=== PATIENT | female | born 1960 | race Caucasian/White ===

== ENCOUNTER 2024-05-09 12:46 | Inpatient (IN) ==
[2024-05-09 13:41] LABS: Basophils # (auto) 0.02 K/uL (0.00-0.20); Basophils % (auto) 0.3 %; Eosinophils # (auto) 0.14 K/uL (0.00-0.50); Eosinophils % (auto) 2.1 %; Hematocrit (blood only) 35.5 % (37.0-47.0); Hemoglobin 11.7 g/dl (12.0-16.0); Immature Granulocytes # (auto) 0.01 K/uL (0.01-0.20); Immature Granulocytes % (auto) 0.2 %; Lymphocytes # (auto) 2.67 K/uL (1.20-3.40); Lymphocytes % (auto) 40.5 %; Mean Corpuscular Hemoglobin 30.5 pg (25.0-34.0); Mean Corpuscular Volume 92.7 fL (80.0-100.0); Mean Platelet Volume 10.3 fL (9.4-12.4); Monocytes # (auto) 0.41 K/uL (0.11-0.59); Monocytes % (auto) 6.2 %; Neutrophils # (auto) 3.34 K/uL (1.40-6.50); Neutrophils % (auto) 50.7 %; Platelet Count 238 K/uL (130-400); RDW Coefficient of Variation 13.5 % (11.5-14.5); RDW Standard Deviation 45.5 fL (36.4-46.3); Red Blood Count 3.83 M/uL (4.20-5.40); White Blood Count 6.59 K/ul (4.8-10.8)
[2024-05-09 14:03] LABS: Alanine Aminotransferase 6 U/L (7-52); Albumin Globulin Ratio 1.2 (0.9-2); Albumin Level 4.2 gm/dl (3.4-5.0); Alkaline Phosphatase 60 U/L (34-104); Anion Gap 5 (3-11); BUN Creatinine Ratio 10.3 (10-20); Bilirubin,Total 0.3 mg/dl (0.2-1.0); Blood Urea Nitrogen 13 mg/dl (6-23); Calcium 9.8 mg/dl (8.6-10.3); Carbon Dioxide 29 mmol/L (21-32); Chloride 100 mmol/L (98-107); Globulin 3.6 gm/dl (2.5-4.0); Glucose 113 mg/dl (70-99(Fasting)); Sodium 134 mmol/L (136-145); Total Protein 7.8 gm/dl (6.0-8.3)
[2024-05-09 14:06] LABS: Troponin I High Sensitivity 3.1 pg/ml (0-14)
--- NOTE | 2024-05-09 14:30 | Emergency Department Note ---
Impression & Plan RLQ abdominal pain, Pseudoaneurysm ED Provider Note NAME: LINDY PRESLEY AGE: 63 SEX: F : 1960 ARRIVES VIA: Walk-In INFORMANT: [Patient] ED PROVIDER(S): [Eliseo Bennett MD] CHIEF COMPLAINT: Abdominal pain HISTORY OF PRESENT ILLNESS: The patient is a 63-year-old female whose had 3 months of a fullness and discomfort in the right lower quadrant. She feels a mass in this area and it has enlarged. The patient had an outpatient CT scan performed 2 days ago, she was called today and told to report to the ER as she had an aneurysm. The patient states that she has had work done on her vessels before, she has had a graft when she was in the . The patient has no nausea, no vomiting. No fever, cough or congestion. No urinary or bowel complaints. CT performed outpatient shows right greater than left femoral artery pseudoaneurysms. Aneurysm was considered less likely. Layering thrombus was observed. The right finding was 6.7 cm in size. The left was 3 cm in size. There was surgical change from a prior aortobiiliac bypass and bilateral common iliac stent grafts. PMHx/PSHx/Social Hx: See Below PHYSICAL EXAM: GENERAL: Patient is in no acute distress. HEENT: No acute trauma, normocephalic atraumatic, mucous membranes moist, no nasal congestion. NECK: No stridor, no adenopathy, no meningismus, trachea is midline. LUNGS: Clear to auscultation bilaterally, no wheeze, no rhonchi, breath sounds equal. Breath sounds diminished bilaterally. HEART: Without murmurs gallops or rubs, regular rate and rhythm. ABDOMEN: Soft, there is a 6 to 8 cm fullness in the right lower quadrant that is pulsatile and somewhat tender. EXTREMITIES: No cyanosis, full range of motion of all the joints without pain or difficulty. NEUROLOGIC: Oriented x 3, no acute motor or sensory deficits, no focal weakness. SKIN: No jaundice, no diaphoresis. DIFFERENTIAL DIAGNOSIS: Aneurysm, pseudoaneurysm, aneurysm rupture, hernia, among others. EMERGENCY DEPARTMENT PROCEDURES: MEDICAL DECISION MAKING: There is no leukocytosis. There is a mild anemia. There is a normal platelet count. No coagulopathy. There is no electrolyte abnormality in need of emergent correction. Creatinine is very slightly elevated. No concerning liver enzyme elevation. ECG shows a sinus rhythm, no ischemia or dysrhythmia. Cardiac enzyme testing x 1 is not consistent with acute cardiac injury. Chest x-ray does not show cardiomegaly or CHF. On exam, the patient did have a pulsatile mass in the right lower quadrant. I was able to obtain the CT images from the outpatient center, she did have a fairly large right sided pseudoaneurysm. I did speak with vascular surgery. The patient was seen by vascular surgery here in the ED. She is being hospitalized for an eventual procedure. The patient is currently resting comfortably, she is not in distress. She understands the need for a hospital stay and surgical intervention. Prior/Outside records/notes reviewed: None ECG per my interpretation: Indication was abdominal pain. The ECG shows a normal sinus rhythm with a rate of 65. There is no ST elevation, no PVCs. The QTc is 411. Continuous Cardiac Monitoring per my interpretation: An order was placed for continuous cardiac monitoring. The monitor shows a rate of 82 with normal sinus rhythm. Imaging/x-ray results per my interpretation: Chest x-ray shows some chronic lung disease, no CHF or pneumonia. Chronic Medical/Social conditions affecting care: Care/Management discussed with: Vascular surgery-Dr. Schaffer Level of care consideration(s): After review of the information above and other included data: --I believe the patient requires escalation of care to admission DISPOSITION: Admission Past Med/Surg History Problem List (Updated 05/09/24 @ 22:51 by Eliseo Bennett MD) Pseudoaneurysm (Acute) RLQ abdominal pain (Acute) Aneurysm artery, femoral Medical History Aortic disease Social History Smoking Status: Current every day smoker Feels Safe at Home: Yes Allergies Allergies Allergy/AdvReac Type Severity Reaction Status Date / Time antibiotics AdvReac Severe extreme Uncoded 05/09/24 16:31 hypergycemia and lactic acid effected Home Meds Home Medications Medication Instructions Recorded Confirmed cholecalciferol (vitamin D3) 25 25 mcg PO QAM 05/09/24 05/09/24 mcg (1,000 unit) tablet (Vitamin D3) clopidogrel 75 mg tablet 75 mg PO QAM 05/09/24 05/09/24 cyanocobalamin (vitamin B-12) 1,000 mcg PO QAM 05/09/24 05/09/24 1,000 mcg tablet lisinopril 5 mg tablet 5 mg PO QAM 05/09/24 05/09/24 magnesium 250 mg tablet 500 mg PO QAM 05/09/24 05/09/24 metformin 500 mg tablet,extended 1,000 mg PO QAM 05/09/24 05/09/24 release 24 hr ondansetron HCl 4 mg tablet 4 mg PO Q8 PRN Nausea And Vomiting 05/09/24 05/09/24 pantoprazole 40 mg tablet,delayed 40 mg PO QAM 05/09/24 05/09/24 release spironolactone 100 mg tablet 100 mg PO QAM 05/09/24 05/09/24 tramadol 50 mg tablet 100 mg PO QID PRN Pain 05/09/24 05/09/24 Results & Data (ED) Vital Signs Vital Signs - 24 hr 05/09/24 12:50 05/09/24 13:47 05/09/24 13:47 Temperature 36.2 C L Temperature Source Temporal Artery Scan Pulse Rate 82 Pulse Rate [Apical] 86 Pulse Rhythm Regular Pulse Strength Normal Respiratory Rate 20 14 Respiratory Effort / Characteristics Non-Labored Spontaneous Respiratory Depth Normal Blood Pressure 120/74 Blood Pressure [Right Arm] 155/74 H Blood Pressure Mean 89 Blood Pressure Mean [Right Arm] 101 Blood Pressure Position Sitting Pulse Oximetry 96 97 98 Oxygen Delivery Method Room Air Room Air Room Air Sepsis Recent Fever Within 48 Hours No Sepsis New/Unexplained Change in Mental Status N/A Sepsis Action Taken by Nursing No Action Required 05/09/24 13:47 05/09/24 14:42 05/09/24 15:00 Temperature Temperature Source Pulse Rate 64 Pulse Rate [Apical] 63 Pulse Rhythm Pulse Strength Respiratory Rate 15 Respiratory Effort / Characteristics Respiratory Depth Blood Pressure Blood Pressure [Right Arm] 146/73 H Blood Pressure Mean Blood Pressure Mean [Right Arm] 97 Blood Pressure Position Pulse Oximetry 98 96 Oxygen Delivery Method Room Air Room Air Sepsis Recent Fever Within 48 Hours Sepsis New/Unexplained Change in Mental Status Sepsis Action Taken by [facility] Medications Current Medication List: was personally reviewed by me Laboratory Data Attestation: I reviewed the patient's lab results. 05/09/24 13:15 05/09/24 14:19 Lab Results 05/09/24 05/09/24 05/09/24 Range/Units 13:15 14:19 14:20 WBC 6.59 (4.8-10.8) K/ul RBC 3.83 L (4.20-5.40) M/uL Hgb 11.7 L (12.0-16.0) g/dl Hct 35.5 L (37.0-47.0) % MCV 92.7 (80.0-100.0) fL MCH 30.5 (25.0-34.0) pg MCHC 33.0 (32.0-36.0) g/dL RDW Std Deviation 45.5 (36.4-46.3) fL RDW Coeff of Mari 13.5 (11.5-14.5) % Plt Count 238 (130-400) K/uL MPV 10.3 (9.4-12.4) fL Immature Gran % (Auto) 0.2 % Neut % (Auto) 50.7 % Lymph % (Auto) 40.5 % Saline % (Auto) 6.2 % Eos % (Auto) 2.1 % Baso % (Auto) 0.3 % Neut # (Auto) 3.34 (1.40-6.50) K/uL Lymph # (Auto) 2.67 (1.20-3.40) K/uL Saline # (Auto) 0.41 (0.11-0.59) K/uL Eos # (Auto) 0.14 (0.00-0.50) K/uL Baso # (Auto) 0.02 (0.00-0.20) K/uL Immature Gran # (Auto) 0.01 (0.01-0.20) K/uL PT Cancelled 10.3 INR Cancelled 0.9 APTT Cancelled 25 PTT Ratio Cancelled 0.9 Sodium 134 L (136-145) mmol/L Potassium TNP 4.6 Chloride 100 (98-107) mmol/L Carbon Dioxide 29 (21-32) mmol/L Anion Gap 5 (3-11) BUN 13 (6-23) mg/dl Creatinine 1.26 H (0.6-1.2) mg/dl Est Cr Clr Drug Dosing 34.0 ml/min eGFR 47.67 BUN/Creatinine Ratio 10.3 (10-20) Glucose 113 H (70-99(Fasting)) mg/dl Calcium 9.8 (8.6-10.3) mg/dl Total Bilirubin 0.3 (0.2-1.0) mg/dl AST TNP 12 L ALT 6 L (7-52) U/L Alkaline Phosphatase 60 (34-104) U/L Troponin I High Sens 3.1 (0-14) pg/ml Total Protein 7.8 (6.0-8.3) gm/dl Albumin 4.2 (3.4-5.0) gm/dl Globulin 3.6 (2.5-4.0) gm/dl Albumin/Globulin Ratio 1.2 (0.9-2) Blood Type Recheck A Positive Administered Medications Discontinued Medications Miscellaneous Information (Patient's Allergy Info Needs Entered) 1 each N/A Q30M JOSE Stop: 06/08/24 16:29 Last Admin: 05/09/24 17:31 Dose: Not Given Documented By: Admin: 05/09/24 16:46 Dose: 1 each Documented By: MAXWELL Imaging Data Radiologist's Impression: Chest X-Ray 05/09/24 12:54 XR chest 1V portable CLINICAL HISTORY: Chest pain, nonspecific COMPARISON STUDY: No previous studies for comparison. FINDINGS: Lung volumes are normal. Lungs are clear. There is no pneumothorax or pleural effusion. Cardiac size is normal. Mediastinal contours are normal. There is no evidence for pulmonary edema. There is apparent oral contrast within visualized portions of the splenic flexure of the colon. IMPRESSION: No acute cardiopulmonary findings. ACT 112: Negative or not required by law. Electronically signed by: Harish Serrano M.D. 05/09/2024 2:31 PM Discharge Plan Visit Data Chief Complaint: Abdominal Pain Stated Complaint: ANUERYSM LOWER ABDOMINAL AREA ED Provider: Eliseo Bennett Discharge Problem: RLQ abdominal pain, Pseudoaneurysm Patient Disposition: Admitted As Inpatient Condition: Good Discharge Instructions Interventions: ED Discharge Assessment Last Done: 05/09/24 20:43
--- NOTE | 2024-05-09 14:33 | XRay Report ---
XR chest 1V portable CLINICAL HISTORY: Chest pain, nonspecific COMPARISON STUDY: No previous studies for comparison. FINDINGS: Lung volumes are normal. Lungs are clear. There is no pneumothorax or pleural effusion. Car diac size is normal. Mediastinal contours are normal. There is no evidence for pulmonary edema. There is apparent oral contrast within visualized portions of the splenic flexure of the colon. IMPRESSION: No acute cardiopulmonary findings. ACT 112: Negative or not required by law. Electronically signed by: Harish Serrano M.D. 05/09/2024 2:31 PM
[2024-05-09 14:51] LABS: Potassium 4.6 mmol/L (3.5-5.1)
[2024-05-09 15:15] LABS: INR 0.9 (0.9-1.1); Partial Thromboplastin Ratio 0.9; Partial Thromboplastin Time 25 Seconds (21-31); Prothrombin Time 10.3 Seconds (9.0-12.0)
--- NOTE | 2024-05-09 16:01 | History & Physical Report ---
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 The larger one is on the right smaller ones on the left. We recommend repair of the right side due to its size and enlargement. I have discussed the risks options and benefits of the procedure with the patient. The patient understands the risks options and benefits and agrees to the procedure. History of Present Illness Chief Complaint: Bilateral femoral artery anastomotic pseudoaneurysms Primary Care Provider: Erick Paz MD This is a 63-year-old female who was complaining of pain in her groins. She noticed increasing size of a mass in her right groin. She claims that it was pulsatile. She has had an aortobifem over 20 years ago. She has had no problems since then. She denies any claudication but she does not walk fast or long distances. She does not do stairs. She has no history of coronary disease. She is a smoker and a diabetic. Past Med/Surg History Problem List (Updated 05/09/24 @ 16:00 by Tyrel Schaffer MD) Aneurysm artery, femoral Social History Smoking Status: Current every day smoker Feels Safe at Home: Yes Review of Systems All systems reviewed & are unremarkable except as noted in HPI & below Physical Exam Constitutional: WD/WN, vitals as above Respiratory: normal respiratory effort; no respiratory distress Auscultation: lungs clear to auscultation bilaterally Cardiovascular: Rate/Rhythm: regular rate and regular rhythm Vessels: femoral pulses present Extremities: normal capillary refill Right groin is a softball sized pulsatile mass. Left groin has a lemon sized pulsatile mass. Both are nontender Gastrointestinal (Abdomen): Inspection/Auscultation: abdomen normal to inspection; abdomen not distended Percussion/Palpation: abdomen soft; abdomen nontender Neurologic: CN's II-XI intact bilaterally and moves all extremities Psychiatric: A+Ox3, euthymic affect Results & Data Vital Signs (Past 12 Hours) Vital Signs Temp Pulse Pulse Resp BP BP Pulse Ox 05/09/24 15:00 63 15 146/73 H 96 05/09/24 14:42 64 05/09/24 13:47 98 05/09/24 13:47 98 05/09/24 13:47 86 14 155/74 H 97 05/09/24 12:50 36.2 C L 82 20 120/74 96 O2 Del Method 05/09/24 15:00 Room Air 05/09/24 14:42 05/09/24 13:47 Room Air 05/09/24 13:47 Room Air 05/09/24 13:47 Room Air 05/09/24 12:50 Room Air
[2024-05-09] MEDS ORDERED: SODIUM CHLORIDE 0.9% 250 ML IV PRN (16:02)
[2024-05-09] MEDS: Patient's ALLERGY Info needs ENTERED SCH (16:46)
[2024-05-09] MEDS ORDERED: ONDANSETRON 4 MG OD TAB PO PRN (21:19)
--- NOTE | 2024-05-10 07:35 | History & Physical Bridge Note ---
Date of Service May 10, 2024 History & Physical Bridge Note I have examined the patient, reviewed the History & Physical and in the interval since the performance of the History & Physical I have noted the following changes of clinical significance: no changes noted
--- NOTE | 2024-05-10 09:14 | XCELERA ---
[id number]
[2024-05-10] MEDS: LACTATED RINGER'S 1,000 ML IV SCH (09:43)
[2024-05-10] MEDS ORDERED: fentaNYL citrate PF 100 MCG/2 ML VIAL ONE ×2 (09:45→11:14)
[2024-05-10] MEDS ORDERED: MIDAZOLAM HCL 1 MG/ML 2ML VIAL ONE (09:45)
[2024-05-10] MEDS ORDERED: PROPOFOL IV EMULSION 10 MG/ML 20 ML VIAL IV ONE (09:46)
[2024-05-10] MEDS ORDERED: LIDOCAINE 2% 2 ML VIAL/AMP(20MG/ML) INFIL ONE (09:46)
[2024-05-10] MEDS ORDERED: DEXAMETHASONE SOD INJ 4 MG/ML VIAL ONE (09:46)
[2024-05-10] MEDS ORDERED: ONDANSETRON INJ 2 MG/ML 2 ML VIAL ONE (09:46)
[2024-05-10] MEDS ORDERED: ROCURONIUM BROMIDE 10 MG/ML 5 ML VIAL IV ONE ×2 (09:46→11:17)
--- OUTSIDE RECORDS SUMMARY | 2024-05-10 10:01 | External Medical Summary | Summary of Care ---
Author Name Unknown Organization [facility] Address [address] [place] [address] Phone [phone] Care Team Providers Care Roulette Dealer Name Role Phone Brandi HWANG MD, Erick Davidson Primary Care Provider [phone] Reason for Referral * Precert (Within 10 days (routine)) - Pending Review Specialty Diagnoses / Procedures Referred By Contac t Referred To Contact Radiology Diagnoses Abdominal mass, RLQ (right lower quadrant) Procedures CT ABD/PELVIS W IV AND W ORAL CONTRAST Jorden Calhoun MD [address] [place] [address] Referral ID Status Reason Start Date Expiration Date V isits Requested Visits Authorized [id number] Pending Review 05/03/2024 999 [id number] Reason for Visit * Reason Comments NEW PATIENT Right inguinal herni a? * Evaluate & Treat - Unlimited Visits (Within 10 days (routine)) - Pending Review Specialty Diagnoses / Procedures Referred By Prashanth t Referred To Contact General Surgery Diagnoses Non-recurrent unilateral inguinal hernia without obstruction or gangrene Erick Paz III, MD [address] [place] [address] Referral ID Status Reason Start Date Expiration Date Visits Requested Visits Authorized [id number] Pending Review Specialty Services Required 04/29/2024 [id number] Encounter Details Date Type Department Care Team (Late st Contact Info) Description 05/03/2024 11:30 AM EDT Office Visit General Surgery, [facility] [address] [place] [address] Jorden Calhoun MD [address] [place] [address] Abdominal mass, RLQ (right lower quadrant)* Allergies Active Allergy Reactions Criticality Noted Date Comments Amoxicillin-Pot Clavulanate Diarrhea Medium 05/12/20 17 Elevated BS--went to ER, can only take low doses of any antibiotics Corticosteroids High 08/30/2022 Elevated lactic acid documented as of this encounter (statuses as of 05/03/2024) Medications Medication Sig Dispensed Refills Start Date End Date Status Cholecalciferol (VITAMIN D3) 2000 units Capsule Take 1 Cap by mouth daily. 90 Cap 3 05/23/2018 Active FreeStyle Lancets MISC Test blood sugars 3 times daily DX E11.9 300 Each 1 04/02/2020 Active Vitamin C 500 MG Oral Capsule Take 1 Capsule by mouth daily. 30 Capsule 06/15/2021 Active Co Q-10 100 MG Oral Capsule Take by mouth daily. Active FreeStyle Lite Test In Vitro Strip (Glucose Blood) Test blood sugars 3 times daily DX E11.9 300 Strip 09/19/2023 Active Pen Harrold 3/16" 31G X 5 MM Use 1 time daily with Lantus pen as directed. 100 Each 09/19/2023 Active Cyanocobalamin 1000 MCG Oral Tablet (Cyanocobalamin) Take 1 Tablet by mouth in the morning. 100 Tablet 3 09/18/2023 Active Benzonatate 100 MG Oral Capsule (Tessalon Perles)Indications:A cute cough Take 1 Capsule by mouth 3 times a day as needed for Cough. Do not cut, crush, or chew. 50 Capsule 1 09/18/2023 Active Spironolactone 100 MG Oral Tablet (Aldactone)Indicatio ns:Hirsutism TAKE 1/2 TABLET by mouth TWICE A DAY 90 Tablet 1 01/16/2024 Active Ondansetron HCl 4 MG Oral Tablet (Zofran) TAKE ONE TABLET BY MOUTH EVERY SIX HOURS NEEDED for nausea 90 Tablet 01/16/2024 Active Clopidogrel Bisulfate 75 MG Oral Tablet (pLAVix) Take 1 Tablet by mouth in the morning. 90 Tablet 1 01/16/2024 Active Pravastatin Sodium 40 MG Oral Tablet (Pravachol) Take 1 Tablet by mouth every evening. 90 Tablet 1 01/16/2024 Active metFORMIN HCl ER 500 MG Oral Tablet Extended Release 24 Hour (Glucophage XR) Take 2 Tablets by mouth in the morning. 180 Tablet 1 04/29/2024 Active Lisinopril 5 MG Oral Tablet (Prinivil) TAKE 1 TABLET by mouth ONCE A day at Night 90 Tablet 1 04/29/2024 Active Pantoprazole Sodium 40 MG Oral Tablet Delayed Release (Protonix) Take 1 Tablet by mouth in the morning. 90 Tablet 04/29/2024 Active traMADol HCl 50 MG Oral Tablet (Ultram)Indications: Chronic bilateral thoracic back pain Take 2 Tablets by mouth every 8 hours as needed for Pain, Moderate or Pain, Severe. 180 Tablet 1 04/29/2024 Active documented as of this encounter (statuses as of 05/03/2024) Active Problems Problem Noted Date Diagnosed Date Chronic kidney disease, stage 3a 01/19/2021 Overview: Per CKD protocol Type 2 diabetes mellitus wit h stage 3a chronic kidney disease and hypertension 12/15/2020 Overview: Per CKD protocol Essential hypertension with goal blood pressure less than 140/90 06/07/2016 Benign neoplasm of colon 08/25/2009 Overview: adenomatous polyp--repeat 3 years Type 2 diabetes mellitus wit h hemoglobin A1c goal of less than 7.0% 06/04/2009 Overview: Per Diabetes Taxonomy. ICD-10 update of inactive term Backache 09/05/2008 Menopause 07/02/2007 documented as of this encounter (statuses as of 05/03/2024) Resolved Problems Problem Noted Date Diagnosed Date Resolved Date Stricture of artery 10/14/2022 10/15/19 23 Hypertension in stage 3 stripper color patsy kidney disease due to type 2 diabetes mellitus 11/14/2017 12/17/2020 Overview: Per CKD protocol #1 Type 2 diabetes mellitus wit h chronic kidney disease and hypertension 07/05/2017 11/17/2017 Overview: Per CKD protocol #1 Kidney disease, chronic, sta ge III (GFR 30-59 ml/min) 09/30/2013 12/28/2017 Overview: Per CKD protocol #1 Type 2 diabetes mellitus wit h hemoglobin A1c goal of less than 7.0% 05/15/2007 06/04/2009 Overview: Per Diabetes Taxonomy. ICD-10 update of inactive term Stricture of artery 12/10/2002 06/15/20 21 documented as of this encounter (statuses as of 05/03/2024) Immunizations Name Administration Dates Next Due H1N1 2009 Influenza, IM 08/11/2009 Hepatitis B, 20+ yrs 10/30/2014,05/26/2014,04/24 Pneumococcal Conjugate Vacc, 13 Valent (Prevnar) 12/28/2016 Pneumococcal Polysaccharide PPV23 (Pneumovax) 12/26/2005 Seasonal Influenza, PF, 6 M & above, IM , (FluLaval or Fluzone) 05/10/2022,05/31/2019,05/23/2018,07/05 Seasonal Influenza, Quadriva lent, No Preserve, IM 06/07/2016,05/27/2015 Seasonal Influenza, Trivalen t, (IIV3), PF, (Fluzone) 04/29/2024 Seasonal Influenza, Trivalen t, (IIV3), with Preserv, (Fluzone) 04/24/2014,05/30/2013,04/27/2012,04/15,06/04/2010,05/29/2009,06/13/2008 ,05/15/2007,06/05/2006 TDAP, Age 7 and older, IM (Adacel) 06/13/2008 documented as of this encounter Social History Tobacco Use Types Packs/Day Years Used Date Smoking Tobacco: Every Day Cigarettes 1 15 Smokeless Tobacco: Never Alcohol Use Standard Drinks/Week Comments No 0 (1 standard drink = 0.6 oz pur e alcohol) PHQ-2 Answer Date Recorded PHQ-2 Score 0 08/21/2019 Hunger Vital Sign Answer Date Recorded Within the past 12 months, y ou worried that your food would run out before you got the money to buy more. Never true 10/04/19 23 Within the past 12 months, t he food you bought just didn't last and you didn't have money to get more. Never true 10/04/2022 Sex and Gender Information Value Date Recorded Sex Assigned at Female 10/04/2022 8:51 AM EST Gender Identity Female 10/04/2022 8:51 AM EST Sexual Orientation Straight 10/04/2022 8: 51 AM EST Job Start Date Occupation Industry Not on file Not on file Not on file documented as of this encounter Last Filed Vital Signs Vital Sign Reading Time Taken Comments Blood Pressure 142/65 05/03/2024 11:04 AM EDT Pulse 79 05/03/2024 11:04 AM EDT Temperature - - Respiratory Rate - - Oxygen Saturation - - Inhaled Oxygen Concentration - - Weight 51.3 kg (113 lb) 05/03/2024 11:04 AM EDT Height - - Body Mass Index 21.35 04/29/2024 10:50 AM EDT documented in this encounter Progress Notes * Jorden Calhoun MD - 05/03/2024 1:01 PM EDT SUBJECTIVE: Liliana Abebe is a 63 year old female. Chief Complaint Patient presents with NEW PATIENT Right inguinal hernia? HPI: 63-year-old woman presents with question of a hernia in her right groin. She has noticed a lump there. She states it causes some tenderness. She denies nausea or vomiting. She denies trouble moving her bowels. She denies significant other problems. She was peripheral vascular disease and has had prior major abdominal surgery for some type of arterial bypass. Past Medical History: Diagnosis Date Argueta's esophagus 12/12/12 repeat in 3 years Benign neoplasm of colon 08/25/09 adenomatous polyp--repeat 3 years Disorder of intervertebral disc DM type 2, goal A1c below 7 Diabetes Type II, Controlled Dysplasia of cervix (uteri) 04/09 ASCUS +HPV pap - colpo CIN1 Hirsutism INFORMATION hypercholesterolemia Peripheral vascular disease (HCC) angiogram 05/11 led to blood clot in L upper arm - brachial Pneumothorax 08/31/2019 [facility] Past Surgical History: Procedure Laterality Date ANGIOLPLASTY ILIAC,PERCUT times 3 BUNION CORRECTED WITH DOUBLE OSTEOTOMY 1995 COLONOSCOPY W/ LESION REMOVAL, SNARE 08/25/2009 adenomatous polyp--repeat 3 years COLONOSCOPY, DIAGNOSTIC (RECTUM) 08/21/2012 COLONOSCOPY FLEXIBLE PROXIMAL DIAGNOSTIC performed by Benny De La Garza MD at [facility]COPY [facility] COLONOSCOPY, DIAGNOSTIC (RECTUM) 09/26/2017 adenomatous polyps, diverticulosis, repeat 3 yrs/COLONOSCOPY FLEXIBLE PROXIMAL DIAGNOSTIC performedby Benny De La Garza MD at ENDOSCOPY [facility] COLONOSCOPY, DIAGNOSTIC (RECTUM) 09/05/2022 diverticulosis, repeat 5 yrs / COLONOSCOPY FLEXIBLE PROXIMAL DIAGNOSTIC performed by Benny De La Garza MD at ENDOSCOPY [facility] DIABETIC EYE EXAM 09/10/2013 DILATION AND CURETTAGE (D&C) EGD, FLEXIBLE, DIAGNOSTIC 12/12/2012 UPPER GI ENDOSCOPY DIAGNOSTIC performed by Benny De La Garza MD at ENDOSCOPY [facility] EGD, FLEXIBLE, DIAGNOSTIC 06/15/2015 [place]retts, sm HH, repeat 3 mo/ESOPHAGOGASTRODUODENOSCOPY (EGD), FLEXIBLE, TRANSORAL, DIAGNOSTIC performed by Benny De La Garza MD at [facility]OSCOPY [facility] EGD, FLEXIBLE, DIAGNOSTIC 09/23/2015 [place], repeat 6 mo/ESOPHAGOGASTRODUODENOSCOPY (EGD), FLEXIBLE, TRANSORAL, DIAGNOSTIC performed by Benny De La Garza MD at [facility] EGD, FLEXIBLE, DIAGNOSTIC 11/04/2016 normal bx, sm HH, repeat 3 yrs/ESOPHAGOGASTRODUODENOSCOPY (EGD), FLEXIBLE, TRANSORAL, DIAGNOSTIC performed by Benny De La Garza MD at [facility] EGD, FLEXIBLE, DIAGNOSTIC 09/05/2022 [place]ts, repeat 3 yrs / ESOPHAGOGASTRODUODENOSCOPY (EGD), FLEXIBLE, TRANSORAL, DIAGNOSTIC performed by Benny De La Garza MD at ENDOSCOPY [facility] INFORMATION "Blockage of aorta" - bypass done to improve leg circulation INFORMATION 2004 angioplasty - "graft into legs blocked" - after this had L brachial blood clot Current Outpatient Medications Medication Sig Dispense Refill Cholecalciferol (VITAMIN D3) 2000 units Capsule Take 1 Cap by mouth daily. 90 Cap 3 FreeStyle Lancets [facility] Test blood sugars 3 times daily DX E11.9 300 Each 1 Vitamin C 500 MG Oral Capsule Take 1 Capsule by mouth daily. 30 Capsule 0 Co Q-10 100 MG Oral Capsule Take by mouth daily. FreeStyle Lite Test In Vitro Strip (Glucose Blood) Test blood sugars 3 times daily DX E11.9 300 Strip 0 Pen Harrold 316" 31G X 5 MM Use 1 time daily with Lantus pen as directed. 100 Each 0 Cyanocobalamin 1000 MCG Oral Tablet (Cyanocobalamin) Take 1 Tablet by mouth in the morning. 100 Tablet 3 Benzonatate 100 MG Oral Capsule (Tessalon Perles) Take 1 Capsule by mouth 3 times a day as needed for Cough. Do not cut, crush, or chew. 50 Capsule 1 Spironolactone 100 MG Oral Tablet (Aldactone) TAKE 1/2 TABLET by mouth TWICE A DAY 90 Tablet 1 Ondansetron HCl 4 MG Oral Tablet (Zofran) TAKE ONE TABLET BY MOUTH EVERY SIX HOURS NEEDED for nausea 90 Tablet 0 Clopidogrel Bisulfate 75 MG Oral Tablet (pLAVix) Take 1 Tablet by mouth in the morning. 90 Tablet 1 Pravastatin Sodium 40 MG Oral Tablet (Pravachol) Take 1 Tablet by mouth every evening. 90 Tablet 1 metFORMIN HCl ER 500 MG Oral Tablet Extended Release 24 Hour (Glucophage XR) Take 2 Tablets by mouth in the morning. 180 Tablet 1 Lisinopril 5 MG Oral Tablet (Prinivil) TAKE 1 TABLET by mouth ONCE A day at Night 90 Tablet 1 Pantoprazole Sodium 40 MG Oral Tablet Delayed Release (Protonix) Take 1 Tablet by mouth in the morning. 90 Tablet 0 traMADol HCl 50 MG Oral Tablet (Ultram) Take 2 Tablets by mouth every 8 hours as needed for Pain, Moderate or Pain, Severe. 180 Tablet 1 No current facility-administered medications for this visit. Review of patient's allergies indicates: Allergen Reactions Corticosteroids Elevated lactic acid Augmentin [Amoxicillin-Pot Clavulanate] Diarrhea Elevated BS--went to ER, can only take low doses of any antibiotics Social History: Social History Tobacco Use Smoking status: Every Day Current packs/day: 1.00 Average packs/day: 1 pack/day for 15.0 years (15.0 ttl pk-yrs) Types: Cigarettes Smokeless tobacco: Never Substance Use Topics Alcohol use: No Vaping/E-Cigarette Use Vaping/E-Cigarette Use Never User Vaping/E-Cigarette Substances Vaping/E-Cigarette Devices ROS As per HPI, otherwise negative OBJECTIVE: PHYSICAL EXAM: BP 142/65 | Pulse 79 | Wt 51.3 kg (113 lb) | LMP 02/10/2001 | BMI 21.35 kg/m | BSA 1.49 m General: alert, healthy, and no distress Head: Normocephalic, No masses, lesions, tenderness or abnormalities Eye Exam: conjunctiva are pink and non-injected, sclera clear Heart: regular rate & rhythm, no murmur, and no gallops Lungs: chest symmetric with normal AP diameter, no chest deformities noted, no chest wall tenderness, lungs clear to auscultation Abdomen: abdomen soft, non-tender, and right lower quadrant firm pulsatile mass; this is in the area of the right inguinal region, however it is not reducible Extremities: no edema, no skin discoloration, no clubbing, no cyanosis Skin: skin color, texture, turgor are normal, no rashes or significant lesions ASSESSMENT: (R19.03) Abdominal mass, RLQ (right lower quadrant) (primary encounter diagnosis) PLAN: 63-year-old woman with right lower quadrant abdominal mass. Etiology is unknown. We will obtain a CT scan for further evaluation with IV and p.o. contrast. She will return to clinic once this is complete. She will call with any new or concerning symptoms in the meantime. Jorden Calhoun MD 05/03/2024 documented in this encounter Nursing Notes * Juvencio Lopez MED ASSIST - 05/03/2024 11:06 AM EDT Chief Complaint Patient presents with NEW PATIENT Right inguinal hernia? Verified patient. Some pain 11/14 on/off. documented in this encounter Plan of Treatment Upcoming Encounters Date Type Department Care Team (Late st Contact Info) Description 05/07/2024 12:45 PM EDT Imaging Radiology [facility] [address] [place] [address] 05/15/2024 2:15 PM EDT Office Visit General Surgery, [address] [place] [address] Jorden Calhoun MD [address] [place] [address] 07/15/2024 9:00 AM EST Office Visit Family Practice [facility] [address] [place] [address] [facility] [place] [address] Erick Paz III, MD [address] [facility] [place] [address] Scheduled Orders Name Type Priority Associated Diagnoses Orde r Schedule CT ABD/PELVIS W IV AND W ORAL CONTRAST Medical Imaging Routine Abdominal mass, RLQ (right lower quadrant) Expected: 05/03/2024, Expires: 05/03/2025 Scheduled Procedures Name Priority Associated Diagnoses Date/Ti me COLONOSCOPY FLEXIBLE PROXIMAL DIAGNOSTIC Recall History of colon polyps ESOPHAGOGASTRODUODENOSCOPY ( EGD), FLEXIBLE, TRANSORAL, DIAGNOSTIC Recall Argueta esophagus Health Maintenance Due Date Last Done Comments HPV/Co-Test 1989 Cologuard 2004 Fecal Occult Blood Test 2004 01/31/2001 Sigmoidoscopy 2004 Zoster Vaccines (1 of 2) 2009 DISCUSS TOBACCO CESSATION (REFER TO SMARTSET #3291) 08/19/2015 08/19/2014 (Discussed) DTap/Tdap Vaccines (2 - Td or Tdap) 06/13/2018 06/13/2008 Depression Screening 08/21/2020 08/21/2019 Diabetic Foot Exam 04/02/2021 04/02/2020, 0 02/27/2019, 05/23/2018, Additional history exists Cervical Cancer Screening 08/30/2022 Pap Smear 08/30/2022 08/30/2019, 12/06, 12/23/2014, Additional history exists Mammogram 10/15/2023 10/14/2022, 06/08, 06/26/2019, Additional history exists COVID-19 Vaccine ( - 2023- season) 2024 Pneumococcal Vaccine: Pediatrics (0 to 5 Years) and At-Risk Patients (6 to 64 Years) (3 of 3 - PPSV23 or PCV20) 2024 12/28/2016, 12/26/2005 GFR 10/04/2024 04/05/2024, 09/07, 10/14/2022, Additional history exists HbA1c 10/04/2024 04/05/2024, 10/05, 10/14/2022, Additional history exists CKD HGB USE SMARTSET 99487 10/18/202410/18, 05/10/2022, 06/07/2021, Additional history exists Diabetic Eye Exam 10/18/2024 10/19/2023, , 09/06/2019, Additional history exists Albumin/Creatinine Ratio 10/20/2024 024, 10/19/2021, 03/27/2020, Additional history exists CKD PHOS USE SMARTSET 80095 04/05/202503/09, 05/10/2022, 02/27/2019, Additional history exists Colonoscopy 09/05/2027 09/05/2022, 08/09, 09/26/2017, Additional history exists Colorectal Cancer Screening 09/05/2027 Lipid Panel 04/05/2029 04/05/2024, 10/05, 10/14/2022, Additional history exists RETIRED - COLONOSCOPY-EVERY 5 YRS AGES 18-100 Discontinued 09/05/2022, 09/05/2022, 09/26/2017, Additional history exists Influenza Vaccine (FLU shot) Completed 04/29/2024, 05/10/2022, 05/31/2019, Additional history exists HPV (Gardasil) Vaccine Aged Out No lo nger eligible based on patient's age to complete this topic MENINGOCOCCAL (MENACTRA/MENVEO) Aged Out No longer eligible based on patient's age to complete this topic documented as of this encounter Medical Devices Not on filedocumented as of this encounter Visit Diagnoses Diagnosis Abdominal mass, RLQ (right lower quadrant)- Primary Abdominal or pelvic swelling, mass, or lump, right lower quadrant documented in this encounter Care Teams Roulette Dealer Relationship Specialty Start Date End Date Erick Paz III, MD [address] [facility] [place] [address] PCP - General 11/26/03 documented as of this encounter
--- OUTSIDE RECORDS SUMMARY | 2024-05-10 10:02 | External Medical Summary ---
Author Name Unknown Address Unknown Organization [id number][place] [place] [address] [facility] [place] [address] Laboratory Report Ordering Provider Test Date Status ROBERTH BYRNE 04/05/2024 08:59:23 Final Observation Date Value Abnormality Reference (Units ) Status Triglyceride 04/05/2024 08:59:23 121 <=174 ( mg/dL) Final Triglyceride Reference Range s (mg/dL):
<150 Acceptable
150-174 Borderline high
175-499 High
>=500 Very high Cholesterol 04/05/2024 08:59:23 148 <200 (mg /dL) Final Total Cholesterol Reference Ranges (mg/dL):
<200 Desirable
200-239 Borderline high
>=240 High HDL 04/05/2024 08:59:23 42 Below low normal >49 (mg/dL) Final HDL Cholesterol Reference Ra nges (mg/dL):
>=60 High (Desirable)
<50 Low (Undesirable) For Females
<40 Low (Undesirable) For Males NON-HDL CHOLESTEROL 04/05/2024 08:59:23 106 <=159 (mg/dL) Final Non-HDL Cholesterol Referenc e Range (mg/dL):
<100 Target level for high risk ASCVD patient
<130 Optimal for general population
130-159 Near optimal for general population
160-189 Borderline High
190-219 High
>=220 Very High LDL, (calculated) 04/05/2024 08:59:23 82 <= 129 (mg/dL) Final LDL Cholesterol Reference Ra nges (mg/dL):
<70 Target level for high risk ASCVD patient
<100 Optimal for general population
100-129 Near optimal for general population
130-159 Borderline high
160-189 High
>=190 Very high Performing Location [facility] [place] [address] [facility] [address]
--- OUTSIDE RECORDS SUMMARY | 2024-05-10 10:02 | External Medical Summary | Summary of Care ---
Author Name Unknown Organization [facility] Address [address] [facility] [place] [address] Phone [phone] Care Team Providers Care Counter Cutter Name Role Phone Brandi HWANG MD, Erick Kendrick Primary Care Provider Reason for Visit * Reason Comments Re-Check Encounter Details Date Type Department Care Team (Late st Contact Info) Description 03/22/2024 9:00 AM EDT Office Visit Family Practice [facility] [address] [place] [address] Colleen Cabrera PA-C [address] [facility] [place] [address] DDD (degenerative disc disease), lumbar*; DDD (degenerative disc disease), cervical Allergies Active Allergy Reactions Criticality Noted Date Comments Amoxicillin-Pot Clavulanate Diarrhea Medium 05/12/20 17 Elevated BS--went to ER, can only take low doses of any antibiotics Corticosteroids High 08/30/2022 Elevated lactic acid documented as of this encounter (statuses as of 03/22/2024) Medications Medication Sig Dispensed Refills Start Date [...] DX E11.9 300 Strip 09/19/2023 Active Pen Portland 3/16" 31G X 5 MM Use 1 time daily with Lantus pen as directed. 100 Each 09/19/2023 Active Cyanocobalamin 1000 MCG Oral Tablet (Cyanocobalamin) Take 1 Tablet by mouth in the morning. 100 Tablet 3 09/18/2023 Active Benzonatate 100 MG Oral Capsule (Tessalon Perles)Indications: Acute cough Take 1 Capsule by mouth 3 times a day as needed for Cough. Do not cut, crush, or chew. 50 Capsule 1 09/18/2023 Active traMADol HCl 50 MG Oral Tablet (Ultram)Indications :Chronic bilateral thoracic back pain Take 2 Tablets by mouth every 8 hours as needed for moderate to severe pain 180 Tablet 1 12/01/2023 Active Spironolactone 100 MG Oral Tablet (Aldactone)Indicati ons:Hirsutism TAKE 1/2 TABLET by mouth TWICE A DAY 90 Tablet 1 01/16/2024 Active metFORMIN HCl ER 500 MG Oral Tablet Extended Release 24 Hour (Glucophage XR) Take 2 Tablets by mouth in the morning. 180 Tablet 1 01/16/2024 Active Ondansetron HCl 4 MG Oral Tablet (Zofran) TAKE ONE TABLET BY MOUTH EVERY SIX HOURS NEEDED for nausea 90 Tablet 01/16/2024 Active Lisinopril 5 MG Oral Tablet (Prinivil) TAKE 1 TABLET by mouth ONCE A day at Night 90 Tablet 1 01/16/2024 Active Clopidogrel Bisulfate 75 MG Oral Tablet (pLAVix) Take 1 Tablet by mouth in the morning. 90 Tablet 1 01/16/2024 Active Pravastatin Sodium 40 MG Oral Tablet (Pravachol) Take 1 Tablet by mouth every evening. 90 Tablet 1 01/16/2024 Active Pantoprazole Sodium 40 MG Oral Tablet Delayed Release (Protonix) Take 1 Tablet by mouth in the morning 30 minutes before the first meal of the day. Do not crush, split or chew the tablet. 90 Tablet 01/16/2024 Active Insulin Glargine Solostar 100 UNIT/ML Subcutaneous Solution Pen-injector (Lantus SoloStar)Indication s:Type 2 diabetes mellitus with hemoglobin A1c goal of less than 7.0% (HCC) Inject 10 Units under the skin in the morning. 15 mL 1 01/25/2024 Active hydrocortisone 2.5 % creamIndications:De rmatitis Equal parts lotromin 3 x daily to ankle rash 30 g 5 07/05/2017 4 Discontinue d(Medicatio n List Clean Up) Zoster Vac Recomb Adjuvanted 50 MCG/0.5ML Intramuscular Suspension Reconstituted (Shingrix) Inject 0.5 mL into a large muscle now and repeat dose in 60 to 180 days 1 Each 1 10/14/2022 4 Discontinue d(Medicatio n List Clean Up) Trulicity 1.5 MG/0.5ML Subcutaneous Solution Pen-injector (Dulaglutide)Indica tions:Type 2 diabetes mellitus with hemoglobin A1c goal of less than 7.0% (HCC) Inject 1.5 mg under the skin once a week. 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 [...] as of this encounter (statuses as of 03/22/2024) Immunizations Name Administration Dates Next Due H1N1 2008 Influenza, IM 08/11/2009 Hepatitis B, 20+ yrs 10/30/2014,05/26/2014,04/24 Pneumococcal Conjugate Vacc, 13 Valent (Prevnar) 12/28/2016 Pneumococcal Polysaccharide PPV23 (Pneumovax) 12/26/2005 Seasonal Influenza, PF, 6 M & above, IM , (FluLaval or Fluzone) 05/10/2022,05/31/2019,05/23/2018,07/05 Seasonal Influenza, Quadriva lent, No Preserve, IM 06/07/2016,05/27/2015 Seasonal Influenza, Split, I IV3, With Preserve, Inj 04/24/2014,05/30/2013,04/27/2012,04/15,06/04/2010,05/29/2009,06/13/2008 ,05/15/2007,06/05/2006 TDAP, Age 7 and older, [...] Sign Reading Time Taken Comments Blood Pressure 124/60 03/22/2024 8:52 AM EDT Pulse 66 03/22/2024 8:52 AM EDT Temperature 36.7 C (98 F) 03/22/2024 8:52 AM EDT Respiratory Rate 18 03/22/2024 8:52 AM EDT Oxygen Saturation 98% 03/22/2024 8:52 AM EDT Inhaled Oxygen Concentration - - Weight 50.1 kg (110 lb 6.4 oz) 03/22/2024 8:52 A M EDT Height - - Body Mass Index 20.86 10/19/2023 10:27 AM EDT documented in this encounter Progress Notes * Colleen Cabrera PA-C - 03/22/2024 8:57 AM EDT SUBJECTIVE: CC: Liliana Abebe is a 63 year old female who presents for medication check. HPI: Patient states that she is here today for assessment low back and neck pain. She has been on tramadol chronically for 20 + years with good relief of pain. Reports that if she does not take tramadol her pain is severe 8/10 and limit ADLs, simple activities throughout the day are not possible. She was following with [facility] in [facility] for this, but transferred care a few years ago due to convenience. She has known lumbar and cervical DDD, last xrays for C spine and L spine were from 2011. She reports that in last year pain has increased, no specific injury. Pain is worse in low back, 8/10 without medication. She does take tylenol at times if tramadol is not effective. Typicallyshe takes tramadol 2 tablets in morning and repeats this in evening if needed. Last Rx was November 2023 for 180 tabs, 1 refill. Patient is not on AYE per chart review, did not find record that PCP required AYE. She has not had UDS. In the past she has tried NSAIDs, acetaminophen with minimal to no relief. She had issue with Tramadol Rx recently required prior auth. Reports that on 02/19/24 her fiance of 9 years, of [place]. It was sudden. She feels she has been adjusting well. No SI or HI. She does have good support system, lots of family and friends. She is moving from [facility] to [place] soon to be closer to family. I have evaluated Liliana Abebe and have documentation of an appropriate physical exam, diagnostic testing/imaging results, and pain assessment indicating [id number] pain. FOR RENEWAL REQUESTS: Liliana experienced an improvement in pain control and level of functioning while taking the requested medication? Yes Liliana is being monitored for adverse events and warning signs of serious problems, such as overdose and opioid use disorder? Yes FOR ALL REQUESTS: The requested opioid medication will be used in combination with tolerated non- drug therapies and non-opioid medications? Yes The anticipated duration of therapy with opioids is: ongoing, 1+ year Liliana was evaluated for risk factors for opioid-related harm, and if at high risk for opioid-related harm I considered prescribing naloxone? Yes If the patient is also prescribed a benzodiazepine, the benzodiazepine or opioid is being tapered or concomitant use is medically necessary? Not applicable patient not prescribed benzodiazepine. CAGE-AID Have you felt you ought to cut down on your drinking or drug use? No Have people annoyed you by criticizing your drinking or drug use? No Have you felt bad or guilty about your drinking or drug use? No Have you ever had a drink or used drugs first thing in the morning to steady your nerves or to get rid of a hangover (eye-opening)? No Nursing Notes: Shy Gordon LPN 03/22/24 0902 Signed Liliana Abebe presents for medication recheck. Medications & HM reviewed. ROS: See HPI for pertinent positive and negatives HISTORY: Past Medical History: Diagnosis Date Argueta's esophagus [...] L upper arm - brachial Pneumothorax 08/31/2019 [facility] Past Surgical History: Procedure Laterality Date ANGIOLPLASTY ILIAC,PERCUT times 3 BUNION CORRECTED WITH DOUBLE OSTEOTOMY 1995 COLONOSCOPY W/ LESION REMOVAL, SNARE 08/25/2009 adenomatous polyp--repeat 3 years COLONOSCOPY, DIAGNOSTIC (RECTUM) 08/21/2012 COLONOSCOPY FLEXIBLE PROXIMAL DIAGNOSTIC performed by Benny De La Garza MD at ENDOSCOPY [facility] COLONOSCOPY, DIAGNOSTIC (RECTUM) 09/26/2017 adenomatous polyps, diverticulosis, repeat 3 yrs/COLONOSCOPY FLEXIBLE PROXIMAL DIAGNOSTIC performedby Benny De La Garza MD at ENDOSCOPY [facility] COLONOSCOPY, DIAGNOSTIC (RECTUM) 09/05/2022 diverticulosis, repeat 5 yrs / COLONOSCOPY FLEXIBLE PROXIMAL DIAGNOSTIC performed by Benny De La Garza MD at ENDOSCOPY [facility] DIABETIC EYE EXAM 09/10/2013 DILATION AND CURETTAGE (D&C) EGD, FLEXIBLE, DIAGNOSTIC 12/12/2012 UPPER GI ENDOSCOPY DIAGNOSTIC performed by Benny De La Garza MD at ENDOSCOPY [facility] EGD, FLEXIBLE, DIAGNOSTIC 06/15/2015 [place], sm HH, repeat 3 mo/ESOPHAGOGASTRODUODENOSCOPY (EGD), FLEXIBLE, TRANSORAL, DIAGNOSTIC performed by Benny De La Garza MD at ENDOSCOPY [facility] EGD, FLEXIBLE, DIAGNOSTIC 09/23/2015 [place], repeat 6 mo/ESOPHAGOGASTRODUODENOSCOPY (EGD), FLEXIBLE, TRANSORAL, DIAGNOSTIC performed by Benny De La Garza MD at ENDOSCOPY [facility] EGD, FLEXIBLE, DIAGNOSTIC 11/04/2016 normal bx, sm HH, repeat 3 yrs/ESOPHAGOGASTRODUODENOSCOPY (EGD), FLEXIBLE, TRANSORAL, DIAGNOSTIC performed by Benny De La Garza MD at ENDOSCOPY [facility] EGD, FLEXIBLE, DIAGNOSTIC 09/05/2022 [place], repeat 3 yrs / ESOPHAGOGASTRODUODENOSCOPY (EGD), FLEXIBLE, TRANSORAL, DIAGNOSTIC performed by Benny De La Garza MD at ENDOSCOPY [facility] INFORMATION "Blockage of aorta" - bypass done to improve leg circulation INFORMATION 2004 angioplasty - "graft into legs blocked" - after this had L brachial blood clot Social History Tobacco Use Smoking status: Every Day Current packs/day: 1.00 Average packs/day: 1 pack/day for 15.0 years (15.0 ttl pk-yrs) Types: Cigarettes Smokeless tobacco: Never Vaping Use Vaping status: Never Used Substance Use Topics Alcohol use: No Drug use: No Family History Problem Relation Name Age of Onset Asthma Mother Heart Disorder Mother bypass, 1st [place] age 54 @75 Diabetes Mother Cancer Mother lung No Past Hx Father stepfather Diabetes Grandmother (Maternal) Diabetes Aunt (Unspecified) Diabetes Aunt (Unspecified) Eye Problems Aunt (Unspecified) GLAUCOMA Other (Other) Other no breast/ovarian/colon cancer Eye Problems Other Denies FH: AMD, RD's or BLINDNESS Breast Cancer No significant family history Current Outpatient Medications Medication Sig Dispense Refill Insulin Glargine Solostar 100 UNIT/ML Subcutaneous Solution Pen-injector (Lantus SoloStar) Inject 10 Units under the skin in the morning. 15 mL 1 Clopidogrel Bisulfate 75 MG Oral Tablet (pLAVix) Take 1 Tablet by mouth in the morning. 90 Tablet 1 Lisinopril 5 MG Oral Tablet (Prinivil) TAKE 1 TABLET by mouth ONCE A day at Night 90 Tablet 1 metFORMIN HCl ER 500 MG Oral Tablet Extended Release 24 Hour (Glucophage XR) Take 2 Tablets by mouth in the morning. 180 Tablet 1 Ondansetron HCl 4 MG Oral Tablet (Zofran) TAKE ONE TABLET BY MOUTH EVERY SIX HOURS NEEDED for nausea 90 Tablet 0 Pantoprazole Sodium 40 MG Oral Tablet Delayed Release (Protonix) Take 1 Tablet by mouth in the morning 30 minutes before the first meal of the day. Do not crush, split or chew the tablet. 90 Tablet 0 Pravastatin Sodium 40 MG Oral Tablet (Pravachol) Take 1 Tablet by mouth every evening. 90 Tablet 1 Spironolactone 100 MG Oral Tablet (Aldactone) TAKE 1/2 TABLET by mouth TWICE A DAY 90 Tablet 1 traMADol HCl 50 MG Oral Tablet (Ultram) Take 2 Tablets by mouth every 8 hours as needed for moderate to severe pain 180 Tablet 1 FreeStyle Lite Test In Vitro Strip (Glucose Blood) Test blood sugars 3 times daily DX E11.9 300 Strip 0 Pen Portland 3/16" 31G X 5 MM Use 1 time daily with Lantus pen as directed. 100 Each 0 Benzonatate 100 MG Oral Capsule (Tessalon Perles) Take 1 Capsule by mouth 3 times a day as needed for Cough. Do not cut, crush, or chew. 50 Capsule 1 Cyanocobalamin 1000 MCG Oral Tablet (Cyanocobalamin) Take 1 Tablet by mouth in the morning. 100 Tablet 3 Co Q-10 100 MG Oral Capsule Take by mouth daily. Vitamin C 500 MG Oral Capsule Take 1 Capsule by mouth daily. 30 Capsule 0 FreeStyle Lancets MISC Test blood sugars 3 times daily DX E11.9 300 Each 1 Cholecalciferol (VITAMIN D3) 2000 units Capsule Take 1 Cap by mouth daily. 90 Cap 3 No current facility-administered medications for this visit. Review of patient's allergies indicates: Allergen Reactions Corticosteroids Elevated lactic acid Augmentin [Amoxicillin-Pot Clavulanate] Diarrhea Elevated BS--went to ER, can only take low doses of any antibiotics OBJECTIVE: BP 124/60 | Pulse 66 | Temp 36.7 C (98 F) (Tympanic) | Resp 18 | Wt 50.1 kg (110 lb 6.4 oz) | LMP 02/10/2001 | SpO2 98% | BMI 20.86 kg/m | BSA 1.47 m General appearance: awake, alert, no apparent distress, cooperative Head: Normocephalic, No masses, lesions, tenderness or abnormalities Eyes: sclera clear, PERRL Neck: supple, no adenopathy, no bruits, thyroid normal size, non-tender, without nodularity Heart: regular rate & rhythm, no gallops, and no murmurs Lungs: lungs clear to auscultation and breathing non-labored NEURO: alert & oriented x 3 with fluent speech, no focal motor/sensory deficits, gait normal, reflexes normal and symmetric BACK: back symmetric, no curvature, Some limitation of flexion EXTREMITIES: no joint deformities, effusion, or inflammation, no edema, radial and posterior tibialpulses 2+ bilaterally Skin: skin color, texture, turgor are normal, no rashes ASSESSMENT/PLAN: DDD (degenerative disc disease), lumbar (Primary) - XR L SPINE AP AND LATERAL - Patient with severe low back and cervical pain, requiring tramadol 100 mg TID. She has not had xray recently, so we will repeat these given worsening pain in last 1 year. Patient's pain is severe requiring tramadol, without medication she is unable and limited in performing ADLs. AYE and UDS willneed to be discussed and completed with PCP provider given they are renewing script. DDD (degenerative disc disease), cervical - XR C SPINE 4-5 VIEWS Patients goals for plan of care were discussed. Total time today including reviewing chart before the visit, pertinent labs, imaging reports, face to face time, and documentation time was 36 minutes. Follow up: Instructed to follow up or notify Primary Care Provider next month as scheduled. Sooner if needed. Colleen Cabrera PA-C [facility] [address] [place] [address] documented in this encounter Nursing Notes * Shy Gordon LPN - 03/22/2024 8:47 AM EDT Liliana Abebe presents for medication recheck. Medications & HM reviewed. documented in this encounter Plan of Treatment Upcoming Encounters Date Type Department Care Team (Late st Contact Info) Description 04/05/2024 9:00 AM EDT Laboratory Laboratory, [facility] [place] [address] [facility] [place] [id number] [facility] [address] [facility] [place] [address] 04/22/2024 12:20 PM EDT Office Visit [facility] [address] [facility] [place] [address] Quitman IIIErick MD [address] [place] [address] [facility] [place] [address] Pending Results Name Type Priority Associated Diagnoses Date /Time XR L SPINE AP AND LATERAL Medical Imaging Routine DDD (degenerative disc disease), lumbar 03/22/2024 9:43 AM EDT XR C SPINE 4-5 VIEWS Medical Imaging Routine DDD (degenerative disc disease), cervical 03/22/2024 9:43 AM EDT Scheduled Procedures Name Priority Associated Diagnoses Date/Ti me COLONOSCOPY FLEXIBLE PROXIMAL DIAGNOSTIC Recall History of colon polyps ESOPHAGOGASTRODUODENOSCOPY ( EGD), FLEXIBLE, TRANSORAL, DIAGNOSTIC Recall Argueta esophagus Health Maintenance Due Date Last Done Comments HPV/Co-Test 1989 Cologuard 2004 Fecal Occult Blood Test 2004 01/31/2001 Sigmoidoscopy 2004 Zoster Vaccines (1 of 2) 2009 DISCUSS TOBACCO CESSATION (REFER TO SMARTSET #3291) 08/19/2015 08/19/2014 (Discussed) DTaP,Tdap,and Td Vaccines (2 - Td or Tdap) 06/13/2018 06/13/2008 Depression Screening 08/21/2020 08/21/2019 Diabetic Foot Exam 04/02/2021 04/02/2020, 0 02/27/2019, 05/23/2018, Additional history exists Cervical Cancer Screening 08/30/2022 Pap Smear 08/30/2022 08/30/2019, 12/06, 12/23/2014, Additional history exists COVID-19 Vaccine ( - season) 2023 CKD PHOS USE SMARTSET 40184 05/10/202311/2021, 02/27/2019, 05/22/2018, Additional history exists Mammogram 10/15/2023 10/14/2022, 06/08, 06/26/2019, Additional history exists GFR 03/21/2024 09/21/2023, 10/05, 05/10/2022, Additional history exists Influenza Vaccine (FLU shot) (#1) 2024 05/10/2022, 05/31/2019, 05/23/2018, Additional history exists HbA1c 04/20/2024 10/19/2023, 10/05, 10/19/2021, Additional history exists Pneumococcal Vaccine: Pediatrics (0 to 5 Years) and At-Risk Patients (6 to 64 Years) (3 of 3 - PPSV23 or PCV20) 2024 12/28/2016, 12/26/2005 CKD HGB USE SMARTSET 87858 10/18/202410/18, 05/10/2022, 06/07/2021, Additional history exists Diabetic Eye Exam 10/18/2024 10/19/2023, , 09/06/2019, Additional history exists Albumin/Creatinine Ratio 10/20/2024 024, 10/19/2021, 03/27/2020, Additional history exists Colonoscopy 09/05/2027 09/05/2022, 08/09, 09/26/2017, Additional history exists Colorectal Cancer Screening 09/05/2027 Lipid Panel 10/18/2028 10/19/2023, 10/05, 06/07/2021, Additional history exists RETIRED - COLONOSCOPY-EVERY 5 YRS AGES 18-100 Discontinued 09/05/2022, 09/05/2022, 09/26/2017, Additional history exists HPV (Gardasil) Vaccine Aged Out No lo nger eligible based on patient's age to complete this topic MENINGOCOCCAL (MENACTRA/MENVEO) Aged Out No longer eligible based on patient's age to complete this topic documented as of this encounter Medical Devices Not on filedocumented as of this encounter Visit Diagnoses Diagnosis DDD (degenerative disc disease), lumbar- Primary Degeneration of lumbar or lumbosacral intervertebral disc DDD (degenerative disc disease), cervical Degeneration of cervical intervertebral disc documented in this encounter Care Teams Counter Cutter Relationship Specialty Start Date End Date Erick Paz III, MD [address] [facility] [place], [place] [address] PCP - General 11/26/03 documented as of this encounter
--- OUTSIDE RECORDS SUMMARY | 2024-05-10 10:02 | External Medical Summary | Summary of Care ---
Author Name Unknown Organization [facility] Address [address] [facility] [address] Phone [phone] Care Team Providers Care Data Technician Name Role Phone Brandi HWANG MD, Erick Davidson Primary Care Provider [phone] Encounter Details Date Type Department Care Team (Late st Contact Info) Description 05/03/2024 Orders Only PATIENT PORTAL DO NOT DELETE THIS DEPT USED BY [place] [address] Allergies Active Allergy Reactions Criticality Noted Date [...] DX E11.9 300 Strip 09/19/2023 Active Pen Sayner 3/16" 31G X 5 MM Use 1 [...] 10/14/2022 10/15/19 23 Hypertension in stage 3 wheel filler patsy kidney disease due to type 2 [...] on file documented as of this encounter Plan of Treatment Upcoming Encounters Date Type Department Care Team (Late st Contact Info) Description 05/03/2024 11:30 AM EDT Office Visit General Surgery, [facility] [address] [place] [address] Jorden Calhoun MD [address] [place] [address] 07/15/2024 9:00 AM EST [facility] [place] [address] [place] [address] Erick Paz III, MD [address] [facility] [place] [address] Scheduled Procedures Name Priority Associated Diagnoses Date/Ti [...] history exists COVID-19 Vaccine ( - season) 2024 Pneumococcal Vaccine: Pediatrics (0 to 5 Years) and At-Risk Patients (6 to 64 Years) (3 of 3 - PPSV23 or PCV20) 2024 12/28/2016, 12/26/2005 GFR 10/04/2024 04/05/2024, 09/07, 10/14/2022, Additional history exists HbA1c 10/04/2024 04/05/2024, 10/05, 10/14/2022, Additional history exists CKD HGB USE SMARTSET 59068 10/18/202410/18, 05/10/2022, 06/07/2021, Additional history exists Diabetic Eye Exam 10/18/2024 10/19/2023, , 09/06/2019, Additional history exists Albumin/Creatinine Ratio 10/20/20242 024, 10/19/2021, 03/27/2020, Additional history exists CKD PHOS USE SMARTSET 43351 04/05/2025 08/3 , 05/10/2022, 02/27/2019, Additional history exists Colonoscopy 09/05/2027 [...] Not on filedocumented as of this encounter Care Teams Data Technician Relationship Specialty Start Date End Date Erick Paz III, MD [address] [facility] [address] PCP - General 11/26/03 documented as of this encounter
--- OUTSIDE RECORDS SUMMARY | 2024-05-10 10:02 | External Medical Summary ---
Author Name Unknown Address Unknown Organization [id number]:[facility] - [address] [place] [address] Laboratory Report Ordering Provider Test Date Status CLAUS BERNSTEIN III 04/05/2024 08:59:23 Final Observation Date Value Abnormality Reference (Units ) Status HbA1C 04/05/2024 08:59:23 7.3 Above high normal 4. 0-5.6 (%) Final The use of HbA1c to monitor glycemic status is based on normal hemoglobin and HbA composition. This test should not be used in patients with abnormal hemoglobin that affects the half life of the red blood cell or the in vivo glycation rates. Glucose, estimated average 04/05/2024 08:59:23 163 Above high normal <126 (mg/dL) John barreto Performing Location [facility] - [address] [place] [address]
--- OUTSIDE RECORDS SUMMARY | 2024-05-10 10:02 | External Medical Summary ---
Author Name Unknown Address Unknown Organization K01:[facility] - [address] [place] [address] Laboratory Report Ordering Provider Test Date Status CLAUS BERNSTEIN III 04/05/2024 08:59:23 Final Observation Date Value Abnormality Reference (Units ) Status Phosphate 04/05/2024 08:59:23 3.0 2.5-4.8 (m g/dL) Final Performing Location [facility] - [address] [place] [address]
--- OUTSIDE RECORDS SUMMARY | 2024-05-10 10:02 | External Medical Summary | Summary of Care ---
Author Name Unknown Organization [facility] Address [address] [place] [address] Phone [phone] Care Team Providers Care Van Driver Name Role Phone Brandi HWANG MD, Erick Davidson Primary Care Provider [phone] Reason for Referral * Evaluate & Treat - Unlimited Visits (Within 10 days (routine)) - Pending Review Specialty Diagnoses / Procedures Referred By Prashanth velazco Referred To Contact General Surgery Diagnoses Non-recurrent unilateral inguinal hernia without obstruction or gangrene Erick Paz III, MD [address] [place] [address] Referral ID Status Reason Start Date Expiration Date Visits Requested Visits Authorized [id number] Pending Review Specialty Services Required 04/29/[phone] Question Answer Referral Priority Within 10 days (routine) Where should this appointment be scheduled? [facility] What condition is the patient being seen for? General Surgery Conditions What condition is the patient being seen for? Hernia (excluding Hiatal) Reason for Visit * Reason Onset Date Comments Re-Check Patient is here for recheck, has lump on right lower abdomen that she would like to have chekced, some days does not bother patient, other days she cannot get comfortable. 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)*; Essential hypertension with goal blood pressure less than 140/90; Need for prophylactic vaccination and inoculation against influenza; Chronic bilateral thoracic back pain; Non-recurrent unilateral inguinal hernia without obstruction or gangrene Allergies Active Allergy Reactions Criticality Noted Date Comments Amoxicillin-Pot Clavulanate Diarrhea Medium 05/12/20 17 Elevated BS--went to ER, can only take low doses of any antibiotics Corticosteroids High 08/30/2022 Elevated lactic acid documented as of this encounter (statuses as of 04/29/2024) Medications Medication Sig Dispensed Refills Start Date [...] DX E11.9 300 Strip 09/19/2023 Active Pen [place] 3/16" 31G X 5 MM Use 1 time daily with Lantus pen as directed. 100 Each 09/19/2023 Active Cyanocobalamin 1000 MCG Oral Tablet (Cyanocobalamin) Take 1 Tablet by mouth in the morning. 100 Tablet 3 09/18/2023 Active Benzonatate 100 MG Oral Capsule (Tessalon Perles)Indications :Acute cough Take 1 Capsule by mouth 3 times a day as needed for Cough. Do not cut, crush, or chew. 50 Capsule 1 09/18/2023 Active Spironolactone 100 MG Oral Tablet (Aldactone)Indicat ions:Hirsutism TAKE 1/2 TABLET by mouth TWICE A [...] Active traMADol HCl 50 MG Oral Tablet (Ultram)Indication s:Chronic bilateral thoracic back pain Take 2 Tablets by mouth every 8 hours as needed for Pain, Moderate or Pain, Severe. 180 Tablet 1 04/29/2024 Active traMADol HCl 50 MG Oral Tablet (Ultram)Indication s:Chronic bilateral thoracic back pain Take 2 Tablets by mouth every 8 hours as needed for moderate to severe pain 180 Tablet 1 12/01/2023 04/29/2024 Discontinue d(Refill) metFORMIN HCl ER 500 MG Oral Tablet Extended Release 24 Hour (Glucophage XR) Take 2 Tablets by mouth in the morning. 180 Tablet 1 01/16/2024 04/29/2024 Discontinue d(Refill) Lisinopril 5 MG Oral Tablet (Prinivil) TAKE 1 TABLET by mouth ONCE A day at Night 90 Tablet 1 01/16/2024 04/29/2024 Discontinue d(Refill) Pantoprazole Sodium 40 MG Oral Tablet Delayed Release (Protonix) Take 1 Tablet by mouth in the morning 30 minutes before the first meal of the day. Do not crush, split or chew the tablet. 90 Tablet 01/16/2024 04/29/2024 Discontinue d(Refill) Insulin Glargine Solostar 100 UNIT/ML Subcutaneous Solution Pen-injector (Lantus SoloStar)Indicatio ns:Type 2 diabetes mellitus with hemoglobin A1c goal of less than 7.0% (HCC) Inject 10 Units under the skin in the morning. 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 Never true 10/04/19 Within the past 12 months, t he [...] Sign Reading Time Taken Comments Blood Pressure 146/62 04/29/2024 10:50 AM EDT Pulse 68 04/29/2024 10:50 AM EDT Temperature 36.7 C (98.1 F) 04/29/2024 1 0:50 AM EDT Respiratory Rate 16 04/29/2024 10:5 0 AM EDT Oxygen Saturation 99% 04/29/2024 10: 50 AM EDT Inhaled Oxygen Concentration - - Weight 51.6 kg (113 lb 12.8 oz) 024 10:50 AM EDT Height 154.9 cm (5' 1") 04/29/2024 10:5 0 AM EDT Body Mass Index 21.5 04/29/2024 10:50 AM EDT documented in this encounter Progress Notes * Erick Paz III, MD - 04/29/2024 11:15 AM EDT Subjective: Liliana Abebe is a 63 year old female. Chief Complaint Patient presents with Re-Check Patient is here for recheck, has lump on right lower abdomen that she would like to have chekced, some days does not bother patient, other days she cannot get comfortable. Medication Administration Flu and/or Pneumo Inj HPI: Follow up diabetes mellitus chronic kidney disease dyslipidemia had labs A1c up she stopped both her metformin and her insulin to see how her results would be denies chest pain shortness of breath no swelling of her ankles no bleeding urine or bowels having some right groin area discomfort forabout the last 2 months had a pack of house and move out PMH: Patient Active Problem List Diagnosis Menopause Backache Type 2 diabetes mellitus with hemoglobin A1c goal of less than 7.0% (HCC) Benign neoplasm of colon Essential hypertension with goal blood pressure less than 140/90 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 90 Cap 3 FreeStyle Lancets MISC Test blood sugars 3 times daily DX E11.9 300 Each 1 Vitamin C 500 MG Oral Capsule Take 1 Capsule by mouth daily. 30 Capsule 0 Co Q-10 100 MG Oral Capsule Take by mouth daily. FreeStyle Lite Test In Vitro Strip (Glucose Blood) Test blood sugars 3 times daily DX E11.9 300 Strip 0 Pen [place] 10/20" 31G X 5 MM Use 1 time [...] only take low doses of any antibiotics Past Medical History: Diagnosis Date Argueta's esophagus [...] L upper arm - brachial Pneumothorax 08/31/2019 [facility] Past Surgical History: Procedure Laterality Date ANGIOLPLASTY ILIAC,PERCUT times 3 BUNION CORRECTED WITH DOUBLE OSTEOTOMY 1995 COLONOSCOPY W/ LESION REMOVAL, SNARE 08/25/2009 adenomatous polyp--repeat 3 years COLONOSCOPY, DIAGNOSTIC (RECTUM) 08/21/2012 COLONOSCOPY FLEXIBLE PROXIMAL DIAGNOSTIC performed by Benny De La Garza MD at ENDOSCOPY [facility] COLONOSCOPY, DIAGNOSTIC (RECTUM) 09/26/2017 adenomatous polyps, diverticulosis, repeat 3 yrs/COLONOSCOPY FLEXIBLE PROXIMAL DIAGNOSTIC performedby Benny De La Garza MD at ENDOSCOPY [facility] COLONOSCOPY, DIAGNOSTIC (RECTUM) 09/05/2022 diverticulosis, repeat 5 yrs / COLONOSCOPY FLEXIBLE PROXIMAL DIAGNOSTIC performed by Benny De La Garza MD at ENDOSCOPY [facility] DIABETIC EYE EXAM 09/10/2013 DILATION AND CURETTAGE (D&C) EGD, FLEXIBLE, DIAGNOSTIC 12/12/2012 UPPER GI ENDOSCOPY DIAGNOSTIC performed by Benny De La Garza MD at ENDOSCOPY [facility] EGD, FLEXIBLE, DIAGNOSTIC 06/15/2015 Barretts, sm HH, repeat 3 mo/ESOPHAGOGASTRODUODENOSCOPY (EGD), FLEXIBLE, TRANSORAL, DIAGNOSTIC performed by Benny De La Garza MD at [facility] EGD, FLEXIBLE, DIAGNOSTIC 09/23/2015 [place], repeat 6 mo/ESOPHAGOGASTRODUODENOSCOPY (EGD), FLEXIBLE, TRANSORAL, DIAGNOSTIC performed by Benny De La Garza MD at ENDOSCOPY [facility] EGD, FLEXIBLE, DIAGNOSTIC 11/04/2016 normal bx, sm HH, repeat 3 yrs/ESOPHAGOGASTRODUODENOSCOPY (EGD), FLEXIBLE, TRANSORAL, DIAGNOSTIC performed by Benny De La Garza MD at [facility] EGD, FLEXIBLE, DIAGNOSTIC 09/05/2022 Barretts, repeat 3 yrs / ESOPHAGOGASTRODUODENOSCOPY (EGD), FLEXIBLE, TRANSORAL, DIAGNOSTIC performed by Benny De La Garza MD at ENDOSCOPY [facility] INFORMATION "Blockage of aorta" - bypass done to improve leg circulation INFORMATION 2004 angioplasty - "graft into legs blocked" - after this had L brachial blood clot Objective: The patient is a 63 year old female BP 146/62 (BP Site: Left Arm, BP Position: Sitting, BP Cuff Size: Regular) | Pulse 68 | Temp 36.7 C (98.1 F) (Tympanic) | Resp 16 | Ht 1.549 m (5' 1") | Wt 51.6 kg (113 lb 12.8 oz) | LMP 02/10/2001 | SpO2 99% | BMI 21.50 kg/m | BSA 1.49 m General: alert, healthy, and no distress Eye Exam: PERRLA, extraocular movements intact, conjunctiva are pink and non- injected, sclera clear Oropharynx: no exudate, no erythema, lips, buccal mucosa, and tongue normal, and mucous membranes are moist Heart: regular rate & rhythm, no murmur, and no gallops Lungs: lungs clear to auscultation Abdomen: Lemon sized protrusion tenderness right groin area Extremities: no edema, no clubbing, no cyanosis ASSESSMENT: (E11.22, I12.9, N18.31) 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 Believes she had shingles shot will check on that for us flu vaccine givensurgery referral Erick Paz III, MD * Betzaida Joe LPN - 04/29/2024 10:52 AM EDT PRE - ADMINISTRATION DOCUMENTATION Are you experiencing any cold symptoms or fever? No Have you had Guillain-[place] Syndrome (an illness that causes paralysis) within the last 6 weeks? No Have you had the flu shot in the past? YES Have you ever had a reaction to the flu shot? No Betzaida Joe LPN, 04/29/2024 10:52 AM Immunization Administration Documentation Time Out Procedure Performed: Yes Patient Identified (Ask Name/Date of ): Yes Does the patient have a fever greater than 101 degrees today? No Patient allergic to latex? No VFC Stock: No Immunization(s) verified: Yes, Immunization Name: Flu, VIS Sheet(s) given: Yes Verified Side and Site: Yes Verified Shot(s) with Parent(s)/Patient: Yes documented in this encounter Nursing Notes * Betzaida Joe LPN - 04/29/2024 10:48 AM EDT Chief Complaint Patient presents with Re-Check Patient is here for recheck, has lump on right lower abdomen that she would like to have chekced, some days does not bother patient, other days she cannot get comfortable. Patient would like to discuss taking diabetic meds injections and tablets. 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) Expected: 04/29/2024 (Approximate), Expires: 04/29/2025 Scheduled Procedures Name Priority Associated Diagnoses Date/Ti me COLONOSCOPY FLEXIBLE PROXIMAL DIAGNOSTIC Recall History of colon polyps ESOPHAGOGASTRODUODENOSCOPY ( EGD), FLEXIBLE, TRANSORAL, DIAGNOSTIC Recall Argueta esophagus Scheduled Referrals Name Type Priority Associated Diagnoses Orde r Schedule SURGERY REFERRAL OP Referral Within 10 da ys (routine) Non-recurrent unilateral inguinal hernia without obstruction or gangrene Ordered: 04/29/2024 Health Maintenance Due Date Last Done Comments [...] 06/26/2019, Additional history exists COVID-19 Vaccine ( season) 2024 Pneumococcal Vaccine: Pediatrics (0 to 5 Years) and At-Risk Patients (6 to 64 Years) (3 of 3 - PPSV23 or PCV20) 2024 12/28/2016, 12/26/2005 GFR 10/04/2024 04/05/2024, 09/07, 10/14/2022, Additional history exists HbA1c 10/04/2024 04/05/2024, 10/05, 10/14/2022, Additional history exists CKD HGB USE SMARTSET 24425 10/18/202410/18, 05/10/2022, 06/07/2021, Additional history exists Diabetic Eye Exam 10/18/2024 10/19/2023, , 09/06/2019, Additional history exists Albumin/Creatinine Ratio 10/20/20242 024, 10/19/2021, 03/27/2020, Additional history exists CKD PHOS USE SMARTSET 46821 04/05/202503/09, 05/10/2022, 02/27/2019, Additional history exists Colonoscopy [...] as of this encounter Visit Diagnoses Diagnosis 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
--- OUTSIDE RECORDS SUMMARY | 2024-05-10 10:02 | External Medical Summary | Summary of Care ---
Author Name Unknown Organization [facility] Address [address] [place] [address] Phone [phone] Care Team Providers Care Valet Name Role Phone Brandi HWANG MD, Erick Davidson Primary Care Provider [phone] Reason for Referral * Evaluate & Treat - Unlimited Visits (Within 10 days (routine)) - Pending Review Specialty Diagnoses / Procedures Referred By Prashanth velazco Referred To Contact General Surgery Diagnoses Non-recurrent unilateral inguinal hernia without obstruction or gangrene Erick Paz III, MD [address] [place] [address] Referral ID Status Reason Start Date Expiration Date Visits Requested Visits Authorized [id number] Pending Review Specialty Services Required 04/29/2024 999 [...] Jose G Bryan [address] [place] [address] Erick Paz III, MD 200 [facility] [place], [place] [address] Type 2 diabetes mellitus with stage 3a [...] DX E11.9 300 Strip 09/19/2023 Active Pen [place] 3/16" 31G X 5 MM Use 1 [...] 10/14/2022 10/15/19 23 Hypertension in stage 3 chronic condition nurse patsy kidney disease due to type 2 [...] daily DX E11.9 300 Strip 0 Pen [place] 10/20" 31G X 5 MM Use 1 [...] Benny De La Garza MD at ENDOSCOPY [facility] COLONOSCOPY, DIAGNOSTIC (RECTUM) 09/26/2017 adenomatous polyps, diverticulosis, repeat 3 yrs/COLONOSCOPY FLEXIBLE PROXIMAL DIAGNOSTIC performedby Benny De La Garza MD at ENDOSCOPY [facility] COLONOSCOPY, DIAGNOSTIC (RECTUM) 09/05/2022 diverticulosis, repeat 5 yrs / COLONOSCOPY FLEXIBLE PROXIMAL DIAGNOSTIC performed by Benny De La Garza MD at ENDOSCOPY [facility] DIABETIC EYE EXAM 09/10/2013 DILATION AND CURETTAGE (D&C) EGD, FLEXIBLE, DIAGNOSTIC 12/12/2012 UPPER GI ENDOSCOPY DIAGNOSTIC performed by Benny De La Garza MD at ENDOSCOPY [facility] EGD, FLEXIBLE, DIAGNOSTIC 06/15/2015 Barretts, sm HH, repeat 3 mo/ESOPHAGOGASTRODUODENOSCOPY (EGD), FLEXIBLE, TRANSORAL, DIAGNOSTIC performed by Benny De La Garza MD at [facility] EGD, FLEXIBLE, DIAGNOSTIC 09/23/2015 [place], repeat 6 mo/ESOPHAGOGASTRODUODENOSCOPY (EGD), FLEXIBLE, TRANSORAL, DIAGNOSTIC performed by Benny De La Garza MD at ENDOSCOPY [facility] EGD, FLEXIBLE, DIAGNOSTIC 11/04/2016 normal bx, sm HH, repeat 3 yrs/ESOPHAGOGASTRODUODENOSCOPY (EGD), FLEXIBLE, TRANSORAL, DIAGNOSTIC performed by Benny De La Garza MD at [facility] EGD, FLEXIBLE, DIAGNOSTIC 09/05/2022 Barretts, repeat 3 yrs / ESOPHAGOGASTRODUODENOSCOPY (EGD), FLEXIBLE, TRANSORAL, DIAGNOSTIC performed by Benny De La Garza MD at ENDOSCOPY [facility] INFORMATION "Blockage of aorta" - bypass done [...] symptoms or fever? No Have you had Guillain-[place] Syndrome (an illness that causes paralysis) within [...] 11:30 AM EDT Office Visit General Surgery, [facility] [address] [place] [address] Jorden Calhoun MD [address] [place] [address] 07/15/2024 9:00 AM EST Office Visit Family [facility] [address] [facility] [place] [address] Erick Paz III, MD [address] [facility] [place] [address] Scheduled Orders Name Type Priority Associated Diagnoses [...] Additional history exists CKD HGB USE SMARTSET 61638 10/18/202410/18, 05/10/2022, 06/07/2021, Additional history exists Diabetic Eye Exam 10/18/2024 10/19/2023, , 09/06/2019, Additional history exists Albumin/Creatinine Ratio 10/20/2024 024, 10/19/2021, 03/27/2020, Additional history exists CKD PHOS USE SMARTSET 21453 04/05/202503/09, 05/10/2022, 02/27/2019, Additional history exists Colonoscopy [...] gangrene documented in this encounter Care Teams Valet Relationship Specialty Start Date End Date Erick Paz III, MD [address] [place] [address] PCP - General 11/26/03 documented as of this encounter
--- OUTSIDE RECORDS SUMMARY | 2024-05-10 10:02 | External Medical Summary | Summary of Care ---
Author Name Unknown Organization [facility] Address [address] [facility] [place] [address] Phone [phone] Care Team Providers Care Tablet Making Machine Operator Name Role Phone Brandi HWANG MD, Erick Kendrick Primary Care Provider Reason for Visit * Reason Comments Outpatient Testing Encounter Details Date Type Department Care Team (Late st Contact Info) Description 04/05/2024 9:00 AM EDT Laboratory [facility], [facility] [address] [facility] [place] [id number] [facility] [address] [facility] [place] [address] Encounter for long-term (current) use of medications; Chronic kidney disease, unspecified CKD stage; Type 2 diabetes mellitus with hemoglobin A1c goal of less than 7.0% ([facility]) Allergies Active Allergy Reactions Criticality Noted Date Comments Amoxicillin-Pot Clavulanate Diarrhea Medium 05/12/20 17 Elevated BS--went to ER, can only take low doses of any antibiotics Corticosteroids High 08/30/2022 Elevated lactic acid documented as of this encounter (statuses as of 04/05/2024) Medications Medication Sig Dispensed Refills Start Date [...] DX E11.9 300 Strip 09/19/2023 Active Pen [place] 3/16" 31G X 5 MM Use 1 time daily with Lantus pen as directed. 100 Each 09/19/2023 Active Cyanocobalamin 1000 MCG Oral Tablet (Cyanocobalamin) Take 1 Tablet by mouth in the morning. 100 Tablet 3 09/18/2023 Active Benzonatate 100 MG Oral Capsule (Tessalon Perles)Indications:Ac rufino cough Take 1 Capsule by mouth 3 times a day as needed for Cough. Do not cut, crush, or chew. 50 Capsule 1 09/18/2023 Active traMADol HCl 50 MG Oral Tablet (Ultram)Indications:C hronic bilateral thoracic back pain Take 2 Tablets by mouth every 8 hours as needed for moderate to severe pain 180 Tablet 1 12/01/2023 Active Spironolactone 100 MG Oral Tablet (Aldactone)Indication s:Hirsutism TAKE 1/2 TABLET by mouth TWICE A [...] Solostar 100 UNIT/ML Subcutaneous Solution Pen-injector (Lantus SoloStar)Indications: Type 2 diabetes mellitus with hemoglobin A1c goal of less than 7.0% (HCC) Inject 10 Units under the skin in the morning. 15 mL 1 01/25/2024 Active documented as of this encounter (statuses as of 04/05/2024) Active Problems Problem Noted Date Diagnosed Date [...] as of this encounter (statuses as of 04/05/2024) Resolved Problems Problem Noted Date Diagnosed Date Resolved Date Stricture of artery 10/14/2022 10/15/19 23 Hypertension in stage 3 fish trapper patsy kidney disease due to type 2 [...] as of this encounter (statuses as of 04/05/2024) Immunizations Name Administration Dates Next Due H1N1 2009 Influenza, IM 08/11/2009 Hepatitis B, 20+ yrs 10/30/2014,05/26/2014,04/24 Pneumococcal Conjugate Vacc, 13 Valent (Prevnar) 12/28/2016 Pneumococcal Polysaccharide PPV23 (Pneumovax) 12/26/2005 Seasonal Influenza, PF, 6 M & above, IM , (FluLaval or Fluzone) 05/10/2022,05/31/2019,05/23/2018,07/05 Seasonal Influenza, Quadriva lent, No Preserve, IM 06/07/2016,05/27/2015 Seasonal Influenza, Trivalen t, (IIV3), with Preserv, [...] 10:40 AM EDT Office Visit Family Practice [facility] [place] [address] [place] [address] Erick Paz III, MD 200 [facility] [place] [address] Pending Results Name Type Priority Associated Diagnoses Date /Time LIPID PANEL WITH DIRECT LDL IF TG IS HIGH Lab Routine Encounter for long-term (current) use of medications 04/05/2024 8:59 AM EDT PHOSPHORUS Lab Routine Chronic kidney disease, unspecified CKD stage 04/05/2024 8:59 AM EDT COMPREHENSIVE METABOLIC PANEL Lab Routine Chronic kidney disease, unspecified CKD stage 04/05/2024 8:59 AM EDT HEMOGLOBIN A1C Lab Routine Type 2 diabetes mellitus with hemoglobin A1c goal of less than 7.0% (HCC) 04/05/2024 8:59 AM EDT Scheduled Procedures Name Priority Associated [...] 12/23/2014, Additional history exists COVID-19 Vaccine ( season) 2023 CKD PHOS USE SMARTSET 28085 05/10/2023 10/0 11/2021, 02/27/2019, 05/22/2018, Additional history exists Mammogram 10/15/2023 [...] 2024 12/28/2016, 12/26/2005 CKD HGB USE SMARTSET 22400 10/18/202410/18, 05/10/2022, 06/07/2021, Additional history exists Diabetic Eye Exam 10/18/2024 10/19/2023, , 09/06/2019, Additional history exists Albumin/Creatinine Ratio 10/20/202410/20/2 024, 10/19/2021, 03/27/2020, Additional history exists Colonoscopy [...] as of this encounter Visit Diagnoses Diagnosis Encounter for long-term (current) use of medications Encounter for long-term (current) use of other medications Chronic kidney disease, unspecified CKD stage Type 2 diabetes mellitus with hemoglobin A1c goal of less than 7.0% (HCC) documented in this encounter Care Teams Tablet Making Machine Operator Relationship Specialty Start Date End Date Erick Paz III, MD [address] [facility] [place] [address] PCP - General 11/26/03 documented as of this encounter
--- OUTSIDE RECORDS SUMMARY | 2024-05-10 10:02 | External Medical Summary | Summary of Care ---
Author Name Unknown Organization [facility] Address [address] [facility] [place] [address] Phone [phone] Care Team Providers Care Visualizer Name Role Phone Brandi HWANG MD, Erick Davidson Primary Care Provider [phone] Reason for Visit * Reason Onset Date Comments Medication Pre-auth 02/13/2024 traMADol HCl 50 MG Oral Tablet (Ultram) Encounter Details Date Type Department Care Team (Late st Contact Info) Description 02/13/2024 Telephone Family Practice [facility] [address] [place] [address] Erick Paz III, MD [address] [facility] [place] [address] Medication Pre-auth (traMADol HCl 50 MG Or... 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 Patient and pharmacy made aware by [facility]. Information will be faxed to the office. Thank you, Nanette Dee Pneumatic Tester Mechanic I [facility] 04/05/2024,8:38 AM * Telephone Encounter - Caro Chan LPN - 04/04/2024 4:13 PM EDT PA submitted via PromptPA Prior Auth (EOC) ID: [id number] * Telephone Encounter - Jose Anthony DO - 04/03/2024 12:42 PM EDT Please re-run prior auth with info from 03/22 visit * Telephone Encounter - Colleen Cabrera PA-C - 03/22/2024 1:05 PM EDT Please resend to pharmacy/insurance. Patient completed appointment today. * Telephone Encounter - Caro Chan LPN - 02/21/2024 11:28 AM EDT Patient aware and verbalized understanding Please assist with scheduling appt * Telephone Encounter - Jose Anthony DO - 02/16/2024 4:49 PM EDT Please call patient: her insurance is refusing Trmadol and demanding a list of things to acquire itthat will need to be done with a visit. * Telephone Encounter - Maria T Dey rescue worker - 02/16/2024 9:23 AM EDT Patients insurance would like to inform the office that tramadol is denied because see below. They will fax this info to the office, please review and resubmit if appropriate. Denied completely for medical necessity because: Do not see medical record documentation of pain that is moderate to severe Do not see medical record documentation of therapeutic failure, contraindication, or intolerance to non- opioid analgesics (For example, acetaminophen, nonsteroidal anti-inflammatory drugs, gabapentinoids, duloxetine, tricyclic antidepressants) appropriate for the beneficiarys condition Do not see medical record documentation that the member was assessed for potential risk of opioid misuse or use disorder by the prescribing provider AND If, for a beneficiary who has received opioid treatment for the past 3 months, do not see medical record documentation of results ofa recent urine drug screen (UDS) testing for licit and illicit drugs with the potential for abuse (including specific testing for oxycodone, fentanyl, buprenorphine, and tramadol) that is consistent with prescribed controlled substances. Thank you for your assistance Maria T Dey Hide House Supervisor II [facility] ([facility]) 02/16/2024,9:23 AM * Telephone Encounter - Caro Chan LPN - 02/15/2024 3:10 PM EDT PA submitted via Prompt [place] Prior Auth (EOC) ID: [id number] * Telephone Encounter - Brian Lerma PHARM Tech - 02/13/2024 2:57 PM EDT Pharmacy calling to inform doctor that the patient's insurance will not pay for this medication without a completed prior authorization. Did confirm this information with the pharmacy. Pt's current insurance information is as follows: Patient name: Liliana Abebe ID number: [id number] BIN number: [id number] PCN number: [id number] Group number: Subscriber name: Liliana Abebe Primary or Secondary Insurance:Primary Medication: traMADol HCl 50 MG Oral Tablet (Ultram) Reason for Request: Needs a Prior Auth Pharmacy and phone number: [facility] [address] [phone] Rx plan and phone number: [facility] [phone] Is this a new medication for the patient? Yes What alternative medications does the pharmacy have in stock?: Thank you, Brian Lerma Basket Operator [facility] 02/13/2024, 2:58 PM documented in this encounter Plan of Treatment Upcoming Encounters Date Type Department Care Team (Late st Contact Info) Description 04/05/2024 9:00 AM EDT Laboratory Laboratory, [facility] [address] [place] [phone] [place] [address] [address] [place] [address] [address] Arrived 04/29/2024 10:40 AM EDT Office Visit Family Practice [facility] [place] [address] [place] [address] Erick Paz III, MD [address] [place] [address] Scheduled Procedures Name Priority Associated Diagnoses Date/Ti [...] - season) 2023 CKD PHOS USE SMARTSET 12617 05/10/202311/2021, 02/27/2019, 05/22/2018, Additional history exists Mammogram [...] 2024 12/28/2016, 12/26/2005 CKD HGB USE SMARTSET 73055 10/18/202410/18, 05/10/2022, 06/07/2021, Additional history exists Diabetic [...] filedocumented as of this encounter Care Teams Visualizer Relationship Specialty Start Date End Date Erick Paz III, MD [address] [place] [address] PCP - General 11/26/03 documented as of this encounter
--- OUTSIDE RECORDS SUMMARY | 2024-05-10 10:02 | External Medical Summary ---
Author Name Unknown Address Unknown Organization [facility] [place] [address] Laboratory Report Ordering Provider Test Date Status DAYCLAUS III 04/05/2024 08:59:23 Final Observation Date Value Abnormality Reference (Units ) Status BUN 04/05/2024 08:59:23 19 6-20 (mg/dL) Final Creatinine 04/05/2024 08:59:23 1.1 Above high normal 0.5-1.0 (mg/dL) Final Glomerular filtration rate/1.73 sq M.predicted [Volume Rate/Area] in Serum, Plasma or Blood by Creatinine-based formula (CKD-EPI) 04/05/2024 08:59:23 58 Below low normal >=60 (mL/min) Final eGFR is calculated based on the CKD-EPI 2020 equation. Sodium 04/05/2024 08:59:23 139 135-146 (m mol/L) Final Potassium 04/05/2024 08:59:23 4.4 3.5-5.1 (m mol/L) Final Cl 04/05/2024 08:59:23 104 98-107 (mm ol/L) Final CO2 04/05/2024 08:59:23 21 Below low normal 22- 32 (mmol/L) Final Anion gap 04/05/2024 08:59:23 14 7-15 (mmol /L) Final Glucose 04/05/2024 08:59:23 125 Above high normal 70 -120 (mg/dL) Final Albumin 04/05/2024 08:59:23 4.2 3.8-5.0 (g /dL) Final AST (Aspartate aminotransferase) 04/05/2024 08:59:23 15 10-35 (U/L) Fin al Alk Phos 04/05/2024 08:59:23 70 35-130 (U/ L) Final Bilirubin, Total 04/05/2024 08:59:23 0.3 <=1 .2 (mg/dL) Final Calcium 04/05/2024 08:59:23 10.0 8.4-10.2 ( mg/dL) Final Protein 04/05/2024 08:59:23 7.1 6.0-8.3 (g /dL) Final ALT (Alanine aminotransferase) 04/05/2024 08:59:23 8 Below low normal 10-35 (U/L) Final Performing Location [facility] [facility] [address]
--- OUTSIDE RECORDS SUMMARY | 2024-05-10 10:03 | External Medical Summary | Summary of Care ---
Author Name Unknown Organization [facility] Address [address] [facility] [place] [address] Phone [phone] Care Team Providers Care Spike Driver Name Role Phone Brandi HWANG MD, Erick Kendrick Primary Care Provider Reason for Visit * Reason Comments Re-Check Encounter Details Date Type Department Care Team (Late st Contact Info) Description 03/22/2024 9:00 AM EDT Office Visit Family Practice [facility] [address] [place] [address] Colleen Cabrera PA-C [address] [facility] [place] [address] DDD (degenerative disc disease), lumbar*; DDD (degenerative [...] DX E11.9 300 Strip 09/19/2023 Active Pen [place] 3/16" 31G X 5 MM Use 1 [...] 10/14/2022 10/15/19 23 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 She was following with [facility] in [facility] for this, but transferred care a few [...] 02/19/24 her fiance of 9 years, of [place]. It was sudden. She feels she has been adjusting well. No SI or HI. She does have good support system, lots of family and friends. She is moving from [facility] to [place] soon to be closer to family. I have evaluated Liliana Abebe and have documentation of an appropriate physical exam, diagnostic testing/imaging results, and pain assessment indicating mpsquhso-gj-nahtca pain. FOR RENEWAL REQUESTS: Liliana experienced an [...] L upper arm - brachial Pneumothorax 08/31/2019 [facility] Past Surgical History: Procedure Laterality Date ANGIOLPLASTY ILIAC,PERCUT times 3 BUNION CORRECTED WITH DOUBLE OSTEOTOMY 1995 COLONOSCOPY W/ LESION REMOVAL, SNARE 08/25/2009 adenomatous polyp--repeat 3 years COLONOSCOPY, DIAGNOSTIC (RECTUM) 08/21/2012 COLONOSCOPY FLEXIBLE PROXIMAL DIAGNOSTIC performed by Benny De La Garza MD at ENDOSCOPY [facility] COLONOSCOPY, DIAGNOSTIC (RECTUM) 09/26/2017 adenomatous polyps, diverticulosis, repeat 3 yrs/COLONOSCOPY FLEXIBLE PROXIMAL DIAGNOSTIC performedby Benny De La Garza MD at ENDOSCOPY [facility] COLONOSCOPY, DIAGNOSTIC (RECTUM) 09/05/2022 diverticulosis, repeat 5 yrs / COLONOSCOPY FLEXIBLE PROXIMAL DIAGNOSTIC performed by Benny De La Garza MD at ENDOSCOPY [facility] DIABETIC EYE EXAM 09/10/2013 DILATION AND CURETTAGE (D&C) EGD, FLEXIBLE, DIAGNOSTIC 12/12/2012 UPPER GI ENDOSCOPY DIAGNOSTIC performed by Benny De La Garza MD at ENDOSCOPY [facility] EGD, FLEXIBLE, DIAGNOSTIC 06/15/2015 [place], sm HH, repeat 3 mo/ESOPHAGOGASTRODUODENOSCOPY (EGD), FLEXIBLE, TRANSORAL, DIAGNOSTIC performed by Benny De La Garza MD at ENDOSCOPY [facility] EGD, FLEXIBLE, DIAGNOSTIC 09/23/2015 [place], repeat 6 mo/ESOPHAGOGASTRODUODENOSCOPY (EGD), FLEXIBLE, TRANSORAL, DIAGNOSTIC performed by Benny De La Garza MD at ENDOSCOPY [facility] EGD, FLEXIBLE, DIAGNOSTIC 11/04/2016 normal bx, sm HH, repeat 3 yrs/ESOPHAGOGASTRODUODENOSCOPY (EGD), FLEXIBLE, TRANSORAL, DIAGNOSTIC performed by Benny De La Garza MD at ENDOSCOPY [facility] EGD, FLEXIBLE, DIAGNOSTIC 09/05/2022 [place], repeat 3 yrs / ESOPHAGOGASTRODUODENOSCOPY (EGD), FLEXIBLE, TRANSORAL, DIAGNOSTIC performed by Benny De La Garza MD at ENDOSCOPY [facility] INFORMATION "Blockage of aorta" - bypass [...] Asthma Mother Heart Disorder Mother bypass, 1st [place] age 54 @75 Diabetes Mother Cancer Mother [...] daily DX E11.9 300 Strip 0 Pen [place] 3/16" 31G X 5 MM Use 1 [...] scheduled. Sooner if needed. Colleen Cabrera PA-C [facility] [address] [place] [address] documented in this encounter Nursing Notes * Shy Gordon LPN - 03/22/2024 8:47 AM EDT Liliana Abebe presents for medication recheck. Medications & HM reviewed. documented in this encounter Plan of Treatment Upcoming Encounters Date Type Department Care Team (Late st Contact Info) Description 04/05/2024 9:00 AM EDT Laboratory Laboratory, [facility] [place] [address] [facility] [place] [phone] [facility] [address] [facility] [place] [address] 04/22/2024 12:20 PM EDT Office Visit [facility] [address] [place] [address] Borden IIIErick MD [address] [place] [address] [facility] [place] [address] Pending Results Name Type Priority Associated Diagnoses [...] - season) 2023 CKD PHOS USE SMARTSET 45584 05/10/202311/2021, 02/27/2019, 05/22/2018, Additional history exists Mammogram [...] 2024 12/28/2016, 12/26/2005 CKD HGB USE SMARTSET 24820 10/18/202410/18, 05/10/2022, 06/07/2021, Additional history exists Diabetic [...] disc documented in this encounter Care Teams Spike Driver Relationship Specialty Start Date End Date Erick Paz III, MD [address] [facility] [place], [place] [address] PCP - General 11/26/03 documented as of this encounter
--- OUTSIDE RECORDS SUMMARY | 2024-05-10 10:03 | External Medical Summary | Summary of Care ---
Author Name Unknown Organization [facility] Address [address] [facility] [place] [address] Phone [phone] Care Team Providers Care Lmft Name Role Phone Brandi HWANG MD, Day Davidson Primary Care Provider [phone] Reason for Referral * Medication Prior Authorization - Pending Review Specialty Diagnoses / Procedures Referred By Prashanth velazco Referred To Contact Diagnoses Chronic bilateral thoracic back pain Day Devlin III, MD [address] [facility] [place] [address] Referral ID Status Reason Start Date Expiration Date V isits Requested Visits Authorized [id number] Pending Review 999 999 Reason for Visit * Reason Onset Date Comments Medication Refill 11/30/2023 Medication Pre-auth 11/30/2023 Status Check 11/30/2023 Encounter Details Date Type Department Care Team (Late st Contact Info) Description 11/30/2023 Telephone Family Practice [place] [address] [facility] [place] [address] Day Devlin III, MD [address] [facility] [place] [address] Medication Refill; Medication Pre-auth; St... Allergies Active Allergy Reactions Criticality Noted Date Comments Amoxicillin-Pot Clavulanate Diarrhea Medium 05/12/20 17 Elevated BS--went to ER, can only take low doses of any antibiotics Corticosteroids High 08/30/2022 Elevated lactic acid documented as of this encounter (statuses as of 12/18/2023) Medications Medication Sig Dispensed Refills Start Date End Date Status hydrocortisone 2.5 % creamIndications:De rmatitis Equal parts lotromin 3 x daily to ankle rash 30 g 5 07/05/2017 Active Cholecalciferol (VITAMIN D3) 2000 units Capsule Take 1 Cap by mouth daily. 90 Cap 3 05/23/2018 Active FreeStyle Lancets MISC Test blood sugars 3 times daily DX E11.9 300 Each 1 04/02/2020 Active Vitamin C 500 MG Oral Capsule Take 1 Capsule by mouth daily. 30 Capsule 0 06/15/2021 Active Co Q-10 100 MG Oral Capsule Take by mouth daily. 0 Active Zoster Vac Recomb Adjuvanted 50 MCG/0.5ML Intramuscular Suspension Reconstituted (Shingrix) Inject 0.5 mL into a large muscle now and repeat dose in 60 to 180 days 1 Each 1 10/14/2022 Active Spironolactone 100 MG Oral Tablet (Aldactone)Indicati ons:Hirsutism TAKE ONE-HALF (1/2) TABLET TWICE A DAY 90 Tablet 2 03/21/2023 Active Lisinopril 5 MG Oral Tablet (Prinivil) TAKE 1 TABLET ONCE A NITE 90 Tablet 2 03/21/2023 Active Trulicity 1.5 MG/0.5ML Subcutaneous Solution Pen-injector (Dulaglutide)Indica tions:Type 2 diabetes mellitus with hemoglobin A1c goal of less than 7.0% ([facility]) Inject 1.5 mg under the skin once a week. 18 mL 0 09/19/2023 Active Clopidogrel Bisulfate 75 MG Oral Tablet (pLAVix) Take 1 Tablet by mouth in the morning. 90 Tablet 0 09/19/2023 Active metFORMIN HCl ER 500 MG Oral Tablet Extended Release 24 Hour (Glucophage XR) Take 2 Tablets by mouth in the morning. 180 Tablet 0 09/19/2023 Active Ondansetron HCl 4 MG Oral Tablet (Zofran) TAKE ONE TABLET BY MOUTH EVERY SIX HOURS NEEDED for nausea 90 Tablet 0 09/19/2023 Active Insulin Glargine Solostar 100 UNIT/ML Subcutaneous Solution Pen-injector (Lantus SoloStar)Indication s:Type 2 diabetes mellitus with hemoglobin A1c goal of less than 7.0% ([facility]) Inject 10 Units under the skin in the morning. 15 mL 0 09/19/2023 Active FreeStyle Lite Test In Vitro Strip (Glucose Blood) Test blood sugars 3 times daily DX E11.9 300 Strip 0 09/19/2023 Active Pen [place] 316" 31G X 5 MM Use 1 time daily with Lantus pen as directed. 100 Each 0 09/19/2023 Active Cyanocobalamin 1000 MCG Oral Tablet (Cyanocobalamin) Take 1 Tablet by mouth in the morning. 100 Tablet 3 09/18/2023 Active Pantoprazole Sodium 40 MG Oral Tablet Delayed Release (Protonix) Take 1 Tablet by mouth in the morning. 30 minutes before the first meal of the day. Do not crush, split or chew the tablet. 90 Tablet 1 09/19/2023 Active Benzonatate 100 MG Oral Capsule (Tessalon Perles)Indications: Acute cough Take 1 Capsule by mouth 3 times a day as needed for Cough. Do not cut, crush, or chew. 50 Capsule 1 09/18/2023 Active Pravastatin Sodium 40 MG Oral Tablet (Pravachol) Take 1 Tablet by mouth every evening. 90 Tablet 3 10/21/2023 Active traMADol HCl 50 MG Oral Tablet (Ultram)Indications :Chronic bilateral thoracic back pain Take 2 Tablets by mouth every 8 hours as needed for moderate to severe pain 180 Tablet 1 12/01/2023 Active traMADol HCl 50 MG Oral Tablet (Ultram)Indications :Chronic bilateral thoracic back pain Take 2 Tablets by mouth every 8 hours as needed for Pain, Moderate or Pain, Severe. 180 Tablet 1 09/26/2023 Discontinue d(Refill) documented as of this encounter (statuses as of 12/18/2023) Active Problems Problem Noted Date Diagnosed Date [...] as of this encounter (statuses as of 12/18/2023) Resolved Problems Problem Noted Date Diagnosed Date Resolved Date Stricture of artery 10/14/2022 10/15/19 23 Hypertension in stage 3 flux core welder patsy kidney disease due to type 2 [...] as of this encounter (statuses as of 12/18/2023) Immunizations Name Administration Dates Next Due H1N1 2009 Influenza, IM 08/11/2009 Hepatitis B, 20+ yrs 10/30/2014,05/26/2014,04/24 Pneumococcal Conjugate Vacc, 13 Valent (Prevnar) 12/28/2016 Pneumococcal Polysaccharide PPV23 (Pneumovax) 12/26/2005 Seasonal Influenza, PF, 6 M & above, IM , (FluLaval or Fluzone) 05/10/2022,05/31/2019,05/23/2018,07/05 Seasonal Influenza, Quadriva lent, No Preserve, IM 06/07/2016,05/27/2015 Seasonal Influenza, Split, I IV3, With Preserve, Inj 04/24/2014,05/30/2013,04/27/2012,04/15,06/04/2010,05/29/2009,06/13/2008 ,05/15/2007,06/05/2006 TDAP (age 11 and older)(Adacel) 06/13/2008 documented as of this encounter Social [...] encounter Miscellaneous Notes * Telephone Encounter - Angella Harman CPhT - 12/13/2023 10:09 AM EDT New script with updated directions Pharmacy calling to inform doctor that the patient's insurance will not pay for this medication without a completed prior authorization. Did confirm this information with the pharmacy. Pt's current insurance information is as follows: Patient name: Liliana Abebe ID number: [id number] BIN number: [id number] PCN number: [id number] Group number: [id number] Subscriber name: Liliana Abebe Primary or Secondary Insurance: Primary Medication: tramdol 50mg Reason for Request: pa required Pharmacy and phone number: [facility] [phone] Rx plan and phone number: [facility] [phone] Is this a new medication for the patient? No. How did the patient obtain the medication on the lastfill? It was filled at a different pharmacy. What alternative medications does the pharmacy have in stock?: Thank you, Angella Harman [facility] Religious Education Coordinator [facility] ([facility]) (Formerly Telepharmacy) 12/13/2023, 10:09 AM * Telephone Encounter - Jessica Pandya CPhT - 12/11/2023 3:34 PM EDT pharmacy calling to check on status of tramadol. Caller can be reached at [phone]. Thank you, Jessica Pandya [facility] Religious Education Coordinator III [facility]) (formerly Telepharmacy) 12/11/2023,3:34 PM * Telephone Encounter - Nanette Dee ice resurfacing machine operators - 12/07/2023 9:38 AM EDT Patient calling to check on status of Tramadol. Caller can be reached at [phone]. Thank you, Nanette Dee Cellophane Worker I [facility] ([facility]) 12/07/2023,9:38 AM * Telephone Encounter - Day Devlin III, MD - 12/04/2023 12:59 PM EDT Pain is moderate at times severe has chronic kidney disease can not take NSAIDs * Telephone Encounter - Julienne Willis CPhT - 12/02/2023 9:08 AM EDT Patients insurance would like to inform the office that Tramadol is denied because Dr has not specified if pain is severe or moderate, pt has not tried anti inflammatory. They will fax this info to the office, please review and resubmit if appropriate. Thank you, Aspen Willis Life Agent I [facility] (Formerly Telepharmacy) 12/02/2023,9:08 AM * Telephone Encounter - Debbi Regalado CPhT - 12/01/2023 2:43 PM EDT Patients insurance would like to inform the office that Tramadol is requiring additional information: clinical notes. Prior authorization entered in PromptPA at [facility]. EOC# [id number] Please fax to [phone] before end of day today. Thank you, Debbi Regalado CPhT Religious Education Coordinator [facility] ([facility])(formerly telepharmacy) 12/01/2023,2:43 PM * Telephone Encounter - Myriam Amaya PHARM Tech - 12/01/2023 2:25 PM EDT Maxi gaviria from [facility]. Needs clinical information sent over for Tramadol 50mg. Please fax information to [phone] by end of day . EOC [id number] Need the following information 1.Do not see medical record documentation of pain that is moderate to severe AND 2.Do not see medical record documentation of therapeutic failure, contraindication, or intolerance to non-opioid analgesics (For example, acetaminophen, non-steroidal anti-inflammatory drugs, gabapentinoids, duloxetine, tricyclic antidepressants) appropriate for the beneficiarys condition AND 3.Do not see medical record documentation that the member was assessed for potential risk of opioidmisuse or use disorder by the prescribing provider. Thanks, Myriam Amaya Religious Education Coordinator III [facility] ([facility]) 12/01/2023,2:25 PM * Telephone Encounter - Brandi HWANG, Day Davidson MD - 12/01/2023 1:56 PM EDTSigned Prescriptions: Disp Refills traMADol HCl 50 MG Oral Tablet (Ultram) 180 Ta*1 Sig: Take 2 Tablets by mouth every 8 hours as needed for Pain, Moderate or Pain, Severe. Authorizing Provider: DAY DEVLIN III * Telephone Encounter - Kathia Grewal [facility] - 12/01/2023 1:09 PM EDT Pending Prescriptions: Disp Refills traMADol HCl 50 MG Oral Tablet (Ultram) 180 Ta*1 Sig: Take 2 Tablets by mouth every 8 hours as needed for Pain, Moderate or Pain, Severe. * Telephone Encounter - Kathia Grewal [facility] - 12/01/2023 1:08 PM EDT I have reviewed the patients controlled substance dispensing history in the Prescription Drug Monitoring Program in compliance with the [facility] regulations before prescribing a controlled substance. PDMP checked on 12/01/2023. Pending Prescriptions: Disp Refills traMADol HCl 50 MG Oral Tablet (Ultram) 180 Ta*1 Sig: Take 2 Tablets by mouth every 8 hours as needed for Pain, Moderate or Pain, Severe. Last Visit: 10/19/2023 (in office), 04/10/2020 (telemedicine) Next Visit: 04/12/2024 Date medication was last filled: Date medication is due for refill: 11/02 Pharmacy: [facility] Is this request for a controlled substance? Yes and Urine Drug Screen Not completed Toxicology results: No results found. However, due to the size of the patient record, not all encounters were searched.Please check Results Review for a complete set of results. Please approve if appropriate. Thank you, Kathia Grewal, Kelsi. Clinical Pharmacist [facility] ([facility]) (formerly Telepharmacy) 12/01/2023, 1:08 PM * Telephone Encounter - Samanta Lugo PHARM Tech - 11/30/2023 2:51 PM EDT Did you pend patient's preferred pharmacy and medication before forwarding?yes Pharmacy: [facility] Pending Prescriptions: Disp Refills traMADol HCl 50 MG Oral Tablet (Ultram) 180 Ta*1 Sig: Take 2 Tablets by mouth every 8 hours as needed for Pain, Moderate or Pain, Severe. Last Visit: 10/19/2023 (in office), 04/10/2020 (telemedicine) Next Visit: 04/12/2024 If no future appointments scheduled, and last appointment is greater than a year ago, please schedule patient for a follow-up appointment Last date the medication was ordered: 09/26/23 Is this request for a controlled substance?Yes, What was the last refill date 09/26/23 w/ quantity 180 and dosage 2 tabs every 8 hours and Urine Drug Screen Not completed Urine Drug Screen:No results found. However, due to the size of the patient record, not all encounters were searched. Please check Results Review for a complete set of results. Patient Phone Numbers Labs: Lab Results Component Value Date/Time CREAT 1.1 (H) 09/21/2023 01:14 PM CREAT 1.1 (H) 03/27/2020 07:18 AM POTASSIUM 4.9 09/21/2023 01:14 PM POTASSIUM 4.9 03/27/2020 07:18 AM TSH 1.33 05/10/2022 09:37 AM TSH 2.40 12/20/2016 09:17 AM LDLCALC 158 (H) 10/19/2023 11:29 AM LDLCALC 126 03/27/2020 07:18 AM LDLDIRECT 146 (H) 10/14/2022 09:40 AM LDLDIRECT NOT APPLICABLE 03/27/2020 07:18 AM LDLDIRECT 144 (H) 02/20/2019 08:12 AM ALT 16 09/21/2023 01:14 PM ALT 20 09/06/2019 11:47 AM HGBA1C 5.6 10/19/2023 11:29 AM HGBA1C 6.4 (H) 03/27/2020 07:18 AM documented in this encounter Plan of Treatment Upcoming Encounters Date Type Department Care Team (Late st Contact Info) Description 04/12/2024 9:20 AM EDT [facility] [place] [address] [place] [address] CallowayDay rudolph III, MD [address] [facility] [place], [place] [address] Scheduled Procedures Name Priority Associated Diagnoses Date/Ti me COLONOSCOPY FLEXIBLE PROXIMAL DIAGNOSTIC Recall History of colon polyps ESOPHAGOGASTRODUODENOSCOPY ( EGD), FLEXIBLE, TRANSORAL, DIAGNOSTIC Recall Argueta esophagus Health Maintenance Due Date Last Done Comments HPV/Co-Test 1989 Cologuard 2004 Fecal Occult Blood Test 2004 01/31/2001 Sigmoidoscopy 2004 Zoster Vaccines (1 of 2) 2009 DISCUSS TOBACCO CESSATION (REFER TO SMARTSET #3292) 08/19/2015 08/19/2014 (Discussed) DTaP,Tdap,and Td Vaccines (2 - Td or Tdap) 06/13/2018 06/13/2008 Depression Screening 08/21/2020 08/21/2019 Diabetic Foot Exam 04/02/2021 04/02/2020, 0 02/27/2019, 05/23/2018, Additional history exists Cervical Cancer Screening 08/30/2022 Pap Smear 08/30/2022 08/30/2019, 12/06, 12/23/2014, Additional history exists COVID-19 Vaccine (1 - season) 2023 CKD PHOS USE SMARTSET 46654 05/10/2023 10/0 11/2021, 02/27/2019, 05/22/2018, Additional history exists Mammogram 10/15/2023 10/14/2022, 06/08, 06/26/2019, Additional history exists GFR 03/21/2024 09/21/2023, 10/05, 05/10/2022, Additional history exists Influenza Vaccine (FLU shot) (Season Ended) 2024 05/10/2022, 05/31/2019, 05/23/2018, Additional history exists HbA1c 04/20/2024 10/19/2023, 10/05, 10/19/2021, Additional history exists Pneumococcal Vaccine: Pediatrics (0 to 5 Years) and At-Risk Patients (6 to 64 Years) (3 of 3 - PPSV23 or PCV20) 2024 12/28/2016, 12/26/2005 CKD HGB USE SMARTSET 40835 10/18/202410/18, 05/10/2022, 06/07/2021, Additional history exists Diabetic Eye Exam 10/18/2024 10/19/2023, , 09/06/2019, Additional history exists Albumin/Creatinine Ratio 10/20/2024 024, 10/19/2021, 03/27/2020, Additional history exists Colonoscopy 09/05/2027 09/05/2022, 08/09, 09/26/2017, Additional history exists Colorectal Cancer Screening 09/05/2027 Lipid Panel 10/18/2028 10/19/2023, 10/05, 06/07/2021, Additional history exists RETIRED - COLONOSCOPY-EVERY 5 YRS AGES 18-100 Discontinued 09/05/2022, 09/05/2022, 09/26/2017, Additional history exists GARDASIL-HPV IMMUNIZATION SERIES Aged Out No longer eligible based on patient's age to complete this topic MENINGOCOCCAL (MENACTRA/MENVEO) Aged Out No longer eligible based on patient's age to complete this topic documented as of this encounter Medical Devices Not on filedocumented as of this encounter Visit Diagnoses Diagnosis Chronic bilateral thoracic back pain documented in this encounter Care Teams Lmft Relationship Specialty Start Date End Date Day Devlin III, MD [address] [place] [address] PCP - General 11/26/03 documented as of this encounter
--- OUTSIDE RECORDS SUMMARY | 2024-05-10 10:03 | External Medical Summary | Summary of Care ---
Author Name Unknown Organization [facility] Address [address] [facility] [place] [address] Phone [phone] Care Team Providers Care Automotive Sales Professional Name Role Phone Brandi HWANG MD, Day Davidson Primary Care Provider Reason for Referral * Medication Prior Authorization - Pending Review Specialty Diagnoses / Procedures Referred By Prashanth velazco Referred To Contact Diagnoses Chronic bilateral thoracic back pain Day Devlin III, MD [address] [facility] [place] [address] Referral ID Status Reason Start Date Expiration Date V isits Requested Visits Authorized [id number] Pending Review 999 999 Reason for Visit * Reason Onset Date Comments Medication Refill 11/30/2023 Medication Pre-auth 11/30/2023 Status Check 11/30/2023 Encounter Details Date Type Department Care Team (Late st Contact Info) Description 11/30/2023 Telephone Family Practice [place] [address] [facility] [place] [address] Day Devlin III, MD [address] [facility] [place] [address] Medication Refill; Medication Pre-auth; St... Allergies Active Allergy Reactions Criticality Noted Date Comments Amoxicillin-Pot Clavulanate Diarrhea Medium 05/12/20 17 Elevated BS--went to ER, can only take low doses of any antibiotics Corticosteroids High 08/30/2022 Elevated lactic acid documented as of this encounter (statuses as of 12/13/2023) Medications Medication Sig Dispensed Refills Start Date [...] goal of less than 7.0% ([facility]) Inject 1.5 mg under the skin once [...] goal of less than 7.0% ([facility]) Inject 10 Units under the skin in the morning. 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 No. How did the patient obtain the medication on the lastfill? It was filled at a different pharmacy. What alternative medications does the pharmacy have in stock?: Thank you, Angella Harman [facility] Water Gas Operator [facility] ([facility]) (Formerly Telepharmacy) 12/13/2023, 10:09 AM * Telephone Encounter - Jessica Pandya CPhT - 12/11/2023 3:34 PM EDT pharmacy calling to check on status of tramadol. Caller can be reached at [phone]. Thank you, Jessica Pandya [facility] Water Gas Operator III [facility]) (formerly Telepharmacy) 12/11/2023,3:34 PM * Telephone Encounter - Nanette Dee banking representative - 12/07/2023 9:38 AM EDT Patient calling to check on status of Tramadol. Caller can be reached at [phone]. Thank you, Nanette Dee Paraprofessional Aide I [facility] ([facility]) 12/07/2023,9:38 [...] resubmit if appropriate. Thank you, Aspen Willis Field Marketer I [facility] (Formerly Telepharmacy) 12/02/2023,9:08 AM * Telephone Encounter - Debbi Regalado CPhT - 12/01/2023 2:43 PM EDT Patients insurance would like to inform the office that Tramadol is requiring additional information: clinical notes. Prior authorization entered in PromptPA at [facility]. EOC# [id number] Please fax to [phone] before end of day today. Thank you, Debbi Regalado CPhT Water Gas Operator [facility] ([facility])(formerly telepharmacy) 12/01/2023,2:43 PM * Telephone Encounter - Myriam Amaya PHARM Tech - 12/01/2023 2:25 PM EDT Maxi gaviria from [facility]. Needs clinical information sent over for Tramadol 50mg. Please fax information to [phone] by end of day . EOC [id number] Need the following information 1.Do not see [...] by the prescribing provider. Thanks, Myriam Amaya Water Gas Operator III [facility] ([facility]) 12/01/2023,2:25 PM * Telephone Encounter - Brandi HWANG, Day Davidson MD - 12/01/2023 1:56 PM EDTSigned Prescriptions: Disp Refills traMADol HCl 50 MG Oral Tablet (Ultram) 180 Ta*1 Sig: Take 2 Tablets by mouth every 8 hours as needed for Pain, Moderate or Pain, Severe. Authorizing Provider: DAY DEVLIN III * Telephone Encounter - Kathia Grewal [facility] - 12/01/2023 1:09 PM EDT Pending Prescriptions: Disp Refills traMADol HCl 50 MG Oral Tablet (Ultram) 180 Ta*1 Sig: Take 2 Tablets by mouth every 8 hours as needed for Pain, Moderate or Pain, Severe. * Telephone Encounter - Kathia Grewal [facility] - 12/01/2023 1:08 PM EDT I have reviewed the patients controlled substance dispensing history in the Prescription Drug Monitoring Program in compliance with the [facility] regulations before prescribing a controlled substance. PDMP checked on 12/01/2023. Pending Prescriptions: Disp Refills traMADol HCl 50 MG Oral Tablet (Ultram) 180 Ta*1 Sig: Take 2 Tablets by mouth every 8 hours as needed for Pain, Moderate or Pain, Severe. Last Visit: 10/19/2023 (in office), 04/10/2020 (telemedicine) Next Visit: 04/12/2024 Date medication was last filled: Date medication is due for refill: 11/02 Pharmacy: [facility] Is this request for a [...] preferred pharmacy and medication before forwarding?yes Pharmacy: [facility] Pending Prescriptions: Disp Refills [...] 9:20 AM EDT [facility] [place] [address] [place] [address] MckenzieDay rudolph III, MD [address] [facility] [place], [place] [address] Scheduled Procedures Name Priority Associated Diagnoses Date/Ti me COLONOSCOPY FLEXIBLE PROXIMAL DIAGNOSTIC Recall History of colon polyps ESOPHAGOGASTRODUODENOSCOPY ( EGD), FLEXIBLE, TRANSORAL, DIAGNOSTIC Recall Argueta esophagus Health Maintenance Due Date Last Done Comments HPV/Co-Test 1989 Cologuard 2004 Fecal Occult Blood Test 2004 01/31/2001 Sigmoidoscopy 2004 Zoster Vaccines (1 of 2) 2009 DISCUSS TOBACCO CESSATION (REFER TO SMARTSET #3298) 08/19/2015 08/19/2014 (Discussed) DTaP,Tdap,and Td Vaccines (2 - Td or Tdap) 06/13/2018 06/13/2008 Depression Screening 08/21/2020 08/21/2019 Diabetic Foot Exam 04/02/2021 04/02/2020, 0 02/27/2019, 05/23/2018, Additional history exists Cervical Cancer Screening 08/30/2022 Pap Smear 08/30/2022 08/30/2019, 12/06, 12/23/2014, Additional history exists COVID-19 Vaccine (1 - season) 2023 CKD PHOS USE SMARTSET 73233 05/10/2023 10/0 11/2021, 02/27/2019, 05/22/2018, Additional history [...] 2024 12/28/2016, 12/26/2005 CKD HGB USE SMARTSET 18190 10/18/202410/18, 05/10/2022, 06/07/2021, Additional history exists Diabetic [...] pain documented in this encounter Care Teams Automotive Sales Professional Relationship Specialty Start Date End Date Day Devlin III, MD [address] [place] [address] PCP - General 11/26/03 documented as of this encounter
--- OUTSIDE RECORDS SUMMARY | 2024-05-10 10:03 | External Medical Summary | Summary of Care ---
Author Name Unknown Organization [facility] Address [address] [facility] [place] [address] Phone [phone] Care Team Providers Care Photoresist Contact Printer Name Role Phone Brandi HWANG MD, Day Davidson Primary Care Provider Reason for Visit * Reason Onset Date Comments Medication Refill 01/15/2024 Encounter Details Date Type Department Care Team (Late st Contact Info) Description 01/15/2024 Refill Family Practice [facility] [address] [facility] [place] [address] Day Devlin III, MD 200 [place] [address] Hirsutism Allergies Active Allergy Reactions Criticality Noted Date Comments Amoxicillin-Pot Clavulanate Diarrhea Medium 05/12/20 17 Elevated BS--went to ER, can only take low doses of any antibiotics Corticosteroids High 08/30/2022 Elevated lactic acid documented as of this encounter (statuses as of 01/16/2024) Medications Medication Sig Dispensed Refills Start Date [...] Oral Capsule Take by mouth daily. Active Zoster Vac Recomb Adjuvanted 50 MCG/0.5ML Intramuscular Suspension Reconstituted (Shingrix) Inject 0.5 mL into a large muscle now and repeat dose in 60 to 180 days 1 Each 1 10/14/2022 Active Trulicity 1.5 MG/0.5ML Subcutaneous Solution Pen-injector (Dulaglutide)Indica tions:Type 2 diabetes mellitus with hemoglobin A1c goal of less than 7.0% (HCC) Inject 1.5 mg under the skin once a week. 18 mL 09/19/2023 Active Insulin Glargine Solostar 100 UNIT/ML Subcutaneous Solution Pen-injector (Lantus SoloStar)Indication s:Type 2 diabetes mellitus with hemoglobin A1c goal of less than 7.0% (HCC) Inject 10 Units under the skin in the morning. 15 mL 09/19/2023 Active FreeStyle Lite Test In Vitro Strip (Glucose Blood) Test blood sugars 3 times daily DX E11.9 300 Strip 09/19/2023 Active Pen [place] 3" 31G X 5 MM Use 1 time [...] (1/2) TABLET TWICE A DAY 90 Tablet 1 01/16/2024 [...] 1 TABLET ONCE A NITE 90 Tablet 1 01/16/2024 Active Clopidogrel Bisulfate 75 MG Oral Tablet (pLAVix) Take 1 Tablet by mouth in the morning. 90 Tablet 1 01/16/2024 Active Spironolactone 100 MG Oral Tablet (Aldactone)Indicati ons:Hirsutism TAKE ONE-HALF (1/2) TABLET TWICE A DAY 90 Tablet 2 03/21/2023 4 Discontinue d(Refill) Lisinopril 5 MG Oral Tablet (Prinivil) TAKE 1 TABLET ONCE A NITE 90 Tablet 2 03/21/2023 4 Discontinue d(Refill) Clopidogrel Bisulfate 75 MG Oral Tablet (pLAVix) Take 1 Tablet by mouth in the morning. 90 Tablet 09/19/2023 4 Discontinue d(Refill) metFORMIN HCl ER 500 MG Oral Tablet Extended Release 24 Hour (Glucophage XR) Take 2 Tablets by mouth in the morning. 180 Tablet 09/19/2023 4 Discontinue d(Refill) Ondansetron HCl 4 MG Oral Tablet (Zofran) TAKE ONE TABLET BY MOUTH EVERY SIX HOURS NEEDED for nausea 90 Tablet 09/19/2023 4 Discontinue d(Refill) Pantoprazole Sodium 40 MG Oral Tablet Delayed Release (Protonix) Take 1 Tablet by mouth in the morning. 30 minutes before the first meal of the day. Do not crush, split or chew the tablet. 90 Tablet 1 09/19/2023 4 Discontinue d(Refill) Pravastatin Sodium 40 MG Oral Tablet (Pravachol) Take 1 Tablet by mouth every evening. 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 patsy kidney disease due to type [...] as of this encounter (statuses as of 01/16/2024) Immunizations Name Administration Dates Next Due H1N1 [...] encounter Miscellaneous Notes * Telephone Encounter - Shonna Hernandez MD - 01/16/2024 2:50 PM EDTSigned Prescriptions: Disp Refills Spironolactone 100 MG Oral Tablet (Aldacto*90 Tab*1 Sig: TAKE ONE-HALF (1/2) TABLET TWICE A DAYAuthorizing Provider: DAY DEVLIN III User: SILVIA RENNER metFORMIN HCl ER 500 MG Oral Tablet Extend*180 Ta*1 Sig: Take 2 Tablets by mouth in the morning.Authorizing Provider: DAY DEVLIN III User: SILVIA RENNER Ondansetron HCl 4 MG Oral Tablet (Zofran) 90 Tab*0 Sig: TAKE ONE TABLET BY MOUTH EVERY SIX HOURS NEEDED for nauseaAuthorizing Provider: SHONNA HERNANDEZ Lisinopril 5 MG Oral Tablet (Prinivil) 90 Tab*1 Sig: TAKE 1 TABLET ONCE A NITEAuthorizing Provider: DAY DEVLIN III User: SILVIA RENNER Clopidogrel Bisulfate 75 MG Oral Tablet (p*90 Tab*1 Sig: Take 1 Tablet by mouth in the morning.Authorizing Provider: DAY DEVLIN III User: SILVIA RENNER * Telephone Encounter - Silvia Renner [facility] - 01/16/2024 1:59 PM EDTPending Prescriptions: Disp Refills Ondansetron HCl 4 MG Oral Tablet (Zofran) 90 Tab*0 Sig: TAKE ONE TABLET BY MOUTH EVERY SIX HOURS NEEDED for nausea Signed Prescriptions: Disp Refills Spironolactone 100 MG Oral Tablet (Aldacto*90 Tab*1 Sig: TAKE ONE-HALF (1/2) TABLET TWICE A DAY Authorizing Provider: DAY DEVLIN III Ordering Use r: SILVIA RENNER metFORMIN HCl ER 500 MG Oral Tablet Extend*180 Ta*1 Sig: Take 2 Tablets by mouth in the morning. Authorizing Provider: DAY DEVLIN III Ordering User: SILVIA RENNER Lisinopril 5 MG Oral Tablet (Prinivil) 90 Tab*1 Sig: TAKE 1 TABLET ONCE A NITE Authorizing Provider: DAY DEVLIN III Ordering User: SILVIA RENNER Clopidogrel Bisulfate 75 MG Oral Tablet (p*90 Tab*1 Sig: Take 1 Tablet by mouth in the morning. Authorizing Provider: DAY DEVLIN III Ordering User: SILVIA RENNER * Telephone Encounter - Silvia Renner [facility] - 01/16/2024 1:59 PM EDT Please approve if patient is to continue. Thanks, Silvia Renner Clinical Pharmacist [facility] ([facility]) [phone] 01/16/2024, 1:59 PM * Telephone Encounter - Debbi Regalado CPhT - 01/15/2024 11:26 AM EDT Did you pend patient's preferred pharmacy and medication before forwarding?yes Pharmacy: [facility] Pending Prescriptions: Disp Refills Spironolactone 100 MG Oral Tablet (Aldact*90 Tab*2 Sig: TAKE ONE-HALF (1/2) TABLET TWICE A DAY metFORMIN HCl ER 500 MG Oral Tablet Exten*180 Ta*0 Sig: Take 2 Tablets by mouth in the morning. Ondansetron HCl 4 MG Oral Tablet (Zofran) 90 Tab*0 Sig: TAKE ONE TABLET BY MOUTH EVERY SIX HOURS NEEDED for nausea Lisinopril 5 MG Oral Tablet (Prinivil) 90 Tab*2 Sig: TAKE 1 TABLET ONCE A NITE Clopidogrel Bisulfate 75 MG Oral Tablet (*90 Tab*0 Sig: Take 1 Tablet by mouth in the morning. Last Visit: 10/19/2023 (in office), 04/10/2020 (telemedicine) Next Visit: 04/12/2024 If no future appointments scheduled, and last appointment is greater than a year ago, please schedule patient for a follow-up appointment Last date the medication was ordered: 09/19/2023 Is this request for a controlled substance?No Urine Drug Screen:No results found. However, due [...] Description 04/05/2024 9:00 AM EDT Laboratory Laboratory, [facility] [address] [facility] [place] [address] [facility] [address] [facility] [place] [address] 04/12/2024 9:20 AM EDT Office Visit Family Practice [facility] [address] [facility] [place] [address] Day Devlin III, MD 200 [place] [address] Scheduled Procedures Name Priority Associated Diagnoses Date/Ti [...] 12/06, 12/23/2014, Additional history exists COVID-19 Vaccine (2022- season) 2023 CKD PHOS USE SMARTSET 20858 05/10/202311/2021, 02/27/2019, 05/22/2018, Additional history exists Mammogram [...] 2024 12/28/2016, 12/26/2005 CKD HGB USE SMARTSET 51780 10/18/202410/18, 05/10/2022, 06/07/2021, Additional history exists Diabetic [...] as of this encounter Visit Diagnoses Diagnosis Hirsutism documented in this encounter Care Teams Photoresist Contact Printer Relationship Specialty Start Date End Date Brandi HWANG, Day Davidson MD [address] [place] [address] PCP - General 11/26/03 documented as of this encounter
--- OUTSIDE RECORDS SUMMARY | 2024-05-10 10:03 | External Medical Summary | Summary of Care ---
Author Name Unknown Organization [facility] Address [address] [facility] [place] [address] Phone [phone] Care Team Providers Care Call Center Coordinator Name Role Phone Brandi HWANG MD, John E Primary Care Provider Reason for Visit * Reason Onset Date Comments Medication Refill 01/24/2024 Encounter Details Date Type Department Care Team (Late st Contact Info) Description 01/24/2024 Refill Family Practice [facility] [address] [facility] [place] [address] Day Devlin III, MD 200 [place] [address] Type 2 diabetes mellitus with hemoglobin A1c goal of less than 7.0% ([facility]) Allergies Active Allergy Reactions Criticality Noted Date Comments Amoxicillin-Pot Clavulanate Diarrhea Medium 05/12/20 17 Elevated BS--went to ER, can only take low doses of any antibiotics Corticosteroids High 08/30/2022 Elevated lactic acid documented as of this encounter (statuses as of 01/25/2024) Medications Medication Sig Dispensed Refills Start Date [...] hemoglobin A1c goal of less than 7.0% ([facility]) Inject 1.5 mg under the skin once a week. 18 mL 09/19/2023 Active FreeStyle Lite Test In Vitro Strip (Glucose Blood) Test blood sugars 3 times daily DX E11.9 300 Strip 09/19/2023 Active Pen [place] 3/16" 31G X 5 MM Use 1 [...] the morning. 15 mL 1 01/25/2024 Active Insulin Glargine Solostar 100 UNIT/ML Subcutaneous Solution Pen-injector (Lantus SoloStar)Indication s:Type 2 diabetes mellitus with hemoglobin A1c goal of less than 7.0% (HCC) Inject 10 Units under the skin in the morning. 15 mL 09/19/2023 4 Discontinue d(Refill) documented as of this encounter (statuses as of 01/25/2024) Active Problems Problem Noted Date Diagnosed Date [...] as of this encounter (statuses as of 01/25/2024) Resolved Problems Problem Noted Date Diagnosed Date Resolved Date Stricture of artery 10/14/2022 10/15/19 23 Hypertension in stage 3 vitreo retinal surgeon patsy kidney disease due to type 2 [...] as of this encounter (statuses as of 01/25/2024) Immunizations Name Administration Dates Next Due H1N1 [...] encounter Miscellaneous Notes * Telephone Encounter - Martha Guzmán RPh - 01/25/2024 6:12 AM EDTSigned Prescriptions: Disp Refills Insulin Glargine Solostar 100 UNIT/ML Subc*15 mL 1 Sig: Inject 10 Units under the skin in the morning. Authorizing Provider: DAY DEVLIN III Ordering User: MARTHA GUZMÁN * Telephone Encounter - Brianne Mcdaniel CPhT - 01/24/2024 10:53 AM EDT Did you pend patient's preferred pharmacy and medication before forwarding?yes Pharmacy: [facility] Pending Prescriptions: Disp Refills Insulin Glargine Solostar 100 UNIT/ML Sub*15 mL 0 Sig: Inject 10 Units under the skin in the morning. Last Visit: 10/19/2023 (in office), 04/10/2020 (telemedicine) Next Visit: 04/12/2024 If no future appointments scheduled, and last appointment is greater than a year ago, please schedule patient for a follow-up appointment Last date the medication was ordered: [id number] Is this request for a controlled substance?No [...] Description 04/05/2024 9:00 AM EDT Laboratory Laboratory, [facility] [place] [address] [place] [id number] [place] [address] [place] [address] 04/12/2024 9:20 AM EDT Office Visit Family Practice [facility] [address] [place] [address] Day Devlin III, MD [address] [place] [address] Scheduled Procedures Name Priority Associated Diagnoses Date/Ti me COLONOSCOPY FLEXIBLE PROXIMAL DIAGNOSTIC Recall History of colon polyps ESOPHAGOGASTRODUODENOSCOPY ( EGD), FLEXIBLE, TRANSORAL, DIAGNOSTIC Recall Argueta esophagus Health Maintenance Due Date Last Done Comments HPV/Co-Test 1989 Cologuard 2004 Fecal Occult Blood Test 2004 01/31/2001 Sigmoidoscopy 2004 Zoster Vaccines (1 of 2) 2009 DISCUSS TOBACCO CESSATION (REFER TO SMARTSET #5680) 08/19/2015 08/19/2014 (Discussed) DTaP,Tdap,and Td Vaccines (2 - Td or Tdap) 06/13/2018 06/13/2008 Depression Screening 08/21/2020 08/21/2019 Diabetic Foot Exam 04/02/2021 04/02/2020, 0 02/27/2019, 05/23/2018, Additional history exists Cervical Cancer Screening 08/30/2022 Pap Smear 08/30/2022 08/30/2019, 12/06, 12/23/2014, Additional history exists COVID-19 Vaccine ( - season) 2023 CKD PHOS USE SMARTSET 64755 05/10/2023 10/0 11/2021, 02/27/2019, 05/22/2018, Additional history [...] 2024 12/28/2016, 12/26/2005 CKD HGB USE SMARTSET 66409 10/18/202410/18, 05/10/2022, 06/07/2021, Additional history exists Diabetic Eye Exam 10/18/2024 10/19/2023, , 09/06/2019, Additional history exists Albumin/Creatinine Ratio 10/20/20242 024, 10/19/2021, 03/27/2020, Additional history exists Colonoscopy [...] Diagnoses Diagnosis Type 2 diabetes mellitus with hemoglobin A1c goal of less than 7.0% (HCC) documented in this encounter Care Teams Call Center Coordinator Relationship Specialty Start Date End Date Day Devlin III, MD [address] [facility] [place] [address] PCP - General 11/26/03 documented as of this encounter
--- OUTSIDE RECORDS SUMMARY | 2024-05-10 10:03 | External Medical Summary | Summary of Care ---
Author Name Unknown Organization [facility] Address [address] [facility] [place] [address] Phone [phone] Care Team Providers Care Gas Dispatcher Name Role Phone Brandi HWANG MD, Day Davidson Primary Care Provider Reason for Referral * Medication Prior Authorization - Pending Review Specialty Diagnoses / Procedures Referred By Prashanth velazco Referred To Contact Diagnoses Chronic bilateral thoracic back pain Day Devlin III, MD [address] [facility] [place] [address] Referral ID Status Reason Start Date Expiration Date V isits Requested Visits Authorized [id number] Pending Review 999 999 Reason for Visit * Reason Onset Date Comments Medication Refill 11/30/2023 Medication Pre-auth 11/30/2023 Status Check 11/30/2023 Encounter Details Date Type Department Care Team (Late st Contact Info) Description 11/30/2023 Telephone Family Practice [facility] [place] [address] Day Devlin III, MD [address] [facility] [place] [address] Medication Refill; Medication Pre-auth; St... Allergies Active [...] hemoglobin A1c goal of less than 7.0% ([facility]) Inject 1.5 mg under the skin once [...] hemoglobin A1c goal of less than 7.0% ([facility]) Inject 10 Units under the skin in the morning. 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 No. How did the patient obtain the medication on the lastfill? It was filled at a different pharmacy. What alternative medications does the pharmacy have in stock?: Thank you, Angella Harman [facility] Animal Scientist [facility] ([facility]) (Formerly Telepharmacy) 12/13/2023, 10:09 AM * Telephone Encounter - Jessica Pandya CPhT - 12/11/2023 3:34 PM EDT pharmacy calling to check on status of tramadol. Caller can be reached at [phone]. Thank you, Jessica Pandya [facility] Animal Scientist III [facility]) (formerly Telepharmacy) 12/11/2023,3:34 PM * Telephone Encounter - Nanette Dee linux administrator - 12/07/2023 9:38 AM EDT Patient calling to check on status of Tramadol. Caller can be reached at [phone]. Thank you, Nanette Dee Rabbler I [facility] ([facility]) 12/07/2023,9:38 [...] resubmit if appropriate. Thank you, Aspen Willis [employer] Sawyer I [facility] (Formerly Telepharmacy) 12/02/2023,9:08 AM * Telephone Encounter - Debbi Regalado CPhT - 12/01/2023 2:43 PM EDT Patients insurance would like to inform the office that Tramadol is requiring additional information: clinical notes. Prior authorization entered in [employer] at [facility]. EOC# [id number] Please fax to [phone] before end of day today. Thank you, Debbi Regalado CPhT Animal Scientist [facility] ([facility])(formerly telepharmacy) 12/01/2023,2:43 PM * Telephone Encounter - Myriam Amaya PHARM Tech - 12/01/2023 2:25 PM EDT Maxi gaviria from [facility]. Needs clinical information sent over for Tramadol 50mg. Please fax information to [phone] by end of day . EOC [id number] Need the following information 1.Do not see [...] by the prescribing provider. Thanks, Myriam Amaya Animal Scientist III [facility] ([facility]) 12/01/2023,2:25 PM * Telephone Encounter - Brandi HWANG, Day Davidson MD - 12/01/2023 1:56 PM EDTSigned Prescriptions: Disp Refills traMADol HCl 50 MG Oral Tablet (Ultram) 180 Ta*1 Sig: Take 2 Tablets by mouth every 8 hours as needed for Pain, Moderate or Pain, Severe. Authorizing Provider: DAY DEVLIN III * Telephone Encounter - Kathia Grewal [facility] - 12/01/2023 1:09 PM EDT Pending Prescriptions: Disp Refills traMADol HCl 50 MG Oral Tablet (Ultram) 180 Ta*1 Sig: Take 2 Tablets by mouth every 8 hours as needed for Pain, Moderate or Pain, Severe. * Telephone Encounter - Kathia Grewal [facility] - 12/01/2023 1:08 PM EDT I have reviewed the patients controlled substance dispensing history in the Prescription Drug Monitoring Program in compliance with the [facility] regulations before prescribing a controlled substance. [...] medication is due for refill: 11/02 Pharmacy: [facility] Is this request for a [...] preferred pharmacy and medication before forwarding?yes Pharmacy: [facility] Pending Prescriptions: Disp Refills [...] 9:20 AM EDT [facility] [address] [place] [address] SharpDay rudolph III, MD [address] [facility] [place], [place] [address] Scheduled Procedures Name Priority Associated Diagnoses Date/Ti me COLONOSCOPY FLEXIBLE PROXIMAL DIAGNOSTIC Recall History of colon polyps ESOPHAGOGASTRODUODENOSCOPY ( EGD), FLEXIBLE, TRANSORAL, DIAGNOSTIC Recall Argueta esophagus Health Maintenance Due Date Last Done Comments HPV/Co-Test 1989 Cologuard 2004 Fecal Occult Blood Test 2004 01/31/2001 Sigmoidoscopy 2004 Zoster Vaccines (1 of 2) 2009 DISCUSS TOBACCO CESSATION (REFER TO SMARTSET #3299) 08/19/2015 08/19/2014 (Discussed) DTaP,Tdap,and Td Vaccines (2 - Td or Tdap) 06/13/2018 06/13/2008 Depression Screening 08/21/2020 08/21/2019 Diabetic Foot Exam 04/02/2021 04/02/2020, 0 02/27/2019, 05/23/2018, Additional history exists Cervical Cancer Screening 08/30/2022 Pap Smear 08/30/2022 08/30/2019, 12/06, 12/23/2014, Additional history exists COVID-19 Vaccine (1 - season) 2023 CKD PHOS USE SMARTSET 98379 05/10/2023 10/0 11/2021, 02/27/2019, 05/22/2018, Additional history [...] 2024 12/28/2016, 12/26/2005 CKD HGB USE SMARTSET 48787 10/18/202410/18, 05/10/2022, 06/07/2021, Additional history exists Diabetic [...] pain documented in this encounter Care Teams Gas Dispatcher Relationship Specialty Start Date End Date Day Devlin III, MD [address] [facility] [place] [address] PCP - General 11/26/03 documented as of this encounter
--- OUTSIDE RECORDS SUMMARY | 2024-05-10 10:03 | External Medical Summary | Summary of Care ---
Author Name Unknown Organization [facility] Address [address] [facility] [place] [address] Phone [phone] Care Team Providers Care Electrolysis Engineer Name Role Phone Brandi HWANG MD, Day Davidson Primary Care Provider Reason for Visit * Reason Onset Date Comments Medication Refill 01/15/2024 Encounter Details Date Type Department Care Team (Late st Contact Info) Description 01/15/2024 Refill Family Practice [facility] [address] [place] [address] Day Devlin III, MD 200 [place] [address] Allergies Active Allergy Reactions Criticality Noted Date [...] once a week. 18 mL 09/19/2023 Active Clopidogrel Bisulfate 75 MG Oral Tablet (pLAVix) Take 1 Tablet by mouth in the morning. 90 Tablet 09/19/2023 Active metFORMIN HCl ER 500 MG Oral Tablet Extended Release 24 Hour (Glucophage XR) Take 2 Tablets by mouth in the morning. 180 Tablet 09/19/2023 Active Ondansetron HCl 4 MG Oral Tablet (Zofran) TAKE ONE TABLET BY MOUTH EVERY SIX HOURS NEEDED for nausea 90 Tablet 09/19/2023 Active Insulin Glargine Solostar 100 UNIT/ML Subcutaneous Solution Pen-injector (Lantus SoloStar)Indication s:Type 2 diabetes mellitus with hemoglobin A1c goal of less than 7.0% (HCC) Inject 10 Units under the skin in the morning. 15 mL 09/19/2023 Active FreeStyle Lite Test In Vitro Strip (Glucose Blood) Test blood sugars 3 times daily DX E11.9 300 Strip 09/19/2023 Active Pen [place] 10/20" 31G X 5 MM Use 1 [...] severe pain 180 Tablet 1 12/01/2023 Active Pravastatin Sodium 40 MG Oral Tablet (Pravachol) Take 1 Tablet by mouth every evening. 90 Tablet 1 01/16/2024 Active Pantoprazole Sodium 40 MG Oral Tablet Delayed Release (Protonix) Take 1 Tablet by mouth in the morning. 30 minutes before the first meal of the day. Do not crush, split or chew the tablet. 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 Do not crush, split or chew the tablet.Au thorizing Provider: DAY DEVLIN III User: KARLA PACKER * Telephone Encounter - Karla Packer RPh - 01/16/2024 1:08 PM EDT Rerouted remaining refills to new pharmacy as requested. Thank you, Karla Packer, PharmD Clinical Pharmacist [facility] ([facility]) 01/16/24 1:08 PM [phone] * Telephone Encounter - Debbi Regalado CPhT - 01/15/2024 11:28 AM EDT Please reroute Rx to [facility]. Pending Prescriptions: Disp Refills Pravastatin Sodium 40 MG Oral Tablet (Pra*90 Tab*1 Sig: Take 1 Tablet by mouth every evening. Pantoprazole Sodium 40 MG Oral Tablet Del*90 Tab*0 Sig: Take 1 Tablet by mouth in the morning. 30 minutes before the first meal of the day. Do not crush, split or chew the tablet. Last Visit: 10/19/2023 (in office), 04/10/2020 (telemedicine) 04/12/2024 If no future appointments scheduled, and last appointment is greater than a year ago, please schedule patient for a follow-up appointment Last date the medication was ordered: 10/21/2023,09/19/2023 Patient Phone Numbers [employer] [phone] Labs: Lab Results Component Value Date/Time CREAT [...] Description 04/05/2024 9:00 AM EDT Laboratory Laboratory, [facility] [address] [place] [phone] [place] [address] [place] [address] 04/12/2024 9:20 AM EDT Office Visit Family [facility] [address] [facility] [place] [address] Day Devlin III, MD [address] [facility] [place] [address] Scheduled Procedures Name Priority Associated Diagnoses Date/Ti [...] - season) 2023 CKD PHOS USE SMARTSET 29290 05/10/2023 10/0 11/2021, 02/27/2019, 05/22/2018, Additional history [...] 2024 12/28/2016, 12/26/2005 CKD HGB USE SMARTSET 56311 10/18/202410/18, 05/10/2022, 06/07/2021, Additional history exists Diabetic [...] filedocumented as of this encounter Care Teams Electrolysis Engineer Relationship Specialty Start Date End Date Day Devlin III, MD [address] [place] [address] PCP - General 11/26/03 documented as of this encounter
--- OUTSIDE RECORDS SUMMARY | 2024-05-10 10:04 | External Medical Summary | Summary of Care ---
Author Name Unknown Organization [facility] Address [address] [facility] [place] [address] Phone [phone] Care Team Providers Care Green Plumber Name Role Phone Brandi HWANG MD, Erick Kendrick Primary Care Provider [phone] Reason for Visit * Reason Comments Follow Up Encounter Details Date Type Department Care Team (Late st Contact Info) Description 12/06/2023 7:45 AM EDT Telemedicine Orthopaedics [facility] [address] [facility] [place] [address] Dong Ricardo MD [address] [place] [phone] Rotator cuff impingement syndrome of right shoulder*; Stooped posture Allergies Active Allergy Reactions Criticality Noted Date Comments Amoxicillin-Pot Clavulanate Diarrhea Medium 05/12/20 17 Elevated BS--went to ER, can only take low doses of any antibiotics Corticosteroids High 08/30/2022 Elevated lactic acid documented as of this encounter (statuses as of 12/06/2023) Medications Medication Sig Dispensed Refills Start Date End Date Status hydrocortisone 2.5 % creamIndications:Derm atitis Equal parts lotromin 3 x daily to [...] 10/14/2022 Active Spironolactone 100 MG Oral Tablet (Aldactone)Indication s:Hirsutism TAKE ONE-HALF (1/2) TABLET TWICE A DAY 90 Tablet 2 03/21/2023 Active Lisinopril 5 MG Oral Tablet (Prinivil) TAKE 1 TABLET ONCE A NITE 90 Tablet 2 03/21/2023 Active Trulicity 1.5 MG/0.5ML Subcutaneous Solution Pen-injector (Dulaglutide)Indicati ons:Type 2 diabetes mellitus with hemoglobin A1c goal [...] E11.9 300 Strip 0 09/19/2023 Active Pen [place] 3/16" 31G X 5 MM Use 1 [...] Moderate or Pain, Severe. 180 Tablet 1 12/01/2023 Active documented as of this encounter (statuses as of 12/06/2023) Active Problems Problem Noted Date Diagnosed Date [...] as of this encounter (statuses as of 12/06/2023) Resolved Problems Problem Noted Date Diagnosed Date Resolved Date Stricture of artery 10/14/2022 10/15/19 23 Hypertension in stage 3 fisher weir patsy kidney disease due to type 2 [...] as of this encounter (statuses as of 12/06/2023) Immunizations Name Administration Dates Next Due H1N1 [...] on file documented as of this encounter Progress Notes * Dong Ricardo MD - 12/06/2023 7:40 AM EDT After connecting to the patient via telephone, the patient was identified by name and date of . Patient was then informed that this was a telephone call only visit. The patient agreed to participate. Visit Disposition: Routine follow-up Assessment M75.41 Rotator cuff impingement syndrome of right shoulder (primary encounter diagnosis) R29.3 Stooped posture We discussed the patient's symptoms over the phone. She states that she has had significant improvement with the physical therapy. Patient would like to continue with the physical therapy. She deniesany new injury. After discussing the patient's symptoms we agree with her course of management. We will see her back in the office as needed. If her symptoms plateau or do not continue to improve with physical therapy she may benefit from a MRI scanOf the right shoulder to evaluate for intra-articular pathology. We answered all her questions to the best of our abilities today. Total call duration was less than 5 minutes. Dong Ricardo MD Orthopaedics [address] [address] Orthopedic Sports Medicine Surgery documented in this encounter Plan of Treatment Upcoming Encounters Date Type Department Care Team (Late st Contact Info) Description 04/12/2024 9:20 AM EDT Office Visit Family Practice [facility] [place] [address] [facility] [place] [address] Erick Paz III, MD 200 [facility] [place] [address] Scheduled Procedures Name Priority Associated Diagnoses Date/Ti me COLONOSCOPY FLEXIBLE PROXIMAL DIAGNOSTIC Recall History of colon polyps ESOPHAGOGASTRODUODENOSCOPY ( EGD), FLEXIBLE, TRANSORAL, DIAGNOSTIC Recall Argueta esophagus Health Maintenance Due Date Last Done Comments HPV/Co-Test 1989 Cologuard 2004 Fecal Occult Blood Test 2004 01/31/2001 Sigmoidoscopy 2004 Zoster Vaccines (1 of 2) 2009 DISCUSS TOBACCO CESSATION (REFER TO SMARTSET #4152) 08/19/2015 08/19/2014 (Discussed) DTaP,Tdap,and Td Vaccines (2 - Td or Tdap) 06/13/2018 06/13/2008 Depression Screening 08/21/2020 08/21/2019 Diabetic Foot Exam 04/02/2021 04/02/2020, 0 02/27/2019, 05/23/2018, Additional history exists Cervical Cancer Screening 08/30/2022 Pap Smear 08/30/2022 08/30/2019, 12/06, 12/23/2014, Additional history exists COVID-19 Vaccine ( season) 2023 CKD PHOS USE SMARTSET 51276 05/10/2023 10/0 11/2021, 02/27/2019, 05/22/2018, Additional history [...] 2024 12/28/2016, 12/26/2005 CKD HGB USE SMARTSET 23929 10/18/202410/18, 05/10/2022, 06/07/2021, Additional history exists Diabetic [...] as of this encounter Visit Diagnoses Diagnosis Rotator cuff impingement syndrome of right shoulder- Primary Stooped posture documented in this encounter Care Teams Green Plumber Relationship Specialty Start Date End Date Erick Paz III, MD 200 [facility] [place] [address] PCP - General 11/26/03 documented as of this encounter
--- OUTSIDE RECORDS SUMMARY | 2024-05-10 10:04 | External Medical Summary | Summary of Care ---
Author Name Unknown Organization [facility] Address [address] [facility] [place] [address] Phone [phone] Care Team Providers Care Administrative Services Assistant Name Role Phone Brandi HWANG MD, Day Davidson Primary Care Provider [phone] Reason for Referral * Medication Prior Authorization - Pending Review Specialty Diagnoses / Procedures Referred By Prashanth velazco Referred To Contact Diagnoses Chronic bilateral thoracic back pain Day Devlin III, MD [address] [facility] [place] [address] Referral ID Status Reason Start Date Expiration Date V isits Requested Visits Authorized [id number] Pending Review 999 999 Reason for Visit * Reason Onset Date Comments Medication Refill 11/30/2023 Medication Pre-auth 11/30/2023 Status Check 11/30/2023 Encounter Details Date Type Department Care Team (Late st Contact Info) Description 11/30/2023 Telephone [facility] [place] [address] Day Devlin III, MD [address] [facility] [place] [address] Medication Refill; Medication Pre-auth; St... Allergies Active Allergy Reactions Criticality Noted Date Comments Amoxicillin-Pot Clavulanate Diarrhea Medium 05/12/20 17 Elevated BS--went to ER, can only take low doses of any antibiotics Corticosteroids High 08/30/2022 Elevated lactic acid documented as of this encounter (statuses as of 12/11/2023) Medications Medication Sig Dispensed Refills Start Date [...] hemoglobin A1c goal of less than 7.0% ([facility]) Inject 1.5 mg under the skin once [...] hemoglobin A1c goal of less than 7.0% ([facility]) Inject 10 Units under the skin in the morning. 15 mL 0 09/19/2023 Active FreeStyle Lite Test In Vitro Strip (Glucose Blood) Test blood sugars 3 times daily DX E11.9 300 Strip 0 09/19/2023 Active Pen [place] 316" 31G X 5 MM Use 1 [...] Pain, Severe. 180 Tablet 1 12/01/2023 Active traMADol HCl 50 MG Oral Tablet (Ultram)Indications :Chronic bilateral thoracic back pain Take 2 Tablets by mouth every 8 hours as needed for Pain, Moderate or Pain, Severe. 180 Tablet 1 09/26/2023 4 Discontinue d(Refill) documented as of this encounter (statuses as of 12/11/2023) Active Problems Problem Noted Date Diagnosed Date [...] as of this encounter (statuses as of 12/11/2023) Resolved Problems Problem Noted Date Diagnosed Date Resolved Date Stricture of artery 10/14/2022 10/15/19 23 Hypertension in stage 3 chronometer tester patsy kidney disease due to type 2 [...] as of this encounter (statuses as of 12/11/2023) Immunizations Name Administration Dates Next Due H1N1 [...] encounter Miscellaneous Notes * Telephone Encounter - Jessica Pandya CPhT - 12/11/2023 3:34 PM EDT pharmacy calling to check on status of tramadol. Caller can be reached at [phone]. Thank you, Jessica Pandya CphT Whipper III [facility]) (formerly Telepharmacy) 12/11/2023,3:34 PM * Telephone Encounter - Nanette Dee cook mess - 12/07/2023 9:38 AM EDT Patient calling to check on status of Tramadol. Caller can be reached at [phone]. Thank you, Nanette Dee Towel Folder I [facility] ([facility]) 12/07/2023,9:38 [...] resubmit if appropriate. Thank you, Aspen Willis Shackler I [facility] (Formerly Telepharmacy) 12/02/2023,9:08 AM * Telephone Encounter - Debbi Regalado CPhT - 12/01/2023 2:43 PM EDT Patients insurance would like to inform the office that Tramadol is requiring additional information: clinical notes. Prior authorization entered in [facility] at [facility] [place]. EOC# [id number] Please fax to [phone] before end of day today. Thank you, Debbi Regalado CPhT Whipper [facility] ([facility])(formerly telepharmacy) 12/01/2023,2:43 PM * Telephone Encounter - Myriam Amaya cook mess - 12/01/2023 2:25 PM EDT Maxi gaviria from [facility] [place]. Needs clinical information sent over for Tramadol 50mg. Please fax information to [phone] by end of day . EOC [id number] Need the following information 1.Do not see [...] by the prescribing provider. Thanks, Myriam Amaya Whipper III [facility] Services ([facility] 12/01/2023,2:25 PM * Telephone Encounter - Day Devlin III, MD - 12/01/2023 1:56 PM EDTSigned Prescriptions: Disp Refills traMADol HCl 50 MG Oral Tablet (Ultram) 180 Ta*1 Sig: Take 2 Tablets by mouth every 8 hours as needed for Pain, Moderate or Pain, Severe. Authorizing Provider: DAY DEVLIN III * Telephone Encounter - Kathia Grewal [facility] - 12/01/2023 1:09 PM EDT Pending Prescriptions: Disp Refills traMADol HCl 50 MG Oral Tablet (Ultram) 180 Ta*1 Sig: Take 2 Tablets by mouth every 8 hours as needed for Pain, Moderate or Pain, Severe. * Telephone Encounter - Kathia Grewal [facility] - 12/01/2023 1:08 PM EDT I have reviewed the patients controlled substance dispensing history in the Prescription Drug Monitoring Program in compliance with the [facility] regulations before prescribing a controlled substance. PDMP checked on 12/01/2023. Pending Prescriptions: Disp Refills traMADol HCl 50 MG Oral Tablet (Ultram) 180 Ta*1 Sig: Take 2 Tablets by mouth every 8 hours as needed for Pain, Moderate or Pain, Severe. Last Visit: 10/19/2023 (in office), 04/10/2020 (telemedicine) Next Visit: 04/12/2024 Date medication was last filled: Date medication is due for refill: 11/02 Pharmacy: [facility] Is this request for a controlled substance? Yes and Urine Drug Screen Not completed Toxicology results: No results found. However, due to the size of the patient record, not all encounters were searched.Please check Results Review for a complete set of results. Please approve if appropriate. Thank you, Kathia Grewal PharmD. Clinical Pharmacist [facility] ([facility]) (formerly Telepharmacy) 12/01/2023, 1:08 PM * Telephone Encounter - Samanta Lugo PHARM Tech - 11/30/2023 2:51 PM EDT Did you pend patient's preferred pharmacy and medication before forwarding?yes Pharmacy: [facility] Pending Prescriptions: Disp Refills traMADol [...] 9:20 AM EDT [facility] [address] [facility] [place] [place] [address] Day Devlin III, MD [address] [facility] [place] [address] Scheduled Procedures Name Priority Associated Diagnoses Date/Ti [...] ( season) 2023 CKD PHOS USE SMARTSET 06155 05/10/202311/2021, 02/27/2019, 05/22/2018, Additional history exists Mammogram [...] 2024 12/28/2016, 12/26/2005 CKD HGB USE SMARTSET 18378 10/18/202410/18, 05/10/2022, 06/07/2021, Additional history exists Diabetic [...] pain documented in this encounter Care Teams Administrative Services Assistant Relationship Specialty Start Date End Date Day Devlin III, MD 200 [place] [address] PCP - General 11/26/03 documented as of this encounter
--- OUTSIDE RECORDS SUMMARY | 2024-05-10 10:04 | External Medical Summary | Summary of Care ---
Author Name Unknown Organization [facility] Address [address] [facility] [place] [address] Phone [phone] Care Team Providers Care Web Content Developer Name Role Phone Brandi HWANG MD, Day Davidson Primary Care Provider [phone] Reason for Referral * Medication Prior Authorization - Pending Review Specialty Diagnoses / Procedures Referred By Prashanth velazco Referred To Contact Diagnoses Chronic bilateral thoracic back pain Day Devlin III, MD 200 [facility] [place] [address] Referral ID Status Reason Start Date Expiration Date V isits Requested Visits Authorized [id number] Pending Review [phone] Reason for Visit * Reason Onset Date Comments Medication Refill 11/30/2023 Medication Pre-auth 11/30/2023 Status Check 11/30/2023 Encounter Details Date Type Department Care Team (Late st Contact Info) Description 11/30/2023 Telephone Family Practice [facility] [address] [facility] [place] [address] Day Devlin III, MD 200 [facility] [place] [address] Medication Refill; Medication Pre-auth; St... Allergies Active Allergy Reactions Criticality Noted Date Comments Amoxicillin-Pot Clavulanate Diarrhea Medium 05/12/20 17 Elevated BS--went to ER, can only take low doses of any antibiotics Corticosteroids High 08/30/2022 Elevated lactic acid documented as of this encounter (statuses as of 12/07/2023) Medications Medication Sig Dispensed Refills Start Date [...] goal of less than 7.0% ([facility]) Inject 1.5 mg under the skin [...] goal of less than 7.0% ([facility]) Inject 10 Units under the skin in the morning. 15 mL 0 09/19/2023 Active FreeStyle Lite Test In Vitro Strip (Glucose Blood) Test blood sugars 3 times daily DX E11.9 300 Strip 0 09/19/2023 Active Pen [place] 316" 31G X 5 MM Use 1 [...] as of this encounter (statuses as of 12/07/2023) Active Problems Problem Noted Date Diagnosed Date [...] as of this encounter (statuses as of 12/07/2023) Resolved Problems Problem Noted Date Diagnosed Date Resolved Date Stricture of artery 10/14/2022 10/15/19 23 Hypertension in stage 3 key maker patsy kidney disease due to type 2 [...] as of this encounter (statuses as of 12/07/2023) Immunizations Name Administration Dates Next Due H1N1 [...] Notes * Telephone Encounter - Nanette Dee adult family home program manager - 12/07/2023 9:38 AM EDT Patient calling to check on status of Tramadol. Caller can be reached at [phone]. Thank you, Nanette Dee Assistant County Attorney I [facility] ([facility]) 12/07/2023,9:38 [...] resubmit if appropriate. Thank you, [facility] Psychiatrist I [facility] (Formerly Telepharmacy) 12/02/2023,9:08 AM * Telephone Encounter - Debbi Regalado CPhT - 12/01/2023 2:43 PM EDT Patients insurance would like to inform the office that Tramadol is requiring additional information: clinical notes. Prior authorization entered in [facility] at [facility]. EOC# [id number] Please fax to [phone] before end of day today. Thank you, Debbi Regalado CPhT Customer Service Officer [facility] ([facility])(formerly telepharmacy) 12/01/2023,2:43 PM * Telephone Encounter - Myriam Amaya PHARM Tech - 12/01/2023 2:25 PM EDT Maxi gaviria from [facility]. Needs clinical information sent over for Tramadol 50mg. Please fax information to [phone] by end of day . EOC [id number] Need the following information 1.Do not see [...] by the prescribing provider. Thanks, Myriam Amaya Customer Service Officer III [facility] ([facility]) 12/01/2023,2:25 PM * Telephone Encounter - Day Devlin III, MD - 12/01/2023 1:56 PM EDTSigned Prescriptions: Disp Refills traMADol HCl 50 MG Oral Tablet (Ultram) 180 Ta*1 Sig: Take 2 Tablets by mouth every 8 hours as needed for Pain, Moderate or Pain, Severe. Authorizing Provider: DAY DEVLIN III * Telephone Encounter - Kathia Grewal [facility] - 12/01/2023 1:09 PM EDT Pending Prescriptions: Disp Refills traMADol HCl 50 MG Oral Tablet (Ultram) 180 Ta*1 Sig: Take 2 Tablets by mouth every 8 hours as needed for Pain, Moderate or Pain, Severe. * Telephone Encounter - Kathia Grewal [facility] - 12/01/2023 1:08 PM EDT I have reviewed the patients controlled substance dispensing history in the Prescription Drug Monitoring Program in compliance with the [facility] regulations before prescribing a controlled substance. [...] medication is due for refill: 11/02 Pharmacy: [facility] Is this request for a [...] preferred pharmacy and medication before forwarding?yes Pharmacy: [facility] Pending Prescriptions: Disp Refills traMADol [...] 9:20 AM EDT Office Visit [facility] [place] [address] [facility] [place] [address] Day Devlin III, MD [address] [facility] [place] [address] Scheduled Procedures Name Priority Associated Diagnoses Date/Ti [...] Cancer Screening 08/30/2022 Pap Smear 08/30/2022 08/30/2019, 05/11/2015, 12/23/2014, Additional history exists COVID-19 Vaccine ( season) 2023 CKD PHOS USE SMARTSET 69679 05/10/202311/2021, 02/27/2019, 05/22/2018, Additional history exists Mammogram [...] 2024 12/28/2016, 12/26/2005 CKD HGB USE SMARTSET 28856 10/18/202410/18, 05/10/2022, 06/07/2021, Additional history exists Diabetic [...] pain documented in this encounter Care Teams Web Content Developer Relationship Specialty Start Date End Date Day Devlin III, MD 200 [place] [address] PCP - General 11/26/03 documented as of this encounter
[2024-05-10] MEDS: SCOPOLAMINE 1 MG/72 HR TDSY PATCH TD ONE ×2 (10:18→10:25)
--- NOTE | 2024-05-10 10:33 | Electrocardiogram Report ---
Test Reason : Blood Pressure : */* mmHG Vent. Rate : 65 BPM Atrial Rate : 65 BPM P-R Int : 156 ms QRS Dur : 66 ms QT Int : 396 ms P-R-T Axes : 76 67 68 degrees QTcB Int : 411 ms Normal sinus rhythm Possible Left atrial enlargement Borderline ECG No previous ECGs available Confirmed by Kenney Abdi ([id number]) on 05/10/2024 10:33:38 AM Referred By: REFERRED SELF Confirmed By: Kenney Abdi
[2024-05-10] MEDS: ceFAZolin 2000MG 2,000 MG/15 ML SYR IV SCH ×2 (10:35→17:46)
[2024-05-10] MEDS ORDERED: ATROPINE SULFATE 0.1 MG/ML 10ML SYR IV PRN (11:02)
[2024-05-10] MEDS ORDERED: ePHEDrine sulfate 50 MG/ML AMP IV PRN (11:02)
[2024-05-10] MEDS ORDERED: PROTAMINE SULFATE 10 MG/ML 5 ML VIAL IV ONE (11:05)
[2024-05-10] MEDS ORDERED: HEPARIN SOD (PORCINE) 1000 UNIT/ML ONE (11:05)
--- NOTE | 2024-05-10 11:10 | Anesthesiology Consultation ---
Date of Service May 10, 2024 Assessment & Plan Chart Review Chart Review: Acceptable Risk for Surgery Consults Requested none ASA ASA4 Proposed Anesthesia Anesthesia Type: General Anesthesia Line Insertion: Arterial line Risk / Benefits Reviewed With: PT / POA / Parent / Guardian, Accepts Plan and Informed Consent Obtained History Surgery Operation Date: 05/10/24 07:00 Proposed Procedures p Repair Right Femoral Anastomotic Pseudoaneurysm - Tyrel Schaffer MD Height/Weight Height: 5 ft 1 in Weight: 49.5 kg Allergies Allergy/AdvReac Type Severity Reaction Status Date / Time antibiotics AdvReac Severe extreme Uncoded 05/09/24 16:31 hypergycemia and lactic acid effected Medications Home Medications Medication Instructions Recorded Confirmed Last Taken cholecalciferol (vitamin D3) 25 25 mcg PO QAM 05/09/24 05/09/24 05/09/24 mcg (1,000 unit) tablet (Vitamin D3) clopidogrel 75 mg tablet 75 mg PO QAM 05/09/24 05/09/24 05/09/24 cyanocobalamin (vitamin B-12) 1,000 mcg PO QAM 05/09/24 05/09/24 05/09/24 1,000 mcg tablet lisinopril 5 mg tablet 5 mg PO QAM 05/09/24 05/09/24 05/09/24 magnesium 250 mg tablet 500 mg PO QAM 05/09/24 05/09/24 05/09/24 metformin 500 mg tablet,extended 1,000 mg PO QAM 05/09/24 05/09/24 05/09/24 release 24 hr ondansetron HCl 4 mg tablet 4 mg PO Q8 PRN Nausea And Vomiting 05/09/24 05/09/24 Unknown pantoprazole 40 mg tablet,delayed 40 mg PO QAM 05/09/24 05/09/24 05/09/24 release spironolactone 100 mg tablet 100 mg PO QAM 05/09/24 05/09/24 05/09/24 tramadol 50 mg tablet 100 mg PO QID PRN Pain 05/09/24 05/09/24 05/09/24 Active Medications Generic Name Dose Route Start Last Admin Trade Name Freq PRN Reason Stop Dose Admin Lactated Ringer's 1,000 mls @ 15 mls/hr 05/10/24 09:45 05/10/24 10:23 Lr IV 06/09/24 09:44 Infused .Q24H JOSE Infusion NPO Date Last Intake of Fluids: 05/09/24 Time Last Intake of Fluids: 19:00 Date Last Intake of Solids: 05/09/24 Time Last Intake of Solids: 19:00 Past Medical History Medical History Aortic disease Exercise / Class Metabolic Activity III < 4 Walking/Shop/Light housework Past Anesthesia History No Hx of Anesthesia Complications and No Family Hx of Anesthesia Complications History of PONV History of PONV Social History Smoking Status: Current every day smoker Smoking cigarettes per day: 20/day Do You Dip or Chew Tobacco: No Hx Alcohol Use: No Hx Substance Use: No Review of Systems ROS Unobtainable: All systems reviewed & are unremarkable except as noted in HPI & below Constitutional: as per Subjective / HPI Eyes: as per Subjective / HPI Ear, Nose, Mouth, Throat: as per Subjective / HPI Respiratory: as per Subjective / HPI Cardiovascular: as per Subjective / HPI Gastrointestinal: as per Subjective / HPI Genitourinary (Female): as per Subjective / HPI Musculoskeletal: as per Subjective / HPI Integumentary: as per Subjective / HPI Neurologic: as per Subjective / HPI Psychiatric: as per Subjective / HPI Endocrine: as per Subjective / HPI Hematologic / Lymphatic: as per Subjective / HPI Allergy / Immunological: as per Subjective / HPI Physical Exam Vital Signs Last Vital Signs Temp 36.5 C 05/10/24 09:29 Pulse 63 05/10/24 09:29 Resp 20 05/10/24 09:29 BP 174/62 H 05/10/24 09:29 Pulse Ox 97 05/10/24 09:29 O2 Del Method Room Air 05/10/24 09:29 Constitutional no acute distress ENMT Mouth: + poor dentition Thyromental Distance: < 3.5 Finger Breadths Mallampati Class: II Neck normal visual inspection and trachea midline Respiratory normal respiratory effort Auscultation: lungs clear to auscultation bilaterally Cardiovascular Rate/Rhythm: regular rate Musculoskeletal Extremities: extremities normal to inspection Neurologic moves all extremities Psychiatric Orientation: alert and oriented x 3 Testing Laboratory Results 05/09/24 13:15 05/09/24 14:19 PT 10.3 Seconds (9.0-12.0) 05/09/24 14:20 INR 0.9 (0.9-1.1) 05/09/24 14:20 APTT 25 Seconds (21-31) 05/09/24 14:20 Blood Type A Positive 05/09/24 16:21 Antibody Screen POSITIVE A 05/09/24 16:21 05/10/24 05/10/24 09:33 07:50 POC Glucose 121 H 99 Echocardiogram Date: 05/10/24 LV Function: normal
[2024-05-10] MEDS ORDERED: ALBUMIN HUMAN 5% 12.5 GM/250 ML VIAL IV ONE (11:12)
[2024-05-10] MEDS ORDERED: ESMOLOL HCL INJ 10 MG/ML 10ML VIAL IV ONE (11:38)
[2024-05-10] MEDS ORDERED: SUGAMMADEX SODIUM 200 MG/2 ML VIAL IV ONE (12:21)
[2024-05-10] MEDS ORDERED: ePHEDrine sulfate 50 MG/5 ML SYR ONE (12:27)
[2024-05-10] MEDS ORDERED: PHENYLEPHRINE 100MCG/ML 10ML SYR IV ONE (12:27)
[2024-05-10] MEDS: BUPIVACAINE/EPINEPHRINE 0.5% MPF 1:200,000 30 ML VIAL ONE (12:53)
[2024-05-10] MEDS: ceFAZolin 330 MG/ML 1 GM VIAL ONE (12:53)
[2024-05-10] MEDS: HEPARIN (PORCINE) 1000 UNIT/ML 10 ML (CATH LAB USE ONLY) ONE (12:54)
[2024-05-10] MEDS: LIDOCAINE 1% LOCAL 20 ML VIAL ONE (12:55)
[2024-05-10] MEDS: THROMBIN FOR SOLN 20000 UNIT KIT ONE (12:56)
[2024-05-10] MEDS: GELATIN SPONGE SZ 100 ONE (12:56)
[2024-05-10] MEDS: PAPAVERINE HCL INJ 30 MG/ML 2 ML VIAL ONE (12:56)
[2024-05-10] MEDS ORDERED: NITROGLYCERIN 5 MG/ML 10 ML VIAL ONE (13:08)
--- NOTE | 2024-05-10 13:24 | Post Operative Brief Note ---
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 I identified the patient and participated in the time-out.: Yes Procedure Operation Date: 05/10/24 07:00 Actual Procedures p Repair Right Femoral Anastomotic Pseudoaneurysm(Right) - Tyrel Schaffer MD Surgeon Tyrel Schaffer MD Registered Veterinary Technician none Estimated Blood Loss 100 Findings Consistent with Post-Op Diagnosis Specimens culture from groin Drains Brown Catheter (inserted by Moni James RN without difficulty, draining clear yellow urine,output monitored by anesthesia during procedure.) Anesthesia Type General Complications none Disposition Accompanied Patient To Recovery: No Disposition: Recovery Room
[2024-05-10] MEDS: HYDROmorphone INJ 2 MG/ML SYR/VIAL IV PRN ×2 (13:42→14:21)
--- NOTE | 2024-05-10 14:42 | Anesthesiology Progress Note ---
Date of Service May 10, 2024 Anesthesia Post Procedure Vital Signs Vital Signs: Temp Pulse Pulse Pulse Resp BP Pulse Ox 05/10/24 14:35 82 17 149/58 H 99 05/10/24 14:25 91 H 19 135/73 100 05/10/24 14:15 83 10 L 158/57 H 100 05/10/24 14:05 88 14 143/60 H 98 05/10/24 13:55 88 17 104/50 L 94 05/10/24 13:45 85 20 133/57 L 99 05/10/24 13:35 84 13 137/58 L 99 05/10/24 13:25 36.2 C L 82 15 133/57 L 100 05/10/24 09:29 36.5 C 63 20 174/62 H 97 05/10/24 07:26 36.8 C 61 16 148/67 H 93 05/09/24 20:45 05/09/24 20:45 36.6 C 67 18 156/65 H 97 05/09/24 19:00 66 17 142/72 H 99 05/09/24 18:51 63 05/09/24 17:00 64 19 148/79 H 95 05/09/24 16:04 96 05/09/24 15:00 63 15 146/73 H 96 O2 Del Method O2 Flow Rate 05/10/24 14:35 Nasal Cannula 2 05/10/24 14:25 Nasal Cannula 2 05/10/24 14:15 Nasal Cannula 2 05/10/24 14:05 Nasal Cannula 2 05/10/24 13:55 Room Air 05/10/24 13:45 Room Air 05/10/24 13:35 Room Air 05/10/24 13:25 Room Air 05/10/24 09:29 Room Air 05/10/24 07:26 Room Air 05/09/24 20:45 Room Air 05/09/24 20:45 Room Air 05/09/24 19:00 Room Air 05/09/24 18:51 05/09/24 17:00 Room Air 05/09/24 16:04 Room Air 05/09/24 15:00 Room Air Pain Intensity Throat: Pain Intensity: 3 Right Groin: Pain Intensity: 4 Transfer of Care Handoff Completed per policy Notes Mental Status: alert / awake / arousable Patient Amnestic to Procedure: Yes Nausea / Vomiting: adequately controlled Pain: adequately controlled Airway Patency, RR, SpO2: stable & adequate BP & HR: stable & adequate Hydration State: stable & adequate Anesthetic Complications: no major complications apparent
[2024-05-10] MEDS: LABETALOL HCL IV 5 MG/ML 20ML IV ONE (14:45)
[2024-05-10] MEDS ORDERED: PHARMACY GLYCEMIC MGMT CONSULT PRN (15:34)
[2024-05-10] MEDS ORDERED: ONDANSETRON INJ 2 MG/ML 2 ML VIAL IV PRN (15:34)
[2024-05-10] MEDS: MAGNESIUM OXIDE 400 MG TAB PO SCH (16:05)
[2024-05-10] MEDS: CHOLECALCIFEROL 25 MCG (1000 UNITS) TAB PO SCH (16:05)
[2024-05-10] MEDS: lisinopril 5 MG TAB PO SCH (16:05)
[2024-05-10] MEDS: CYANOCOBALAMIN (B-12) 500 MCG TABLET PO SCH (16:05)
[2024-05-10] MEDS: SPIRONOLACTONE 100 MG TAB PO SCH (16:05)
[2024-05-10] MEDS: PANTOprazole 40 MG TAB PO SCH (16:05)
[2024-05-10 16:06] LABS: Hematocrit (blood only) 26.1 % (37.0-47.0); Hemoglobin 8.8 g/dl (12.0-16.0); Mean Corpuscular Hemoglobin 31.8 pg (25.0-34.0); Mean Corpuscular Hgb Conc 33.7 g/dL (32.0-36.0); Mean Corpuscular Volume 94.2 fL (80.0-100.0); Mean Platelet Volume 9.5 fL (9.4-12.4); Platelet Count 163 K/uL (130-400); RDW Coefficient of Variation 13.2 % (11.5-14.5); RDW Standard Deviation 45.7 fL (36.4-46.3); Red Blood Count 2.77 M/uL (4.20-5.40)
--- NOTE | 2024-05-10 16:13 | Critical Care Consultation ---
Date of Consultation May 10, 2024 Assessment & Plan (1) Pseudoaneurysm: Reason Critically Ill: Postop day 0 from sooner abdomen repair PLAN: Neuro: Analgesia per vascular surgery Resp: Wean oxygen as tolerated CV: Hypertension GI/Nutrition: Diet -Per vascular surgery Heme: Anemia Endocrine: ICU hyperglycemia protocol Vascular access: Arterial line peripheral IV Code Status: Full code Disposition: ICU (2) Aneurysm artery, femoral: (3) PVD (peripheral vascular disease): History of Present Illness Reason for Consultation: Postoperative pseudoaneurysm repair Attending Physician: Tyrel Schaffer MD History of Present Illness Patient is postop day 0 from a pseudoaneurysm repair Allergies Allergy/AdvReac Type Severity Reaction Status Date / Time antibiotics AdvReac Severe extreme Uncoded 05/09/24 16:31 hypergycemia and lactic acid effected Home Medications Medication Instructions Recorded Confirmed Type cholecalciferol (vitamin D3) 25 25 mcg PO QAM 05/09/24 05/09/24 History mcg (1,000 unit) tablet (Vitamin D3) clopidogrel 75 mg tablet 75 mg PO QAM 05/09/24 05/09/24 History cyanocobalamin (vitamin B-12) 1,000 mcg PO QAM 05/09/24 05/09/24 History 1,000 mcg tablet lisinopril 5 mg tablet 5 mg PO QAM 05/09/24 05/09/24 History magnesium 250 mg tablet 500 mg PO QAM 05/09/24 05/09/24 History metformin 500 mg tablet,extended 1,000 mg PO QAM 05/09/24 05/09/24 History release 24 hr ondansetron HCl 4 mg tablet 4 mg PO Q8 PRN Nausea And Vomiting 05/09/24 05/09/24 History pantoprazole 40 mg tablet,delayed 40 mg PO QAM 05/09/24 05/09/24 History release spironolactone 100 mg tablet 100 mg PO QAM 05/09/24 05/09/24 History tramadol 50 mg tablet 100 mg PO QID PRN Pain 05/09/24 05/09/24 History Patient History Medical History Aortic disease Social History Smoking Status: Current every day smoker Tobacco Type: Cigarettes Cigarettes Per Day: 20/day; Second Hand Exposure: No; Do You Dip or Chew Tobacco: No; Tobacco Cessation Education Requested by Patient: No Hx Alcohol Use: No Hx Substance Use: No Preferred Language: Persian Communication Ability: Effective Service Writer Advisor Required: No Beliefs That Will Affect Care: None Current Living Situation: Alone Current Living Situation Comment: Son lives down street Other Information That Helps Us Care for You: No Feels Safe at Home: Yes Safety Concerns: Feels Safe At This Time Assistive Devices: None Physical Exam Physical Exam: General: Alert. nontoxic. Skin: Warm, dry, Head: Atraumatic Ears, nose, mouth and throat: airway patent Cardiovascular: Normal peripheral perfusion Respiratory: no respiratory distress Gastrointestinal: Non distended Musculoskeletal: No deformity Groin: Vacuum seal in place: Vacuum tubing had alarm notification late, I was able to track the tubing ended. There must have been a micropuncture in the tubing as we taped the tubing and the continuous suction alarm appeared to resolve. Results & Data Results & Data Vital Signs (Past 12 Hours) Vital Signs Temp Pulse Pulse Pulse Resp BP BP 05/10/24 15:05 72 13 131/62 05/10/24 14:55 71 12 142/59 H 05/10/24 14:45 36.6 C 69 10 L 121/55 L 05/10/24 14:45 82 149/58 H 05/10/24 14:35 82 17 149/58 H 05/10/24 14:25 91 H 19 135/73 05/10/24 14:15 83 10 L 158/57 H 05/10/24 14:05 88 14 143/60 H 05/10/24 13:55 88 17 104/50 L 05/10/24 13:45 85 20 133/57 L 05/10/24 13:35 84 13 137/58 L 05/10/24 13:25 36.2 C L 82 15 133/57 L 05/10/24 09:29 36.5 C 63 20 174/62 H 05/10/24 07:26 36.8 C 61 16 148/67 H Pulse Ox O2 Del Method O2 Flow Rate 05/10/24 15:05 94 Nasal Cannula 2 05/10/24 14:55 96 Nasal Cannula 2 05/10/24 14:45 97 Nasal Cannula 2 05/10/24 14:45 05/10/24 14:35 99 Nasal Cannula 2 05/10/24 14:25 100 Nasal Cannula 2 05/10/24 14:15 100 Nasal Cannula 2 05/10/24 14:05 98 Nasal Cannula 2 05/10/24 13:55 94 Room Air 05/10/24 13:45 99 Room Air 05/10/24 13:35 99 Room Air 05/10/24 13:25 100 Room Air 05/10/24 09:29 97 Room Air 05/10/24 07:26 93 Room Air Critical Care Results & Data Vital Signs (Past 12 Hours) Vital Signs Temp Pulse Pulse Pulse Resp BP BP 05/10/24 15:05 72 13 131/62 05/10/24 14:55 71 12 142/59 H 05/10/24 14:45 36.6 C 69 10 L 121/55 L 05/10/24 14:45 82 149/58 H 05/10/24 14:35 82 17 149/58 H 05/10/24 14:25 91 H 19 135/73 05/10/24 14:15 83 10 L 158/57 H 05/10/24 14:05 88 14 143/60 H 05/10/24 13:55 88 17 104/50 L 05/10/24 13:45 85 20 133/57 L 05/10/24 13:35 84 13 137/58 L 05/10/24 13:25 36.2 C L 82 15 133/57 L 05/10/24 09:29 36.5 C 63 20 174/62 H 05/10/24 07:26 36.8 C 61 16 148/67 H Pulse Ox O2 Del Method O2 Flow Rate 05/10/24 15:05 94 Nasal Cannula 2 05/10/24 14:55 96 Nasal Cannula 2 05/10/24 14:45 97 Nasal Cannula 2 05/10/24 14:45 05/10/24 14:35 99 Nasal Cannula 2 05/10/24 14:25 100 Nasal Cannula 2 05/10/24 14:15 100 Nasal Cannula 2 05/10/24 14:05 98 Nasal Cannula 2 05/10/24 13:55 94 Room Air 05/10/24 13:45 99 Room Air 05/10/24 13:35 99 Room Air 05/10/24 13:25 100 Room Air 05/10/24 09:29 97 Room Air 05/10/24 07:26 93 Room Air Lab & Micro Results (Past 24 Hours) RBC 2.77 M/uL (4.20-5.40) L 05/10/24 WBC 13.90 K/ul (4.8-10.8) H 05/10/24 Hgb 8.8 g/dl (12.0-16.0) L 05/10/24 Hct 26.1 % (37.0-47.0) L 05/10/24 MCV 94.2 fL (80.0-100.0) 05/10/24 MCH 31.8 pg (25.0-34.0) 05/10/24 MCHC 33.7 g/dL (32.0-36.0) 05/10/24 RDW Standard Deviation 45.7 fL (36.4-46.3) 05/10/24 RDW Coefficient of Variation 13.2 % (11.5-14.5) 05/10/24 Plt Count 163 K/uL (130-400) 05/10/24 MPV 9.5 fL (9.4-12.4) 05/10/24 No Data to Display No Data to Display I & O Totals 24 Hours 05/09/24 05/10/24 05/11/24 06:59 06:59 06:59 Intake Total 1800 / 1800 Output Total 200 / 200 Balance 1600 / 1600 Cumulative 05/09/24 12:46 thru 05/10/24 14:50 Intake Total 1800 Output Total 200 Balance 1600 RT Ventilator Mngmt (Last Documented) Ventilator Ordered Settings Respiratory Rate 13 05/10/24 15:05 Ventilator - PT Measurements Respiratory Rate 13 Coding Level of Care Code 75692 IN/OBS CONSULT LVL 4,60M Diagnoses Pseudoaneurysm I72.9 Aneurysm artery, femoral I72.4 PVD (peripheral vascular disease) I73.9
[2024-05-10] MEDS: D5W AND 1/2NSS 1,000 ML IV SCH (16:14)
[2024-05-10] MEDS: CHECK SCOPOLAMINE PATCH PLACEMENT SCH (16:16)
[2024-05-10] MEDS: INSULIN ASPART PER UNIT CHARGE SC SCH (16:21)
[2024-05-10 16:33] LABS: Basophils # (auto) 0.02 K/uL (0.00-0.20); Basophils % (auto) 0.1 %; Eosinophils # (auto) 0.01 K/uL (0.00-0.50); Eosinophils % (auto) 0.1 %; Immature Granulocytes # (auto) 0.08 K/uL (0.01-0.20); Immature Granulocytes % (auto) 0.6 %; Monocytes % (auto) 1.4 %; Neutrophils # (auto) 12.89 K/uL (1.40-6.50); Neutrophils % (auto) 92.8 %
[2024-05-10] MEDS: LANTUS PER UNIT CHARGE SC SCH (21:28)
[2024-05-11] MEDS: MoRPHine SULFATE 4 MG/ML 1 ML CARP\\VIAL IV PRN (00:26)
[2024-05-11 04:46] LABS: BUN Creatinine Ratio 12.9 (10-20); Calcium 8.3 mg/dl (8.6-10.3); Creatinine Clr Calc Pharmacy 30.9 ml/min; Potassium 4.5 mmol/L (3.5-5.1)
[2024-05-11 05:09] LABS: Hematocrit (blood only) 21.5 % (37.0-47.0); Hemoglobin 7.2 g/dl (12.0-16.0); Mean Corpuscular Hgb Conc 33.5 g/dL (32.0-36.0); Mean Corpuscular Volume 92.7 fL (80.0-100.0); Mean Platelet Volume 9.8 fL (9.4-12.4); Platelet Count 148 K/uL (130-400); RDW Coefficient of Variation 13.4 % (11.5-14.5); RDW Standard Deviation 45.6 fL (36.4-46.3); Red Blood Count 2.32 M/uL (4.20-5.40); White Blood Count 8.27 K/ul (4.8-10.8)
[2024-05-11 05:14] LABS: Basophils # (auto) 0.01 K/uL (0.00-0.20); Basophils % (auto) 0.1 %; Immature Granulocytes # (auto) 0.02 K/uL (0.01-0.20); Immature Granulocytes % (auto) 0.2 %; Lymphocytes # (auto) 1.61 K/uL (1.20-3.40); Lymphocytes % (auto) 19.5 %; Monocytes # (auto) 0.59 K/uL (0.11-0.59); Monocytes % (auto) 7.1 %; Neutrophils # (auto) 6.04 K/uL (1.40-6.50); Neutrophils % (auto) 73.1 %; RBC Morphology Unremarkable
--- NOTE | 2024-05-11 06:56 | Critical Care Progress Note ---
Date of Service May 11, 2024 Assessment & Plan (1) Acute blood loss as cause of postoperative anemia: (2) PVD (peripheral vascular disease): (3) Pseudoaneurysm: (4) Aneurysm artery, femoral: Plan Reason Critically Ill: Postop day 1 from femoral artery pseudoaneurysm repair PLAN: Neuro: Analgesia per vascular surgery Resp: Wean oxygen as tolerated CV: Hypertension GI/Nutrition: Diet -Per vascular surgery Heme: Anemia 7.2 this morning, transfusion protocol per vascular Endocrine: ICU hyperglycemia protocol Vascular access: Arterial line peripheral IV Code Status: Full code Disposition: ICU Admission and Anticipated Discharge Date Admission Date: May 09, 2024 Supervising Physician Co-Signing Physician Notes Dr. Wiley was resident physician during care of patient. I separately evaluated patient for armendariz portions of the history and the exam. I was present during the critical portion of medical decision making, and I discussed the case with the resident. I generally agree with the findings and plan. Discussed with vascular surgery, adjusted wound VAC, if wound VAC discontinued skin replaced with simple gauze dressings. Critical care will sign off Subjective Today, pt states she is feeling fine, just notes some soreness of the surgical site. Otherwise, no chest pain or SOB. No nausea or vomiting. No questions at this time. Review of Systems Review of Systems: All systems reviewed & are unremarkable except as noted in HPI & below Physical Exam Physical Exam: General: Alert and oriented, no acute distress HEENT: Normocephalic, atraumatic, Resp: Lungs clear to auscultation bilaterally, no increased work of breathing Cardio: Regular rate and rhythm, GI: Soft and nontender, Skin: Warm, dry, no rashes on visible skin Results & Data Results & Data Vital Signs (Past 12 Hours) Vital Signs Temp Pulse Resp BP Pulse Ox Pulse Ox O2 Del Method 05/11/24 05:12 72 15 98 05/11/24 05:00 142/52 H 05/11/24 05:00 142/52 H 05/11/24 04:39 72 14 99 05/11/24 04:15 73 13 99 05/11/24 04:00 120/50 L 05/11/24 04:00 120/50 L 05/11/24 04:00 36.9 C 120/50 L 05/11/24 03:48 73 18 99 05/11/24 03:00 73 14 98 05/11/24 02:03 73 15 99 05/11/24 02:00 139/51 L 05/11/24 02:00 139/51 L 05/11/24 01:57 76 18 98 05/11/24 01:03 74 15 99 05/11/24 01:00 138/48 L 05/11/24 01:00 138/48 L 05/11/24 01:00 138/48 L 05/11/24 00:54 80 14 98 05/11/24 00:34 80 05/11/24 00:00 75 20 99 05/11/24 00:00 123/53 L 05/11/24 00:00 123/53 L 05/10/24 23:59 99 05/10/24 23:33 77 15 98 05/10/24 23:00 115/47 L 05/10/24 23:00 115/47 L 05/10/24 23:00 115/47 L 05/10/24 22:54 78 15 98 05/10/24 22:09 83 15 97 05/10/24 22:01 116/54 L 05/10/24 22:01 116/54 L 05/10/24 22:01 36.9 C 116/54 L 05/10/24 21:57 79 17 98 05/10/24 21:15 81 15 99 05/10/24 21:00 112/47 L 05/10/24 20:54 79 16 98 Room Air 05/10/24 20:39 76 13 98 05/10/24 20:09 73 14 98 05/10/24 20:00 117/26 L 05/10/24 20:00 36.4 C L 117/26 L 05/10/24 19:57 74 12 98 Room Air 05/10/24 19:30 76 15 98 05/10/24 19:03 74 11 L 98 O2 Del Method O2 Flow Rate 05/11/24 05:12 05/11/24 05:00 05/11/24 05:00 05/11/24 04:39 05/11/24 04:15 05/11/24 04:00 05/11/24 04:00 05/11/24 04:00 05/11/24 03:48 05/11/24 03:00 05/11/24 02:03 05/11/24 02:00 05/11/24 02:00 05/11/24 01:57 05/11/24 01:03 05/11/24 01:00 05/11/24 01:00 05/11/24 01:00 05/11/24 00:54 05/11/24 00:34 05/11/24 00:00 05/11/24 00:00 05/11/24 00:00 05/10/24 23:59 Nasal Cannula 2 05/10/24 23:33 05/10/24 23:00 05/10/24 23:00 05/10/24 23:00 05/10/24 22:54 05/10/24 22:09 05/10/24 22:01 05/10/24 22:01 05/10/24 22:01 05/10/24 21:57 05/10/24 21:15 05/10/24 21:00 05/10/24 20:54 05/10/24 20:39 05/10/24 20:09 05/10/24 20:00 05/10/24 20:00 05/10/24 19:57 05/10/24 19:30 05/10/24 19:03 Resident Activity Tracking Resident Involvement: Resident Care Provided Care Provided: Adult Hospital Medicine
[2024-05-11 07:11] LABS: Estimated Average Glucose 192 mg/dl; Hemoglobin A1C 8.3 % (4.5-5.6)
[2024-05-11] MEDS ORDERED: SODIUM CHLORIDE 0.9% 250 ML IV PRN (07:33)
--- NOTE | 2024-05-11 07:40 | Surgery Progress Note ---
Date of Service May 11, 2024 Assessment & Plan (1) Pseudoaneurysm: Plan: POD 1 from a repair of a right femoral pseudoaneurysm. She is doing well. Will transfer to floor (2) Acute blood loss as cause of postoperative anemia: Plan: Hgb this am is 7.2. This is secondary to surgery loss and dilution. Due to her vascular disease will transfuse one unit of prbc's. Admission and Anticipated Discharge Date Admission Date: May 09, 2024 Subjective Patient complaining of incisional pain. No foot or leg pain Physical Exam Constitutional: WD/WN, vitals as above Respiratory: normal respiratory effort; no respiratory distress Cardiovascular: RRR, no murmur, no edema Vessels: normal peripheral pulses Extremities: normal capillary refill Gastrointestinal (Abdomen): normal bowel sounds, soft, nontender, no hepatosplenomegaly Skin: + incision (prevena in place) Neurologic: CN's II-XI intact bilaterally and moves all extremities Psychiatric: A+Ox3, euthymic affect Results & Data Vital Signs (Past 12 Hours) Vital Signs Temp Pulse Pulse Resp BP BP Pulse Ox 05/11/24 07:00 36.6 C 71 14 114/53 L 99 05/11/24 06:03 74 16 05/11/24 06:00 132/54 L 05/11/24 06:00 132/54 L 05/11/24 06:00 132/54 L 05/11/24 05:54 73 18 99 05/11/24 05:12 72 15 98 05/11/24 05:00 142/52 H 05/11/24 05:00 142/52 H 05/11/24 04:39 72 14 99 05/11/24 04:15 73 13 99 05/11/24 04:00 120/50 L 05/11/24 04:00 120/50 L 05/11/24 04:00 36.9 C 120/50 L 05/11/24 03:48 73 18 99 05/11/24 03:00 73 14 98 05/11/24 02:03 73 15 99 05/11/24 02:00 139/51 L 05/11/24 02:00 139/51 L 05/11/24 01:57 76 18 98 05/11/24 01:03 74 15 99 05/11/24 01:00 138/48 L 05/11/24 01:00 138/48 L 05/11/24 01:00 138/48 L 05/11/24 00:54 80 14 98 05/11/24 00:34 80 05/11/24 00:00 75 20 99 05/11/24 00:00 123/53 L 05/11/24 00:00 123/53 L 05/10/24 23:59 05/10/24 23:33 77 15 98 05/10/24 23:00 115/47 L 05/10/24 23:00 115/47 L 05/10/24 23:00 115/47 L 05/10/24 22:54 78 15 98 05/10/24 22:09 83 15 97 05/10/24 22:01 116/54 L 05/10/24 22:01 116/54 L 05/10/24 22:01 36.9 C 116/54 L 05/10/24 21:57 79 17 98 05/10/24 21:15 81 15 99 05/10/24 21:00 112/47 L 05/10/24 20:54 79 16 98 05/10/24 20:39 76 13 98 05/10/24 20:09 73 14 98 05/10/24 20:00 117/26 L 05/10/24 20:00 36.4 C L 117/26 L 05/10/24 19:57 74 12 98 Pulse Ox O2 Del Method O2 Del Method O2 Flow Rate O2 Flow Rate 05/11/24 07:00 Nasal Cannula 2 05/11/24 06:03 05/11/24 06:00 05/11/24 06:00 05/11/24 06:00 05/11/24 05:54 05/11/24 05:12 05/11/24 05:00 05/11/24 05:00 05/11/24 04:39 05/11/24 04:15 05/11/24 04:00 05/11/24 04:00 05/11/24 04:00 05/11/24 03:48 05/11/24 03:00 05/11/24 02:03 05/11/24 02:00 05/11/24 02:00 05/11/24 01:57 05/11/24 01:03 05/11/24 01:00 05/11/24 01:00 05/11/24 01:00 05/11/24 00:54 05/11/24 00:34 05/11/24 00:00 05/11/24 00:00 05/11/24 00:00 05/10/24 23:59 99 Nasal Cannula 2 05/10/24 23:33 05/10/24 23:00 05/10/24 23:00 05/10/24 23:00 05/10/24 22:54 05/10/24 22:09 05/10/24 22:01 05/10/24 22:01 05/10/24 22:01 05/10/24 21:57 05/10/24 21:15 05/10/24 21:00 05/10/24 20:54 Room Air 05/10/24 20:39 05/10/24 20:09 05/10/24 20:00 05/10/24 20:00 05/10/24 19:57 Room Air
--- NOTE | 2024-05-11 08:05 | Billing Data ---
Date of Service May 11, 2024 Coding Level of Care Code 09644 SUB INP/OBS CARE
[2024-05-11] MEDS: CLOPIDOGREL BISULFATE 75 MG TAB PO SCH (09:06)
[2024-05-12] MEDS ORDERED: GLUCAGON FOR INJ 1 MG VIAL SQ PRN (08:45)
[2024-05-12] MEDS ORDERED: GLUCOSE 40% GEL 15 GM TUBE PO PRN (08:45)
[2024-05-12] MEDS ORDERED: GLUCOSE 10 TAB/TUBE PO PRN (08:45)
[2024-05-12] MEDS ORDERED: CARBOHYDRATES FOR HYPOGLYCEMIA PO PRN (08:45)
[2024-05-12] MEDS ORDERED: DEXTROSE 50% 50 ML SYRINGE IV PRN (08:45)
[2024-05-12] MEDS: traMADol HCL 50 MG TABLET PO PRN (10:49)
--- NOTE | 2024-05-12 14:49 | Pharmacy Report ---
Pharmacy Glycemic Short Note 2 - Date of Service May 12, 2024 - Glycemic Short BSG Results (Last 24 hours): 05/11/24 05/11/24 05/12/24 16:09 20:09 08:00 POC Glucose 181 H 131 H 136 H 05/12/24 12:17 POC Glucose 183 H OUTPATIENT ANTIDIABETIC REGIMEN: * Metformin 1000 mg PO QAM HbA1c: 8.3% on 05/11/24 ASSESSMENT: * 63 y/o F who is s/p pseudoaneurysm repair surgery- today is postop day 2. Patient has history of Type 2 diabetes managed only on Metformin at home. * Patient received IV Dexamethasone in OR on 05/10 which caused blood sugars trend up at night. She received basal 10 units HS on 05/10. * Since then steroid was discontinued and BSGs were fairly well controlled yesterday. She did not require any basal insulin yesterday and bolus insulin only 3 units. * Today patient has been refusing insulin for both breakfast and lunch. Fasting BSG was 136 mg/dl and pre-lunch BSG = 183 mg/dl. * Basal insulin scale based on BSG ordered for HS. Novolog parameters continued the same as yesterday. PLAN FOR INPATIENT GLYCEMIC CONTROL: * Hold outpatient oral diabetes medications * Basal insulin * Lantus 0/5/10 units SQ BID * Bolus insulin * NovoLog per scale ACHS or Q6hrs while NPO * Goal Range: Low 120 mg/dL - High 150 mg/dL * Correction Factor: 40 mg/dL/unit * Nutritional / Prandial insulin per carb ratio of 1 unit per 15 grams CHO consumed
[2024-05-13 07:06] VITALS: BP 150/73; RESP 17; TEMP 97.7; O2SAT 93
[2024-05-13 08:19] LABS: Basophils # (auto) 0.03 K/uL (0.00-0.20); Basophils % (auto) 0.3 %; Eosinophils # (auto) 0.11 K/uL (0.00-0.50); Eosinophils % (auto) 1.1 %; Hematocrit (blood only) 25.6 % (37.0-47.0); Hemoglobin 8.7 g/dl (12.0-16.0); Immature Granulocytes # (auto) 0.04 K/uL (0.01-0.20); Immature Granulocytes % (auto) 0.4 %; Lymphocytes # (auto) 2.41 K/uL (1.20-3.40); Lymphocytes % (auto) 24.7 %; Mean Corpuscular Hemoglobin 30.3 pg (25.0-34.0); Mean Corpuscular Volume 89.2 fL (80.0-100.0); Mean Platelet Volume 10.4 fL (9.4-12.4); Monocytes # (auto) 0.72 K/uL (0.11-0.59); Monocytes % (auto) 7.4 %; Neutrophils # (auto) 6.46 K/uL (1.40-6.50); Neutrophils % (auto) 66.1 %; Platelet Count 145 K/uL (130-400); RDW Coefficient of Variation 14.5 % (11.5-14.5); RDW Standard Deviation 47.7 fL (36.4-46.3); Red Blood Count 2.87 M/uL (4.20-5.40); White Blood Count 9.77 K/ul (4.8-10.8)
[2024-05-13 08:49] LABS: Albumin Globulin Ratio 1.1 (0.9-2); Albumin Level 3.3 gm/dl (3.4-5.0); BUN Creatinine Ratio 17.3 (10-20); Bilirubin,Total 0.5 mg/dl (0.2-1.0); Calcium 9.3 mg/dl (8.6-10.3); Creatinine Clr Calc Pharmacy 43.8 ml/min; Phosphorus 3.5 mg/dl (2.5-4.9); Potassium 4.1 mmol/L (3.5-5.1); Total Protein 6.3 gm/dl (6.0-8.3)
--- NOTE | 2024-05-13 09:29 | Surgery Progress Note ---
Date of Service May 13, 2024 Assessment & Plan (1) Pseudoaneurysm: Plan: POD 3 from a repair of a right femoral pseudoaneurysm. She is doing well and wishes to go home. D/C home with today. (2) Acute blood loss as cause of postoperative anemia: Plan: Hgb this am is 8.7 after transfusion yesterday. VSS. No need for further transfusion. Admission and Anticipated Discharge Date Admission Date: May 09, 2024 Subjective 63 yo f POD #3 after R groin pseudoaneurysm repair with bovine interposition graft, seen in f/u today. Pt states some incisional pain and fatigue. Has been ambulating in room and hallway for PT. Taking PO well. Passing flatus, but no BM yet. No abd pain or other concerns. Review of Systems Review of Systems: All systems reviewed & are unremarkable except as noted in HPI & below Physical Exam Constitutional: WD/WN, vitals as above Respiratory: normal respiratory effort; no respiratory distress Auscultation: lungs clear to auscultation bilaterally Cardiovascular: RRR, no murmur, no edema Rate/Rhythm: regular rate and regular rhythm Vessels: normal peripheral pulses and femoral pulses present Extremities: normal capillary refill Gastrointestinal (Abdomen): normal bowel sounds, soft, nontender, no hepatosplenomegaly Inspection/Auscultation: abdomen normal to inspection; abdomen not distended Percussion/Palpation: abdomen soft; abdomen nontender Skin: + incision (R abd/groin C/D/I with stapl es.+tenderness,edema.No erythema) Neurologic: CN's II-XI intact bilaterally and moves all extremities Psychiatric: A+Ox3, euthymic affect Results & Data Vital Signs (Past 12 Hours) Vital Signs Temp Pulse Resp BP BP Pulse Ox O2 Del Method 05/13/24 07:47 Room Air 05/13/24 07:05 36.5 C 71 17 150/73 H 93 Room Air 05/13/24 02:51 36.7 C 73 14 178/69 H 92 Room Air 05/12/24 22:24 36.8 C 75 14 147/71 H 92 Room Air
[2024-05-13 12:32] VITALS: PULSE 81
--- NOTE | 2024-05-13 16:57 | Electrocardiogram Report ---
Test Reason : Blood Pressure : */* mmHG Vent. Rate : 60 BPM Atrial Rate : 60 BPM P-R Int : 172 ms QRS Dur : 76 ms QT Int : 422 ms P-R-T Axes : 76 59 66 degrees QTcB Int : 422 ms Normal sinus rhythm Normal ECG When compared with ECG of 22-Aug-2012 17:32, No significant change Confirmed by Micheal Urban ([id number]) on 05/13/2024 4:57:32 PM Referred By: REFERRED SELF Confirmed By: Micheal Urban
--- NOTE | 2024-05-21 11:31 | Discharge Summary ---
Date of Service May 21, 2024 Admission HPI Per Admitting Provider This is a 63-year-old female who was complaining of pain in her groins. She noticed increasing size of a mass in her right groin. She claims that it was pulsatile. She has had an aortobifem over 20 years ago. She has had no problems since then. She denies any claudication but she does not walk fast or long distances. She does not do stairs. She has no history of coronary disease. She is a smoker and a diabetic. Admission Exam Per Admitting Provider Constitutional: WD/WN, vitals as above Respiratory: normal respiratory effort; no respiratory distress Auscultation: lungs clear to auscultation bilaterally Cardiovascular: Rate/Rhythm: regular rate and regular rhythm Vessels: femoral pulses present Extremities: normal capillary refill Right groin is a softball sized pulsatile mass. Left groin has a lemon sized pulsatile mass. Both are nontender Gastrointestinal (Abdomen): Inspection/Auscultation: abdomen normal to inspection; abdomen not distended Percussion/Palpation: abdomen soft; abdomen nontender Neurologic: CN's II-XI intact bilaterally and moves all extremities Psychiatric: A+Ox3, euthymic affect Principal Diagnosis 1. s/p R groin pseudoaneurysm repair 2. R groin pseudoaneurysm Discharge Exam Constitutional WD/WN, vitals as above Respiratory normal respiratory effort; no respiratory distress Auscultation: lungs clear to auscultation bilaterally Cardiovascular RRR, no murmur, no edema Rate/Rhythm: regular rate and regular rhythm Vessels: normal peripheral pulses and femoral pulses present Extremities: normal capillary refill Gastrointestinal (Abdomen) normal bowel sounds, soft, nontender, no hepatosplenomegaly Inspection/Auscultation: abdomen normal to inspection; abdomen not distended Percussion/Palpation: abdomen soft; abdomen nontender Skin + incision (R abd/groin C/D/I with karen.+tenderness,edema.No erythema) Neurologic CN's II-XI intact bilaterally and moves all extremities Psychiatric A+Ox3, euthymic affect Discharge Data Allergies Allergy/AdvReac Type Severity Reaction Status Date / Time antibiotics AdvReac Severe extreme Uncoded 05/13/24 14:43 hypergycemia and lactic acid effected Consultations 05/09/24 15:13 Consult Vascular Surgery Stat 10/04/24 15:34 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 (2) Acute blood loss as cause of postoperative anemia: resolved, pt hgb stable since transfusion Total Time Total Time Spent Total Time Spent (In Minutes): 0 Discharge Plan Discharge Items Patient Disposition: Home - Home Health Services Reason For Visit: ANUERYSM LOWER ABDOMINAL AREA Discharge Diagnosis: 1. s/p R groin pseudoaneurysm repair, bovine interposition graft 2. R groin pseudoaneurysm 3. Aortoiliac Occlusive Disease, hx of aortobifemoral bypass Condition on Discharge: Good Activity: Per Instructions section Lifting: No more than 10 pounds Lifting Comment: for 6 weeks Bathing Comment: May shower, no soaking tub baths Non-emergency contact: Primary Care Provider and Surgeon Call non-emergency contact if: your symptoms worsen, your pain is not controlled, your pain is concerning for you, you have a fever, your wound has increased redness and your wound has increased drainage Follow-up/Referrals: Erick Paz MD [Primary Care Provider] - (Follow up with your PCP within 2 weeks) Tyrel Schaffer MD [Physician] - (Follow up with Dr Schaffer or Aurora Torres PA-C, in 2-3 weeks for staple removal) Diet: Carb Consistent or DM2 and Heart Healthy Addtl Attending Provider Instructions: ACTIVITY RECOMMENDATIONS: See Above SPECIAL CARE INSTRUCTIONS: 1. No dressing required to incisions unless drainage present, then dry dressing may be placed. Call your doctor if: * Temperature above 101 degrees * Pain not relieved by pain medicine ordered * There is increased drainage or redness from any incision * You have any unanswered questions or concerns. Pending Studies at Discharge: No Stand-Alone Forms: [employer], Smoking Cessation Medications and DC Order Prescriptions: New tramadol 50 mg Tablet 100 mg PO QID PRN (Reason: pain) Qty: 20 0RF Continued pantoprazole 40 mg tablet,delayed release (DR/EC) 40 mg PO QAM lisinopril 5 mg tablet 5 mg PO QAM metformin 500 mg tablet extended release 24 hr 1,000 mg PO QAM ondansetron HCl 4 mg tablet 4 mg PO Q8 PRN (Reason: Nausea And Vomiting) cyanocobalamin (vitamin B-12) 1,000 mcg tablet 1,000 mcg PO QAM clopidogrel 75 mg tablet 75 mg PO QAM spironolactone 100 mg tablet 100 mg PO QAM magnesium 250 mg Tablet 500 mg PO QAM cholecalciferol (vitamin D3) [Vitamin D3] 25 mcg (1,000 unit) Tablet 25 mcg PO QAM Discontinued tramadol 50 mg tablet 100 mg PO QID PRN (Reason: Pain) No Action Aspirin (Aspirin Tab-Chewable *) 81 MG CHEWABLE TAB 81 mg PO DAILY Qty: 0 Clopidogrel (Plavix) 75 MG tablet 75 mg PO DAILY Qty: 0 Metformin HCL (Glucophage *) 1,000 MG tablet 1,000 mg PO BID Qty: 0 COENZYME Q10 (UBIDECARENONE) (CO Q10) 100 MG capsule 1 cap PO DAILY Qty: 0 ERGOCALCIFEROL (VITAMIN D 62437 UNIT) 50,000 UNIT capsule 50,000 unit PO WK Qty: 0 HYDROCORTISONE (Hydrocortisone 2.5%) 30 GM cream 1 applic Topical TID PRN Qty: 0 Patient Comments: WITH WITH EQUAL PARTS OF LOTRIMIN Insulin Glargine (Lantus) VIAL 16 unit SC QAM Qty: 0 LISINOPRIL (ZESTRIL) 5 MG tablet 5 mg PO DAILY Qty: 0 MULTIPLE VITAMIN (MULTIVITAMIN) 1 TAB tablet 1 tab PO DAILY Qty: 0 OMEPRAZOLE (PRILOSEC) 20 MG capsule 20 mg PO DAILY Qty: 0 ONDANSETRON (ZOFRAN ODT) 4 MG tablet 4 mg Sublingual Q6HR PRN Qty: 4 Patient Comments: NAUSEA SIMVASTATIN (ZOCOR) 20 MG tablet 20 mg PO QPM Qty: 0 SITAGLIPTIN (Januvia) 100 MG tablet 100 mg PO DAILY Qty: 0 SPIRONOLACTONE (ALDACTONE) 100 MG tablet 100 mg PO BID Qty: 0 Hydrocodon/Acetaminophen 5MG/300MG (VICODIN (5MG/300MG)) 1 TAB tablet 1 tab PO Q4H Qty: 15 0RF Discharge Orders: Discharge Order (Routine); Ordered 05/13/24 Ordered By: Aurora Torres Admission Data Admit Date/Time: 05/09/24 16:02 Attending Provider: Tyrel Schaffer Admit Provider: Tyrel Schaffer Primary Care Provider: Erick Paz. Other Providers: Tyrel Schaffer; Lai Salcido; Gume Medel; Damon Gamez; Faustino Thorne; Eligio Murphy; Joanie Jeter; Anibal Perez; Tiff Bruce; Rekha Harvey; Ramon Baez; Erick Patel; Oksana Coley; [facility] Other Interventions: Discharge Summary Assessment (RN) Last Done: 05/13/24 12:31
--- NOTE | 2024-05-23 15:15 | Operative Report ---
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 She presented to emergency room with pseudoaneurysms of her groins. The pseudoaneurysm in the left groin measured approximately 4 cm. The right groin which is giving her some discomfort measures approximately 10 cm in size. Urgent repair of the right pseudoaneurysm was recommended. I have discussed the risks options and benefits of the procedure with the patient. The patient understands the risks options and benefits and agrees to the procedure. Description of Procedure The patient was taken the operating placed spine position. After general anesthesia was accomplished the right lower abdomen and groin were prepped and draped in a sterile manner. A timeout was performed and the patient was identified. A curvilinear incision was made just above the inguinal ligament and a retroperitoneal approach was then made to expose the limb of the aorto bifemoral bypass as well as the distal external iliac artery. Once they were isolated and dissected free and slung with Vesseloops. Incision was then made in the groin over the pseudoaneurysm. Dissection was then accomplished around the pseudoaneurysm exposing the entire pseudoaneurysm. It appeared to be coming off of the the common femoral artery at the anastomotic site. It appeared that the entire graft had lifted up off the artery. There is no fluid around the graft and the graft was well incorporated. Did not appear infected at this time careful dissection expose the distal superficial femoral artery profundofemoral artery. We then exposed the area above the pseudoaneurysm exposing the limb of the graft and the common femoral artery. That point patient was heparinized we then clamped the external iliac artery and right limb of the graft in the pelvis. Superficial femoral artery and profunda were then clamped. The aneurysm sac was then entered the sac itself was totally excised from the common femoral artery. The graft was then trimmed back to just below the angle ligament. The artery itself looked good with widely patent outflow vessels we then used a 7 mm bovine graft as an interposition graft between the limited graft and the common femoral artery this was first sutured to the femoral artery using a 5-0 Prolene suture. Once this was completed we then sutured to the limb of the graft and into this and fashion. Again we used 5-0 Prolene suture. Prior to completing this closure backbleeding and forward bleeding was allowed to occur. Final sutures were placed and securely tied. Clamps were removed off the profunda and external iliac and limb of the graft. Clamp was then removed off the superficial femoral artery. Excellent flow was seen distally. Added hemostasis were noted of the suture lines. Both wounds were then irrigated with antibiotic solution. The retroperitoneal incision was closed using 0 Prolene suture for the fascial layers, 3-0 Vicryl for subcutaneous layer and karen for the skin. The groin incision was closed in usual fashion using running 2-0 Vicryl suture for the femoral sheath and a 3-0 Vicryl for subcutaneous layer f ollowed by sutures for the skin. A Prevena graft was placed on the groin incision and 4 x 4's were placed on the abdominal incision. The patient left the operation room in satisfactory condition and tolerated the procedure well. All needle and sponge counts were correct at the end of the procedure. I attest to the content of the Intraoperative Record and any orders documented therein. Any exceptions are noted below.
== END 2024-05-13 14:13 | disposition home health service (06) | DRG 253 ==
LOC: EDBD → ED 12:46 → 3E 16:02 → MERGE 16:02 → 3E 20:43 → 1E 05-10 16:25 → 4W 05-11 22:50

== ENCOUNTER 2024-06-12 06:30 | Inpatient (IN) ==
--- NOTE | 2024-06-05 12:24 | Anesthesiology Consultation ---
Date of Service June 05, 2024 Assessment & Plan (1) Encounter for pre-operative examination: Chart Review Chart Review: Acceptable Risk for Surgery and Patient NOT seen in Pre Admission Testing -Pt with PMH of PVD; s/p multiple vascular surgeries including b/l aortoiliac bypass, common iliac stenting b/l; presented to [facility] ED 05/09/[address] showed 'aneurysm'; pt was also c/o fullness and discomfort as well as enlarging mass RLQ. -Taken to OR 05/10/24 for repair of right femoral anastomotic pseudoaneurysm (): GA: Calhoun#2, ETT#7.5 oral, Gr View 1, atraumatic DL x 1. No anesthesia complications. She did have acute blood loss postop anemia (Hgb down to 7.2 POD1) and received 1 unit PRBCs (Hgb up to 8.7 at discharge). Discharged 05/13/24 to home. Infectious Disease screening: Per PAT nursing assessment on 06/05/24, No known infectious disease contacts in past 10 days or current infectious disease symptoms. No recent travel outside the country. History Surgery Operation Date: 06/12/24 10:20 Proposed Procedures p Repair Left Groin Femoral Anastomosis Pseudoaneurysm - Tyrel Schaffer MD Height/Weight Height: 5 ft 1 in Weight: 47.627 kg Allergies Allergy/AdvReac Type Severity Reaction Status Date / Time antibiotics AdvReac Severe extreme Uncoded 06/05/24 10:24 hypergycemia and lactic acid effected Medications Home Medications Medication Instructions Recorded Confirmed Last Taken benzonatate 100 mg capsule 100 mg PO TID PRN Cough 06/05/24 06/05/24 Unknown cholecalciferol (vitamin D3) 25 25 mcg PO QAM 06/05/24 06/05/24 Unknown mcg (1,000 unit) tablet (Vitamin D3) clopidogrel 75 mg tablet 75 mg PO QAM 06/05/24 06/05/24 Unknown cyanocobalamin (vitamin B-12) 500 500 mcg PO QAM 06/05/24 06/05/24 Unknown mcg tablet lisinopril 5 mg tablet 5 mg PO QAM 06/05/24 06/05/24 Unknown magnesium 500 mg tablet 15 mg PO DAILY 06/05/24 06/05/24 Unknown metformin 500 mg tablet 1,000 mg PO QAM 06/05/24 06/05/24 Unknown ondansetron HCl 4 mg tablet 4 mg PO Q6H PRN n/v 06/05/24 06/05/24 Unknown pantoprazole 40 mg tablet,delayed 40 mg PO QAM 06/05/24 06/05/24 Unknown release pravastatin 40 mg tablet 40 mg PO QAM 06/05/24 06/05/24 Unknown spironolactone 50 mg tablet 50 mg PO QAM 06/05/24 06/05/24 Unknown tramadol 50 mg tablet 100 mg PO BID 06/05/24 06/05/24 Unknown Past Medical History Medical History (Updated 06/05/24 @ 12:40 by Adela Song PA-C) Acute blood loss as cause of postoperative anemia (05/11/24) s/p 05/10/24 pseudoaneurysm repair; had 1 unit PRBCs 05/11/24 and Hgb improved Aortic disease Cigarette smoker Diabetes mellitus, type 2 GERD (gastroesophageal reflux disease) Hx of colonic polyps Hx of deep venous thrombosis in left arm, after vascular surgery, had to have surgery to remove dvt, > 10 years ago, no blood clots since Hyperlipidemia Hypertension Pseudoaneurysm s/p repair R femoral anastomotic pseudoaneurysm repair 05/10/24 and scheduled for L repair 06/12/24 PVD (peripheral vascular disease) Past Surgical History Surgical History (Updated 06/05/24 @ 12:44 by Adela Song PA-C) History of bunionectomy History of esophagogastroduodenoscopy (EGD) History of thrombectomy in left arm, after vascular surgery had dvt, > 10 years ago, no blood clots since Hx of colonoscopy with polypectomy S/P vascular surgery (05/10/24) Multiple: most recent: 05/10/2024- repair of right femoral anastomotic pseudoaneurysm (): GA: Lj#2, ETT#7.5 oral, Gr View 1, atraumatic DL x 1; initial surgery in 2003: b/l aortoiliac bypass- [facility] Had additional 4 surgeries up to 2014 to go back in and "clean graft out" Social History Smoking Status: Current every day smoker Smoking cigarettes per day: 1ppd (advised) Do You Dip or Chew Tobacco: No Hx Alcohol Use: No Hx Substance Use: No substance use type: does not use Lab Results Anesthesia Preop Results Results Anesthesia Widget: WBC 6.97 K/ul (4.8-10.8) 06/05/24 Hgb 11.0 g/dl (12.0-16.0) L 06/05/24 Hct 33.4 % (37.0-47.0) L 06/05/24 Plt 212 K/uL (130-400) 06/05/24 Na 140 mmol/L (136-145) 06/05/24 K 4.0 mmol/L (3.5-5.1) 06/05/24 Cl 107 mmol/L (98-107) 06/05/24 CO2 26 mmol/L (21-32) 06/05/24 BUN 14 mg/dl (6-23) 06/05/24 Creat 0.99 mg/dl (0.6-1.2) 06/05/24 Glucose Level 95 mg/dl (70-99(Fasting)) 06/05/24 POC Glucose 140 mg/dl (70-99) H 05/13/24 PT 10.3 Seconds (9.0-12.0) 06/05/24 PTT 25 Seconds (21-31) 06/05/24 INR 0.9 (0.9-1.1) 06/05/24 HA1c 8.3 % (4.5-5.6) H 05/11/24 Blood Type A Positive 06/05/24 Antibody Screen POSITIVE A 06/05/24 Testing Electrocardiogram Date: 05/10/24 Findings: + NSR @ (60bpm) Chest X-Ray Date: 05/09/24 Findings: + NAD Echocardiogram Date: 05/10/24 EF: 60-65% LVSF normal. Gr I DD. Mild cLVH. Mild TR.
[~2024-06-12 06:30] MED LIST: SODIUM CHLORIDE 0.9% 100 ML IV PRN; SODIUM CHLORIDE 0.9% 50 ML IV PRN
[2024-06-12] MEDS ORDERED: PROPOFOL IV EMULSION 10 MG/ML 20 ML VIAL IV ONE (06:57)
[2024-06-12] MEDS ORDERED: ROCURONIUM BROMIDE 10 MG/ML 5 ML VIAL IV ONE ×10 (06:57→11:50)
[2024-06-12] MEDS ORDERED: ONDANSETRON INJ 2 MG/ML 2 ML VIAL ONE (06:57)
[2024-06-12] MEDS ORDERED: fentaNYL citrate PF 100 MCG/2 ML VIAL ONE (06:57)
[2024-06-12] MEDS ORDERED: MIDAZOLAM HCL 1 MG/ML 2ML VIAL ONE (06:57)
[2024-06-12] MEDS ORDERED: DEXAMETHASONE SOD INJ 4 MG/ML VIAL ONE (06:57)
[2024-06-12] MEDS ORDERED: LIDOCAINE 2% 2 ML VIAL/AMP(20MG/ML) INFIL ONE ×4 (06:57→08:23)
[2024-06-12] MEDS ORDERED: PHENYLEPHRINE HCL 10 MG/ML VIAL ONE (07:18)
[2024-06-12] MEDS ORDERED: HEPARIN SOD (PORCINE) 1000 UNIT/ML ONE (07:26)
[2024-06-12] MEDS ORDERED: PROTAMINE SULFATE 10 MG/ML 5 ML VIAL IV ONE ×3 (07:26→07:27)
--- NOTE | 2024-06-12 07:28 | History & Physical Report ---
Date of Service June 12, 2024 Assessment & Plan (1) Aneurysm artery, femoral: Plan: Patient for repair of a left femoral artery anastomotic aneurysm. I have discussed the risks options and benefits of the procedure with the patient. The patient understands the risks options and benefits and agrees to the procedure. History of Present Illness Chief Complaint: Left femoral artery psuedoaneurysm Primary Care Provider: Erick Paz MD This is a 63-year-old female who was complaining of pain in her groins. She noticed increasing size of a mass in her right groin. She claims that it was pulsatile. She has had an aortobifem over 20 years ago. She has had no problems since then. She denies any claudication but she does not walk fast or long distances. She does not do stairs. She has no history of coronary disease. She is a smoker and a diabetic. 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 The right one was very large and repaired in the recent past. She is now admitted for repair of her left femoral anastomotic pseudoaneurysm which is approx 5cm in size. Allergies Allergy/AdvReac Type Severity Reaction Status Date / Time antibiotics AdvReac Severe extreme Uncoded 06/12/24 06:57 hypergycemia and lactic acid effected Home Medications Medication Instructions Recorded Confirmed Type benzonatate 100 mg capsule 100 mg PO TID PRN Cough 06/05/24 06/12/24 History cholecalciferol (vitamin D3) 25 25 mcg PO QAM 06/05/24 06/12/24 History mcg (1,000 unit) tablet (Vitamin D3) clopidogrel 75 mg tablet (Plavix) 75 mg PO QAM 06/05/24 06/12/24 History cyanocobalamin (vitamin B-12) 500 500 mcg PO QAM 06/05/24 06/12/24 History mcg tablet lisinopril 5 mg tablet 5 mg PO QAM 06/05/24 06/12/24 History magnesium 500 mg tablet 15 mg PO DAILY 06/05/24 06/12/24 History metformin 500 mg tablet 1,000 mg PO QAM 06/05/24 06/12/24 History ondansetron HCl 4 mg tablet 4 mg PO Q6H PRN n/v 06/05/24 06/12/24 History pantoprazole 40 mg tablet,delayed 40 mg PO QAM 06/05/24 06/12/24 History release pravastatin 40 mg tablet 40 mg PO QAM 06/05/24 06/12/24 History spironolactone 50 mg tablet 50 mg PO QAM 06/05/24 06/12/24 History tramadol 50 mg tablet 100 mg PO BID 06/05/24 06/12/24 History Past Med/Surg History Problem List Encounter for pre-operative examination S/P vascular surgery Acute blood loss as cause of postoperative anemia s/p repair R femoral anastomotic pseudoaneurysm repair 05/10/24 and scheduled for L repair 06/12/24 PVD (peripheral vascular disease) Pseudoaneurysm (Acute) s/p repair R femoral anastomotic pseudoaneurysm repair 05/10/24 and scheduled for L repair 06/12/24 RLQ abdominal pain (Acute) Aneurysm artery, femoral s/p repair R femoral anastomotic pseudoaneurysm repair 05/10/24 and scheduled for L repair 06/12/24 Neck strain (Acute) Back strain (Acute) Medical History Cigarette smoker Pseudoaneurysm s/p repair R femoral anastomotic pseudoaneurysm repair 05/10/24 and scheduled for L repair 06/12/24 Acute blood loss as cause of postoperative anemia (05/11/24) s/p 05/10/24 pseudoaneurysm repair; had 1 unit PRBCs 05/11/24 and Hgb improved PVD (peripheral vascular disease) Hx of deep venous thrombosis in left arm, after vascular surgery, had to have surgery to remove dvt, > 10 years ago, no blood clots since GERD (gastroesophageal reflux disease) Hyperlipidemia Hypertension Hx of colonic polyps Diabetes mellitus, type 2 Aortic disease Surgical History History of thrombectomy in left arm, after vascular surgery had dvt, > 10 years ago, no blood clots since History of esophagogastroduodenoscopy (EGD) Hx of colonoscopy with polypectomy History of bunionectomy S/P vascular surgery (05/10/24) Multiple: most recent: 05/10/2024- repair of right femoral anastomotic pseudoaneurysm (): GA: Calhoun#2, ETT#7.5 oral, Gr View 1, atraumatic DL x 1; initial surgery in 2003: b/l aortoiliac bypass- [facility] Had additional 4 surgeries up to 2014 to go back in and "clean graft out" Social History Smoking Status: Current every day smoker Tobacco Type: Cigarettes Cigarettes Per Day: 1ppd (advised); Second Hand Exposure: No; Do You Dip or Chew Tobacco: No; Tobacco Cessation Education Requested by Patient: No Hx Alcohol Use: No Hx Substance Use: No Preferred Language: Arabic Communication Ability: Effective Cell Biology Scientist Required: No Beliefs That Will Affect Care: None Current Living Situation: Alone Current Living Situation Comment: Son lives down street Other Information That Helps Us Care for You: No Feels Safe at Home: Yes Safety Concerns: Feels Safe At This Time Assistive Devices: Glasses Review of Systems All systems reviewed & are unremarkable except as noted in HPI & below Physical Exam Physical Exam: Constitutional: WD/WN, vitals as a augustine Respiratory: normal respiratory effort; no respir atory distress Au scultation: lungs clear to auscultat ion bilaterally Cardiovascular: Rate/Rhythm: regul ar rate and regula r rhythm Vessels: femoral pulses pr esent Extremities : normal capillary refill Right gr oin incision has h ealed nicely. Lef t groin has a lemo n sized pulsatile mass. Both are no ntender Gastrointestinal ( Abdomen): Inspection/Auscult ation: abdomen nor mal to inspection; abdomen not diste nded Percussion/P alpation: abdomen soft; abdomen nont bernarda Neurologic: CN's II-XI intact bilaterally and mo ves all extremitie s Psychiatric: A+Ox3, euthymic af fect Results & Data Vital Signs (Past 12 Hours) Vital Signs Temp Pulse Resp BP Pulse Ox O2 Del Method 06/12/24 07:03 37 C 69 20 149/76 H 97 Room Air
[2024-06-12 07:30] LABS: BUN Creatinine Ratio 15.3 (10-20); Calcium 9.3 mg/dl (8.6-10.3); Creatinine Clr Calc Pharmacy 38.6 ml/min; Potassium 3.9 mmol/L (3.5-5.1)
[2024-06-12] MEDS: LR 15ML/HR IV SCH (07:34)
[2024-06-12] MEDS: CEFAZOLIN 2,000 MG/15 ML SYR IV SCH (08:21)
[2024-06-12] MEDS ORDERED: KETAMINE HCL 10MG/ML SYR ONE (08:25)
[2024-06-12] MEDS ORDERED: ePHEDrine sulfate 50 MG/5 ML SYR ONE (08:52)
[2024-06-12] MEDS ORDERED: PHENYLEPHRINE 100MCG/ML 10ML SYR IV ONE (08:53)
[2024-06-12] MEDS ORDERED: ESMOLOL HCL INJ 10 MG/ML 10ML VIAL IV ONE ×2 (08:58→09:04)
[2024-06-12] MEDS ORDERED: NITROGLYCERIN/D5W 100 MCG/ML BTL ONE (09:01)
[2024-06-12] MEDS ORDERED: SUGAMMADEX SODIUM 200 MG/2 ML VIAL IV ONE (09:07)
[2024-06-12] MEDS: GELATIN SPONGE SZ 100 ONE (10:41)
[2024-06-12] MEDS: ceFAZolin 330 MG/ML 1 GM VIAL ONE (10:41)
[2024-06-12] MEDS: THROMBIN FOR SOLN 20000 UNIT KIT ONE (10:42)
[2024-06-12] MEDS: HEPARIN (PORCINE) 1000 UNIT/ML 10 ML (CATH LAB USE ONLY) ONE (10:42)
--- NOTE | 2024-06-12 10:50 | Operative Report ---
Post Operative Report Pre & Post Diagnosis Operation Date: 06/12/24 08:00 Pre-Op Diagnosis: Left femoral artery anastomotic Pseudoaneurysm Post-Op Diagnosis: Left femoral artery anastomotic Pseudoaneurysm I identified the patient and participated in the time-out.: Yes Procedure Operation Date: 06/12/24 08:00 Actual Procedures p Repair of Left Groin Repair Femoral Anastomosis Pseudoaneurysm with Bovine Interposition Graft(Left) - Tyrel Schaffer MD Surgeon Tyrel Schaffer MD Trial Court Judge Russ,PAC Estimated Blood Loss 200 Findings Consistent with Post-Op Diagnosis Specimens none Anesthesia Type General Complications none Disposition Accompanied Patient To Recovery: No Disposition: Recovery Room Indications This is a 63-year-old female who had an aortobifemoral bypass approximately 23 years ago. She presented to the ED with an extremely large right anastomotic femoral pseudoaneurysm and a smaller 1 in the left groin. The right groin was repaired a few weeks ago. She is doing well from that and now admitted for repair of her left femoral artery anastomotic pseudoaneurysm. I have discussed the risks options and benefits of the procedure with the patient. The patient understands the risks options and benefits and agrees to the procedure. Description of Procedure The patient was taken the op room and placed spine position. After general anesthesia was accomplished a timeout was performed and the patient was identified. A longitudinal groin incision was made in the left groin. This is carried down to where the pseudoaneurysm identified. It was the size of a plum. Dissection was carried out distally exposing the superficial and profundofemoral arteries and the distal common femoral artery. We then dissected on the inflow of the femoral. This was dissected down just below the inguinal ligament. The femoral artery and graft limb were identified. These were isolated. Due to the scar tissue there isolated is 1 entity. Patient was heparinized at that time. Once she was adequately heparinized the superficial femoral profundofemoral arteries were clamped. Then placed a clamp across the limb of the aortobifemoral graft and the common femoral artery just above the inguinal ligament. The aneurysm sac was then entered. There is a large amount of mural thrombus. The sac was removed. The old graft had lifted off from the distal half of the anastomosis and was folded upward on itself. We then dissected this all free and lifted the entire graft off the anastomosis. We transected the graft limb at the inguinal ligament level. We then debrided the margins of the femoral artery. We extended the arteriotomy more distally onto the superficial femoral artery for approximately 2 cm. There was significant plaque seen and fibrous tissue which was excised. After this was done and there were no flaps noted we brought a bovine graft to the operative field. Distal end was cut in appropriate fashion and beveled. This was then sewn to the common femoral artery using a running 5-0 Prolene suture in the usual vascular fashion. Once this was completed we cut the bovine graft to the appropriate length and then into the anastomosis with the old limb of the aortobifemoral bypass using again a 5-0 Prolene suture in usual vascular fashion. Prior to completing this closure backward bleeding and forward bleeding was allowed to occur. The final few sutures were placed and securely tied. Clamps were removed. There is excellent flow distally in the profunda and superficial femoral artery. There was bleeding seen from the toe of the graft anastomosis. This was controlled with 2 interrupted 5-0 Prolene sutures. There is also some slight bleeding noted from the anterior surface of the old proximal common femoral distal external iliac arteries. This was controlled again with a 5-0 Prolene suture. Once this was done adequate hemostasis was seen of the wound. Heparin was reversed with 25 of protamine. Wound was irrigated with Ancef solution. Again adequate hemostasis was seen. Wound was closed in usual fashion using running 2-0 Vicryl suture for the femoral sheath and a running 3-0 Vicryl suture for the subcutaneous layer. [place] were used for the skin. Sterile dressings were applied.The patient left the operation room in satisfactory condition and tolerated the procedure well. All needle and sponge counts were correct at the end of the procedure. I attest to the content of the Intraoperative Record and any orders documented therein. Any exceptions are noted below.
[2024-06-12 11:16] LABS: Basophils # (auto) 0.02 K/uL (0.00-0.20); Basophils % (auto) 0.1 %; Eosinophils # (auto) 0.04 K/uL (0.00-0.50); Eosinophils % (auto) 0.3 %; Hematocrit (blood only) 25.7 % (37.0-47.0); Hemoglobin 8.8 g/dl (12.0-16.0); Immature Granulocytes # (auto) 0.28 K/uL (0.01-0.20); Lymphocytes # (auto) 1.78 K/uL (1.20-3.40); Lymphocytes % (auto) 12.8 %; Mean Corpuscular Hemoglobin 31.5 pg (25.0-34.0); Mean Corpuscular Hgb Conc 34.2 g/dL (32.0-36.0); Mean Corpuscular Volume 92.1 fL (80.0-100.0); Mean Platelet Volume 10.1 fL (9.4-12.4); Monocytes # (auto) 0.22 K/uL (0.11-0.59); Monocytes % (auto) 1.6 %; Neutrophils # (auto) 11.53 K/uL (1.40-6.50); Neutrophils % (auto) 83.2 %; Platelet Count 154 K/uL (130-400); RDW Standard Deviation 47.6 fL (36.4-46.3); Red Blood Count 2.79 M/uL (4.20-5.40); White Blood Count 13.87 K/ul (4.8-10.8)
[2024-06-12] MEDS ORDERED: ATROPINE SULFATE 0.1 MG/ML 10ML SYR IV PRN ×2 (11:21→11:24)
[2024-06-12] MEDS ORDERED: ePHEDrine sulfate 50 MG/ML AMP IV PRN (11:21)
[2024-06-12] MEDS ORDERED: PHENYLEPHRINE/NSS 25 MG/250 ML BAG IV PRN (11:24)
[2024-06-12] MEDS: fentaNYL citrate PF 100 MCG/2 ML VIAL IV PRN (11:35)
[2024-06-12] MEDS: PHENYLEPHRINE 100MCG/ML 5ML SYR IV PRN (11:35)
[2024-06-12] MEDS ORDERED: PHARMACY GLYCEMIC MGMT CONSULT PRN (12:27)
[2024-06-12] MEDS ORDERED: ONDANSETRON INJ 2 MG/ML 2 ML VIAL IV PRN (12:27)
[2024-06-12] MEDS ORDERED: BENZONATATE 100 MG CAPSULE PO PRN (12:27)
[2024-06-12] MEDS ORDERED: ONDANSETRON 4 MG OD TAB PO PRN (12:42)
[2024-06-12] MEDS: LACTATED RINGER'S 1,000 ML IV SCH (13:08)
[2024-06-12] MEDS ORDERED: DEXTROSE 50% 50 ML SYRINGE IV PRN (13:15)
[2024-06-12] MEDS: MoRPHine SULFATE 4 MG/ML 1 ML CARP\\VIAL IV PRN (13:15)
[2024-06-12] MEDS ORDERED: GLUCAGON FOR INJ 1 MG VIAL SQ PRN (13:15)
[2024-06-12] MEDS ORDERED: GLUCOSE 10 TAB/TUBE PO PRN (13:15)
[2024-06-12] MEDS ORDERED: GLUCOSE 40% GEL 15 GM TUBE PO PRN (13:15)
[2024-06-12] MEDS: LANTUS PER UNIT CHARGE SC ONE (13:19)
--- NOTE | 2024-06-12 13:51 | Pharmacy Report ---
Pharmacy Glycemic Short Note 2 - Date of Service June 12, 2024 - Glycemic Short BSG Results (Last 24 hours): 06/12/24 06/12/24 06/12/24 06:50 07:04 11:04 Glucose 118 H POC Glucose 138 H 233 H 06/12/24 12:23 Glucose POC Glucose 249 H OUTPATIENT ANTIDIABETIC REGIMEN: * Metformin 1gm PO daily * HbA1c: 8.3% (05/11/24) ASSESSMENT: * Ms Abebe is a 63yo diabetic F, POD 0 s/p procedure w/ Dr Schaffer in the OR this morning. * It appears as though pt received 8mg IV dexamethasone this morning, which is expected to contribute to steroid-induced hyperglycemia. * Pt was initiated on basal/bolus insulin regimen on admission. * Pharmacy will continue to follow and adjust regimen as indicated during hospital stay. PLAN FOR INPATIENT GLYCEMIC CONTROL: * Hold outpatient oral diabetes medications * Basal insulin * Lantus 15 units SQ x1 dose * will re-evaluate tomorrow morning * Bolus insulin * NovoLog per scale ACHS or Q6hrs while NPO * Goal Range: Low 110 mg/dL - High 140 mg/dL * Correction Factor: 35 mg/dL/unit * Nutritional / Prandial insulin per carb ratio of 1 unit per 12 grams CHO consumed
[2024-06-12 14:42] LABS: Hematocrit (blood only) 22.7 % (37.0-47.0); Hemoglobin 7.8 g/dl (12.0-16.0); Mean Corpuscular Hemoglobin 31.1 pg (25.0-34.0); Mean Corpuscular Hgb Conc 34.4 g/dL (32.0-36.0); Mean Corpuscular Volume 90.4 fL (80.0-100.0); Mean Platelet Volume 10.6 fL (9.4-12.4); Platelet Count 151 K/uL (130-400); RDW Coefficient of Variation 13.9 % (11.5-14.5); RDW Standard Deviation 46.3 fL (36.4-46.3); Red Blood Count 2.51 M/uL (4.20-5.40); White Blood Count 10.08 K/ul (4.8-10.8)
--- NOTE | 2024-06-12 14:56 | Critical Care Consultation ---
Date of Consultation June 12, 2024 Assessment & Plan (1) S/P vascular surgery: Reason Critically Ill: 63-year-old female with a significant past medical history of peripheral vascular disease, hypertension, hyperlipidemia, and tobacco abuse who status post repair of LEFT groin femoral anastomosis pseu doaneurysm with Bovie interposition graft. NEURO - * CAM ICU: NEGATIVE * Postoperative pain - Managed per surgery. CARDIAC/VASCULAR - * Hypertension, hyperlipidemia: * Reinstitute antihypertensives when clinically appropriate. * Monitor on telemetry. RESPIRATORY - * Cigarette smoking: * Saturating well on room air. * No prior diagnosis of lung disease or need for supplemental oxygen. * Encourage smoking cessation. GI/NUTRITION - * GERD RENAL/LYTES - * Patient with decreased urine output postoperatively: * Will increase fluid rate. * Will check baseline chemistry panel. * IVF: LR at 125 mL/h - * Brown in place - Strict I&Os. ENDO - * DMII * BSGs per unit protocol. ISS --> gtt per unit policy. HEME - * Anemia: * Patient presenting with an H&H of 8.8 and 25.2, respectively. * In the setting of post vascular procedure and decreased urine output, will obtain CBC to trend. * Low threshold for transfusion if patient with history of postoperative blood loss. ID - * Perfect antibiotics per vascular surgery. LINES/IV ACCESS - * PIVs x2 DVT PROPHYLAXIS - * Will defer to vascular surgery. * SCDs Thank you for allowing us to participate in the care of this patient. Please refer to my attending physician's documentation for any further recommendations. Supervising Physician Co-Signing Physician Notes I saw and evaluated the patient with Gume Medel PA-C, and agree with findings and plan as documented in the note. 63-year-old female presented to the hospital for repair of left groin femoral anastomosis pseudoaneurysm Past medical history: COPD, GERD, diabetes Was sent to the ICU for postop care At the time of examination patient's son and [id number] were in the room. She was not in any respiratory distress. Saturation was 97% on room air. Heart rate in the 70s with respiratory rate in the mid teens Did complain of groin pain/soreness. No headache, no blurry vision, no palpitation No nausea vomiting Fair appetite Constitutional: No acute distress HEENT: EOMI, PERRLA Respiratory system: Decreased air entry bilaterally, no wheeze, no rhonchi, mild crackles bilateral lower lobes CVS: S1-S2 positive, no murmurs or gallops Abdomen: Soft, nontender, nondistended, positive bowel sounds x4 Extremities: +2 pulses bilaterally radialis/ dorsalis pedis, no cyanosis, no edema Neuro: Awake alert oriented x3 Psych: Normal mood and affect G/U: Positive Brown Left groin wound VAC in place, there was hematoma appreciated superior to the wound VAC. --Prophylaxis VTE: IPC GI: Pantoprazole Lines: Peripheral Diet: Cardiac Plan: Strict in and out Patient is chronically anemic, last hemoglobin documented prior to today was 11 but she has been hovering around 8.7-8.8. Repeat H&H was done today because of the bleeding from the site. It was 7.8. I will repeat H&H as well as PT and INR around 7 PM. If it is dropping then she will be transfused after discussing the case with the vascular surgeon Please note the above document was generated using voice recognition software. It may contain grammatical, syntax or spelling errors.Any formal questions or concerns about the content, text or information contained within the body of this dictation should be directly addressed to the provider for clarification. History of Present Illness Reason for Consultation: post op left femoral anastomotic pseudoaneurysm Requesting Physician: Dr. Schaffer Attending Physician: Tyrel Schaffer MD History of Present Illness Patient is a 63-year-old female with a significant past medical history of tobacco abuse, femoral artery aneurysm, diabetes, GERD, hyperlipidemia, and hypertension who presents to the ICU status post left femoral anastomotic ps eudoaneurysm repair. Patient tolerated surgical intervention well. She was transferred to the ICU for ongoing evaluation and management. Estimated blood loss 200 mL. The patient reports that she has some surgical site discomfort. She offers no complaints of numbness/weakness into the leg. She reports daily pack per day habit of smoking. Otherwise, the patient offers no complaints. Allergies Allergy/AdvReac Type Severity Reaction Status Date / Time antibiotics AdvReac Severe extreme Uncoded 06/12/24 06:57 hypergycemia and lactic acid effected Home Medications Medication Instructions Recorded Confirmed Type benzonatate 100 mg capsule 100 mg PO TID PRN Cough 06/05/24 06/12/24 History cholecalciferol (vitamin D3) 25 25 mcg PO QAM 06/05/24 06/12/24 History mcg (1,000 unit) tablet (Vitamin D3) clopidogrel 75 mg tablet (Plavix) 75 mg PO QAM 06/05/24 06/12/24 History cyanocobalamin (vitamin B-12) 500 500 mcg PO QAM 06/05/24 06/12/24 History mcg tablet lisinopril 5 mg tablet 5 mg PO QAM 06/05/24 06/12/24 History magnesium 500 mg tablet 15 mg PO DAILY 06/05/24 06/12/24 History metformin 500 mg tablet 1,000 mg PO QAM 06/05/24 06/12/24 History ondansetron HCl 4 mg tablet 4 mg PO Q6H PRN n/v 06/05/24 06/12/24 History pantoprazole 40 mg tablet,delayed 40 mg PO QAM 06/05/24 06/12/24 History release pravastatin 40 mg tablet 40 mg PO QAM 06/05/24 06/12/24 History spironolactone 50 mg tablet 50 mg PO QAM 06/05/24 06/12/24 History tramadol 50 mg tablet 100 mg PO BID 06/05/24 06/12/24 History Patient History Medical History Cigarette smoker Pseudoaneurysm s/p repair R femoral anastomotic pseudoaneurysm repair 05/10/24 and scheduled for L repair 06/12/24 Acute blood loss as cause of postoperative anemia (05/11/24) s/p 05/10/24 pseudoaneurysm repair; had 1 unit PRBCs 05/11/24 and Hgb improved PVD (peripheral vascular disease) Hx of deep venous thrombosis in left arm, after vascular surgery, had to have surgery to remove dvt, > 10 years ago, no blood clots since GERD (gastroesophageal reflux disease) Hyperlipidemia Hypertension Hx of colonic polyps Diabetes mellitus, type 2 Aortic disease Surgical History History of thrombectomy in left arm, after vascular surgery had dvt, > 10 years ago, no blood clots since History of esophagogastroduodenoscopy (EGD) Hx of colonoscopy with polypectomy History of bunionectomy S/P vascular surgery (05/10/24) Multiple: most recent: 05/10/2024- repair of right femoral anastomotic pseudoaneurysm (): GA: [place]#2, ETT#7.5 oral, Gr View 1, atraumatic DL x 1; initial surgery in 2003: b/l aortoiliac bypass- [facility] Had additional 4 surgeries up to 2014 to go back in and "clean graft out" Social History Smoking Status: Current every day smoker Tobacco Type: Cigarettes Cigarettes Per Day: 1ppd (advised); Second Hand Exposure: No; Do You Dip or Chew Tobacco: No; Tobacco Cessation Education Requested by Patient: No Hx Alcohol Use: No Hx Substance Use: No Preferred Language: Kinyarwanda Communication Ability: Effective Shirt Operator Required: No Beliefs That Will Affect Care: None Current Living Situation: Alone Current Living Situation Comment: Son lives down street Other Information That Helps Us Care for You: No Feels Safe at Home: Yes Safety Concerns: Feels Safe At This Time Assistive Devices: Glasses Review of Systems Review of Systems: A complete 10 point review of systems was reviewed with the patient with pertinent positives and negatives as per history of present illness. All else were negative. Physical Exam Physical Exam: VITAL SIGNS - Vital signs and nursing notes were reviewed. GENERAL - 63-year-old female appearing her stated age who is in no acute distress. Communicates well with provider and answers questions appropriately. SKIN - LEFT groin dressing with mild bloody drainage. HEAD - NC/AT. EYES - PERRL with EOMI bilaterally. Sclera anicteric. EARS - No deformities of external structures noted on gross examination bilaterally. NOSE - Midline and without cyanosis. MOUTH/OROPHARYNX - Without perioral cyanosis. NECK - Neck with FROM. LUNGS - Chest wall symmetric without accessory muscle use, intercostals retractions, or central cyanosis. Normal vesicular breath sounds CTA B/L. No wheezes, rales, or rhonchi appreciated. CARDIAC - RRR with S1/S2. No murmur, rubs, or gallops appreciated. ABDOMEN - Abdominal contour flat without pulsations or visible masses. BS normoactive all four quadrants. No tenderness, palpable masses, hepatosplenomegaly, or ascites noted. EXTREMITIES - No clubbing or peripheral cyanosis. No pretibial edema present. +3/5 radial and dorsalis pedis pulses palpated throughout. Equal strength of the upper and lower extremities bilaterally. NEUROLOGIC - Cranial nerves II through XII grossly intact. PSYCH - A&Ox3 and cooperates fully with examiner. Pt is very pleasant and interacts well with examiner. Results & Data Results & Data Vital Signs (Past 12 Hours) Vital Signs Temp Pulse Pulse Pulse Resp BP BP 06/12/24 14:30 85 18 139/53 L 06/12/24 14:00 79 19 130/52 L 06/12/24 13:23 83 19 123/52 L 06/12/24 13:00 81 20 134/55 L 06/12/24 12:45 90 18 123/52 L 06/12/24 12:35 84 06/12/24 12:30 83 20 131/54 L 06/12/24 12:18 88 22 125/47 L 06/12/24 11:59 36.5 C 88 20 131/53 L 06/12/24 11:50 88 20 122/49 L 06/12/24 11:40 80 14 124/44 L 06/12/24 11:30 77 18 99/47 L 06/12/24 11:20 78 18 84/33 L 06/12/24 11:10 74 18 91/43 L 06/12/24 11:01 36.1 C L 78 16 91/48 L 06/12/24 07:36 152/61 H 06/12/24 07:03 37 C 69 20 149/76 H Pulse Ox O2 Del Method O2 Flow Rate 06/12/24 14:30 99 Room Air 06/12/24 14:00 95 Room Air 06/12/24 13:23 95 Room Air 06/12/24 13:00 94 Room Air 06/12/24 12:45 94 Room Air 06/12/24 12:35 06/12/24 12:30 93 Oxymask 06/12/24 12:18 94 Oxymask 3 06/12/24 11:59 94 Oxymask 3 06/12/24 11:50 94 Oxymask 3 06/12/24 11:40 98 Oxymask 3 06/12/24 11:30 98 Oxymask 3 06/12/24 11:20 98 Oxymask 3 11/06/24 11:10 98 Oxymask 6 06/12/24 11:01 94 Oxymask 6 06/12/24 07:36 06/12/24 07:03 97 Room Air Coding Level of Care Code 80717 IN/OBS CONSULT LVL 4,60M Diagnoses S/P vascular surgery Z98.890
--- NOTE | 2024-06-12 15:02 | Anesthesiology Progress Note ---
Date of Service June 12, 2024 Anesthesia Post Procedure Vital Signs Vital Signs: Temp Pulse Pulse Pulse Resp BP BP 06/12/24 14:30 85 18 139/53 L 06/12/24 14:00 79 19 130/52 L 06/12/24 13:23 83 19 123/52 L 06/12/24 13:00 81 20 134/55 L 06/12/24 12:45 90 18 123/52 L 06/12/24 12:35 84 06/12/24 12:30 83 20 131/54 L 06/12/24 12:18 88 22 125/47 L 06/12/24 11:59 36.5 C 88 20 131/53 L 06/12/24 11:50 88 20 122/49 L 06/12/24 11:40 80 14 124/44 L 06/12/24 11:30 77 18 99/47 L 06/12/24 11:20 78 18 84/33 L 06/12/24 11:10 74 18 91/43 L 06/12/24 11:01 36.1 C L 78 16 91/48 L 06/12/24 07:36 152/61 H 06/12/24 07:03 37 C 69 20 149/76 H Pulse Ox O2 Del Method O2 Flow Rate 06/12/24 14:30 99 Room Air 06/12/24 14:00 95 Room Air 06/12/24 13:23 95 Room Air 06/12/24 13:00 94 Room Air 06/12/24 12:45 94 Room Air 06/12/24 12:35 06/12/24 12:30 93 Oxymask 06/12/24 12:18 94 Oxymask 3 06/12/24 11:59 94 Oxymask 3 06/12/24 11:50 94 Oxymask 3 06/12/24 11:40 98 Oxymask 3 06/12/24 11:30 98 Oxymask 3 06/12/24 11:20 98 Oxymask 3 06/12/24 11:10 98 Oxymask 6 06/12/24 11:01 94 Oxymask 6 06/12/24 07:36 06/12/24 07:03 97 Room Air Pain Intensity Left Groin: Pain Intensity: 5 Transfer of Care Handoff Completed per policy Notes Mental Status: alert / awake / arousable Patient Amnestic to Procedure: Yes Nausea / Vomiting: adequately controlled Pain: adequately controlled Airway Patency, RR, SpO2: stable & adequate BP & HR: stable & adequate Hydration State: stable & adequate Anesthetic Complications: no major complications apparent and Pt Satisfied with anesthetic care
[2024-06-12 15:13] LABS: BUN Creatinine Ratio 17.9 (10-20); Calcium 8.4 mg/dl (8.6-10.3); Creatinine Clr Calc Pharmacy 40.5 ml/min; Potassium 4.1 mmol/L (3.5-5.1)
[2024-06-12] MEDS: LACTATED RINGER'S 500 ML IV ONE (16:24)
[2024-06-12] MEDS: INSULIN ASPART PER UNIT CHARGE SC SCH (17:12)
[2024-06-12] MEDS: ceFAZolin 2000MG 2,000 MG/15 ML SYR IV SCH (18:20)
[2024-06-12 19:03] LABS: Hematocrit (blood only) 22.1 % (37.0-47.0); Hemoglobin 7.4 g/dl (12.0-16.0)
[2024-06-12 19:38] LABS: INR 1.1 (0.9-1.1); Prothrombin Time 11.5 Seconds (9.0-12.0)
[2024-06-12] MEDS: oxyCODONE/ACETAMINOPHEN 5mg/325mg TAB PO PRN (23:12)
[2024-06-12 23:44] LABS: Hematocrit (blood only) 20.5 % (37.0-47.0)
[2024-06-13 05:34] LABS: Hematocrit (blood only) 19.2 % (37.0-47.0); Hemoglobin 6.5 g/dl (12.0-16.0); Mean Corpuscular Hemoglobin 31.1 pg (25.0-34.0); Mean Corpuscular Hgb Conc 33.9 g/dL (32.0-36.0); Mean Corpuscular Volume 91.9 fL (80.0-100.0); Mean Platelet Volume 10.6 fL (9.4-12.4); Platelet Count 147 K/uL (130-400); RDW Coefficient of Variation 14.1 % (11.5-14.5); Red Blood Count 2.09 M/uL (4.20-5.40)
[2024-06-13] MEDS ORDERED: SODIUM CHLORIDE 0.9% 50 ML IV PRN (05:42)
[2024-06-13] MEDS ORDERED: SODIUM CHLORIDE 0.9% 100 ML IV PRN (05:42)
[2024-06-13 05:43] LABS: BUN Creatinine Ratio 17.6 (10-20); Calcium 8.4 mg/dl (8.6-10.3); Potassium 3.6 mmol/L (3.5-5.1)
[2024-06-13 05:54] LABS: Basophils # (auto) 0.02 K/uL (0.00-0.20); Basophils % (auto) 0.3 %; Eosinophils # (auto) 0.02 K/uL (0.00-0.50); Eosinophils % (auto) 0.3 %; Immature Granulocytes # (auto) 0.02 K/uL (0.01-0.20); Immature Granulocytes % (auto) 0.3 %; Lymphocytes # (auto) 2.99 K/uL (1.20-3.40); Lymphocytes % (auto) 37.4 %; Monocytes # (auto) 0.49 K/uL (0.11-0.59); Monocytes % (auto) 6.1 %; Neutrophils # (auto) 4.46 K/uL (1.40-6.50); Neutrophils % (auto) 55.6 %
[2024-06-13 05:55] LABS: Polychromasia 1+
--- NOTE | 2024-06-13 08:21 | Critical Care Progress Note ---
Date of Service June 13, 2024 Assessment & Plan (1) S/P vascular surgery: (2) PVD (peripheral vascular disease): (3) Pseudoaneurysm: (4) Acute blood loss anemia: (5) COPD with emphysema: (6) Cigarette smoker: (7) GERD (gastroesophageal reflux disease): (8) Hyperlipidemia: (9) Hypertension: (10) Diabetes mellitus, type 2: Plan Reason Critically Ill: 63-year-old female with a significant past medical history of peripheral vascular disease, hypertension, hyperlipidemia, and tobacco abuse who status post repair of LEFT groin femoral anastomosis pseudoaneurysm with Bovie interposition graft. NEURO - * CAM ICU: NEGATIVE * Postoperative pain - Managed per surgery. CARDIAC/VASCULAR - * Hypertension, hyperlipidemia: * Reinstitute antihypertensives when clinically appropriate. * Monitor on telemetry. RESPIRATORY - * COPD with active smoking * Saturating well on room air. * No prior diagnosis of lung disease or need for supplemental oxygen. * Encourage smoking cessation. GI/NUTRITION - * GERD * Continue with pantoprazole RENAL/LYTES - * Patient with decreased urine output postoperatively: * Monitor BUNs/creatinine - * Brown in place - Strict I&Os. ENDO - * DMII * BSGs per unit protocol. ISS --> gtt per unit policy. HEME - * Acute on chronic anemia: * Likely secondary to surgical procedure Getting 2 units of PRBC on 06/13/2024 ID - * No clear source of infection, patient did not antibiotics preop --Prophylaxis VTE: IPC GI: Pantoprazole Lines: Peripheral Diet: Cardiac Plan: S in/out: +3.5 L, urine output 676 Patient's hemoglobin is trending down, oozing has decreased from the site after pressure dressing She is going to get 2 units of PRBC. PT/INR within normal limit Magnesium being replaced Blood pressure has been running on the higher side. If it is persistently high then we will consider increasing the dose of lisinopril. Hemodynamically stable Disposition as per vascular surgery Please note the above document was generated using voice recognition software. It may contain grammatical, syntax or spelling errors.Any formal questions or concerns about the content, text or information contained within the body of this dictation should be directly addressed to the provider for clarification. Admission and Anticipated Discharge Date Admission Date: June 12, 2024 Subjective Patient seen and examined at bedside. No acute distress Patient still had oozing from the left incision site with drop in hemoglobin Denies any pain at that site No nausea vomiting No headache, no blurry vision Has been afebrile Blood pressure was in systolic 160s, saturating 99% on room air Review of Systems 2 Review of Systems: All systems reviewed & are unremarkable except as noted in Subjective Physical Exam 2 Physical Exam: Constitutional: No acute distress HEENT: EOMI, PERRLA Respiratory system: Decreased air entry bilaterally, no wheeze, no rhonchi, mild crackles bilateral lower lobes CVS: S1-S2 positive, no murmurs or gallops Abdomen: Soft, nontender, nondistended, positive bowel sounds x4 Extremities: +2 pulses bilaterally radialis/ dorsalis pedis, no cyanosis, no edema Neuro: Awake alert oriented x3 Psych: Normal mood and affect G/U: Positive Brown Left groin with pressure dressing, no clear oozing of the dressing Skin: no rashes, warm and dry Lymphatic: no cervical or axillary lymphadenopathy Results & Data Results & Data Vital Signs (Past 12 Hours) Vital Signs Temp Pulse Pulse Resp BP BP Pulse Ox 06/13/24 08:16 36.5 C 71 16 175/65 H 98 06/13/24 08:02 36.9 C 69 16 179/68 H 96 06/13/24 07:02 72 15 150/68 H 99 06/13/24 06:32 75 14 165/59 H 95 06/13/24 06:17 36.7 C 73 14 145/55 H 97 06/13/24 05:57 36.8 C 83 16 157/56 H 97 06/13/24 05:00 74 16 149/56 H 95 06/13/24 04:15 36.9 C 78 16 133/52 L 97 06/13/24 03:00 69 15 149/56 H 95 06/13/24 02:06 75 23 143/62 H 97 06/13/24 01:30 71 14 97 06/13/24 01:00 73 16 145/57 H 97 06/13/24 00:03 37 C 81 17 152/57 H 98 06/12/24 23:12 79 15 154/57 H 97 06/12/24 22:00 80 14 154/54 H 95 06/12/24 21:42 79 16 96 06/12/24 21:00 76 15 150/61 H 96 06/12/24 20:30 78 16 96 O2 Del Method 06/13/24 08:16 06/13/24 08:02 06/13/24 07:02 06/13/24 06:32 06/13/24 06:17 06/13/24 05:57 06/13/24 05:00 Room Air 06/13/24 04:15 Room Air 06/13/24 03:00 Room Air 06/13/24 02:06 Room Air 06/13/24 01:30 Room Air 06/13/24 01:00 Room Air 06/13/24 00:03 Room Air 06/12/24 23:12 Room Air 06/12/24 22:00 Room Air 06/12/24 21:42 Room Air 06/12/24 21:00 Room Air 06/12/24 20:30 Room Air Laboratory Results 06/13/24 04:24 06/13/24 04:24 Coding Level of Care Code 30783 SUB INP/OBS CARE 3/50MIN Diagnoses S/P vascular surgery Z98.890 PVD (peripheral vascular disease) I73.9 Pseudoaneurysm I72.9 Acute blood loss anemia D62 COPD with emphysema J43.9 Cigarette smoker F17.210 GERD (gastroesophageal reflux disease) K21.9 Hyperlipidemia E78.5 Hypertension I10 Diabetes mellitus, type 2 E11.9
[2024-06-13] MEDS ORDERED: NON-FORMULARY MEDICATION (Magnesium 500 mg Tablet) PO SCH (09:00)
[2024-06-13] MEDS: CHOLECALCIFEROL 25 MCG (1000 UNITS) TAB PO SCH (09:28)
[2024-06-13] MEDS: SPIRONOLACTONE 25 MG TAB PO SCH (09:29)
[2024-06-13] MEDS: CLOPIDOGREL BISULFATE 75 MG TAB PO SCH (09:29)
[2024-06-13] MEDS: lisinopril 5 MG TAB PO SCH (09:30)
[2024-06-13] MEDS: CYANOCOBALAMIN (B-12) 500 MCG TABLET PO SCH (09:30)
[2024-06-13] MEDS: PANTOprazole 40 MG TAB PO SCH (09:30)
[2024-06-13] MEDS: PRAVASTATIN SOD 40 MG TAB PO SCH (09:30)
[2024-06-13] MEDS: POTASSIUM CHLORIDE CRTAB 20 MEQ TABCR PO STA (09:49)
[2024-06-13] MEDS: MAGNESIUM OXIDE 400 MG TAB PO SCH (10:20)
[2024-06-13] MEDS: CARBOHYDRATES FOR HYPOGLYCEMIA PO PRN (12:00)
[2024-06-13] MEDS: MAGNESIUM SULFATE / D5W 1 GM/100 ML BAG IV SCH (12:41)
--- NOTE | 2024-06-13 14:44 | Pharmacy Report ---
Pharmacy Glycemic Short Note 2 - Date of Service June 13, 2024 - Glycemic Short BSG Results (Last 24 hours): 06/12/24 06/12/24 06/12/24 14:02 16:53 20:07 Glucose 220 H POC Glucose 191 H 107 H 06/13/24 06/13/24 06/13/24 04:24 06:43 11:55 Glucose 61 L POC Glucose 72 67 L* 06/13/24 12:21 Glucose POC Glucose 108 H OUTPATIENT ANTIDIABETIC REGIMEN: * Metformin 1gm PO daily * HbA1c: 8.3% (05/11/24) ASSESSMENT: 06/13 * BSGs improved markedly after Lantus administered yesterday. * Unfortunately, pt has been slightly hypoglycemic this morning. Response to steroids was less than anticipated and pt seems to be quite insulin sensitive. * No further basal insulin. Novolog parameters have been loosened. 06/12 * Ms Abebe is a 63yo diabetic F, POD 0 s/p procedure w/ Dr Schaffer in the OR this morning. * It appears as though pt received 8mg IV dexamethasone this morning, which is expected to contribute to steroid-induced hyperglycemia. * Pt was initiated on basal/bolus insulin regimen on admission. * Pharmacy will continue to follow and adjust regimen as indicated during hospital stay. PLAN FOR INPATIENT GLYCEMIC CONTROL: * Hold outpatient oral diabetes medications * Basal insulin * none at this time * Bolus insulin * NovoLog per scale ACHS or Q6hrs while NPO * Goal Range: Low 110 mg/dL - High 140 mg/dL * Correction Factor: 45 mg/dL/unit * Nutritional / Prandial insulin per carb ratio of 1 unit per 20 grams CHO consumed
[2024-06-13 14:47] LABS: Hematocrit (blood only) 30.1 % (37.0-47.0); Hemoglobin 10.7 g/dl (12.0-16.0)
--- NOTE | 2024-06-13 14:50 | Surgery Progress Note ---
Date of Service June 13, 2024 Assessment & Plan (1) S/P vascular surgery: Plan: Patient doing well from left femoral pseudoaneurysm repair. No further bleeding from the incision. (2) Acute blood loss as cause of postoperative anemia: Plan: Had decrease in hgb due to acute operative and post operative blood loss. Patient given two units of PRBC's Will transfer to floor Admission and Anticipated Discharge Date Admission Date: June 12, 2024 Subjective Patient without complaints. Denies any foot or leg pain. Physical Exam Constitutional: WD/WN, vitals as above Respiratory: normal respiratory effort; no respiratory distress Cardiovascular: RRR, no murmur, no edema Gastrointestinal (Abdomen): Inspection/Auscultation: abdomen normal to inspection; abdomen not distended Percussion/Palpation: abdomen soft; abdomen nontender Skin: + incision (dry and clean, no further bl eeding) Neurologic: CN's II-XI intact bilaterally and moves all extremities Psychiatric: A+Ox3, euthymic affect Results & Data Vital Signs (Past 12 Hours) Vital Signs Temp Pulse Resp BP Pulse Ox O2 Del Method 06/13/24 13:02 72 06/13/24 12:06 69 12 99 06/13/24 11:43 36.9 C 75 18 185/71 H 98 06/13/24 10:43 36.9 C 74 16 181/67 H 97 06/13/24 09:43 36.9 C 82 18 168/72 H 97 06/13/24 09:13 36.9 C 70 16 151/91 H 97 06/13/24 08:58 36.9 C 71 16 166/70 H 97 06/13/24 08:32 36.5 C 69 16 170/62 H 97 06/13/24 08:19 36.5 C 70 06/13/24 08:16 36.5 C 71 16 175/65 H 98 06/13/24 08:02 36.9 C 69 16 179/68 H 96 06/13/24 08:00 Room Air 06/13/24 08:00 70 06/13/24 07:02 72 15 150/68 H 99 06/13/24 06:32 75 14 165/59 H 95 06/13/24 06:17 36.7 C 73 14 145/55 H 97 06/13/24 05:57 36.8 C 83 16 157/56 H 97 06/13/24 05:00 74 16 149/56 H 95 Room Air 06/13/24 04:15 36.9 C 78 16 133/52 L 97 Room Air 06/13/24 03:00 69 15 149/56 H 95 Room Air
[2024-06-14 07:22] VITALS: BP 176/73; PULSE 88; RESP 18; TEMP 99.5; O2SAT 93
--- NOTE | 2024-06-14 11:27 | Surgery Progress Note ---
Date of Service June 14, 2024 Assessment & Plan (1) S/P vascular surgery: Plan: Patient doing well from left femoral pseudoaneurysm repair. No further bleeding from the incision. Will d/c today. (2) Acute blood loss as cause of postoperative anemia: Plan: Had decrease in hgb due to acute operative and post operative blood loss. Patient given two units of PRBC's. Hgb 10. No further sign of bleeding. Admission and Anticipated Discharge Date Admission Date: June 12, 2024 Subjective 63 yo f POD #2 after LLE femoral anastomosis pseudoaneurysm repair with bovine interposition graft, seen in f/u today. Pt states feeling tired, but no real complaints. States overall feels much better than yesterday. Pain well controlled. Review of Systems Review of Systems: All systems reviewed & are unremarkable except as noted in HPI & below Physical Exam Constitutional: WD/WN, vitals as above Respiratory: normal respiratory effort; no respiratory distress Cardiovascular: RRR, no murmur, no edema Gastrointestinal (Abdomen): Inspection/Auscultation: abdomen normal to inspection; abdomen not distended Percussion/Palpation: abdomen soft; abdomen nontender Skin: + incision (dry and clean, no further bl eeding) Neurologic: CN's II-XI intact bilaterally and moves all extremities Psychiatric: A+Ox3, euthymic affect Results & Data Vital Signs (Past 12 Hours) Vital Signs Temp Pulse Pulse Resp BP Pulse Ox O2 Del Method 06/14/24 07:19 37.5 C 88 18 176/73 H 93 Room Air 06/14/24 05:09 37.4 C 83 12 175/75 H 97 Room Air 06/14/24 01:32 37.6 C H 81 14 177/73 H 96 Room Air
--- NOTE | 2024-06-14 11:28 | Discharge Summary ---
Date of Service June 14, 2024 Admission HPI Per Admitting Provider This is a 63-year-old female who was complaining of pain in her groins. She noticed increasing size of a mass in her right groin. She claims that it was pulsatile. She has had an aortobifem over 20 years ago. She has had no problems since then. She denies any claudication but she does not walk fast or long distances. She does not do stairs. She has no history of coronary disease. She is a smoker and a diabetic. 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 The right one was very large and repaired in the recent past. She is now admitted for repair of her left femoral anastomotic pseudoaneurysm which is approx 5cm in size. Admission Exam Per Admitting Provider Constitutional: WD/WN, vitals as a augustine Respiratory: normal respiratory effort; no respir atory distress Au scultation: lungs clear to auscultat ion bilaterally Cardiovascular: Rate/Rhythm: regul ar rate and regula r rhythm Vessels: femoral pulses pr esent Extremities : normal capillary refill Right gr oin incision has h ealed nicely. Lef t groin has a lemo n sized pulsatile mass. Both are no ntender Gastrointestinal ( Abdomen): Inspection/Auscult ation: abdomen nor mal to inspection; abdomen not diste nded Percussion/P alpation: abdomen soft; abdomen nont bernarda Neurologic: CN's II-XI intact bilaterally and mo ves all extremitie s Psychiatric: A+Ox3, euthymic af fect Principal Diagnosis 1. s/p L femoral anastomosis pseudoaneurysm repair with bovine interposition graft 2. L femoral anastomosis pseudoaneurysm 3. Post op anemia Discharge Exam Constitutional WD/WN, vitals as above Respiratory normal respiratory effort; no respiratory distress Cardiovascular RRR, no murmur, no edema Gastrointestinal (Abdomen) Inspection/Auscultation: abdomen normal to inspection; abdomen not distended Percussion/Palpation: abdomen soft; abdomen nontender Skin + incision (dry and clean, no further bleeding) Neurologic CN's II-XI intact bilaterally and moves all extremities Psychiatric A+Ox3, euthymic affect Discharge Data Allergies Allergy/AdvReac Type Severity Reaction Status Date / Time antibiotics AdvReac Severe extreme Uncoded 06/12/24 06:57 hypergycemia and lactic acid effected Consultations 06/12/24 12:27 Consult [employer] Or [employer]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 No further bleeding from the incision. Will d/c today. (2) Acute blood loss as cause of postoperative anemia: Had decrease in hgb due to acute operative and post operative blood loss. Patient given two units of PRBC's. Hgb 10. No further sign of bleeding. Total Time Total Time Spent Total Time Spent (In Minutes): 0 Discharge Plan Discharge Items Patient Disposition: Home - Self-Care Reason For Visit: Pseudoaneurysm Discharge Diagnosis: 1. s/p LLE femoral anastomosis pseudoaneurysm repair with bovine interposition graft 2. LLE femoral anastomosis pseuodaneurysm Activity: Per Instructions section Non-emergency contact: Primary Care Provider and Surgeon Call non-emergency contact if: you have any medication questions, your pain is not controlled, your pain is concerning for you, you have a fever, your wound has increased redness and your wound has increased drainage Follow-up/Referrals: Erick Paz MD [Primary Care Provider] - (Follow up with your PCP within 2 weeks ) Tyrel Schaffer MD [Physician] - (Follow up with Dr Schaffer or Aurora Torres PA-C, in 2 weeks ) Diet: Regular and Heart Healthy Addtl Attending Provider Instructions: ACTIVITY RECOMMENDATIONS: 1. May shower and dry L groin gently. No soaking tub baths until completely healed. 2. May place light gauze/tape dressing to L groin if drainage occurs. If no drainage, no dressing required. 3. No lifting more than 15 lbs x 6 weeks. SPECIAL CARE INSTRUCTIONS: Call your doctor if: * Temperature above 101 degrees * Pain not relieved by pain medicine ordered * There is increased drainage or redness from any incision * You have any unanswered questions or concerns. Pending Studies at Discharge: No Stand-Alone Forms: [employer] [facility], Smoking Cessation Medications and DC Order Prescriptions: New oxycodone-acetaminophen [Percocet] 5-325 mg Tablet 1 - 2 tab PO Q6H PRN (Reason: pain) Qty: 30 0RF Continued metformin 500 mg Tablet 1,000 mg PO QAM magnesium 500 mg Tablet 15 mg PO DAILY pravastatin 40 mg Tablet 40 mg PO QAM ondansetron HCl [Zofran] 4 mg Tablet 4 mg PO Q6H PRN (Reason: n/v) clopidogrel [Plavix] 75 mg Tablet 75 mg PO QAM cyanocobalamin (vitamin B-12) 500 mcg Tablet 500 mcg PO QAM benzonatate [Tessalon Perles] 100 mg Capsule 100 mg PO TID PRN (Reason: Cough) pantoprazole 40 mg Tablet,Delayed Release (Dr/Ec) 40 mg PO QAM lisinopril 5 mg Tablet 5 mg PO QAM spironolactone 50 mg Tablet 50 mg PO QAM cholecalciferol (vitamin D3) [Vitamin D3] 25 mcg (1,000 unit) Tablet 25 mcg PO QAM Held tramadol 50 mg Tablet 100 mg PO BID Hold Instructions: Resume on 07/05/24. Hold while taking oxycodone. May restart tramadol when no longer requiring oxycodone for pain. Discharge Orders: Discharge Order (Routine); Ordered 06/14/24 Ordered By: Aurora Torres Admission Data Admit Date/Time: 06/12/24 07:32 Attending Provider: Tyrel Schaffer Admit Provider: Tyrel Schaffer Primary Care Provider: Erick Paz. Other Providers: [facility]; Lai Salcido; Gume Medel; Damon Gamez; Faustino Thorne; Eligio Murphy; Joanie Jeter; Anibal Perez; Tiff Bruce; Rekha Harvey; Ramon Baez; Erick Patel; Oksana Coley
[2024-06-14] MEDS ORDERED: INSULIN ASPART PER UNIT CHARGE SC SCH (12:30)
== END 2024-06-14 13:45 | disposition home or self-care (01) | DRG 253 ==
LOC: EDBD → ASU 06:30 → 1E 07:32 → 3W 06-13 17:42
DX: Z79.02 Long term (current) use of antithrombotics/antiplatelets; K21.9 Gastro-esophageal reflux disease without esophagitis; I72.4 Aneurysm of artery of lower extremity; E78.5 Hyperlipidemia, unspecified; D62 Acute posthemorrhagic anemia; T82.328A Displacement of other vascular grafts, initial encounter; E11.51 Type 2 diabetes mellitus with diabetic peripheral angiopathy without gangrene; I10 Essential (primary) hypertension; F17.210 Nicotine dependence, cigarettes, uncomplicated; Y92.02 Mobile home as the place of occurrence of the external cause; J44.9 Chronic obstructive pulmonary disease, unspecified; Y71.2 Prosthetic and other implants, materials and accessory cardiovascular devices associated with adverse incidents

== ENCOUNTER 2025-07-24 11:23 | Inpatient (IN) ==
--- NOTE | 2025-07-24 12:39 | XRay Report ---
XR chest 1V portable CLINICAL HISTORY: weakness COMPARISON STUDY: Chest radiograph May 09, 2024. FINDINGS: Lung volumes are normal. Lungs are clear. There is no pneumothorax or pleural effusion. Car diac size is normal. Mediastinal contours are normal. There is no evidence for pulmonary edema. IMPRESSION: No acute cardiopulmonary findings. ACT 112: Negative or not required by law. Electronically signed by: Harish Serrano M.D. 07/24/2025 12:38 PM
[2025-07-24 12:43] LABS: Hematocrit (blood only) 33.3 % (37.0-47.0); Hemoglobin 11.4 g/dL (12.0-16.0); Immature Granulocytes # (auto) 0.04 K/uL (0.01-0.20); Immature Granulocytes % (auto) 0.4 %; Mean Corpuscular Hemoglobin 30.7 pg (25.0-34.0); Mean Corpuscular Volume 89.8 fL (80.0-100.0); Platelet Count 259 K/uL (130-400); RDW Standard Deviation 43.1 fL (36.4-46.3); Red Blood Count 3.71 M/uL (4.20-5.40); White Blood Count 9.59 K/ul (4.8-10.8)
[2025-07-24 13:01] LABS: Alanine Aminotransferase 8.0 U/L (7-52); Albumin Globulin Ratio 1.3 (0.9-2); Albumin Level 4.2 gm/dl (3.4-5.0); Alkaline Phosphatase 62.0 U/L (34-104); Anion Gap 10.0 (3-11); Bilirubin,Total 0.4 mg/dl (0.2-1.0); Blood Urea Nitrogen 17.0 mg/dl (6-23); Calcium 9.6 mg/dl (8.6-10.3); Carbon Dioxide 24.0 mmol/L (21-32); Chloride 103.0 mmol/L (98-107); Creatinine Clr Calc Pharmacy 37.0 ml/min; Globulin 3.3 gm/dl (2.5-4.0); Glucose 152.0 mg/dl (70-99(Fasting)); Magnesium 1.2 mg/dl (1.7-2.4); Potassium 4.1 mmol/L (3.5-5.1); Sodium 137.0 mmol/L (136-145); Total Protein 7.5 gm/dl (6.0-8.3)
[2025-07-24] MEDS: MAGNESIUM SULFATE / D5W 1 GM/100 ML BAG IV STA (13:12)
[2025-07-24 13:14] LABS: INR 1.0 (0.9-1.1); Partial Thromboplastin Time 24 Seconds (21-31); Prothrombin Time 10.9 Seconds (9.0-12.0)
[2025-07-24] MEDS: OPTIRAY 320 125ml IV ONE (13:23)
--- NOTE | 2025-07-24 13:30 | Emergency Department Note ---
Impression & Plan Acute right-sided weakness, Stroke-like symptoms, Hypomagnesemia ED Provider Note HISTORY OF PRESENT ILLNESS: Patient is a 65-year-old female presenting with right sided weakness. Patient reports that 3 days ago she had woken up with some weakness on the right side of her body. She reportedly had difficulties getting out of bed and subsequently fell out of bed. Family has been assisting her at home, as her right sided weakness has become more pronounced over the last 3 days. She is on Plavix for history of PAD. Denies any chest pain or shortness of breath with the weakness. She last fell 2 days ago. Her family has been utilizing a walker at home and helping to assist her, as her right lower extremity seems to be dragging behind her when she ambulates. She denies striking her head or loss of consciousness with any of her falls. Denies any abdominal pain, nausea or vomiting. ROS: as above PHYSICAL EXAM: Constitutional: Patient appears in no acute distress. HENT: Head: Normocephalic and atraumatic. Eyes: EOMI, PERRL Mouth/Throat: Mucous membranes moist. Neck: Trachea midline. Neck supple. Cardiovascular: RRR, No murmurs, rubs or gallops. Intact distal pulses. Pulmonary/Chest: No respiratory distress. Breath sounds clear and equal bilaterally. No wheezes or rales. Abdominal: Abdomen soft, no tenderness, rebound or guarding. Musculoskeletal: No edema, tenderness or deformity noted. Skin: Warm and dry. No rash, erythema, pallor or cyanosis Psychiatric: Appropriate mood and affect for situation. Neurological: Alert and keenly responsive. Facies symmetric. Able to raise eyebrows, close eyes, smile, puff mouth, stick out tongue, move tongue left and right and raise palate symmetrically. Able to shrug shoulders. PERRLA. SILT to forehead below eye and at jawline. Can hear soft noise bilaterally. Strength 3 out of 5 in the right upper extremity and 3 out of 5 in the right lower extremity. Notable drift in the right lower extremity when held against gravity. MDM: - Vitals signs showed hypertension - History obtained via patient. History as above. - Chronic conditions affecting care: Peripheral vascular disease; COPD; GERD; HTN; HLD; DM-2 - Differential diagnoses include, but are not limited to: CVA; intracranial hemorrhage; ACS; electrolyte abnormality; dysrhythmia - Order placed for continuous cardiac monitoring. At this time, monitor showed rate of 72 bpm with normal sinus rhythm, per my interpretation. - External medical records reviewed. Discharge summary dated 06/14/2024 was reviewed. Patient was admitted for vascular surgery repair of a pseudoaneurysm in her left femoral artery. - EKG image interpreted by myself showed normal sinus rhythm. Rate 72 bpm. QT 386. No acute ischemic changes. - Laboratory workup interpreted by myself showed normal WBC; stable electrolytes other than hypomagnesemia (Mg 1.2); normal troponin; normal AST/ALT - CXR image reviewed interpreted myself is negative pneumonia, per my interpretation. - CT head wo contrast negative for acute abnormality. Noted to have bilateral chronic and age-indeterminate basal ganglia lacunar infarcts with a 1.3 cm infarct within the left thalamus/posterior limb of left internal capsule. - CTA head again showed the age-indeterminate 1.3 cm infarct in the left thalamus and posterior limb of the left internal capsule. Also noted to have bilateral basal ganglia infarcts. - Neck CTA showed moderate to high-grade stenosis at the origin of the dominant left vertebral artery but otherwise unremarkable CT angiogram. - COVID/flu/RSV negative - Patient given 1 g IV magnesium for electrolyte replacement. Given 1 g IV Tylenol for her reported headache. - Given patient's symptoms, significant concern for an acute CVA. However, patient is outside of the TNK window. No evidence of large vessel occlusion on CT angiogram to suggest need for emergent transfer for thrombectomy. Will admit for MRI and further strokelike workup. - MRI brain wo contrast ordered per hospitalist request. - Discussion was had with correctional counselor/case manager about patient's case and need for admission - Hospitalist consulted for admission [facility] ASSESSMENT AND PLAN: Diagnosis: Acute right sided weakness; strokelike symptoms; hypomagnesemia Plan: admit Past Med/Surg History Problem List (Updated 07/24/25 @ 14:42 by Silvia George MD) Hypomagnesemia (Acute) Stroke-like symptoms (Acute) Acute right-sided weakness (Acute) Stroke-like symptoms COPD with emphysema Acute blood loss anemia Acute blood loss as cause of postoperative anemia s/p repair R femoral anastomotic pseudoaneurysm repair 05/10/24 and scheduled for L repair 06/12/24 PVD (peripheral vascular disease) Pseudoaneurysm (Acute) s/p repair R femoral anastomotic pseudoaneurysm repair 05/10/24 and scheduled for L repair 06/12/24 RLQ abdominal pain (Acute) Aneurysm artery, femoral s/p repair R femoral anastomotic pseudoaneurysm repair 05/10/24 and scheduled for L repair 06/12/24 Neck strain (Acute) Back strain (Acute) Medical History Cigarette smoker Pseudoaneurysm s/p repair R femoral anastomotic pseudoaneurysm repair 05/10/24 and scheduled for L repair 06/12/24 Acute blood loss as cause of postoperative anemia (05/11/24) s/p 05/10/24 pseudoaneurysm repair; had 1 unit PRBCs 05/11/24 and Hgb improved PVD (peripheral vascular disease) Hx of deep venous thrombosis in left arm, after vascular surgery, had to have surgery to remove dvt, > 10 years ago, no blood clots since GERD (gastroesophageal reflux disease) Hyperlipidemia Hypertension Hx of colonic polyps Diabetes mellitus, type 2 Aortic disease Surgical History History of thrombectomy in left arm, after vascular surgery had dvt, > 10 years ago, no blood clots since History of esophagogastroduodenoscopy (EGD) Hx of colonoscopy with polypectomy History of bunionectomy S/P vascular surgery (05/10/24) Multiple: most recent: 05/10/2024- repair of right femoral anastomotic pseudoaneurysm (): GA: Lj#2, ETT#7.5 oral, Gr View 1, atraumatic DL x 1; initial surgery in 2003: b/l aortoiliac bypass- [facility] Had additional 4 surgeries up to 2014 to go back in and "clean graft out" Social History Smoking Status: Current every day smoker Tobacco Type: Cigarettes Cigarettes Per Day: 1ppd (advised); Second Hand Exposure: No; Do You Dip or Chew Tobacco: No; Hx Alcohol Use: No Hx Substance Use: No Preferred Language: Nepali Communication Ability: Effective Switch Adjuster Required: No Beliefs That Will Affect Care: None Current Living Situation: Alone Current Living Situation Comment: Son lives down street Feels Safe at Home: Yes Assistive Devices: None Allergies Allergies Allergy/AdvReac Type Severity Reaction Status Date / Time antibiotics AdvReac Severe extreme Uncoded 06/12/24 06:57 hypergycemia and lactic acid effected Home Meds Home Medications Medication Instructions Recorded Confirmed cholecalciferol (vitamin D3) 25 25 mcg PO QAM 06/05/24 07/24/25 mcg (1,000 unit) tablet (Vitamin D3) clopidogrel 75 mg tablet (Plavix) 75 mg PO QAM 06/05/24 07/24/25 cyanocobalamin (vitamin B-12) 500 500 mcg PO QAM 06/05/24 07/24/25 mcg tablet lisinopril 5 mg tablet 20 mg PO QAM 06/05/24 07/24/25 magnesium 500 mg tablet 0 mg PO DAILY 06/05/24 07/24/25 metformin 500 mg tablet 1,000 mg PO QAM 06/05/24 07/24/25 ondansetron HCl 4 mg tablet 4 mg PO Q6H PRN n/v 06/05/24 07/24/25 pantoprazole 40 mg tablet,delayed 40 mg PO QAM 06/05/24 07/24/25 release pravastatin 40 mg tablet 40 mg PO QAM 06/05/24 07/24/25 tramadol 50 mg tablet 100 mg PO BID 06/05/24 07/24/25 amlodipine 5 mg tablet 5 mg PO DAILY 07/24/25 07/24/25 gabapentin 100 mg capsule 100 mg PO BID 07/24/25 07/24/25 Results & Data (ED) Vital Signs Vital Signs - 24 hr 07/24/25 11:24 07/24/25 11:26 07/24/25 11:35 Temperature 36.4 C L Temperature Source Temporal Artery Scan Pulse Rate 82 78 Pulse Rate [Apical] Pulse Rhythm Regular Pulse Strength Normal Respiratory Rate 20 Respiratory Effort / Characteristics Non-Labored Spontaneous Respiratory Depth Normal Respiratory Pattern Blood Pressure 126/59 L Blood Pressure [Right Arm] Blood Pressure Mean 81 Blood Pressure Mean [Right Arm] Blood Pressure Position Sitting Pulse Oximetry 96 96 Oxygen Delivery Method Room Air Room Air Sepsis Recent Fever Within 48 Hours No Sepsis New/Unexplained Change in Mental Status N/A Sepsis Action Taken by Nursing No Action Required 07/24/25 11:49 07/24/25 13:15 07/24/25 14:00 Temperature 36.8 C Temperature Source Oral Pulse Rate Pulse Rate [Apical] 71 69 72 Pulse Rhythm Pulse Strength Respiratory Rate 18 16 17 Respiratory Effort / Characteristics Non-Labored Spontaneous Non-Labored Spontaneous Respiratory Depth Normal Normal Respiratory Pattern Regular Regular Blood Pressure Blood Pressure [Right Arm] 145/64 H 150/73 H 118/74 Blood Pressure Mean Blood Pressure Mean [Right Arm] 91 98 88 Blood Pressure Position Pulse Oximetry 96 97 96 Oxygen Delivery Method Room Air Room Air Room Air Sepsis Recent Fever Within 48 Hours Sepsis New/Unexplained Change in Mental Status Sepsis Action Taken by Nursing Laboratory Data 07/24/25 11:47 07/24/25 11:47 Lab Results 07/24/25 07/24/25 07/24/25 Range/Units 11:47 12:30 12:31 WBC 9.59 (4.8-10.8) K/ul RBC 3.71 L (4.20-5.40) M/uL Hgb 11.4 L (12.0-16.0) g/dL Hct 33.3 L (37.0-47.0) % MCV 89.8 (80.0-100.0) fL MCH 30.7 (25.0-34.0) pg MCHC 34.2 (32.0-36.0) g/dL RDW Std Deviation 43.1 (36.4-46.3) fL RDW Coeff of Mari 13.1 (11.5-14.5) % Plt Count 259 (130-400) K/uL MPV 10.1 (9.4-12.4) fL Immature Gran % (Auto) 0.4 % Neut % (Auto) 71.1 % Lymph % (Auto) 23.0 % [place] % (Auto) 4.4 % Eos % (Auto) 1.0 % Baso % (Auto) 0.1 % Neut # (Auto) 6.81 H (1.40-6.50) K/uL Lymph # (Auto) 2.21 (1.20-3.40) K/uL [place] # (Auto) 0.42 (0.11-0.59) K/uL Eos # (Auto) 0.10 (0.00-0.50) K/uL Baso # (Auto) 0.01 (0.00-0.20) K/uL Immature Gran # (Auto) 0.04 (0.01-0.20) K/uL PT 10.9 (9.0-12.0) Seconds INR 1.0 (0.9-1.1) APTT 24 (21-31) Seconds PTT Ratio 0.9 Sodium 137 (136-145) mmol/L Potassium 4.1 (3.5-5.1) mmol/L Chloride 103 (98-107) mmol/L Carbon Dioxide 24 (21-32) mmol/L Anion Gap 10 (3-11) BUN 17 (6-23) mg/dl Creatinine 1.13 (0.6-1.2) mg/dl Est Cr Clr Drug Dosing 37.0 ml/min eGFR 53.66 BUN/Creatinine Ratio 15.0 (10-20) Glucose 152 H (70-99(Fasting)) mg/dl POC Glucose 148 H (70-99) mg/dl Calcium 9.6 (8.6-10.3) mg/dl Magnesium 1.2 L (1.7-2.4) mg/dl Total Bilirubin 0.4 (0.2-1.0) mg/dl AST 12 L (13-39) U/L ALT 8 (7-52) U/L Alkaline Phosphatase 62 (34-104) U/L Troponin I High Sens 3.5 (0-14) pg/ml Total Protein 7.5 (6.0-8.3) gm/dl Albumin 4.2 (3.4-5.0) gm/dl Globulin 3.3 (2.5-4.0) gm/dl Albumin/Globulin Ratio 1.3 (0.9-2) SARS-CoV-2 (PCR) NEGATIVE (Negative) Influenza Type A (PCR) Negative (Neg) Influenza Type B (PCR) Negative (Neg) RSV (RT-PCR) Negative (Neg) Administered Medications Magnesium Sulfate/Dextrose (Magnesium Sulfate / D5w) 1 gm in 100 mls @ 50 mls/hr IV Q2H JOSE Stop: 07/24/25 20:29 Last Admin: 07/24/25 14:40 Dose: 50 mls/hr Documented By: sak Discontinued Medications Magnesium Sulfate/Dextrose (Magnesium Sulfate / D5w) 1 gm in 100 mls @ 100 mls/hr IV NOW STA Stop: 07/24/25 14:08 Last Admin: 07/24/25 13:12 Dose: 100 mls/hr Documented By: JAZIEL Ioversol (Optiray 320 125ml) 119 ml IV ONCE ONE Stop: 07/24/25 13:23 Last Admin: 07/24/25 13:23 Dose: 119 ml Documented By: RAHEEM Imaging Data Radiologist's Impression: Chest X-Ray 07/24/25 12:08 XR chest 1V portable CLINICAL HISTORY: weakness COMPARISON STUDY: Chest radiograph May 09, 2024. FINDINGS: Lung volumes are normal. Lungs are clear. There is no pneumothorax or pleural effusion. Cardiac size is normal. Mediastinal contours are normal. There is no evidence for pulmonary edema. IMPRESSION: No acute cardiopulmonary findings. ACT 112: Negative or not required by law. Electronically signed by: Harish Serrano M.D. 07/24/2025 12:[address] 07/24/25 12:08 CT head/brain wo con CLINICAL HISTORY: 65 years-old Female with neuro deficit, acute stroke suspected. Acute stroke like symptoms TECHNIQUE: Multiple axial CT images of the head were obtained without contrast. A dose lowering technique was utilized adhering to the principles of ALARA. COMPARISON: CTA head of same day FINDINGS: No acute intracranial hemorrhage, midline shift, intracranial mass, hydrocephalus, territorial ischemia or abnormal extra-axial collection. Involutional changes with mild white matter hypodensities suggestive of chronic microvascular ischemic disease. Chronic appearing lacunar infarcts are noted within the basal ganglia bilaterally. There is an ill-defined 1.3 cm hypodense focus within the left thalamus/posterior limb of the left internal capsule on image 17 series 2. Similar appearing ill-defined 9 mm hypodense focus of the right caudate nuclear head. The calvarium is intact. The paranasal sinuses, mastoid air cells, and middle ear cavities are clear. IMPRESSION: 1. No acute intracranial hemorrhage, midline shift or acute territorial infarct. 2. There are bilateral chronic and age-indeterminate basal ganglia lacunar infarcts, notably a 1.3 cm infarct within the left thalamus/posterior limb of the left internal capsule. These findings could be correlated with MRI if clinically indicated. ACT 112: Negative or not required by law. The above report was generated using voice recognition software. It may contain grammatical, syntax or spelling errors. Electronically signed by: Hussain Valencia M.D. 07/24/2025 1:50 PM Head CTA 07/24/25 12:08 CTA ANGIOGRAPHY OF THE HEAD CLINICAL HISTORY: neuro deficit, acute stroke suspected COMPARISON STUDY: No previous studies for comparison. TECHNIQUE: Helical axial images of the head were obtained following uneventful intravenous administration of 119 cc of Optiray. Sagittal and coronal reconstructions were viewed as well as maximal intensity projections on an independent 3-D workstation. Automated exposure control was utilized for the study. A dose lowering technique was utilized adhering to the principles of ALARA. CT DOSE: 1065.75 mGy.cm FINDINGS: Please note that the head CT will be reported separately. No acute intracranial hemorrhage, midline shift or mass effect is present. There are old bilateral basal ganglia infarcts. There is an ill-defined 1.3 cm hypodense focus within the left thalamus and posterior limb of the internal capsule. This represents an age indeterminate infarct. The bilateral M1, M2, A1 and A2 segments are patent. There is mild plaque within the cavernous carotids without significant stenosis. The left vertebral artery is dominant. The right vertebral artery is diminutive, likely on a congenital basis. This ends in the posterior inferior cerebellar artery. The artery is patent. There is persistence of the left posterior cerebral artery. No intracranial vessel occlusion is identified. There is no intracranial aneurysm. IMPRESSION: 1. No large vessel occlusion. No intracranial aneurysm. 2. Age indeterminate 1.3 cm infarct within the left thalamus and posterior limb of the left internal capsule. 3. Multiple old bilateral basal ganglia infarcts. ACT 112: Negative or not required by law. Electronically signed by: Harish Serrano M.D. 07/24/2025 1:45 PM Neck CTA 07/24/25 12:08 CT ANGIOGRAM OF THE NECK CLINICAL HISTORY: Neurological deficit. Stroke like symptoms. COMPARISON STUDY: No priors TECHNIQUE: Following the IV administration of 119 of Optiray 320, CT angiogram of the neck was performed from the aortic arch to the skull base. Images are reviewed in the axial, sagittal, and coronal planes. 3-D MIPS images are created and assessed. IV contrast was administered without complication. All measurements were calculated based on NASCET criteria. A dose lowering technique was utilized adhering to the principles of ALARA. FINDINGS: Thoracic aorta: There is atherosclerotic calcification of the thoracic aorta. Visualized portions of the thoracic aorta are normal in caliber. The aortic arch demonstrates standard 3-vessel anatomy. Right carotid arterial system: The right common carotid artery is widely patent, as are the right internal and external carotid arteries. Calcified plaque is seen in the carotid bulb. Left carotid arterial system: The left common carotid artery is widely patent, as are the left internal and external carotid arteries. Calcified plaque is seen in the carotid bulb. Vertebral arteries: There is moderate to high-grade stenosis at the origin of the left vertebral artery. The vertebral arteries are otherwise patent bilaterally noting left-sided dominance. The vertebral artery is diminutive and terminates as the PICA. Subclavian arteries: Widely patent bilaterally. Jugular veins: Patent bilaterally. Brain parenchyma: The visualized brain parenchyma the skull base is within normal limits. Lung apices: Emphysematous change is noted. Partially visualized upper lobe lung parenchyma otherwise appears clear. Soft tissues: The visualized pharyngeal soft tissues are normal in appearance noting angiographic phase technique. The oropharyngeal airway appears widely patent. The salivary and thyroid glands are normal in appearance. No cervical lymphadenopathy is seen. Skeletal structures: The skeletal structures are osteopenic. The visualized calvarium at the skull base appears intact. The imaged cervical spine is maintained noting mild spondylosis. Sinuses and mastoids: The visualized paranasal sinuses are clear. The mastoid air cells are well clear as imaged. IMPRESSION: 1. There is moderate to high-grade stenosis at the origin of the dominant left vertebral artery. 2. Otherwise unremarkable CT angiogram of the neck. 3. Emphysema. ACT 112: Negative or not required by law. Electronically signed by: Eliseo Ordoñez M.D. 07/24/2025 1:46 PM Discharge Plan Visit Data Chief Complaint: Weakness Stated Complaint: DOC REF, POSSIBLE STROKE, R SIDE WEAKNESS, HIGH BS ED Provider: Silvia George Discharge Problem: Acute right-sided weakness, Stroke-like symptoms, Hypomagnesemia Patient Disposition: Admitted As Inpatient Condition: Fair Forms Stand Alone Forms: My [facility] Prescriptions Prescriptions: No Action metformin 500 mg Tablet 1,000 mg PO QAM magnesium 500 mg Tablet 0 mg PO DAILY pravastatin 40 mg Tablet 40 mg PO QAM ondansetron HCl 4 mg Tablet 4 mg PO Q6H PRN (Reason: n/v) clopidogrel [Plavix] 75 mg Tablet 75 mg PO QAM tramadol 50 mg Tablet 100 mg PO BID Hold Instructions: Resume on 07/05/24. Hold while taking oxycodone. May restart tramadol when no longer requiring oxycodone for pain. cyanocobalamin (vitamin B-12) 500 mcg Tablet 500 mcg PO QAM pantoprazole 40 mg Tablet,Delayed Release (Dr/Ec) 40 mg PO QAM lisinopril 5 mg Tablet 20 mg PO QAM cholecalciferol (vitamin D3) [Vitamin D3] 25 mcg (1,000 unit) Tablet 25 mcg PO QAM amlodipine 5 mg tablet 5 mg PO DAILY gabapentin 100 mg capsule 100 mg PO BID Referrals Referrals: Erick Paz MD [Primary Care Provider] -
[2025-07-24 13:37] LABS: Influenza A virus by PCR Negative (Neg); Influenza B virus by PCR Negative (Neg); SARS CoV2 RNA(COVID-19) Ceph NEGATIVE (Negative)
--- NOTE | 2025-07-24 13:47 | CT Scan Report ---
CTA ANGIOGRAPHY OF THE HEAD CLINICAL HISTORY: neuro deficit, acute stroke suspected COMPARISON STUDY: No previous studies for comparison. TECHNIQUE: Helical axial images of the head were obtained following uneventful intravenous administr ation of 119 cc of Optiray. Sagittal and coronal reconstructions were viewed as well as maximal inten sity projections on an independent 3-D workstation. Automated exposure control was utilized for the study. A dose lowering technique was utilized adhering to the principles of ALARA. CT DOSE: 1065.75 mGy.cm FINDINGS: Please note that the head CT will be reported separately. No acute intracranial hemorrhage, midline shift or mass effect is present. There are old bilateral basal ganglia infarcts. There is an ill-defined 1.3 cm hypodense focus within the left thalamus and posterior limb of the internal capsu le. This represents an age indeterminate infarct. The bilateral M1, M2, A1 and A2 segments are patent . There is mild plaque within the cavernous carotids without significant stenosis. The left vertebral artery is dominant. The right vertebral artery is diminutive, likely on a congenital basis. This end s in the posterior inferior cerebellar artery. The artery is patent. There is persistence of th e left posterior cerebral artery. No intracranial vessel occlusion is identified. There is no intracr anial aneurysm. IMPRESSION: 1. No large vessel occlusion. No intracranial aneurysm. 2. Age indeterminate 1.3 cm infarct within the left thalamus and posterior limb of the left internal capsule. 3. Multiple old bilateral basal ganglia infarcts. ACT 112: Negative or not required by law. Electronically signed by: Harish Serrano M.D. 07/24/2025 1:45 PM
--- NOTE | 2025-07-24 13:48 | CT Scan Report ---
CT ANGIOGRAM OF THE NECK CLINICAL HISTORY: Neurological deficit. Stroke like symptoms. COMPARISON STUDY: No priors TECHNIQUE: Following the IV administration of 119 of Optiray 320, CT angiogram of the neck was perfor med from the aortic arch to the skull base. Images are reviewed in the axial, sagittal, and coronal p lanes. 3-D MIPS images are created and assessed. IV contrast was administered without complication. A ll measurements were calculated based on NASCET criteria. A dose lowering technique was utilized adh ering to the principles of ALARA. FINDINGS: Thoracic aorta: There is atherosclerotic calcification of the thoracic aorta. Visualized portions of the thoracic aorta are normal in caliber. The aortic arch demonstrates standard 3-vessel anatomy. Right carotid arterial system: The right common carotid artery is widely patent, as are the right int ernal and external carotid arteries. Calcified plaque is seen in the carotid bulb. Left carotid arterial system: The left common carotid artery is widely patent, as are the left internet marketing coordinator al and external carotid arteries. Calcified plaque is seen in the carotid bulb. Vertebral arteries: There is moderate to high-grade stenosis at the origin of the left vertebral juancho ry. The vertebral arteries are otherwise patent bilaterally noting left-sided dominance. The vertebra l artery is diminutive and terminates as the PICA. Subclavian arteries: Widely patent bilaterally. Jugular veins: Patent bilaterally. Brain parenchyma: The visualized brain parenchyma the skull base is within normal limits. Lung apices: Emphysematous change is noted. Partially visualized upper lobe lung parenchyma otherwise appears clear. Soft tissues: The visualized pharyngeal soft tissues are normal in appearance noting angiographic pha se technique. The oropharyngeal airway appears widely patent. The salivary and thyroid glands are nor mal in appearance. No cervical lymphadenopathy is seen. Skeletal structures: The skeletal structures are osteopenic. The visualized calvarium at the skull ba se appears intact. The imaged cervical spine is maintained noting mild spondylosis. Sinuses and mastoids: The visualized paranasal sinuses are clear. The mastoid air cells are well ryann r as imaged. IMPRESSION: 1. There is moderate to high-grade stenosis at the origin of the dominant left vertebral artery. 2. Otherwise unremarkable CT angiogram of the neck. 3. Emphysema. ACT 112: Negative or not required by law. Electronically signed by: Eliseo Ordoñez M.D. 07/24/2025 1:46 PM
--- NOTE | 2025-07-24 13:51 | CT Scan Report ---
CT head/brain wo con CLINICAL HISTORY: 65 years-old Female with neuro deficit, acute stroke suspected. Acute stroke like symptoms TECHNIQUE: Multiple axial CT images of the head were obtained without contrast. A dose lowering tech nique was utilized adhering to the principles of ALARA. COMPARISON: CTA head of same day FINDINGS: No acute intracranial hemorrhage, midline shift, intracranial mass, hydrocephalus, territorial ischem ia or abnormal extra-axial collection. Involutional changes with mild white matter hypodensities sugg estive of chronic microvascular ischemic disease. Chronic appearing lacunar infarcts are noted within the basal ganglia bilaterally. There is an ill-defined 1.3 cm hypodense focus within the left thalam us/posterior limb of the left internal capsule on image 17 series 2. Similar appearing ill-defined 9 mm hypodense focus of the right caudate nuclear head. The calvarium is intact. The paranasal sinuses, mastoid air cells, and middle ear cavities are clear . IMPRESSION: 1. No acute intracranial hemorrhage, midline shift or acute territorial infarct. 2. There are bilateral chronic and age-indeterminate basal ganglia lacunar infarcts, notably a 1.3 cm infarct within the left thalamus/posterior limb of the left internal capsule. These findings could b e correlated with MRI if clinically indicated. ACT 112: Negative or not required by law. The above report was generated using voice recognition software. It may contain grammatical, syntax o r spelling errors. Electronically signed by: Hussain Valencia M.D. 07/24/2025 1:50 PM
--- NOTE | 2025-07-24 14:10 | History & Physical Report ---
Date of Service July 24, 2025 Assessment & Plan (1) Stroke-like symptoms: (2) COPD with emphysema: (3) PVD (peripheral vascular disease): (4) Hypertension: (5) Hyperlipidemia: (6) Diabetes mellitus, type 2: Plan 65 year old female with stroke like symptoms presents with R sided weakness x3 days. Heat CT suggestive of chronic stroke. Chronic 1ppd smoker. Mg+ low on amission. Complete stroke work up and replace Mg+. Lives alone and may need rehab/SNF on DC #Stroke-Like symptoms: Head CT revealed bilateral chronic age indeterminant lucunar infarction Brain MRI ordered and pending Last ECHO 05/2024 EF 60-65%, G1DDX, LVWMN; repeat ECHO Takes Plavix and high dose statin Formal neuro consult placed NPO for now until pt passes dysphagia screen ECG NSR NIH: 2 PT/OT/ST Teds and SCDs for now #Hypomagnesemia: Serum Mg+ 1.2; replaced with 1 G in ED Order additional 1G IV; trend in AM #PVD: s/p pseudoaneurysm s/p R femoral repair 05/[address] Schaffer Takes Plavix; continue #NIDDM2: Takes Metformin Most recent A1C 07/24/[address] SSI while inpt #HTN: Takes Amlodipine and Lisinopril; continue in AM unless confirmed stroke, then possibly hold for permissive HTN #HLD: Takes pravastatin; continue Check lipid panel. Last LDL 03/25/25 85 Disposition: PCP: Dr. Paz Code Status: Full Code VTE Prophylaxis: Teds and SCDs for now I spent a total of 81 minutes coordinating, documenting, and providing care for this patient excluding time spent in the performance of separately billed services or time spent by another provider/QHP. History of Present Illness Chief Complaint: stroke like symptoms Primary Care Provider: Erick Paz MD Ms. Abebe is a 65 year old female that presented to the ED today with right sided hemiparesis that has been occurring for three days. She was having difficulty getting out of bed and then fell. She has been utilizing a walker for the past few days and normally does not require assistance devices for ambulation. She expressed that she was not having any speech or memory changes so her and her family did not feel that she was having a stroke. In the ED, A Head CT revealed bilateral chronic age indeterminant lucunar infarction. Head and neck CTA suggesting a 1.3 cm infarction L thalamus. No leukocytosis, Hypomg+ 1.2, negative for Fly, RSV, and Covid. Additional PMH includes COPD with emphysema, PVD s/p pseudoaneurysm s/p R femoral repair on 05/2024. She does take Plavix at home and is on a high dose statin. She smokes 1 ppd cigarettes for 50+ years. No alcohol or recreational drug use. Pt denies NICOLE, visual or auditory disturbances, dizziness, SOB, chest pain, abdominal pain or tenderness, N/V/D, recent falls or trauma. On examination, patient is pleasant, AAOx4 and able to participate in a meaningful conversation. She is able to follow commands and feels that her strength is slowly returning. She is able to perform AROM, albeit with right sided hemiparesis. NIH: 2. Patient will be admitted for further stroke like work up including Brain MRI, ECHO, Formal Neurology consult, PT/OT, Mg+ replacement. Unfortunately, due to length of time lapse from onset of symptoms, unlikely aggressive intervention; conservative management with PT/OT/ST. Pt already on Plavix and high dose statin. Please see A/P for further details. Allergies Allergy/AdvReac Type Severity Reaction Status Date / Time antibiotics AdvReac Severe extreme Uncoded 06/12/24 06:57 hypergycemia and lactic acid effected Home Medications Medication Instructions Recorded Confirmed Type cholecalciferol (vitamin D3) 25 25 mcg PO QAM 06/05/24 07/24/25 History mcg (1,000 unit) tablet (Vitamin D3) clopidogrel 75 mg tablet (Plavix) 75 mg PO QAM 06/05/24 07/24/25 History cyanocobalamin (vitamin B-12) 500 500 mcg PO QAM 06/05/24 07/24/25 History mcg tablet lisinopril 5 mg tablet 20 mg PO QAM 06/05/24 07/24/25 History magnesium 500 mg tablet 0 mg PO DAILY 06/05/24 07/24/25 History metformin 500 mg tablet 1,000 mg PO QAM 06/05/24 07/24/25 History ondansetron HCl 4 mg tablet 4 mg PO Q6H PRN n/v 06/05/24 07/24/25 History pantoprazole 40 mg tablet,delayed 40 mg PO QAM 06/05/24 07/24/25 History release pravastatin 40 mg tablet 40 mg PO QAM 06/05/24 07/24/25 History tramadol 50 mg tablet 100 mg PO BID 06/05/24 07/24/25 History amlodipine 5 mg tablet 5 mg PO DAILY 07/24/25 07/24/25 History gabapentin 100 mg capsule 100 mg PO BID 07/24/25 07/24/25 History Past Med/Surg History Problem List (Updated 07/24/25 @ 14:42 by Silvia George MD) Hypomagnesemia (Acute) Stroke-like symptoms (Acute) Acute right-sided weakness (Acute) Stroke-like symptoms COPD with emphysema Acute blood loss anemia Acute blood loss as cause of postoperative anemia s/p repair R femoral anastomotic pseudoaneurysm repair 05/10/24 and scheduled for L repair 06/12/24 PVD (peripheral vascular disease) Pseudoaneurysm (Acute) s/p repair R femoral anastomotic pseudoaneurysm repair 05/10/24 and scheduled for L repair 06/12/24 RLQ abdominal pain (Acute) Aneurysm artery, femoral s/p repair R femoral anastomotic pseudoaneurysm repair 05/10/24 and scheduled for L repair 06/12/24 Neck strain (Acute) Back strain (Acute) Medical History Cigarette smoker Pseudoaneurysm s/p repair R femoral anastomotic pseudoaneurysm repair 05/10/24 and scheduled for L repair 06/12/24 Acute blood loss as cause of postoperative anemia (05/11/24) s/p 05/10/24 pseudoaneurysm repair; had 1 unit PRBCs 05/11/24 and Hgb improved PVD (peripheral vascular disease) Hx of deep venous thrombosis in left arm, after vascular surgery, had to have surgery to remove dvt, > 10 years ago, no blood clots since GERD (gastroesophageal reflux disease) Hyperlipidemia Hypertension Hx of colonic polyps Diabetes mellitus, type 2 Aortic disease Surgical History History of thrombectomy in left arm, after vascular surgery had dvt, > 10 years ago, no blood clots since History of esophagogastroduodenoscopy (EGD) Hx of colonoscopy with polypectomy History of bunionectomy S/P vascular surgery (05/10/24) Multiple: most recent: 05/10/2024- repair of right femoral anastomotic pseudoaneurysm (): GA: Cal[place]oun#2, ETT#7.5 oral, Gr View 1, atraumatic DL x 1; initial surgery in 2003: b/l aortoiliac bypass- [facility] Had additional 4 surgeries up to 2014 to go back in and "clean graft out" Social History Smoking Status: Current every day smoker Tobacco Type: Cigarettes Cigarettes Per Day: 1ppd (advised); Second Hand Exposure: No; Do You Dip or Chew Tobacco: No; Hx Alcohol Use: No Hx Substance Use: No Preferred Language: Iranian Communication Ability: Effective Personal Injury Paralegal Required: No Beliefs That Will Affect Care: None Current Living Situation: Alone Current Living Situation Comment: Son lives down street Feels Safe at Home: Yes Assistive Devices: None Review of Systems Review of Systems: Neuro: (-) Falls, trauma, slurred speech HEENT: (-) NICOLE, dizziness, dysphagia, visual or auditory changes CV: (-) CP, palpitations, swelling Resp: (-) SOB GI: (-) appetite changes, N/V/D, bowel changes : (-) urinary changes Skin: (-) rashes Psych: (-) anxiety, depression Physical Exam Physical Exam: Neuro: AAOx4, PERRLA, no aphagia, memory changes, CNII-XII grossly intact HEENT: head normocephalic, moist mucus membranes. Poor dentition, (+) endentulism CV: S1/S2, (-) M/G/R, (-) edema, cap refill < 3 seconds Resp: Lungs CTA in all espinoza. On RA GI: Abdomen S/NT/ND, Ax4 bowel sounds, (-) CVA tenderness Musculoskeletal: 4/5 LLE/LLE strength, 3/5 RUE/RLE strength. At baseline, no ambulation devices. (+) pronator drift. Skin: (-) rashes , (-) erythema. Psych: euthymic mood Results & Data Results & Data Vital Signs (Past 12 Hours) Vital Signs Temp Pulse Pulse Resp BP BP Pulse Ox 07/24/25 13:15 69 16 150/73 H 97 07/24/25 11:49 71 18 145/64 H 96 07/24/25 11:26 36.4 C L 82 20 126/59 L 96 07/24/25 11:24 96 O2 Del Method 07/24/25 13:15 Room Air 07/24/25 11:49 Room Air 07/24/25 11:26 Room Air 07/24/25 11:24 Room Air Laboratory Results Short CBC 07/24/25 Range/Units 11:47 WBC 9.59 (4.8-10.8) K/ul Hgb 11.4 L (12.0-16.0) g/dL Hct 33.3 L (37.0-47.0) % Plt Count 259 (130-400) K/uL BMP 07/24/25 11:47 Sodium 137 Potassium 4.1 Chloride 103 Carbon Dioxide 24 BUN 17 Creatinine 1.13 Glucose 152 H Calcium 9.6 Liver Function 07/24/25 Range/Units 11:47 Total Bilirubin 0.4 (0.2-1.0) mg/dl AST 12 L (13-39) U/L ALT 8 (7-52) U/L Alkaline Phosphatase 62 (34-104) U/L Albumin 4.2 (3.4-5.0) gm/dl Diagnostic Findings Chest X-Ray 07/24/25 12:08 XR chest 1V portable CLINICAL HISTORY: weakness COMPARISON STUDY: Chest radiograph May 09, 2024. FINDINGS: Lung volumes are normal. Lungs are clear. There is no pneumothorax or pleural effusion. Cardiac size is normal. Mediastinal contours are normal. There is no evidence for pulmonary edema. IMPRESSION: No acute cardiopulmonary findings. ACT 112: Negative or not required by law. Electronically signed by: Harish Serrano M.D. 07/24/2025 12:[address] 07/24/25 12:08 CT head/brain wo con CLINICAL HISTORY: 65 years-old Female with neuro deficit, acute stroke suspected. Acute stroke like symptoms TECHNIQUE: Multiple axial CT images of the head were obtained without contrast. A dose lowering technique was utilized adhering to the principles of ALARA. COMPARISON: CTA head of same day FINDINGS: No acute intracranial hemorrhage, midline shift, intracranial mass, hydrocephalus, territorial ischemia or abnormal extra-axial collection. Involutional changes with mild white matter hypodensities suggestive of chronic microvascular ischemic disease. Chronic appearing lacunar infarcts are noted within the basal ganglia bilaterally. There is an ill-defined 1.3 cm hypodense focus within the left thalamus/posterior limb of the left internal capsule on image 17 series 2. Similar appearing ill-defined 9 mm hypodense focus of the right caudate nuclear head. The calvarium is intact. The paranasal sinuses, mastoid air cells, and middle ear cavities are clear. IMPRESSION: 1. No acute intracranial hemorrhage, midline shift or acute territorial infarct. 2. There are bilateral chronic and age-indeterminate basal ganglia lacunar infarcts, notably a 1.3 cm infarct within the left thalamus/posterior limb of the left internal capsule. These findings could be correlated with MRI if clinically indicated. ACT 112: Negative or not required by law. The above report was generated using voice recognition software. It may contain grammatical, syntax or spelling errors. Electronically signed by: Hussain Valencia M.D. 07/24/2025 1:50 PM Head CTA 07/24/25 12:08 CTA ANGIOGRAPHY OF THE HEAD CLINICAL HISTORY: neuro deficit, acute stroke suspected COMPARISON STUDY: No previous studies for comparison. TECHNIQUE: Helical axial images of the head were obtained following uneventful intravenous administration of 119 cc of Optiray. Sagittal and coronal reconstructions were viewed as well as maximal intensity projections on an independent 3-D workstation. Automated exposure control was utilized for the study. A dose lowering technique was utilized adhering to the principles of ALARA. CT DOSE: 1065.75 mGy.cm FINDINGS: Please note that the head CT will be reported separately. No acute intracranial hemorrhage, midline shift or mass effect is present. There are old bilateral basal ganglia infarcts. There is an ill-defined 1.3 cm hypodense focus within the left thalamus and posterior limb of the internal capsule. This represents an age indeterminate infarct. The bilateral M1, M2, A1 and A2 segments are patent. There is mild plaque within the cavernous carotids without significant stenosis. The left vertebral artery is dominant. The right vertebral artery is diminutive, likely on a congenital basis. This ends in the posterior inferior cerebellar artery. The artery is patent. There is persistence of the left posterior cerebral artery. No intracranial vessel occlusion is identifi ed. There is no intracranial aneurysm. IMPRESSION: 1. No large vessel occlusion. No intracranial aneurysm. 2. Age indeterminate 1.3 cm infarct within the left thalamus and posterior limb of the left internal capsule. 3. Multiple old bilateral basal ganglia infarcts. ACT 112: Negative or not required by law. Electronically signed by: Harish Serrano M.D. 07/24/2025 1:45 PM Neck CTA 07/24/25 12:08 CT ANGIOGRAM OF THE NECK CLINICAL HISTORY: Neurological deficit. Stroke like symptoms. COMPARISON STUDY: No priors TECHNIQUE: Following the IV administration of 119 of Optiray 320, CT angiogram of the neck was performed from the aortic arch to the skull base. Images are reviewed in the axial, sagittal, and coronal planes. 3-D MIPS images are created and assessed. IV contrast was administered without complication. All measurements were calculated based on NASCET criteria. A dose lowering technique was utilized adhering to the principles of ALARA. FINDINGS: Thoracic aorta: There is atherosclerotic calcification of the thoracic aorta. Visualized portions of the thoracic aorta are normal in caliber. The aortic arch demonstrates standard 3-vessel anatomy. Right carotid arterial system: The right common carotid artery is widely patent, as are the right internal and external carotid arteries. Calcified plaque is seen in the carotid bulb. Left carotid arterial system: The left common carotid artery is widely patent, as are the left internal and external carotid arteries. Calcified plaque is seen in the carotid bulb. Vertebral arteries: There is moderate to high-grade stenosis at the origin of the left vertebral artery. The vertebral arteries are otherwise patent bilaterally noting left-sided dominance. The vertebral artery is diminutive and terminates as the PICA. Subclavian arteries: Widely patent bilaterally. Jugular veins: Patent bilaterally. Brain parenchyma: The visualized brain parenchyma the skull base is within normal limits. Lung apices: Emphysematous change is noted. Partially visualized upper lobe lung parenchyma otherwise appears clear. Soft tissues: The visualized pharyngeal soft tissues are normal in appearance noting angiographic phase technique. The oropharyngeal airway appears widely patent. The salivary and thyroid glands are normal in appearance. No cervical lymphadenopathy is seen. Skeletal structures: The skeletal structures are osteopenic. The visualized calvarium at the skull base appears intact. The imaged cervical spine is maintained noting mild spondylosis. Sinuses and mastoids: The visualized paranasal sinuses are clear. The mastoid air cells are well clear as imaged. IMPRESSION: 1. There is moderate to high-grade stenosis at the origin of the dominant left vertebral artery. 2. Otherwise unremarkable CT angiogram of the neck. 3. Emphysema. ACT 112: Negative or not required by law. Electronically signed by: Eliseo Ordoñez M.D. 07/24/2025 1:46 PM Code Status & VTE Plan Code Status Full Code in the event of cardiac or respiratory arrest VTE Prophylaxis Plan VTE Prophylaxis will be ordered: Yes Supervising Physician Co-Signing Physician Notes Patient seen and examined at bedside. Son at bedside. Patient has had weakness in right arm and leg since Monday, no other symptoms. On exam, RUE and RLE weakness noted, no dysarthria, no facial droop, NIHSS of 2 for pronator drift on right arm and leg. Mg of 1.2 replenished. Imaging concerning for prior and possible recent infarct. Presentation concerning for subacute left MCA distribution vs. thalamic stroke. Given aspirin 325, check MR brain without contrast. Stroke order set and workup ordered. Replenished Mg. PT/OT will dictate dispo, suspect possible discharge tomorrow vs. placement. I have seen and discussed the case with the collaborating advanced practitioner. I agree with the above H&P. I have reviewed and confirmed the patients medical history, the findings on physical examination, and the patients diagnosis and treatment plan with Ana HURLEY and agree with the information documented. I spent a total of 30 minutes coordinating, documenting, and providing care for this patient excluding time spent in the performance of separately billed services. All of the aforementioned completed outside of collaborating with the assigned advanced practitioner for a full treatment plan. I have reviewed the advanced practitioner's documentation, and I agree with, and take responsibility for the plan of care
[2025-07-24] MEDS: MAGNESIUM SULFATE / D5W 1 GM/100 ML BAG IV SCH (14:40)
[2025-07-24] MEDS: ACETAMINOPHEN 1,000 MG/100 ML VIAL IV STA (14:45)
[2025-07-24] MEDS: ASPIRIN CHEW 324 MG PO STA (15:13)
--- NOTE | 2025-07-24 16:29 | XCELERA ---
[id number]
[2025-07-24] MEDS ORDERED: POLYETHYLENE (MIRALAX) 17 GM PACK PO PRN (16:32)
[2025-07-24] MEDS ORDERED: CARBOHYDRATES FOR HYPOGLYCEMIA PO PRN (16:32)
[2025-07-24] MEDS ORDERED: ACETAMINOPHEN 325 MG TAB PO PRN (16:32)
[2025-07-24] MEDS ORDERED: ONDANSETRON INJ 2 MG/ML 2 ML VIAL IV PRN (16:32)
[2025-07-24] MEDS ORDERED: GLUCOSE 40% GEL 15 GM TUBE PO PRN (16:32)
[2025-07-24] MEDS ORDERED: DEXTROSE 50% 50 ML SYRINGE IV PRN (16:32)
[2025-07-24] MEDS ORDERED: MAGNESIUM HYDROXIDE SUSP 30 ML UDC PO PRN (16:32)
[2025-07-24] MEDS ORDERED: GLUCAGON FOR INJ 1 MG VIAL SQ PRN (16:32)
[2025-07-24] MEDS ORDERED: GLUCOSE 10 TAB/TUBE PO PRN (16:32)
[2025-07-24] MEDS: INSULIN ASPART PER UNIT CHARGE SC SCH (18:18)
[2025-07-24] MEDS: GABAPENTIN 100 MG CAP PO SCH (20:39)
--- NOTE | 2025-07-24 20:46 | Magnetic Resonance Report ---
MRI BRAIN WITHOUT CONTRAST TECHNIQUE: An MRI examination of the brain was performed utilizing sagittal and axial T1-weighted images as well as axial T2-weighted, FLAIR, gradient echo and diffusion-weighted images. INDICATION: Right-sided weakness COMPARISON: CT evaluations from earlier in the same day are not viewable in our system FINDINGS: There is an acute to subacute infarct measuring 1.5 cm in the left thalamocapsular junction. No significant mass effect or midline shift The ventricular, sulcal and cisternal spaces are normal in caliber. There is no evidence of intracranial mass lesion, hydrocephalus, extra-axial fluid collection, or parenchymal hemorrhage. Age-related involutional changes of the brain and chronic white matter ischemic changes. Punctate foci of chronic hemosiderin deposition in the right lateral medulla and in the left frontal lobe. The cerebellar tonsils are normal in position. The pituitary gland is not enlarged. The major arterial vascular structures of the skull base are patent. No intraorbital soft tissue mass lesion is observed. Mild mucosal thickening of the paranasal sinuses. Mastoids are aerated. IMPRESSION: Acute to subacute infarct measuring 1.5 cm in the left thalamocapsular junction. No significant mass effect or midline shift Electronically signed by Juan Yarbrough 07-24-2025 8:45 PM
--- NOTE | 2025-07-24 21:40 | Electrocardiogram Report ---
Test Reason : Blood Pressure : */* mmHG Vent. Rate : 72 BPM Atrial Rate : 72 BPM P-R Int : 154 ms QRS Dur : 70 ms QT Int : 386 ms P-R-T Axes : 72 45 65 degrees QTcB Int : 422 ms Normal sinus rhythm Normal ECG When compared with ECG of 10-May-2024 06:30, No significant change was found Confirmed by Zach David ([id number]) on 07/24/2025 9:39:56 PM Referred By: Confirmed By: Zach David
[2025-07-25] MEDS: INSULIN ASPART PER UNIT CHARGE SC STA ×2 (01:53→12:07)
[2025-07-25] MEDS: PRAVASTATIN SOD 40 MG TAB PO SCH (08:53)
[2025-07-25] MEDS: ASPIRIN 81 MG ECTAB PO SCH (08:53)
[2025-07-25] MEDS: CYANOCOBALAMIN (B-12) 500 MCG TABLET PO SCH (08:53)
[2025-07-25] MEDS: CLOPIDOGREL BISULFATE 75 MG TAB PO SCH (08:53)
[2025-07-25 10:45] LABS: Hematocrit (blood only) 29.8 % (37.0-47.0); Hemoglobin 9.9 g/dL (12.0-16.0); Mean Corpuscular Hemoglobin 31.2 pg (25.0-34.0); Mean Corpuscular Volume 94.0 fL (80.0-100.0); Platelet Count 248 K/uL (130-400); RDW Standard Deviation 45.3 fL (36.4-46.3); Red Blood Count 3.17 M/uL (4.20-5.40); White Blood Count 13.37 K/ul (4.8-10.8)
[2025-07-25 10:58] LABS: Anion Gap 11.0 (3-11); Blood Urea Nitrogen 33.0 mg/dl (6-23); Calcium 9.1 mg/dl (8.6-10.3); Carbon Dioxide 19.0 mmol/L (21-32); Chloride 104.0 mmol/L (98-107); Cholesterol 124.0 mg/dl (0-200); Creatinine Clr Calc Pharmacy 29.8 ml/min; Glucose 302.0 mg/dl (70-99(Fasting)); HDL Cholesterol 35.0 mg/dl; Hemoglobin A1C 8.0 % (4.5-5.6); Magnesium 2.3 mg/dl (1.7-2.4); Potassium 4.5 mmol/L (3.5-5.1); Sodium 134.0 mmol/L (136-145); Triglycerides 113.0 mg/dl (0-150)
[2025-07-25] MEDS ORDERED: SODIUM CHLORIDE 0.9% 100 ML IV PRN (11:06)
[2025-07-25] MEDS: SODIUM CHLORIDE 0.9% 1,000 ML IV ONE (11:17)
[2025-07-25] MEDS: PANTOprazole 40 MG/10 ML SYR IV SCH (11:38)
--- NOTE | 2025-07-25 11:54 | Hospitalist Progress Note ---
Date of Service July 25, 2025 Assessment & Plan (1) Stroke-like symptoms: (2) COPD with emphysema: (3) PVD (peripheral vascular disease): (4) Hypertension: (5) Hyperlipidemia: (6) Diabetes mellitus, type 2: Plan 65 year old female with stroke like symptoms presents with R sided weakness x3 days. Heat CT suggestive of chronic stroke. Chronic 1ppd smoker. Mg+ low on amission. Complete stroke work up and replace Mg+. Lives alone and may need rehab/SNF on DC #Acute Left Thalamocapsular CVA: Head CT revealed bilateral chronic age indeterminant lucunar infarction MRI: Acute to subacute infarct measuring 1.5 cm in the left thalamocapsular junction. Echo: EF 60-65%, Moderate R PFO Takes Plavix and high dose statin Was started on ASA in addition to plavix; however pt having brbpr now with anemia; currently holding asa and plavix while GIB work up underway Per Neuro: Outpt ZIO patch, platelet reactivity test, consider TJ testing as outpt, follow up with neuro in 4-6 weeks ECG NSR PT/OT/ST - recommending rehab Teds and SCDs for now #Moderate PFO recommend outpt cardiac eval #Hypomagnesemia: Serum Mg+ 1.2; s/p replacement mag 2.3 today #Hypotension likely 2/2 possible GIB vs dehydration will give 1L fluid bolus along with maintenance fluids. #Possible GIB, BRBPR pt constipated for 5 days, painful BM this a.m. follows by additional bm with BRBPR last UGI 2022: irregular Z line; otherwise normal Last C scope 2022: multiple small and large mouth diverticula, a few angiodysplastic lesions w/o bleeding found in ascending colon and cecum along with internal hemorrhoids Hgb 9.9, was 11.4 yesterday will trend h/h Q6h, PPI IV BID, consult GI, type and cross PRBC will obtain CT a/p. Blood consent was obtained from the patient (or patient delegate) as delegated by Dr. James. Risks and benefits were explained. All questions were answered, and the patient (or patient delegate) was offered the opportunity to discuss with attending physician and declined. #PVD: s/p pseudoaneurysm s/p R femoral repair 05/[address] Schaffer Takes Plavix for this #NIDDM2: Takes Metformin Most recent A1C 07/24/25 OPT 7.9, 8.[address] on SSI while inpt #HTN: Takes Amlodipine and Lisinopril; will continue to hold 2/2 low bp #HLD: Takes pravastatin; continue Check lipid panel. Last LDL 03/25/25 85 Disposition: recommending rehab PCP: Dr. Paz Code Status: Full Code VTE Prophylaxis: Teds and SCDs for now given concern for GIB Pt was seen and examined in collaboration with Dr. James, please see addendum I spent a total of 61 minutes coordinating, documenting, and providing care for this patient excluding time spent in the performance of separately billed services or time spent by another provider/QHP. Admission and Anticipated Discharge Date Admission Date: July 24, 2025 Supervising Physician Co-Signing Physician Notes Attending addendum: The patient was seen and examined in medical telemetry unit She has been complaining of right-sided limb weakness and noted to have a stroke Later on she has had rectal bleed with decreasing hemoglobin Denies any other neurosymptoms except weakness involving the right upper or lower extremities On examination Sitting on a chair without any acute distress Remains hemodynamically stable Chest was clear to auscultate bilaterally HeartS1-S2, regular Abdomenbenign Extremitiesnegative Her admission labs, EKG and imaging studies reviewed Acute stroke with history of recurrent strokeappreciate neurology input and recommendation Ongoing GI bleed with bright red rectal bleed per rectumGI evaluation Agree with assessment and plan as outlined above by Katelyn Copeland PA-C and take the full responsibility of care in the hospital Total time taken to see the patient, examining her, reviewed chart, investigations and medications and planning of care was [address] Marisol James Subjective Pt admitted for stroke work up. Pt seen in 276-2. MRI results reviewed with patient, + L thalamic infarct. Pt with persistent R sided weakness. Denies f/c/s, chest pain, sob, n/v/d, abd pain. Per nursing pt with 2 brbpr episodes today. Pt reports no BM for 5 days. Had 2 today. First was painful. Review of Systems Review of Systems: All systems reviewed & are unremarkable except as noted in HPI & below Physical Exam Physical Exam: Gen: Petite, F, sitting in bedside chair, appears disheveled, NAD, A&O x3 HEENT: Normocephalic, atraumatic, conjunctivae moist, sclerae anicteric, mucous membranes moist. Lung: Clear to Auscultation bilaterally, no wheezes/rales/rhonchi Heart: Regular rate, regular rhythm, no murmurs, rubs, or gallops Abdomen: Soft, NT, ND +BS x 4 Extremities: No edema, strength RUE/RLE 4/5 compared to left Skin: Warm, no rash, negative turgor. General: - Alert: [Yes] - Oriented: [Yes] - GCS 15: [Yes] HEENT: - No pain/tenderness. - No lacerations/abrasions - No numbness/tingling - PERLAA. Normal Visual Acuity. No visual field cuts. No nystagmus. No contact lenses. Normal hearing. No relative afferent pupillary defect. No facial asymmetry. Normal palatal elevation, uvula midline. Midline tongue protrusion. Shoulder shrug with 5/5 strength bilaterally. - Mucous membranes moist. Neck: - Midline Tenderness: No - Cleared C-Spine: Yes Thorax: - Pain/Tenderness: None - Lacerations/Abrasions: None - Swelling/Ecchymosis: None - Air/Bony Crepitus: None Cardiopulmonary: - Regular Rate and Rhythm. No murmurs, rubs or gallops. - Breath sounds CTAB. No wheezes, rales, or rhonchi. - Symmetrical Chest Rise Abdomen - Pain/Tenderness: None - Lacerations/Abrasions: None - No abdominal distension - Abdominal rigidity/guarding: None - Bowel Sounds: Present, normal - Pelvis stable Back/Spine - Lacerations/Abrasions: 1/2 - Swelling/Ecchymosis: None - Pain/Tenderness: None - Step-offs: None Extremities: - RUE: No deformity. No lacerations/abrasions. No swelling/ecchymosis. No pain/tenderness. Full active and passive range of motion. Hemodialysis Charge Nurse strength, elbow flexion/extension, shoulder flexion/extension/abduction/adduction/external rotation/internal rotation intact with 4/5 strength. Sensation intact to soft touch without deficit. Radial pulse intact, cap refill in the thumb <2 seconds. Extremity warm and dry. - RLE: No deformity. No lacerations/amanda sions. No swelling/ecchymosis. No pain/tenderness. Full active and passive range of motion. Hemodialysis Charge Nurse strength, elbow flexion/extension, shoulder flexion/extension/abduction/adduction/external rotation/internal rotation intact with 4/5 strength. Sensation intact to soft touch without deficit. Radial pulse intact, cap refill in the thumb <2 seconds. Extremity warm and dry. - LLE: No deformity. No lacerations/amanda sions. No swelling/ecchymosis. No pain/tenderness. Full active and passive range of motion. Hip flexion/extension, knee flexion/extension, ankle dorsiflexion/plantarflexion with 5/5 strength. Sensation intact to soft touch without deficit. PT pulse intact to palpation, cap refill in the hallux <2 seconds. Extremity warm and dry. RLE: No deformity. No lacerations/abrasions. No swelling/ecchymosis. No pain/tenderness. Full active and passive range of motion. Hip flexion/extension, knee flexion/extension, ankle dorsiflexion/plantarflexion with 5/5 strength. Sensation intact to soft touch without deficit. PT pulse intact to palpation, cap refill in the hallux <2 seconds. Extremity warm and dry Mental status Adequate for Full Exam: Yes/No C-Spine Cleared (Radiologically AND Clinically): Yes clinically Results & Data Results & Data Vital Signs (Past 12 Hours) Vital Signs Temp Pulse Pulse Pulse Resp BP Pulse Ox 07/25/25 11:20 36.7 C 96 H 16 86/56 L 97 07/25/25 08:23 36.8 C 81 20 95/49 L 94 07/25/25 05:48 78 07/25/25 03:19 36.8 C 80 18 105/62 93 07/25/25 01:19 36.5 C 78 20 107/57 L 95 07/24/25 23:36 36.6 C 80 18 144/72 H 93 O2 Del Method 07/25/25 11:20 Room Air 07/25/25 08:23 Room Air 07/25/25 05:48 07/25/25 03:19 Room Air 07/25/25 01:19 Room Air 07/24/25 23:36 Room Air Laboratory Results I have independently reviewed and interpreted patient's cbc, bmp, a1c, lipid panel Medications Administered Current Inpatient Medications Acetaminophen (Acetaminophen 325 Mg Tab) 650 mg PO Q4H PRN PRN Reason: Pain or Fever Stop: 08/23/25 16:31 Aspirin (Aspirin 81 Mg Ectab) [facility] Stop: 08/24/25 08:59 Last Admin: 07/25/25 08:53 Dose: 81 mg Clopidogrel Bisulfate (Clopidogrel Bisulfate 75 Mg Tab) [facility] Stop: 08/24/25 08:59 Last Admin: 07/25/25 08:53 Dose: 75 mg Cyanocobalamin (Cyanocobalamin (B-12) 500 Mcg Tablet) 500 mcg [facility] [place] Stop: 08/24/25 08:59 Last Admin: 07/25/25 08:53 Dose: 500 mcg Dextrose (Dextrose 50% 50 Ml Syringe) 25 - 50 ml IV UD PRN; Protocol PRN Reason: Hypoglycemia Protocol Stop: 08/23/25 16:31 Gabapentin (Gabapentin 100 Mg Cap) 100 mg PO BID [facility] Stop: 08/23/25 20:59 Last Admin: 07/25/25 08:53 Dose: 100 mg Glucagon (Glucagon For Inj 1 Mg Vial) 1 mg SQ UD PRN; Protocol PRN Reason: Hypoglycemia Protocol Stop: 08/23/25 16:31 Glucose (Glucose 40% Gel 15 Gm Tube) 15 - 30 gm PO UD PRN; Protocol PRN Reason: Hypoglycemia Protocol Stop: 08/23/25 16:31 Glucose (Glucose 10 Tab/Tube) 4 - 8 tab PO UD PRN; Protocol PRN Reason: Hypoglycemia Protocol Stop: 08/23/25 16:31 Sodium Chloride (Nss) 1,000 mls @ 999 mls/hr IV .Q1H1M ONE Stop: 07/25/25 12:00 Last Admin: 07/25/25 11:17 Dose: 999 mls/hr Sodium Chloride (Nss) 1,000 mls @ 80 mls/hr IV .[id number] [facility] Stop: 07/25/25 23:44 Sodium Chloride (Nss) 100 mls @ 15 mls/hr IV .Q6H40M PRN PRN Reason: For Transfusion Duration Stop: 07/25/25 19:07 Pantoprazole Sodium (Protonix) 40 mg in 10 mls @ 5 mls/min IV BID [facility] Stop: 08/24/25 11:14 Insulin Aspart (Insulin Aspart Per Unit Charge) 0 units SC ACHS [facility] Stop: 08/23/25 16:31 Last Admin: 07/25/25 11:30 Dose: 4 units Miscellaneous (Carbohydrates For Hypoglycemia ) 15 - 30 gm PO UD PRN PRN Reason: Hypoglycemia Protocol Stop: 08/23/25 16:31 Ondansetron HCl (Ondansetron Inj 2 Mg/Ml 2 Ml Vial) 4 mg IV Q6H PRN PRN Reason: Nausea Stop: 08/23/25 16:31 Polyethylene Glycol (Polyethylene (Miralax) 17 Gm Pack) 17 gm PO DAILY PRN PRN Reason: Constipation Stop: 08/23/25 16:31 Pravastatin Sodium (Pravastatin Sod 40 Mg Tab) 40 mg PO QAM [facility] Stop: 08/24/25 08:59 Last Admin: 07/25/25 08:53 Dose: 40 mg Tramadol HCl (Tramadol Hcl 50 Mg Tablet) 100 mg PO BID [facility] Stop: 08/24/25 10:14 Last Admin: 07/25/25 10:39 Dose: 100 mg
[2025-07-25] MEDS: SODIUM CHLORIDE 0.9% 1,000 ML IV SCH (12:11)
--- NOTE | 2025-07-25 12:14 | Gastrointestinal Consultation ---
Date of Consultation July 25, 2025 Assessment & Plan (1) Rectal bleeding: Plan Patient admitted for a CVA and started on aspirin and plavix. she had some worsening constipation and had a bowel movement this morning after much straining that was accompanied by bright red blood per rectum. she does have a history of colonic angiodysplastic lesions from in the ascending colon and cecum, though her presentation sounds more likely to be hemorrhoidal. - recommend continue to monitor hgb/hct. tranfuse as needed. - continue with miralax to help with constipation. - she prefers a conservative approach and would just like to monitor symptoms. -Further recommendations to come with Supervising GI provider on medical rounds. Please see co-signature comments. Supervising Physician Co-Signing Physician Notes Patient gives a good history of constipation and straining excessively at the bowel movements. She passed a large hard bowel movement which was painful. She has had some bleeding since that. That seems to stop. Bleeding consistent with hemorrhoidal or anal fissure. She is not having significant rectal pain at present so a digital exam not undertaken. Just recommend MiraLAX. Can continue anticoagulation in light of recent stroke. No plan for endoscopic evaluation. Observe for further bleeding reconsult GI as needed History of Present Illness Reason for Consultation: GIB Requesting Physician: Gabriela GARCIA Attending Physician: Raad James MD History of Present Illness Patient is a 65 year old female who presented to the ED on 07/24 with complaints of stroke like symptoms with right sided weakness that started [address] suggestive of chronic stroke. She is admitted with acute left thalamocapsular CVA. she was started on aspirin and plavix. she notes that for the past week she had been having worsening constipation. Though admits to constipation at baseline, more recently, she had not moved her bowels in about a week. she had spent all evening last night straining and trying to move her bowels but found she was unable to do it while using a bedpan. This morning she was placed marilou bedside commode and notes that she was finally able to move her bowels after much straining and had noticed bright red blood per rectum wiht this. She tells me that she has not had any further bleeding since this morning. The remaining GI ros are unremarkable. no other GI concerns per patient. reportedly, her last colonoscopy was with [facility] in 2022 showing multiple small and large mouth diverticula, a few angiodysplastic lesions w/o bleeding found in ascending colon and cecum along with internal hemorrhoids 07/25 Hgb 9.9, but it was 11.4 yesterday Allergies Allergy/AdvReac Type Severity Reaction Status Date / Time antibiotics AdvReac Severe extreme Uncoded 06/12/24 06:57 hypergycemia and lactic acid effected Home Medications Medication Instructions Recorded Confirmed Type cholecalciferol (vitamin D3) 25 25 mcg PO QAM 06/05/24 07/24/25 History mcg (1,000 unit) tablet (Vitamin D3) clopidogrel 75 mg tablet (Plavix) 75 mg PO QAM 06/05/24 07/24/25 History cyanocobalamin (vitamin B-12) 500 500 mcg PO QAM 06/05/24 07/24/25 History mcg tablet lisinopril 5 mg tablet 20 mg PO QAM 06/05/24 07/24/25 History magnesium 500 mg tablet 0 mg PO DAILY 06/05/24 07/24/25 History metformin 500 mg tablet 1,000 mg PO QAM 06/05/24 07/24/25 History ondansetron HCl 4 mg tablet 4 mg PO Q6H PRN n/v 06/05/24 07/24/25 History pantoprazole 40 mg tablet,delayed 40 mg PO QAM 06/05/24 07/24/25 History release pravastatin 40 mg tablet 40 mg PO QAM 06/05/24 07/24/25 History tramadol 50 mg tablet 100 mg PO BID 06/05/24 07/24/25 History amlodipine 5 mg tablet 5 mg PO DAILY 07/24/25 07/24/25 History gabapentin 100 mg capsule 100 mg PO BID 07/24/25 07/24/25 History Patient History Medical History Cigarette smoker Pseudoaneurysm s/p repair R femoral anastomotic pseudoaneurysm repair 05/10/24 and scheduled for L repair 06/12/24 Acute blood loss as cause of postoperative anemia (05/11/24) s/p 05/10/24 pseudoaneurysm repair; had 1 unit PRBCs 05/11/24 and Hgb improved PVD (peripheral vascular disease) Hx of deep venous thrombosis in left arm, after vascular surgery, had to have surgery to remove dvt, > 10 years ago, no blood clots since GERD (gastroesophageal reflux disease) Hyperlipidemia Hypertension Hx of colonic polyps Diabetes mellitus, type 2 Aortic disease Surgical History History of thrombectomy in left arm, after vascular surgery had dvt, > 10 years ago, no blood clots since History of esophagogastroduodenoscopy (EGD) Hx of colonoscopy with polypectomy History of bunionectomy S/P vascular surgery (05/10/24) Multiple: most recent: 05/10/2024- repair of right femoral anastomotic pseudoaneurysm (): GA: [place]#2, ETT#7.5 oral, Gr View 1, atraumatic DL x 1; initial surgery in 2003: b/l aortoiliac bypass- [facility] Had additional 4 surgeries up to 2014 to go back in and "clean graft out" Social History Smoking Status: Current every day smoker Tobacco Type: Cigarettes Cigarettes Per Day: 1 pack; Second Hand Exposure: Yes; Do You Dip or Chew Tobacco: No; Tobacco Cessation Education Requested by Patient: No Hx Alcohol Use: No Hx Substance Use: No Preferred Language: [place] Communication Ability: Effective Breastfeeding Educator Required: No Beliefs That Will Affect Care: None Current Living Situation: Alone Current Living Situation Comment: Son lives down street Other Information That Helps Us Care for You: No Feels Safe at Home: Yes Safety Concerns: Feels Safe At This Time Assistive Devices: None Review of Systems Review of Systems: All systems reviewed & are unremarkable except as noted in HPI & below Physical Exam Constitutional: WD/WN, vitals as above Respiratory: normal respiratory effort, lungs clear to auscultation Cardiovascular: Rate/Rhythm: regular rate and regular rhythm Gastrointestinal (Abdomen): normal bowel sounds, soft, nontender, no hepatosplenomegaly Psychiatric: Orientation: alert and oriented x 3 Affect: euthymic affect Results & Data Vital Signs (Past 12 Hours) Vital Signs Temp Pulse Pulse Resp BP Pulse Ox O2 Del Method 07/25/25 11:20 98.1 F 96 H 16 86/56 L 97 Room Air 07/25/25 08:23 98.2 F 81 20 95/49 L 94 Room Air 07/25/25 05:48 78 07/25/25 03:19 98.2 F 80 18 105/62 93 Room Air 07/25/25 01:19 97.7 F 78 20 107/57 L 95 Room Air Coding Level of Care Code 43638 INT INP/OBS CARE 255MIN Diagnoses Rectal bleeding K62.5
--- NOTE | 2025-07-25 13:46 | Neurology Consultation ---
Date of Consultation July 25, 2025 Assessment & Plan (1) Ischemic stroke: Recommend continued stroke work up to include the following: Echocardiogram as part of complete stroke workup Continue frequent neurological assessments Obtain stat CT brain without contrast for any acute neurological decline Continue to monitor/control blood pressure & blood glucose Continue to monitor telemetry closely Recommend ZioPatch at DC if no evidence of arrhythmia during inpatient monitoring Continue to monitor renal and hepatic function, keep euvolemic Metabolic workup should include hgbA1c, fasting lipids Recommend DAPT for at least 3 weeks Noting patient previously on clopidogrel for PVD= if clopidogrel response is effective then resume clopidogrel after 3 weeks of DAPT If not adequately responding to clopidogrel then recommend switch to ticagrelor Recommend obtain platelet reactivity testing to confirm response to clopidogrel Recommend high dose statin therapy indefinitely if tolerated Ok from neurology perspective for VTE prophylaxis PT/OT/SLT to eval and treat Recommend eval for TJ and consider outpatient polysomnography Follow up with neurology 4-6 weeks Telehealth Consultation Telehealth Information Telehealth Information: I performed this visit using a real-time telehealth connection between my location and the patients originating location ([facility]). After connecting through interactive tele-video, patient was identified by name and date of and/or wristband check.Patient (or authorized healthcare technical support representative) was informed that this was a telemedicine visit and it was being conducted confidentially over secure lines. My office door was closed and no one else was present in the room with me.Patient (or authorized healthcare technical support representative) provided consent to proceed with the visit, expressed an understanding of privacy and security of the telemedicine visit, and gave permission to have a hospital technical support representative in the room in order to assist with the visit and to conduct portions of the visit, as needed. I informed the patient (or authorized healthcare technical support representative) that I reviewed their record and presented the opportunity for them to ask any questions regarding the visit today. The patient agreed to participate. History of Present Illness Reason for Consultation: Stroke Requesting Physician: Dr. James Attending Physician: Raad James MD History of Present Illness 65yo right handed female with past medical hx of PVD, HTN, hyperlipidemia, DM and reports chronic daily tobacco usage presents with right hemiparesis ongoing for days prior to presentation. Stroke imaging yields acute to subacute deep left subcortical infarction. She has undergone emergent stroke imaging including CT brain without contrast, personally reviewed today, revealing no overt evidence of hemorrhage but notable hypodensity/suspected infect left subcortical. CT angiographic studies of head and neck, also personally reviewed today, reveal no overt evidence of large vessel occlusion or significant/flow limiting stenosis. I have performed televideo consultation. She is alert & oriented; able to answer all questions appropriately, name objects on televideo monitor, repeat phrases and perform complex/embedded commands without deficit. Neurological exam reveals right hemiparesis. Allergies Allergy/AdvReac Type Severity Reaction Status Date / Time antibiotics AdvReac Severe extreme Uncoded 06/12/24 06:57 hypergycemia and lactic acid effected Home Medications Medication Instructions Recorded Confirmed Type cholecalciferol (vitamin D3) 25 25 mcg PO QAM 06/05/24 07/24/25 History mcg (1,000 unit) tablet (Vitamin D3) clopidogrel 75 mg tablet (Plavix) 75 mg PO QAM 06/05/24 07/24/25 History cyanocobalamin (vitamin B-12) 500 500 mcg PO QAM 06/05/24 07/24/25 History mcg tablet lisinopril 5 mg tablet 20 mg PO QAM 06/05/24 07/24/25 History magnesium 500 mg tablet 0 mg PO DAILY 06/05/24 07/24/25 History metformin 500 mg tablet 1,000 mg PO QAM 06/05/24 07/24/25 History ondansetron HCl 4 mg tablet 4 mg PO Q6H PRN n/v 06/05/24 07/24/25 History pantoprazole 40 mg tablet,delayed 40 mg PO QAM 06/05/24 07/24/25 History release pravastatin 40 mg tablet 40 mg PO QAM 06/05/24 07/24/25 History tramadol 50 mg tablet 100 mg PO BID 06/05/24 07/24/25 History amlodipine 5 mg tablet 5 mg PO DAILY 07/24/25 07/24/25 History gabapentin 100 mg capsule 100 mg PO BID 07/24/25 07/24/25 History Patient History Medical History Cigarette smoker Pseudoaneurysm s/p repair R femoral anastomotic pseudoaneurysm repair 05/10/24 and scheduled for L repair 06/12/24 Acute blood loss as cause of postoperative anemia (05/11/24) s/p 05/10/24 pseudoaneurysm repair; had 1 unit PRBCs 05/11/24 and Hgb improved PVD (peripheral vascular disease) Hx of deep venous thrombosis in left arm, after vascular surgery, had to have surgery to remove dvt, > 10 years ago, no blood clots since GERD (gastroesophageal reflux disease) Hyperlipidemia Hypertension Hx of colonic polyps Diabetes mellitus, type 2 Aortic disease Surgical History History of thrombectomy in left arm, after vascular surgery had dvt, > 10 years ago, no blood clots since History of esophagogastroduodenoscopy (EGD) Hx of colonoscopy with polypectomy History of bunionectomy S/P vascular surgery (05/10/24) Multiple: most recent: 05/10/2024- repair of right femoral anastomotic pseudoaneurysm (): GA: Cal[place]oun#2, ETT#7.5 oral, Gr View 1, atraumatic DL x 1; initial surgery in 2003: b/l aortoiliac bypass- [facility] Had additional 4 surgeries up to 2014 to go back in and "clean graft out" Social History Smoking Status: Current every day smoker Tobacco Type: Cigarettes Cigarettes Per Day: 1 pack; Second Hand Exposure: Yes; Do You Dip or Chew Tobacco: No; Tobacco Cessation Education Requested by Patient: No Hx Alcohol Use: No Hx Substance Use: No Preferred Language: Korean Communication Ability: Effective Director Product Safety Required: No Beliefs That Will Affect Care: None Current Living Situation: Alone Current Living Situation Comment: Son lives down street Other Information That Helps Us Care for You: No Feels Safe at Home: Yes Safety Concerns: Feels Safe At This Time Assistive Devices: None Physical Exam Neurological Examination: Mental Status: Awake and alert. Oriented to person, place, and time. Fluency naming repetition and comprehension appear grossly intact. Affect remains appropriate. CN testing: I: Deferred II: Reports no changes in visual acuity III/IV/: No evidence of gaze preference, hippus, nystagmus or roving eye mov ements V: Facial sensation reportedly grossly intact to light touch bilaterally VII: Facial movements appear without evidence of asymmetry VIII: Hearing appears grossly intact to loud voice bilaterally IX/X: Palate is unable to be accurately visualized XI: Shoulder shrug appears symmetric/ grossly intact bilaterally XII: Tongue protrudes midline without evidence of biting Motor exam: motor: Right hemiparesis Tone: Unable to accurately assess via telemedicine Sensory: Sensation is reportedly grossly intact throughout Coordination: Deferred Reflexes: Unable to accurately assess via telemedicine Gait: Deferred Results & Data Vital Signs (Past 12 Hours) Vital Signs Temp Pulse Pulse Pulse Resp BP Pulse Ox 07/25/25 08:23 36.8 C 81 20 95/49 L 94 07/25/25 05:48 78 07/25/25 03:19 36.8 C 80 18 105/62 93 07/25/25 01:19 36.5 C 78 20 107/57 L 95 07/24/25 23:36 36.6 C 80 18 144/72 H 93 O2 Del Method 07/25/25 08:23 Room Air 07/25/25 05:48 07/25/25 03:19 Room Air 07/25/25 01:19 Room Air 07/24/25 23:36 Room Air Laboratory Results Abnormal lab results 07/24/25 07/24/25 07/25/25 Range/Units 17:24 20:25 01:19 WBC (4.8-10.8) K/ul RBC (4.20-5.40) M/uL Hgb (12.0-16.0) g/dL Hct (37.0-47.0) % Sodium (136-145) mmol/L Carbon Dioxide (21-32) mmol/L BUN (6-23) mg/dl Creatinine (0.6-1.2) mg/dl BUN/Creatinine Ratio (10-20) Glucose (70-99(Fasting)) mg/dl POC Glucose 126 H 148 H 315 H* (70-99) mg/dl Hemoglobin A1c (4.5-5.6) % 07/25/25 07/25/25 07/25/25 Range/Units 01:20 03:07 07:55 WBC (4.8-10.8) K/ul RBC (4.20-5.40) M/uL Hgb (12.0-16.0) g/dL Hct (37.0-47.0) % Sodium (136-145) mmol/L Carbon Dioxide (21-32) mmol/L BUN (6-23) mg/dl Creatinine (0.6-1.2) mg/dl BUN/Creatinine Ratio (10-20) Glucose (70-99(Fasting)) mg/dl POC Glucose 280 H 217 H 159 H (70-99) mg/dl Hemoglobin A1c (4.5-5.6) % 07/25/25 07/25/25 Range/Units 09:34 11:57 WBC 13.37 H (4.8-10.8) K/ul RBC 3.17 L (4.20-5.40) M/uL Hgb 9.9 L (12.0-16.0) g/dL Hct 29.8 L (37.0-47.0) % Sodium 134 L (136-145) mmol/L Carbon Dioxide 19 L (21-32) mmol/L BUN 33 H (6-23) mg/dl Creatinine 1.40 H (0.6-1.2) mg/dl BUN/Creatinine Ratio 23.6 H (10-20) Glucose 302 H* (70-99(Fasting)) mg/dl POC Glucose 230 H (70-99) mg/dl Hemoglobin A1c 8.0 H (4.5-5.6) % Diagnostic Findings Brain MRI 07/24/25 14:22 MRI BRAIN WITHOUT CONTRAST TECHNIQUE: An MRI examination of the brain was performed utilizing sagittal and axial T1-weighted images as well as axial T2-weighted, FLAIR, gradient echo and diffusion-weighted images. INDICATION: Right-sided weakness COMPARISON: CT evaluations from earlier in the same day are not viewable in our system FINDINGS: There is an acute to subacute infarct measuring 1.5 cm in the left thalamocapsular junction. No significant mass effect or midline shift The ventricular, sulcal and cisternal spaces are normal in caliber. There is no evidence of intracranial mass lesion, hydrocephalus, extra-axial fluid collection, or parenchymal hemorrhage. Age-related involutional changes of the brain and chronic white matter ischemic changes. Punctate foci of chronic hemosiderin deposition in the right lateral medulla and in the left frontal lobe. The cerebellar tonsils are normal in position. The pituitary gland is not enlarged. The major arterial vascular structures of the skull base are patent. No intraorbital soft tissue mass lesion is observed. Mild mucosal thickening of the paranasal sinuses. Mastoids are aerated. IMPRESSION: Acute to subacute infarct measuring 1.5 cm in the left thalamocapsular junction. No significant mass effect or midline shift Electronically signed by Juan Yarbrough 07-24-2025 8:45 PM Medications Administered Home Medications Medication Instructions Recorded Confirmed Last Taken cholecalciferol (vitamin D3) 25 25 mcg PO QAM 06/05/24 07/24/25 06/11/24 09:00 mcg (1,000 unit) tablet (Vitamin D3) clopidogrel 75 mg tablet (Plavix) 75 mg PO QAM 06/05/24 07/24/25 06/07/24 cyanocobalamin (vitamin B-12) 500 500 mcg PO QAM 06/05/24 07/24/25 06/11/24 09:00 mcg tablet lisinopril 5 mg tablet 20 mg PO QAM 06/05/24 07/24/25 06/11/24 09:00 magnesium 500 mg tablet 0 mg PO DAILY 06/05/24 07/24/25 06/11/24 09:00 metformin 500 mg tablet 1,000 mg PO QAM 06/05/24 07/24/25 06/11/24 09:00 ondansetron HCl 4 mg tablet 4 mg PO Q6H PRN n/v 06/05/24 07/24/25 Unknown pantoprazole 40 mg tablet,delayed 40 mg PO QAM 06/05/24 07/24/25 06/12/24 05:30 release pravastatin 40 mg tablet 40 mg PO QAM 06/05/24 07/24/25 06/11/24 09:00 tramadol 50 mg tablet 100 mg PO BID 06/05/24 07/24/25 06/11/24 18:30 amlodipine 5 mg tablet 5 mg PO DAILY 07/24/25 07/24/25 Unknown gabapentin 100 mg capsule 100 mg PO BID 07/24/25 07/24/25 Unknown Active Medications Generic Name Dose Route Start Last Admin Trade Name Freq PRN Reason Stop Dose Admin Aspirin 81 mg 07/25/25 09:00 07/25/25 08:53 Aspirin 81 Mg Ectab PO 08/24/25 08:59 81 mg QAM JOSE Administration Clopidogrel Bisulfate 75 mg 07/25/25 09:00 07/25/25 08:53 Clopidogrel Bisulfate 75 Mg Tab PO 08/24/25 08:59 75 mg QAM JOSE Administration Cyanocobalamin 500 mcg 07/25/25 09:00 07/25/25 08:53 Cyanocobalamin (B-12) 500 Mcg Tablet PO 08/24/25 08:59 500 mcg QAM JOSE Administration Gabapentin 100 mg 07/24/25 21:00 07/25/25 08:53 Gabapentin 100 Mg Cap PO 08/23/25 20:59 100 mg BID JOSE Administration Sodium Chloride 1,000 mls @ 80 mls/hr 07/25/25 11:15 07/25/25 12:11 Nss IV 07/25/25 23:44 80 mls/hr .[id number] JOSE Administration Pantoprazole Sodium 40 mg in 10 mls @ 5 mls/min 07/25/25 11:15 07/25/25 11:38 Protonix IV 08/24/25 11:14 5 mls/min BID JOSE Administration Insulin Aspart 0 units 07/24/25 16:32 07/25/25 12:59 Insulin Aspart Per Unit Charge SC 08/23/25 16:31 4 units ACHS JOSE Administration Polyethylene Glycol 17 gm 07/25/25 12:45 07/25/25 13:49 Polyethylene (Miralax) 17 Gm Pack PO 08/24/25 12:44 Not Given DAILY JOSE Pravastatin Sodium 40 mg 07/25/25 09:00 07/25/25 08:53 Pravastatin Sod 40 Mg Tab PO 08/24/25 08:59 40 mg QAM JOSE Administration Tramadol HCl 100 mg 07/25/25 10:15 07/25/25 10:39 Tramadol Hcl 50 Mg Tablet PO 08/24/25 10:14 100 mg BID JOSE Administration
[2025-07-25] MEDS: POLYETHYLENE (MIRALAX) 17 GM PACK PO SCH (13:49)
[2025-07-25] MEDS: OPTIRAY 320 100ml IV ONE (14:58)
--- NOTE | 2025-07-25 15:46 | CT Scan Report ---
ABDOMEN AND PELVIS CT WITH IV CONTRAST CT DOSE: 465.36 mGy.cm HISTORY: Acute generalized abdominal pain with possible GI bleed r/o bleed TECHNIQUE: Multiaxial CT images of the abdomen and pelvis were performed following the IV administrat ion of 93 cc of Optiray, A dose lowering technique was utilized adhering to the principles of ALARA. COMPARISON STUDY: 08/22/2012 FINDINGS: The lung bases are generally clear. No pneumatosis or pneumoperitoneum. Unremarkable spleen , pancreas and adrenal glands. Mildly contracted gallbladder with possible cholelithiasis versus bili elizabet sludge. The liver is within normal limits. Patency of the hepatic and portal veins. Intermediate density 7 mm lesion of the posterior interpolar right kidney on image 93. 11 mm probable cyst of the superior pole left kidney. There are additional few ill-defined indeterminate subcentime ter hypodensities in the kidneys. Mild cortical scarring of the left kidney. No hydronephrosis. Contr ast noted within the urinary bladder lumen and ureters. Unremarkable uterus. Extensive atherosclerosi s of the abdominal aorta with aortobiiliac stent graft which appear patent. No lymphadenopathy identi fied. Nonspecific diffuse wall thickening of the proximal to mid gastric body. Colonic diverticulosis witho ut definite evidence of acute diverticulitis. There is mild colonic fecal retention. Normal appendix. No intraperitoneal or retroperitoneal hemorrhage identified. No acute fracture is seen. IMPRESSION: 1. No acute intra-abdominal or intrapelvic abnormality identified. 2. No intraperitoneal or retroperitoneal hemorrhage identified. 3. Colonic diverticulosis without definite evidence of acute diverticulitis. 4. Renal cysts with a few indeterminate subcentimeter lesions of the kidneys which could be correlate d with a nonemergent follow-up renal ultrasound. 5. Chronic findings as above. ACT 112: Negative or not required by law. The above report was generated using voice recognition software. It may contain grammatical, syntax o r spelling errors. Electronically signed by: Hussain Valencia M.D. 07/25/2025 3:44 PM
[2025-07-25 16:02] LABS: Hematocrit (blood only) 24.1 % (37.0-47.0); Hemoglobin 8.5 g/dL (12.0-16.0)
[2025-07-25 21:18] LABS: Hematocrit (blood only) 23.7 % (37.0-47.0); Hemoglobin 8.2 g/dL (12.0-16.0)
[2025-07-26 02:33] LABS: Hematocrit (blood only) 23.1 % (37.0-47.0); Hemoglobin 8.0 g/dL (12.0-16.0); Immature Granulocytes # (auto) 0.02 K/uL (0.01-0.20); Immature Granulocytes % (auto) 0.2 %; Mean Corpuscular Hemoglobin 31.5 pg (25.0-34.0); Mean Corpuscular Volume 90.9 fL (80.0-100.0); Platelet Count 189 K/uL (130-400); RDW Standard Deviation 44.1 fL (36.4-46.3); Red Blood Count 2.54 M/uL (4.20-5.40); White Blood Count 8.12 K/ul (4.8-10.8)
[2025-07-26 03:09] LABS: Alanine Aminotransferase 5.0 U/L (7-52); Albumin Globulin Ratio 1.2 (0.9-2); Albumin Level 3.2 gm/dl (3.4-5.0); Alkaline Phosphatase 46.0 U/L (34-104); Anion Gap 7.0 (3-11); Bilirubin,Total 0.2 mg/dl (0.2-1.0); Blood Urea Nitrogen 29.0 mg/dl (6-23); Calcium 8.4 mg/dl (8.6-10.3); Carbon Dioxide 21.0 mmol/L (21-32); Chloride 109.0 mmol/L (98-107); Creatinine Clr Calc Pharmacy 24.9 ml/min; Ferritin 54.8 ng/ml (8-388); Globulin 2.6 gm/dl (2.5-4.0); Glucose 142.0 mg/dl (70-99(Fasting)); Iron 53.0 mcg/dl (35-150); Magnesium 2.0 mg/dl (1.7-2.4); Potassium 4.0 mmol/L (3.5-5.1); Sodium 137.0 mmol/L (136-145); Total Iron Binding Cap Calc 258.0 mcg/dl (250-450); Total Protein 5.8 gm/dl (6.0-8.3); Transferrin 184.0 mg/dl (200-360); Transferrin (FE) Percent Satur 21.0 % (15-50)
[2025-07-26 03:15] LABS: Folate (Folic Acid),Ser orPlas 3.25 ng/ml (>5.38)
[2025-07-26 03:16] LABS: Vitamin B12 1312.0 pg/ml (180-914)
--- NOTE | 2025-07-26 07:30 | Hospitalist Progress Note ---
Date of Service July 26, 2025 Assessment & Plan (1) Stroke-like symptoms: (2) COPD with emphysema: (3) PVD (peripheral vascular disease): (4) Hypertension: (5) Hyperlipidemia: (6) Diabetes mellitus, type 2: Plan 65 year old female with stroke like symptoms presents with R sided weakness x3 days. Heat CT suggestive of chronic stroke. Chronic 1ppd smoker. Mg+ low on amission. Complete stroke work up and replace Mg+. Lives alone and may need rehab/SNF on DC #Acute Left Thalamocapsular CVA Head CT revealed bilateral chronic age indeterminant lacunar infarction MRI: Acute to subacute infarct measuring 1.5 cm in the left thalamocapsular jessica ction. Echo: EF 60-65%, Moderate R PFO Takes Plavix and high dose statin Was started on ASA in addition to plavix Per Neuro: Outpt ZIO patch, platelet reactivity test, consider TJ testing as outpt, follow up with neuro in 4-6 weeks ECG NSR PT/OT/ST - recommending rehab Teds and SCDs for now #Moderate PFO Recommend outpatient cardiac eval #Hypomagnesemia Replaced, monitor #Possible GIB, BRBPR Pt constipated for 5 days, painful BM this a.m. follows by additional bm with BRBPR Last UGI 2022: irregular Z line; otherwise normal Last C scope 2022: multiple small and large mouth diverticula, a few angiodysplastic lesions w/o bleeding found in ascending colon and cecum along with internal hemorrhoids Hgb 9.9 -> 8.5 -> 8.0 -> 8.2 Blood consent was obtained from the patient (or patient delegate) as delegated by Dr. James. Risks and benefits were explained. All questions were answered, and the patient (or patient delegate) was offered the opportunity to discuss with attending physician and declined. Seen by GI - felt to be hemorrhoidal vs fissure 2/2 constipation, okay to resume DAPT Monitor H/H, continue IV PPI for today ISACC on CKD In setting of above. Cr 1.68 (1.4), continue gentle fluids today #PVD: S/p pseudoaneurysm s/p R femoral repair 05/[address] Schaffer Takes Plavix for this #NIDDM2: Takes Metformin Most recent A1C 07/24/25 OPT 7.9, 8.[address] on SSI while inpt #HTN: Takes Amlodipine and Lisinopril; will continue to hold 2/2 low bp #HLD: Takes pravastatin; continue Disposition: recommending rehab PCP: Dr. Paz Code Status: Full Code VTE Prophylaxis: Teds and SCDs for now Pt was seen and examined in collaboration with Dr. James, please see addendum I spent a total of 40 minutes coordinating, documenting, and providing care for this patient excluding time spent in the performance of separately billed services or time spent by another provider/QHP. Admission and Anticipated Discharge Date Admission Date: July 24, 2025 Supervising Physician Co-Signing Physician Notes Attending addendum: The patient was seen and examined in medical telemetry unit She has been complaining of right-sided limb weakness and noted to have a stroke Later on she has had rectal bleed with decreasing hemoglobin Denies any other neurosymptoms except weakness involving the right upper or lower extremities On examination Sitting on a chair without any acute distress Remains hemodynamically stable Chest was clear to auscultate bilaterally HeartS1-S2, regular Abdomenbenign Extremitiesnegative Her admission labs, EKG and imaging studies reviewed Acute stroke with history of recurrent strokeappreciate neurology input and recommendation Ongoing GI bleed with bright red rectal bleed per rectumGI evaluation Agree with assessment and plan as outlined above by Katelyn Copeland PA-C and take the full responsibility of care in the hospital Total time taken to see the patient, examining her, reviewed chart, investigations and medications and planning of care was [address] Marisol James 07/26/2025 The patient was seen and examined in medical telemetry unit She has been stable and denies any more rectal bleed Denies any other symptoms except ongoing weakness involving right-sided extremities Remains hemodynamically stable with unremarkable labs and the hemoglobin is stable Our system examination was unremarkable Will restart her medication to prevent stroke and continue with PT OT evaluation Agree with assessment plan as outlined above by Lisy Mccoy PA-C and take the full responsibility of care in the hospital I spent a total of 15 minutes to evaluate the patient, discussed the results of the test and plan of care Dr Marisol James Subjective Pt seen in 276-2. MRI results reviewed with patient, + L thalamic infarct. Pt with persistent R sided weakness. Denies f/c/s, chest pain, sob, n/v/d, abd pain. No further episodes of BRBPR since last evening. Review of Systems Review of Systems: At least ten systems reviewed and negative except as noted in the HPI. Physical Exam Physical Exam: Gen: WD/WN, NAD, sitting in bedside chair, A&Ox3 HEENT: Normocephalic, atraumatic Lung: Clear to Auscultation bilaterally Heart: Regular rate, regular rhythm Abdomen: Soft, NT, ND +BS x 4 Extremities: no edema Skin: Warm, no rash Results & Data Results & Data Vital Signs (Past 12 Hours) Vital Signs Temp Pulse Pulse Resp BP BP Pulse Ox 07/26/25 07:18 71 07/26/25 03:59 36.5 C 73 18 124/53 L 97 07/25/25 23:49 36.3 C L 71 12 107/60 97 07/25/25 21:30 73 07/25/25 19:59 36.5 C 78 14 106/68 97 O2 Del Method 07/26/25 07:18 07/26/25 03:59 Room Air 07/25/25 23:49 Room Air 07/25/25 21:30 07/25/25 19:59 Room Air Laboratory Results Short CBC 07/25/25 07/25/25 07/26/25 Range/Units 14:29 20:53 02:08 WBC 8.12 (4.8-10.8) K/ul Hgb 8.5 L 8.2 L 8.0 L (12.0-16.0) g/dL Hct 24.1 L 23.7 L 23.1 L (37.0-47.0) % Plt Count 189 (130-400) K/uL 07/26/25 Range/Units 08:21 WBC (4.8-10.8) K/ul Hgb 8.2 L (12.0-16.0) g/dL Hct 24.0 L (37.0-47.0) % Plt Count (130-400) K/uL BMP 07/26/25 02:08 Sodium 137 Potassium 4.0 Chloride 109 H Carbon Dioxide 21 BUN 29 H Creatinine 1.68 H Glucose 142 H Calcium 8.4 L Liver Function 07/26/25 Range/Units 02:08 Total Bilirubin 0.2 (0.2-1.0) mg/dl AST 9 L (13-39) U/L ALT 5 L (7-52) U/L Alkaline Phosphatase 46 (34-104) U/L Albumin 3.2 L (3.4-5.0) gm/dl Diagnostic Findings Chest X-Ray 07/24/25 12:08 XR chest 1V portable CLINICAL HISTORY: weakness COMPARISON STUDY: Chest radiograph May 09, 2024. FINDINGS: Lung volumes are normal. Lungs are clear. There is no pneumothorax or pleural effusion. Cardiac size is normal. Mediastinal contours are normal. There is no evidence for pulmonary edema. IMPRESSION: No acute cardiopulmonary findings. ACT 112: Negative or not required by law. Electronically signed by: Harish Serrano M.D. 07/24/2025 12:[address] 07/24/25 12:08 CT head/brain wo con CLINICAL HISTORY: 65 years-old Female with neuro deficit, acute stroke suspected. Acute stroke like symptoms TECHNIQUE: Multiple axial CT images of the head were obtained without contrast. A dose lowering technique was utilized adhering to the principles of ALARA. COMPARISON: CTA head of same day FINDINGS: No acute intracranial hemorrhage, midline shift, intracranial mass, hydrocephalus, territorial ischemia or abnormal extra-axial collection. Involutional changes with mild white matter hypodensities suggestive of chronic microvascular ischemic disease. Chronic appearing lacunar infarcts are noted within the basal ganglia bilaterally. There is an ill-defined 1.3 cm hypodense focus within the left thalamus/posterior limb of the left internal capsule on image 17 series 2. Similar appearing ill-defined 9 mm hypodense focus of the right caudate nuclear head. The calvarium is intact. The paranasal sinuses, mastoid air cells, and middle ear cavities are clear. IMPRESSION: 1. No acute intracranial hemorrhage, midline shift or acute territorial infarct. 2. There are bilateral chronic and age-indeterminate basal ganglia lacunar infarcts, notably a 1.3 cm infarct within the left thalamus/posterior limb of the left internal capsule. These findings could be correlated with MRI if clinically indicated. ACT 112: Negative or not required by law. The above report was generated using voice recognition software. It may contain grammatical, syntax or spelling errors. Electronically signed by: Hussain Valencia M.D. 07/24/2025 1:50 PM Head CTA 07/24/25 12:08 CTA ANGIOGRAPHY OF THE HEAD CLINICAL HISTORY: neuro deficit, acute stroke suspected COMPARISON STUDY: No previous studies for comparison. TECHNIQUE: Helical axial images of the head were obtained following uneventful intravenous administration of 119 cc of Optiray. Sagittal and coronal reconstructions were viewed as well as maximal intensity projections on an independent 3-D workstation. Automated exposure control was utilized for the study. A dose lowering technique was utilized adhering to the principles of ALARA. CT DOSE: 1065.75 mGy.cm FINDINGS: Please note that the head CT will be reported separately. No acute intracranial hemorrhage, midline shift or mass effect is present. There are old bilateral basal ganglia infarcts. There is an ill-defined 1.3 cm hypodense focus within the left thalamus and posterior limb of the internal capsule. This represents an age indeterminate infarct. The bilateral M1, M2, A1 and A2 segments are patent. There is mild plaque within the cavernous carotids without significant stenosis. The left vertebral artery is dominant. The right vertebral artery is diminutive, likely on a congenital basis. This ends in the posterior inferior cerebellar artery. The artery is patent. There is persistence of the left posterior cerebral artery. No intracranial vessel occlusion is identified. There is no intracranial aneurysm. IMPRESSION: 1. No large vessel occlusion. No intracranial aneurysm. 2. Age indeterminate 1.3 cm infarct within the left thalamus and posterior limb of the left internal capsule. 3. Multiple old bilateral basal ganglia infarcts. ACT 112: Negative or not required by law. Electronically signed by: Harish Serrano M.D. 07/24/2025 1:45 PM Neck CTA 07/24/25 12:08 CT ANGIOGRAM OF THE NECK CLINICAL HISTORY: Neurological deficit. Stroke like symptoms. COMPARISON STUDY: No priors TECHNIQUE: Following the IV administration of 119 of Optiray 320, CT angiogram of the neck was performed from the aortic arch to the skull base. Images are reviewed in the axial, sagittal, and coronal planes. 3-D MIPS images are created and assessed. IV contrast was administered without complication. All measurements were calculated based on NASCET criteria. A dose lowering technique was utilized adhering to the principles of ALARA. FINDINGS: Thoracic aorta: There is atherosclerotic calcification of the thoracic aorta. Visualized portions of the thoracic aorta are normal in caliber. The aortic arch demonstrates standard 3-vessel anatomy. Right carotid arterial system: The right common carotid artery is widely patent, as are the right internal and external carotid arteries. Calcified plaque is seen in the carotid bulb. Left carotid arterial system: The left common carotid artery is widely patent, as are the left internal and external carotid arteries. Calcified plaque is seen in the carotid bulb. Vertebral arteries: There is moderate to high-grade stenosis at the origin of the left vertebral artery. The vertebral arteries are otherwise patent bilaterally noting left-sided dominance. The vertebral artery is diminutive and terminates as the PICA. Subclavian arteries: Widely patent bilaterally. Jugular veins: Patent bilaterally. Brain parenchyma: The visualized brain parenchyma the skull base is within normal limits. Lung apices: Emphysematous change is noted. Partially visualized upper lobe lung parenchyma otherwise appears clear. Soft tissues: The visualized pharyngeal soft tissues are normal in appearance noting angiographic phase technique. The oropharyngeal airway appears widely patent. The salivary and thyroid glands are normal in appearance. No cervical lymphadenopathy is seen. Skeletal structures: The skeletal structures are osteopenic. The visualized calvarium at the skull base appears intact. The imaged cervical spine is maintained noting mild spondylosis. Sinuses and mastoids: The visualized paranasal sinuses are clear. The mastoid air cells are well clear as imaged. IMPRESSION: 1. There is moderate to high-grade stenosis at the origin of the dominant left vertebral artery. 2. Otherwise unremarkable CT angiogram of the neck. 3. Emphysema. ACT 112: Negative or not required by law. Electronically signed by: Eliseo Ordoñez M.D. 07/24/2025 1:46 PM Brain MRI 07/24/25 14:22 MRI BRAIN WITHOUT CONTRAST TECHNIQUE: An MRI examination of the brain was performed utilizing sagittal and axial T1-weighted images as well as axial T2-weighted, FLAIR, gradient echo and diffusion-weighted images. INDICATION: Right-sided weakness COMPARISON: CT evaluations from earlier in the same day are not viewable in our system FINDINGS: There is an acute to subacute infarct measuring 1.5 cm in the left thalamocapsular junction. No significant mass effect or midline shift The ventricular, sulcal and cisternal spaces are normal in caliber. There is no evidence of intracranial mass lesion, hydrocephalus, extra-axial fluid collection, or parenchymal hemorrhage. Age-related involutional changes of the brain and chronic white matter ischemic changes. Punctate foci of chronic hemosiderin deposition in the right lateral medulla and in the left frontal lobe. The cerebellar tonsils are normal in position. The pituitary gland is not enlarged. The major arterial vascular structures of the skull base are patent. No intraorbital soft tissue mass lesion is observed. Mild mucosal thickening of the paranasal sinuses. Mastoids are aerated. IMPRESSION: Acute to subacute infarct measuring 1.5 cm in the left thalamocapsular junction. No significant mass effect or midline shift Electronically signed by Juan Yarbrough 07-24-2025 8:45 PM Abdomen/Pelvis CT 07/25/25 11:[address] WITH IV CONTRAST CT DOSE: 465.36 mGy.cm HISTORY: Acute generalized abdominal pain with possible GI bleed r/o bleed TECHNIQUE: Multiaxial CT images of the abdomen and pelvis were performed following the IV administration of 93 cc of Optiray, A dose lowering technique was utilized adhering to the principles of ALARA. COMPARISON STUDY: 08/22/2012 FINDINGS: The lung bases are generally clear. No pneumatosis or pneumoperitoneum. Unremarkable spleen, pancreas and adrenal glands. Mildly contracted gallbladder with possible cholelithiasis versus biliary sludge. The liver is within normal limits. Patency of the hepatic and portal veins. Intermediate density 7 mm lesion of the posterior interpolar right kidney on image 93. 11 mm probable cyst of the superior pole left kidney. There are additional few ill-defined indeterminate subcentimeter hypodensities in the kidneys. Mild cortical scarring of the left kidney. No hydronephrosis. Contrast noted within the urinary bladder lumen and ureters. Unremarkable uterus. Extensive atherosclerosis of the abdominal aorta with aortobiiliac stent graft which appear patent. No lymphadenopathy identified. Nonspecific diffuse wall thickening of the proximal to mid gastric body. Colonic diverticulosis without definite evidence of acute diverticulitis. There is mild colonic fecal retention. Normal appendix. No intraperitoneal or retroperitoneal hemorrhage identified. No acute fracture is seen. IMPRESSION: 1. No acute intra-abdominal or intrapelvic abnormality identified. 2. No intraperitoneal or retroperitoneal hemorrhage identified. 3. Colonic diverticulosis without definite evidence of acute diverticulitis. 4. Renal cysts with a few indeterminate subcentimeter lesions of the kidneys which could be correlated with a nonemergent follow-up renal ultrasound. 5. Chronic findings as above. ACT 112: Negative or not required by law. The above report was generated using voice recognition software. It may contain grammatical, syntax or spelling errors. Electronically signed by: Hussain Valencia M.D. 07/25/2025 3:44 PM
[2025-07-26 08:54] LABS: Hematocrit (blood only) 24.0 % (37.0-47.0); Hemoglobin 8.2 g/dL (12.0-16.0)
[2025-07-26] MEDS: SODIUM CHLORIDE 0.9% 500 ML IV SCH ×2 (09:40→17:42)
[2025-07-26 14:36] LABS: Hematocrit (blood only) 23.2 % (37.0-47.0); Hemoglobin 7.9 g/dL (12.0-16.0)
--- NOTE | 2025-07-27 08:03 | Hospitalist Progress Note ---
Date of Service July 27, 2025 Assessment & Plan (1) Stroke-like symptoms: (2) COPD with emphysema: (3) PVD (peripheral vascular disease): (4) Hypertension: (5) Hyperlipidemia: (6) Diabetes mellitus, type 2: Plan This is a 65 year old female with stroke like symptoms presents with R sided weakness x3 days. Heat CT suggestive of chronic stroke. Chronic 1ppd smoker. Mg+ low on amission. Complete stroke work up and replace Mg+. Lives alone and may need rehab/SNF on DC #Acute Left Thalamocapsular CVA Head CT revealed bilateral chronic age indeterminant lacunar infarction MRI: Acute to subacute infarct measuring 1.5 cm in the left thalamocapsular junction. Echo: EF 60-65%, Moderate R PFO Takes Plavix and high dose statin Was started on ASA in addition to plavix Unable to obtain platelet reactivity test results while inpatient due to low hematocrit Discussed with Dr Lobo - agrees with continued DAPT x 3 weeks, neuro follow up in 4-6 weeks for further antiplatelet discussion Discussed with ROBERTH Cazares - agrees with DAPT, will arrange for OP cards follow up for [facility], further discussion of PFO ECG NSR PT/OT/ST - recommending rehab Teds and SCDs for now #Moderate PFO Recommend outpatient cardiac eval as above #Hypomagnesemia Replaced, monitor #Possible GIB, BRBPR -> resolved Pt constipated for 5 days, painful BM this a.m. follows by additional bm with BRBPR Last UGI 2022: irregular Z line; otherwise normal Last C scope 2022: multiple small and large mouth diverticula, a few angiodysplastic lesions w/o bleeding found in ascending colon and cecum along with internal hemorrhoids Blood consent was obtained from the patient (or patient delegate) as delegated by Dr. James. Risks and benefits were explained. All questions were answered, and the patient (or patient delegate) was offered the opportunity to discuss with attending physician and declined. Seen by GI - felt to be hemorrhoidal vs fissure 2/2 constipation, okay to resume DAPT Hgb 9.9 -> 8.5 -> 8.0 -> 8.2 -> 9.0 No further episodes. Discussed ongoing daily miralax strategy to prevent further constipation #ISACC on CKD -> resolved In setting of above. Cr 1.68 -> 1.20, encourage PO fluids #PVD: S/p pseudoaneurysm s/p R femoral repair 05/[address] Schaffer Takes Plavix for this #NIDDM2: Takes Metformin Most recent A1C 07/24/25 OPT 7.9, 8.[address] on SSI while inpt #HTN: Resumed Amlodipine this AM. Continue to hold lisinopril for now #HLD: Takes pravastatin; continue Disposition: recommending rehab PCP: Dr. Paz Code Status: Full Code VTE Prophylaxis: Teds and SCDs for now Pt was seen and examined in collaboration with Dr. James, please see addendum I spent a total of 45 minutes coordinating, documenting, and providing care for this patient excluding time spent in the performance of separately billed services or time spent by another provider/QHP. Admission and Anticipated Discharge Date Admission Date: July 24, 2025 Supervising Physician Co-Signing Physician Notes Attending addendum: The patient was seen and examined in medical telemetry unit She has been complaining of right-sided limb weakness and noted to have a stroke Later on she has had rectal bleed with decreasing hemoglobin Denies any other neurosymptoms except weakness involving the right upper or lower extremities On examination Sitting on a chair without any acute distress Remains hemodynamically stable Chest was clear to auscultate bilaterally HeartS1-S2, regular Abdomenbenign Extremitiesnegative Her admission labs, EKG and imaging studies reviewed Acute stroke with history of recurrent strokeappreciate neurology input and recommendation Ongoing GI bleed with bright red rectal bleed per rectumGI evaluation Agree with assessment and plan as outlined above by Katelyn Copeland PA-C and take the full responsibility of care in the hospital Total time taken to see the patient, examining her, reviewed chart, investigations and medications and planning of care was [address] Marisol James 07/26/2025 The patient was seen and examined in medical telemetry unit She has been stable and denies any more rectal bleed Denies any other symptoms except ongoing weakness involving right-sided e xtremities Remains hemodynamically stable with unremarkable labs and the hemoglobin is stable Our system examination was unremarkable Will restart her medication to prevent stroke and continue with PT OT evaluation Agree with assessment plan as outlined above by Lisy Mccoy PA-C and take the full responsibility of care in the hospital I spent a total of 15 minutes to evaluate the patient, discussed the results of the test and plan of care Dr Marisol James 07/27/2025 The patient was seen and examined in medical telemetry unit She has been feeling much better with some improvement of the right sided weakness involving the extremities She has had physical therapy and recommendation is home with home PT Denies any other significant symptoms and her hemoglobin remains stable without any more evidence of bleeding per rectum Her labs and imaging studies and medications reviewed Agree with assessment plan as outlined above by Lisy Mccoy PA-C and take the full responsibility of care in the hospital I spent a total of 15 minutes to evaluate the patient, examining her, reviewing the medications and planning of care. Dr Marisol James Subjective Pt seen in 276-2. MRI results reviewed with patient, + L thalamic infarct. Feeling better, R sided weakness improved since yesterday but still notable. Denies f/c/s, chest pain, sob, n/v/d, abd pain. No further episodes of BRBPR since last evening. Review of Systems Review of Systems: At least ten systems reviewed and negative except as noted in the HPI. Physical Exam Physical Exam: Gen: WD/WN, NAD, sitting in bedside chair, A&Ox3 HEENT: Normocephalic, atraumatic Lung: Clear to Auscultation bilaterally Heart: Regular rate, regular rhythm Abdomen: Soft, NT, ND +BS x 4 Extremities: + RUE and RLE strength improved to 4/5, LUE and LLE 5/5 Skin: Warm, no rash Results & Data Results & Data Vital Signs (Past 12 Hours) Vital Signs Temp Pulse Pulse Resp BP Pulse Ox O2 Del Method 07/27/25 07:49 70 07/27/25 03:12 36.7 C 79 14 136/52 L 96 Room Air 07/27/25 00:04 36.5 C 71 14 135/68 97 Room Air 07/26/25 21:35 71 07/26/25 21:20 Room Air 07/26/25 20:30 36.7 C 73 12 156/73 H 98 Room Air Laboratory Results Short CBC 07/26/25 07/27/25 Range/Units 14:12 09:58 WBC 7.29 (4.8-10.8) K/ul Hgb 7.9 L 9.0 L (12.0-16.0) g/dL Hct 23.2 L 27.1 L (37.0-47.0) % Plt Count 232 (130-400) K/uL BMP 07/27/25 09:58 Sodium 138 Potassium 4.4 Chloride 110 H Carbon Dioxide 22 BUN 20 Creatinine 1.20 D Glucose 286 H Calcium 9.1 Diagnostic Findings Chest X-Ray 07/24/25 12:08 XR chest 1V portable CLINICAL HISTORY: weakness COMPARISON STUDY: Chest radiograph May 09, 2024. FINDINGS: Lung volumes are normal. Lungs are clear. There is no pneumothorax or pleural effusion. Cardiac size is normal. Mediastinal contours are normal. There is no evidence for pulmonary edema. IMPRESSION: No acute cardiopulmonary findings. ACT 112: Negative or not required by law. Electronically signed by: Harish Serrano M.D. 07/24/2025 12:[address] 07/24/25 12:08 CT head/brain wo con CLINICAL HISTORY: 65 years-old Female with neuro deficit, acute stroke suspected. Acute stroke like symptoms TECHNIQUE: Multiple axial CT images of the head were obtained without contrast. A dose lowering technique was utilized adhering to the principles of ALARA. COMPARISON: CTA head of same day FINDINGS: No acute intracranial hemorrhage, midline shift, intracranial mass, hydrocephalus, territorial ischemia or abnormal extra-axial collection. Invo lutional changes with mild white matter hypodensities suggestive of chronic microvascular ischemic disease. Chronic appearing lacunar infarcts are noted within the basal ganglia bilaterally. There is an ill-defined 1.3 cm hypodense focus within the left thalamus/posterior limb of the left internal capsule on image 17 series 2. Similar appearing ill-defined 9 mm hypodense focus of the right caudate nuclear head. The calvarium is intact. The paranasal sinuses, mastoid air cells, and middle ear cavities are clear. IMPRESSION: 1. No acute intracranial hemorrhage, midline shift or acute territorial infarct. 2. There are bilateral chronic and age-indeterminate basal ganglia lacunar infarcts, notably a 1.3 cm infarct within the left thalamus/posterior limb of the left internal capsule. These findings could be correlated with MRI if clinically indicated. ACT 112: Negative or not required by law. The above report was generated using voice recognition software. It may contain grammatical, syntax or spelling errors. Electronically signed by: Hussain Valencia M.D. 07/24/2025 1:50 PM Head CTA 07/24/25 12:08 CTA ANGIOGRAPHY OF THE HEAD CLINICAL HISTORY: neuro deficit, acute stroke suspected COMPARISON STUDY: No previous studies for comparison. TECHNIQUE: Helical axial images of the head were obtained following uneventful intravenous administration of 119 cc of Optiray. Sagittal and coronal reconstructions were viewed as well as maximal intensity projections on an independent 3-D workstation. Automated exposure control was utilized for the study. A dose lowering technique was utilized adhering to the principles of ALARA. CT DOSE: 1065.75 mGy.cm FINDINGS: Please note that the head CT will be reported separately. No acute intracranial hemorrhage, midline shift or mass effect is present. There are old bilateral basal ganglia infarcts. There is an ill-defined 1.3 cm hypodense focus within the left thalamus and posterior limb of the internal capsule. This represents an age indeterminate infarct. The bilateral M1, M2, A1 and A2 segments are patent. There is mild plaque within the cavernous carotids without significant stenosis. The left vertebral artery is dominant. The right vertebral artery is diminutive, likely on a congenital basis. This ends in the posterior inferior cerebellar artery. The artery is patent. There is persistence of the left posterior cerebral artery. No intracranial vessel occlusion is identified. There is no intracranial aneurysm. IMPRESSION: 1. No large vessel occlusion. No intracranial aneurysm. 2. Age indeterminate 1.3 cm infarct within the left thalamus and posterior limb of the left internal capsule. 3. Multiple old bilateral basal ganglia infarcts. ACT 112: Negative or not required by law. Electronically signed by: Harish Serrano M.D. 07/24/2025 1:45 PM Neck CTA 07/24/25 12:08 CT ANGIOGRAM OF THE NECK CLINICAL HISTORY: Neurological deficit. Stroke like symptoms. COMPARISON STUDY: No priors TECHNIQUE: Following the IV administration of 119 of Optiray 320, CT angiogram of the neck was performed from the aortic arch to the skull base. Images are reviewed in the axial, sagittal, and coronal planes. 3-D MIPS images are created and assessed. IV contrast was administered without complication. All measu rements were calculated based on NASCET criteria. A dose lowering technique was utilized adhering to the principles of ALARA. FINDINGS: Thoracic aorta: There is atherosclerotic calcification of the thoracic aorta. Visualized portions of the thoracic aorta are normal in caliber. The aortic arch demonstrates standard 3-vessel anatomy. Right carotid arterial system: The right common carotid artery is widely patent, as are the right internal and external carotid arteries. Calcified plaque is seen in the carotid bulb. Left carotid arterial system: The left common carotid artery is widely patent, as are the left internal and external carotid arteries. Calcified plaque is seen in the carotid bulb. Vertebral arteries: There is moderate to high-grade stenosis at the origin of the left vertebral artery. The vertebral arteries are otherwise patent bilaterally noting left-sided dominance. The vertebral artery is diminutive and terminates as the PICA. Subclavian arteries: Widely patent bilaterally. Jugular veins: Patent bilaterally. Brain parenchyma: The visualized brain parenchyma the skull base is within normal limits. Lung apices: Emphysematous change is noted. Partially visualized upper lobe lung parenchyma otherwise appears clear. Soft tissues: The visualized pharyngeal soft tissues are normal in appearance noting angiographic phase technique. The oropharyngeal airway appears widely patent. The salivary and thyroid glands are normal in appearance. No cervical lymphadenopathy is seen. Skeletal structures: The skeletal structures are osteopenic. The visualized calvarium at the skull base appears intact. The imaged cervical spine is maintained noting mild spondylosis. Sinuses and mastoids: The visualized paranasal sinuses are clear. The mastoid air cells are well clear as imaged. IMPRESSION: 1. There is moderate to high-grade stenosis at the origin of the dominant left vertebral artery. 2. Otherwise unremarkable CT angiogram of the neck. 3. Emphysema. ACT 112: Negative or not required by law. Electronically signed by: Eliseo Ordoñez M.D. 07/24/2025 1:46 PM Brain MRI 07/24/25 14:22 MRI BRAIN WITHOUT CONTRAST TECHNIQUE: An MRI examination of the brain was performed utilizing sagittal and axial T1-weighted images as well as axial T2-weighted, FLAIR, gradient echo and diffusion-weighted images. INDICATION: Right-sided weakness COMPARISON: CT evaluations from earlier in the same day are not viewable in our system FINDINGS: There is an acute to subacute infarct measuring 1.5 cm in the left thalamocapsular junction. No significant mass effect or midline shift The ventricular, sulcal and cisternal spaces are normal in caliber. There is no evidence of intracranial mass lesion, hydrocephalus, extra-axial fluid collection, or parenchymal hemorrhage. Age-related involutional changes of the brain and chronic white matter ischemic changes. Punctate foci of chronic hemosiderin deposition in the right lateral medulla and in the left frontal lobe. The cerebellar tonsils are normal in position. The pituitary gland is not enlarged. The major arterial vascular structures of the skull base are patent. No intraorbital soft tissue mass lesion is observed. Mild mucosal thickening of the paranasal sinuses. Mastoids are aerated. IMPRESSION: Acute to subacute infarct measuring 1.5 cm in the left thalamocapsular junction. No significant mass effect or midline shift Electronically signed by Juan Yarbrough 07-24-2025 8:45 PM Abdomen/Pelvis CT 07/25/25 11:[address] WITH IV CONTRAST CT DOSE: 465.36 mGy.cm HISTORY: Acute generalized abdominal pain with possible GI bleed r/o bleed TECHNIQUE: Multiaxial CT images of the abdomen and pelvis were performed following the IV administration of 93 cc of Optiray, A dose lowering technique was utilized adhering to the principles of ALARA. COMPARISON STUDY: 08/22/2012 FINDINGS: The lung bases are generally clear. No pneumatosis or pneumoperitoneum. Unremarkable spleen, pancreas and adrenal glands. Mildly contracted gallbladder with possible cholelithiasis versus biliary sludge. The liver is within normal limits. Patency of the hepatic and portal veins. Intermediate density 7 mm lesion of the posterior interpolar right kidney on image 93. 11 mm probable cyst of the superior pole left kidney. There are additional few ill-defined indeterminate subcentimeter hypodensities in the kidneys. Mild cortical scarring of the left kidney. No hydronephrosis. Contrast noted within the urinary bladder lumen and ureters. Unremarkable uterus. Extensive atherosclerosis of the abdominal aorta with aortobiiliac stent graft which appear patent. No lymphadenopathy identified. Nonspecific diffuse wall thickening of the proximal to mid gastric body. Colonic diverticulosis without definite evidence of acute diverticulitis. There is mild colonic fecal retention. Normal appendix. No intraperitoneal or retroperitoneal hemorrhage identified. No acute fracture is seen. IMPRESSION: 1. No acute intra-abdominal or intrapelvic abnormality identified. 2. No intraperitoneal or retroperitoneal hemorrhage identified. 3. Colonic diverticulosis without definite evidence of acute diverticulitis. 4. Renal cysts with a few indeterminate subcentimeter lesions of the kidneys which could be correlated with a nonemergent follow-up renal ultrasound. 5. Chronic findings as above. ACT 112: Negative or not required by law. The above report was generated using voice recognition software. It may contain grammatical, syntax or spelling errors. Electronically signed by: Hussain Valencia M.D. 07/25/2025 3:44 PM
[2025-07-27 10:10] LABS: Hematocrit (blood only) 27.1 % (37.0-47.0); Hemoglobin 9.0 g/dL (12.0-16.0); Mean Corpuscular Hemoglobin 30.8 pg (25.0-34.0); Mean Corpuscular Volume 92.8 fL (80.0-100.0); Platelet Count 232 K/uL (130-400); RDW Standard Deviation 45.1 fL (36.4-46.3); Red Blood Count 2.92 M/uL (4.20-5.40); White Blood Count 7.29 K/ul (4.8-10.8)
[2025-07-27 10:25] LABS: Anion Gap 6.0 (3-11); Blood Urea Nitrogen 20.0 mg/dl (6-23); Calcium 9.1 mg/dl (8.6-10.3); Carbon Dioxide 22.0 mmol/L (21-32); Chloride 110.0 mmol/L (98-107); Creatinine Clr Calc Pharmacy 34.8 ml/min; Glucose 286.0 mg/dl (70-99(Fasting)); Potassium 4.4 mmol/L (3.5-5.1); Sodium 138.0 mmol/L (136-145)
[2025-07-28 07:05] LABS: Hematocrit (blood only) 24.4 % (37.0-47.0); Hemoglobin 8.6 g/dL (12.0-16.0); Mean Corpuscular Hemoglobin 32.0 pg (25.0-34.0); Mean Corpuscular Volume 90.7 fL (80.0-100.0); Platelet Count 236 K/uL (130-400); RDW Standard Deviation 42.7 fL (36.4-46.3); Red Blood Count 2.69 M/uL (4.20-5.40); White Blood Count 6.77 K/ul (4.8-10.8)
[2025-07-28 07:35] LABS: Anion Gap 7.0 (3-11); Blood Urea Nitrogen 25.0 mg/dl (6-23); Calcium 9.3 mg/dl (8.6-10.3); Carbon Dioxide 24.0 mmol/L (21-32); Chloride 109.0 mmol/L (98-107); Creatinine Clr Calc Pharmacy 30.7 ml/min; Glucose 121.0 mg/dl (70-99(Fasting)); Potassium 4.7 mmol/L (3.5-5.1); Sodium 140.0 mmol/L (136-145)
--- NOTE | 2025-07-28 08:08 | Discharge Summary ---
Discharge Summary Date of Service July 28, 2025 Principal Dx & Hospital Course #1 = Principal Diagnosis (1) Ischemic stroke: (2) COPD with emphysema: (3) PVD (peripheral vascular disease): (4) Hypertension: (5) Hyperlipidemia: (6) Diabetes mellitus, type 2: Plan 65 year old female with PMH significant for type 2 diabetes, hyperlipidemia, COPD, hypertension, CKD IIIa, and history of Argueta's esophagus who presented to the ED on 07/24/2025 with R sided weakness x3 days and was found to have an acute stroke. Acute Left Thalamocapsular CVA Head CT revealed bilateral chronic age indeterminant lacunar infarction MRI: Acute to subacute infarct measuring 1.5 cm in the left thalamocapsular junction Echo: EF 60-65%, Moderate R PFO Neurology recommends DAPT x3 weeks and high intensity statin --Patient instructed to take baby aspirin until 08/15/2025 then resume Plavix only --Patient instructed to try taking atorvastatin in place of pravastatin - patient notes she has not been able to tolerate in the past but is willing to try again PT/OT recommending home with home health services-> CM setting this up Neurology follow up appointment on 08/25/2025 Moderate PFO Per discussion with Cardiology, recommend DAPT as above plus ziopatch outpatient and further discussion of PFO Cardiology to arrange follow up appointment ISACC on CKD Cr peaked at 1.68, was 1.36 on day of discharge Encouraged patient to hydrate Recommend repeat BMP at PCP appointment Anemia Hemoglobin dropped from 11.4 to as low as 7.9 while inpatient Normocytic and normochromic, iron profile WNL Likely anemia of chronic disease with possible dilutional and blood loss component as detailed below Recommend repeat CBC at PCP appointment Constipation-> resolved Episode of BRBPR on 07/24 after straining to try to have BM after one week of no BM Evaluated by GI who felt bleeding likely hemorrhoidal in nature Constipation resolved Recommend miralax to prevent constipation Abnormal CT finding CTAP noted intermediate density 7mm lesion of posterior interpolar right kidney, 11mm probable cyst of superior pole left kidney, few ill-defined indeterminate subcentimeter hypodensities in kidneys Recommend follow up renal ultrasound Hypomagnesemia-> resolved Repleted while inpatient Recommend continued outpatient supplementation PVD Follows with Dr. Schaffer Continue Plavix Type 2 diabetes A1C 8.0 Continue metformin Recommend further discussion of need for insulin outpatient Hypertension Continue amlodipine and lisinopril Hyperlipidemia Trial atorvastatin as discussed above Patient seen in collaboration with Dr. James. Please see addendum. Notes For Next Care Provider 65 year old female with significant PMH who was admitted at [facility] from 07/24- for acute stroke. Discharged with HH services. Found to have PFO and will need outpatient Cardiology follow up. Started on DAPT for 3 weeks and increased statin to high intensity and will need outpatient Neurology follow up. Recommend labs at PCP appointment to check anemia and renal function. Medication Changes From Visit Start baby aspirin 81mg by mouth once daily for 3 weeks - stop after dose on 08/15/2025 Take atorvastatin 40mg by mouth once daily instead of pravastatin Admission HPI Per Admitting Provider Ms. Abebe is a 65 year old female that presented to the ED today with right sided hemiparesis that has been occurring for three days. She was having difficulty getting out of bed and then fell. She has been utilizing a walker for the past few days and normally does not require assistance devices for ambulation. She expressed that she was not having any speech or memory changes so her and her family did not feel that she was having a stroke. In the ED, A Head CT revealed bilateral chronic age indeterminant lucunar infarction. Head and neck CTA suggesting a 1.3 cm infarction L thalamus. No leukocytosis, Hypomg+ 1.2, negative for Fly, RSV, and Covid. Additional PMH includes COPD with emphysema, PVD s/p pseudoaneurysm s/p R femoral repair on 05/2024. She does take Plavix at home and is on a high dose statin. She smokes 1 ppd cigarettes for 50+ years. No alcohol or recreational drug use. Pt denies NICOLE, visual or auditory disturbances, dizziness, SOB, chest pain, abdominal pain or tenderness, N/V/D, recent falls or trauma. On examination, patient is pleasant, AAOx4 and able to participate in a meaningful conversation. She is able to follow commands and feels that her strength is slowly returning. She is able to perform AROM, albeit with right sided hemiparesis. NIH: 2. Patient will be admitted for further stroke like work up including Brain MRI, ECHO, Formal Neurology consult, PT/OT, Mg+ replacement. Unfortunately, due to length of time lapse from onset of symptoms, unlikely aggressive intervention; conservative management with PT/OT/ST. Pt already on Plavix and high dose statin. Please see A/P for further details. Admission Exam Per Admitting Provider Neuro: AAOx4, PERRLA, no aphagia, memory changes, CNII-XII grossly intact HEENT: head normocephalic, moist mucus membranes. Poor dentition, (+) endentulism CV: S1/S2, (-) M/G/R, (-) edema, cap refill < 3 seconds Resp: Lungs CTA in all espinoza. On RA GI: Abdomen S/NT/ND, Ax4 bowel sounds, (-) CVA tenderness Musculoskeletal: 4/5 LLE/LLE strength, 3/5 RUE/RLE strength. At baseline, no ambulation devices. (+) pronator drift. Skin: (-) rashes , (-) erythema. Psych: euthymic mood Discharge Exam General/Psych: WD/WN, sitting up in bed, NAD, conversing easily Head: normocephalic, atraumatic Eyes: normal inspection, PERRL, conjunctivae pink Neck: normal visual inspection, trachea midline Respiratory: normal respiratory effort, lungs clear to auscultation, no wheeze/rales/rhonchi, no accessory muscle use Cardiovascular: regular rate and rhythm, no murmur/rub/gallop Extremities: no cyanosis or clubbing, normal peripheral pulses, no BLE edema Abdomen/GI: normal bowel sounds, soft, nontender Neurologic/MSK: A+Ox3, CN's II-XI intact bilaterally, motor strength 4/5 in RUE and RLE, 5/5 in LUE and LLE, moves all extremities Skin: no rashes, normal color, warm and dry Updated Medication List Medication Instructions Recorded Confirmed Type cholecalciferol (vitamin D3) 25 25 mcg PO QAM 06/05/24 07/24/25 History mcg (1,000 unit) tablet (Vitamin D3) clopidogrel 75 mg tablet (Plavix) 75 mg PO QAM 06/05/24 07/24/25 History cyanocobalamin (vitamin B-12) 500 500 mcg PO QAM 06/05/24 07/24/25 History mcg tablet lisinopril 5 mg tablet 20 mg PO QAM 06/05/24 07/24/25 History magnesium 500 mg tablet 0 mg PO DAILY 06/05/24 07/24/25 History metformin 500 mg tablet 1,000 mg PO QAM 06/05/24 07/24/25 History ondansetron HCl 4 mg tablet 4 mg PO Q6H PRN n/v 06/05/24 07/24/25 History pantoprazole 40 mg tablet,delayed 40 mg PO QAM 06/05/24 07/24/25 History release tramadol 50 mg tablet 100 mg PO BID 06/05/24 07/24/25 History amlodipine 5 mg tablet 5 mg PO DAILY 07/24/25 07/24/25 History gabapentin 100 mg capsule 100 mg PO BID 07/24/25 07/24/25 History aspirin 81 mg tablet,delayed 81 mg PO QAM #18 tabs 07/28/25 Rx release atorvastatin 40 mg tablet 40 mg PO DAILY #30 tabs 07/28/25 Rx Hospital Stay Data Consultations 07/24/25 14:22 ED Decision to Admit Stat 07/24/25 16:32 Consult Neurology Routine 07/25/25 11:02 Consult Gastroenterology Routine Diagnostic Imagining Performed Chest X-Ray 07/24/25 12:08 XR chest 1V portable CLINICAL HISTORY: weakness COMPARISON STUDY: Chest radiograph May 09, 2024. FINDINGS: Lung volumes are normal. Lungs are clear. There is no pneumothorax or pleural effusion. Cardiac size is normal. Mediastinal contours are normal. There is no evidence for pulmonary edema. IMPRESSION: No acute cardiopulmonary findings. ACT 112: Negative or not required by law. Electronically signed by: Harish Serrano M.D. 07/24/2025 12:[address] 07/24/25 12:08 CT head/brain wo con CLINICAL HISTORY: 65 years-old Female with neuro deficit, acute stroke suspected. Acute stroke like symptoms TECHNIQUE: Multiple axial CT images of the head were obtained without contrast. A dose lowering technique was utilized adhering to the principles of ALARA. COMPARISON: CTA head of same day FINDINGS: No acute intracranial hemorrhage, midline shift, intracranial mass, hydrocephalus, territorial ischemia or abnormal extra-axial collection. Involutional changes with mild white matter hypodensities suggestive of chronic microvascular ischemic disease. Chronic appearing lacunar infarcts are noted within the basal ganglia bilaterally. There is an ill-defined 1.3 cm hypodense focus within the left thalamus/posterior limb of the left internal capsule on image 17 series 2. Similar appearing ill-defined 9 mm hypodense focus of the right caudate nuclear head. The calvarium is intact. The paranasal sinuses, mastoid air cells, and middle ear cavities are clear. IMPRESSION: 1. No acute intracranial hemorrhage, midline shift or acute territorial infarct. 2. There are bilateral chronic and age-indeterminate basal ganglia lacunar infar cts, notably a 1.3 cm infarct within the left thalamus/posterior limb of the left internal capsule. These findings could be correlated with MRI if clinically indicated. ACT 112: Negative or not required by law. The above report was generated using voice recognition software. It may contain grammatical, syntax or spelling errors. Electronically signed by: Hussain Valencia M.D. 07/24/2025 1:50 PM Head CTA 07/24/25 12:08 CTA ANGIOGRAPHY OF THE HEAD CLINICAL HISTORY: neuro deficit, acute stroke suspected COMPARISON STUDY: No previous studies for comparison. TECHNIQUE: Helical axial images of the head were obtained following uneventful intravenous administration of 119 cc of Optiray. Sagittal and coronal reconstructions were viewed as well as maximal intensity projections on an independent 3-D workstation. Automated exposure control was utilized for the study. A dose lowering technique was utilized adhering to the principles of ALARA. CT DOSE: 1065.75 mGy.cm FINDINGS: Please note that the head CT will be reported separately. No acute intracranial hemorrhage, midline shift or mass effect is present. There are old bilateral basal ganglia infarcts. There is an ill-defined 1.3 cm hypodense focus within the left thalamus and posterior limb of the internal capsule. This represents an age indeterminate infarct. The bilateral M1, M2, A1 and A2 segments are patent. There is mild plaque within the cavernous carotids without significant stenosis. The left vertebral artery is dominant. The right vertebral artery is diminutive, likely on a congenital basis. This ends in the posterior inferior cerebellar artery. The artery is patent. There is persistence of the left posterior cerebral artery. No intracranial vessel occlusion is identified. There is no intracranial aneurysm. IMPRESSION: 1. No large vessel occlusion. No intracranial aneurysm. 2. Age indeterminate 1.3 cm infarct within the left thalamus and posterior limb of the left internal capsule. 3. Multiple old bilateral basal ganglia infarcts. ACT 112: Negative or not required by law. Electronically signed by: Harish Serrano M.D. 07/24/2025 1:45 PM Neck CTA 07/24/25 12:08 CT ANGIOGRAM OF THE NECK CLINICAL HISTORY: Neurological deficit. Stroke like symptoms. COMPARISON STUDY: No priors TECHNIQUE: Following the IV administration of 119 of Optiray 320, CT angiogram of the neck was performed from the aortic arch to the skull base. Images are reviewed in the axial, sagittal, and coronal planes. 3-D MIPS images are created and assessed. IV contrast was administered without complication. All measurements were calculated based on NASCET criteria. A dose lowering technique was utilized adhering to the principles of ALARA. FINDINGS: Thoracic aorta: There is atherosclerotic calcification of the thoracic aorta. Visualized portions of the thoracic aorta are normal in caliber. The aortic arch demonstrates standard 3-vessel anatomy. Right carotid arterial system: The right common carotid artery is widely patent, as are the right internal and external carotid arteries. Calcified plaque is seen in the carotid bulb. Left carotid arterial system: The left common carotid artery is widely patent, as are the left internal and external carotid arteries. Calcified plaque is seen in the carotid bulb. Vertebral arteries: There is moderate to high-grade stenosis at the origin of the left vertebral artery. The vertebral arteries are otherwise patent bilaterally noting left-sided dominance. The vertebral artery is diminutive and terminates as the PICA. Subclavian arteries: Widely patent bilaterally. Jugular veins: Patent bilaterally. Brain parenchyma: The visualized brain parenchyma the skull base is within normal limits. Lung apices: Emphysematous change is noted. Partially visualized upper lobe lung parenchyma otherwise appears clear. Soft tissues: The visualized pharyngeal soft tissues are normal in appearance noting angiographic phase technique. The oropharyngeal airway appears widely patent. The salivary and thyroid glands are normal in appearance. No cervical ly mphadenopathy is seen. Skeletal structures: The skeletal structures are osteopenic. The visualized calvarium at the skull base appears intact. The imaged cervical spine is maintained noting mild spondylosis. Sinuses and mastoids: The visualized paranasal sinuses are clear. The mastoid air cells are well clear as imaged. IMPRESSION: 1. There is moderate to high-grade stenosis at the origin of the dominant left vertebral artery. 2. Otherwise unremarkable CT angiogram of the neck. 3. Emphysema. ACT 112: Negative or not required by law. Electronically signed by: Eliseo Ordoñez M.D. 07/24/2025 1:46 PM Brain MRI 07/24/25 14:22 MRI BRAIN WITHOUT CONTRAST TECHNIQUE: An MRI examination of the brain was performed utilizing sagittal and axial T1-weighted images as well as axial T2-weighted, FLAIR, gradient echo and diffusion-weighted images. INDICATION: Right-sided weakness COMPARISON: CT evaluations from earlier in the same day are not viewable in our system FINDINGS: There is an acute to subacute infarct measuring 1.5 cm in the left thalamocapsular junction. No significant mass effect or midline shift The ventricular, sulcal and cisternal spaces are normal in caliber. There is no evidence of intracranial mass lesion, hydrocephalus, extra-axial fluid collection, or parenchymal hemorrhage. Age-related involutional changes of the brain and chronic white matter ischemic changes. Punctate foci of chronic hemosiderin deposition in the right lateral medulla and in the left frontal lobe. The cerebellar tonsils are normal in position. The pituitary gland is not enlarged. The major arterial vascular structures of the skull base are patent. No intraorbital soft tissue mass lesion is observed. Mild mucosal thickening of the paranasal sinuses. Mastoids are aerated. IMPRESSION: Acute to subacute infarct measuring 1.5 cm in the left thalamocapsular junction. No significant mass effect or midline shift Electronically signed by Juan Yarbrough 07-24-2025 8:45 PM Abdomen/Pelvis CT 07/25/25 11:[address] WITH IV CONTRAST CT DOSE: 465.36 mGy.cm HISTORY: Acute generalized abdominal pain with possible GI bleed r/o bleed TECHNIQUE: Multiaxial CT images of the abdomen and pelvis were performed following the IV administration of 93 cc of Optiray, A dose lowering technique was utilized adhering to the principles of ALARA. COMPARISON STUDY: 08/22/2012 FINDINGS: The lung bases are generally clear. No pneumatosis or pneumoperit oneum. Unremarkable spleen, pancreas and adrenal glands. Mildly contracted gallbladder with possible cholelithiasis versus biliary sludge. The liver is within normal limits. Patency of the hepatic and portal veins. Intermediate density 7 mm lesion of the posterior interpolar right kidney on image 93. 11 mm probable cyst of the superior pole left kidney. There are additional few ill-defined indeterminate subcentimeter hypodensities in the kidneys. Mild cortical scarring of the left kidney. No hydronephrosis. Contrast noted within the urinary bladder lumen and ureters. Unremarkable uterus. Ext ensive atherosclerosis of the abdominal aorta with aortobiiliac stent graft which appear patent. No lymphadenopathy identified. Nonspecific diffuse wall thickening of the proximal to mid gastric body. Colonic diverticulosis without definite evidence of acute diverticulitis. There is mild colonic fecal retention. Normal appendix. No intraperitoneal or retroperitoneal hemorrhage identified. No acute fracture is seen. IMPRESSION: 1. No acute intra-abdominal or intrapelvic abnormality identified. 2. No intraperitoneal or retroperitoneal hemorrhage identified. 3. Colonic diverticulosis without definite evidence of acute diverticulitis. 4. Renal cysts with a few indeterminate subcentimeter lesions of the kidneys which could be correlated with a nonemergent follow-up renal ultrasound. 5. Chronic findings as above. ACT 112: Negative or not required by law. The above report was generated using voice recognition software. It may contain grammatical, syntax or spelling errors. Electronically signed by: Hussain Valencia M.D. 07/25/2025 3:44 PM Discharge Instructions Given to Patient (Per Discharging Provider) You presented to the hospital with right sided weakness and were found to have a stroke. You were evaluated by a neurologist who recommends adding baby aspirin to your Plavix for 3 weeks, then you should resume only Plavix. They also recommend a high intensity statin, your pravastatin is moderate intensity. Therefore, we are switching you to atorvastatin instead. You will need to follow up with Neurology outpatient and have an appointment scheduled on 08/25/2025 at 12:30pm. You had an ultrasound of your heart which showed a hole in your heart, which makes it easier for blood clots to travel to the brain, and puts you at higher risk for stroke. You will need to follow up with Cardiology outpatient to wear a heart monitor and discuss the hole in your heart. They will call you with an appointment date and time. Your kidneys are still mildly injured. We recommend you hydrate well and have repeat labs at your PCP appointment on 08/01/2025 at 11:20am. MEDICATION CHANGES: Start baby aspirin 81mg by mouth once daily for 3 weeks - stop after dose on 08/15/2025 Take atorvastatin 40mg by mouth once daily instead of pravastatin SUMMARY OF TEST RESULTS: Chest x-ray normal Head CT and Brain MRI showing old strokes and new stroke Head CTA showing no vessel blockages Neck CTA showing moderate to high grade blockage in one artery CT abdomen showing renal cysts - recommend follow up renal ultrasound PENDING TEST RESULTS: None RECOMMENDATIONS FOR FOLLOW-UP: Please follow up with Diana Junior as scheduled on 08/01 at 11:20 am - we recommend repeat labs to check your kidneys and a kidney ultrasound to evaluate cysts Please follow up with Neurology as scheduled on 08/25/2025 at 12:30pm and Cardiology - they will call you with date and time of appointment OTHER INSTRUCTIONS: Seek medical attention if you have: * temperature above 101 * chest pain or trouble breathing * abdominal pain, nausea, vomiting * diarrhea, dark stools or bloody stools * any unanswered questions or concerns Call 911 if symptoms are severe. It has been a pleasure taking care of you. Please take care of yourself. If you have any questions regarding your recent hospitalization please contact and request Mariah Mai @ [phone]. Home Health Attestation I certify that this patient is under my care and that I, or a physicians social human services assistants working with me, had a face to-face encounter that meets the home health [id number] encounter requirements with this patient. The encounter with the patient was in whole, or in part, for the following medical condition, which is the primary reason for home health care (list medical condition): Acute Left Thalamocapsular CVA I certify that, based on my findings, the following services are medically necessary home health services: Home PT and OT My clinical findings support the need for the above services because: Further, I certify that my clinical findings support that this patient is homebound (i.e. absences from home require considerable and taxing effort and are for medical reasons or synagogue services or infrequently or of short duration when for other reasons) because: Certification for Home Health Services: Based on the above findings, I certify that this patient is confined to the home and needs intermittent group home care, physical therapy and/or speech therapy or continues to need occupational therapy. The patient is under my care, and I have initiated the establishment of the plan of care. This patient will be followed by a physician who will periodically review the plan of care. Total Time Total Time Spent Total Time Spent (In Minutes): I spent a total of 35 minutes coordinating, documenting and providing care for this patient excluding time spent in the performance of separately billed services or time spent by another provider/QHP. Supervising Physician Co-Signing Physician Notes Attending addendum: The patient was seen and examined in medical telemetry unit She has been complaining of right-sided limb weakness and noted to have a stroke Later on she has had rectal bleed with decreasing hemoglobin Denies any other neurosymptoms except weakness involving the right upper or lower extremities On examination Sitting on a chair without any acute distress Remains hemodynamically stable Chest was clear to auscultate bilaterally HeartS1-S2, regular Abdomenbenign Extremitiesnegative Her admission labs, EKG and imaging studies reviewed Acute stroke with history of recurrent strokeappreciate neurology input and recommendation Ongoing GI bleed with bright red rectal bleed per rectumGI evaluation Agree with assessment and plan as outlined above by Katelyn Copeland PA-C and take the full responsibility of care in the hospital Total time taken to see the patient, examining her, reviewed chart, investigations and medications and planning of care was [address] Marisol James 07/26/2025 The patient was seen and examined in medical telemetry unit She has been stable and denies any more rectal bleed Denies any other symptoms except ongoing weakness involving right-sided extremities Remains hemodynamically stable with unremarkable labs and the hemoglobin is stable Our system examination was unremarkable Will restart her medication to prevent stroke and continue with PT OT evaluation Agree with assessment plan as outlined above by Lisy Mccoy PA-C and take the full responsibility of care in the hospital I spent a total of 15 minutes to evaluate the patient, discussed the results of the test and plan of care Dr Marisol James 07/27/2025 The patient was seen and examined in medical telemetry unit She has been feeling much better with some improvement of the right sided weakness involving the extremities She has had physical therapy and recommendation is home with home PT Denies any other significant symptoms and her hemoglobin remains stable without any more evidence of bleeding per rectum Her labs and imaging studies and medications reviewed Agree with assessment plan as outlined above by Lisy Mccoy PA-C and take the full responsibility of care in the hospital I spent a total of 15 minutes to evaluate the patient, examining her, reviewing the medications and planning of care. Dr Marisol James 07/28/2025 The patient was seen and examined in medical telemetry unit She has been feeling better and her right sided weakness has improved a lot She denies any other significant symptoms and does not have any other neurosymptoms She will be discharged home this afternoon with home health and home PT Agree with discharge plan as documented above by MEI Elder and take the full responsibility of care in the hospital I spent a total of 15 minutes examining the patient, reviewing the chart and planning of care DR Marisol James
[2025-07-28 12:34] VITALS: BP 148/66; RESP 18; TEMP 98.1; O2SAT 98
[2025-07-28 14:10] VITALS: PULSE 80
== END 2025-07-28 14:44 | disposition home health service (06) | DRG 65 ==
LOC: ED 11:23 → 2N 14:21 → SUATTDRO 14:21 → 2N 15:46